=== PATIENT | male | born 1940 | race Caucasian/White ===

== ENCOUNTER 2022-04-19 15:10 | Emergency (ER) | payer MEDICARE, SELFPAY ==
[2022-04-19 15:14] VITALS: BP 112/70; PULSE 85; RESP 16; TEMP 36.5; O2SAT 100
--- NOTE | 2022-04-19 15:47 | ED.SKABFB ---
HPI - Skin/Abscess/Foreign Bdy General Chief complaint: Skin/Abscess/Foreign Body <HANNAH Alicea Last Filed: 04/19/22 19:24> Stated complaint: ITCHING FOR 2 DAYS <HANNAH Alicea Last Filed: 04/19/22 19:24> Time Seen by Provider: 04/19/22 15:25 <HANNAH Alicea Last Filed: 04/19/22 19:24> History of Present Illness HPI narrative: Patient is an 81-year-old male here for evaluation of a pruritic rash over his thorax and bilateral legs. Patient states he was working in the yard 3 days ago prior to symptom onset. States that the lesions are spreading across his thorax, and the itching is keeping him up at night. He has attempted calamine lotion and alcohol swabs without good relief. Denies painful lesions, fevers, chills, involvement of the eyes or mouth. No new medications, soaps or detergents. <HANNAH Alicea Last Filed: 04/19/22 19:24> Related Data Allergies/Adverse reactions: Allergies Allergy/AdvReac Type Severity Reaction Status Date / Time Penicillins Allergy Rash Verified 04/19/22 17:33 povidone-iodine Allergy Rash Verified 04/19/22 17:33 [From Betadine] <HANNAH Alicea Last Filed: 04/19/22 19:24> Review of Systems Review of Systems: Gen: Denies fevers or chills Eyes: Denies eye pain or visual change ENT: Denies congestion Respiratory: Denies shortness of breath or cough CV: Denies chest pain or palpitations GI: Denies abdominal pain nausea, emesis or diarrhea denies burning, urgency, frequency or hematuria Musculoskeletal: Denies back pain or muscle pain Neuro: Denies numbness, tingling, weakness or focal weakness Skin: Reports pruritic rash Except as documented, all other systems reviewed and negative <HANNAH Alicea Last Filed: 04/19/22 19:24> Exam Narrative: APPEARANCE: Well appearing, no pain in distress, well-nourished. Head: Normocephalic and atraumatic. EYES: PERRLA/EOMI, conjunctivae clear NOSE: No nasal drainage EARS: External ear normal in appearance THROAT: Oropharynx is clear. Mucous membranes are moist. NECK: Supple. No adenopathy, no masses. RESPIRATORY: Airway patent, respirations nonlabored. Clear to auscultation bilaterally, no rales, rhonchi, wheezing. CARDIOVASCULAR: Regular rate and rhythm without murmurs, rubs, or gallops. ABDOMINAL: Normoactive bowel sounds. Soft, nontender, nondistended. No rebound tenderness or guarding. MUSCULOSKELETAL: Extremities are warm and well-perfused. Moves all extremities well. No edema. NEURO: Normal speech. No focal neurologic deficits. SKIN: Patient has 15-20 erythematous papules to left lateral thorax, about 10 lesions over right lateral thorax under axilla, 10-15 lesions along waistband and about 4 lesions in between his upper thighs. Nikolsky sign negative. PSYCHIATRIC: Normal affect/mood. <Mary Alice Rutherford PA-C - Last Filed: 04/19/22 19:24> Course PROCESS CHEESE COOKER/PA Physician Supervision I did not see this patient nor was the care plan discussed with me. I was available for evaluation and consultation, I agree with the documentation <Dwaine Main MD - Last Filed: 04/19/22 21:42> Vital Signs Vital signs: Vital Signs Temperature 36.5 C 04/19/22 15:14 Pulse Rate 85 04/19/22 15:14 Respiratory Rate 16 04/19/22 15:14 Blood Pressure 112/70 04/19/22 15:14 Pulse Oximetry 100 04/19/22 15:14 Oxygen Delivery Room Air 04/19/22 15:14 Temperature 36.5 C 04/19/22 15:14 Pulse Rate 85 04/19/22 15:14 Respiratory Rate 16 04/19/22 15:14 Blood Pressure 112/70 04/19/22 15:14 Pulse Oximetry 100 04/19/22 15:14 Oxygen Delivery Room Air 04/19/22 15:14 <Mary Alice Rutherford PA-C - Last Filed: 04/19/22 19:24> Vital Signs Temperature 36.5 C 04/19/22 15:14 Pulse Rate 85 04/19/22 15:14 Respiratory Rate 16 04/19/22 15:14 Blood Pressure 112/70 04/19/22 15:14 Pulse Oximetry 100
[2022-04-19] MEDS: predniSONE 20 MG TABLET PO (17:34)
[2022-04-19] MEDS: FAMOTIDINE 20 MG TABLET PO (17:58)
== END 2022-04-19 18:00 | disposition home or self-care (01) ==
PROVIDERS: Emergency Provider Emergency Medicine
DX: B88.0 Other acariasis (principal)
CPT/HCPCS: 99283; A9270; J7512

== ENCOUNTER 2023-08-03 13:55 | Outpatient (CLI) | payer MEDICARE, SELFPAY ==
[2023-08-03 14:13] LABS: Immature Reticulocyte Fraction 9.5 % (3.0-15.9); Reticulocyte Percent 1.25 % (0.7-4.3); Reticulocytes Absolute 0.05 M/mm3 (0.02-0.1)
[2023-08-03 16:40] LABS: Iron 84 ug/dL (49-181)
[2023-08-03 16:42] LABS: Alanine Aminotransferase 26 U/L (6-50); Alkaline Phosphatase 59 U/L (38-126); Anion Gap 4 mmol/L (8-16); Aspartate Amino Transferase 40 U/L (17-59); Bilirubin,Total 0.9 mg/dL (0.2-1.3); Blood Urea Nitrogen 17 mg/dL (9-20); Calcium 8.7 mg/dL (8.4-10.2); Carbon Dioxide 32 mmol/L (22-30); Chloride 100 mmol/L (98-107); Estimated Glomerular Filt Rate > 60; Glucose 133 mg/dL (65-110); Potassium 4.4 mmol/L (3.4-5.0); Sodium 136 mmol/L (137-145)
[2023-08-03 16:51] LABS: Percent Iron Saturation 30 % (20-50)
[2023-08-03 17:49] LABS: Folic Acid 17.1 ng/mL (2.76->20)
[2023-08-06 09:02] LABS: Methylmalonic Acid 401 nmol/L (87-318)
== END 2023-08-03 13:56 | disposition home or self-care (01) ==
LOC: ANHLAB 13:59
PROVIDERS: Visit Provider Internal Medicine Hematology & Oncology
DX: D64.9 Anemia, unspecified (principal)
CPT/HCPCS: 36415; 80053; 82607; 82728; 82746; 83540; 83550; 83921; 85046

== ENCOUNTER → 2023-08-31 08:52 | Outpatient (CLI) | payer MEDICARE, SELFPAY ==
--- NOTE | ~2023-08-31 | US_ITS ---
Abdominal Sonogram: Real-time sonographic imaging of the abdomen was performed. Clinical History: Secondary thrombocytopenia Findings: The liver appears normal with no evidence of mass lesion or bile duct dilatation. Main por sonal vein demonstrates normal direction of flow. The spleen is normal in size without evidence of foca l lesion. The gallbladder is well distended, and appears normal with no evidence of gallstone or wal l thickening. The common bile duct measures 4 mm. The visualized pancreas, aorta, and IVC are unrema rkable. The right kidney measures 9.5 cm in length and the left kidney measures 10.2 cm. There is n o hydronephrosis or renal calculus. Impression: Unremarkable abdominal ultrasound. Reviewed, dictated and finalized at location . ER TECHNOLOGY TEACHER Impression: Unremarkable abdominal ultrasound.
== END ==
PROVIDERS: PCP Internal Medicine; Visit Provider Internal Medicine Hematology & Oncology
DX: D64.9 Anemia, unspecified (principal); D69.59 Other secondary thrombocytopenia
CPT/HCPCS: 76700

== ENCOUNTER 2023-09-03 11:38 | Outpatient (CLI) | payer MEDICARE, SELFPAY ==
[2023-09-03 12:07] LABS: Hematocrit 36.6 % (42.0-52.0); Hemoglobin 12.1 g/dL (14.0-18.0); Mean Corpuscular HGB Conc 33.1 g/dl (32-36); Mean Corpuscular Hemoglobin 31.4 pg (26-34); Mean Corpuscular Volume 95.1 fl (80-100); Mean Platelet Volume 10.7 fl (7.4-10.4); Platelet Count Result 141 k/mm3 (150-375); Red Blood Count 3.85 M/mm3 (4.6-6.20); Red Cell Distribution Width 13.7 % (11.5-14.5); White Blood Count 7.7 K/mm3 (4.5-10.0)
== END 2023-09-03 11:39 | disposition home or self-care (01) ==
PROVIDERS: PCP Internal Medicine; Visit Provider Internal Medicine Hematology & Oncology
DX: D64.9 Anemia, unspecified (principal)
CPT/HCPCS: 36415; 85027

== ENCOUNTER 2024-06-26 15:48 | Outpatient (CLI) | payer MEDICARE, SELFPAY ==
--- NOTE | ~2024-06-26 | XR_ITS ---
3 VIEWS LUMBAR SPINE Ordering provider: Adan Puckett History: . LOW BACK PAIN . Comparison: None. FINDINGS: VERTEBRAL BODIES:Transitional vertebra is noted. Chronic anterior loss of height is seen in L1. No de finite visible fracture or subluxation. Degenerative changes of the spine. 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 DISK SPACES: Narrowing of all disc spaces. Multilevel facet joint disease. SOFT TISSUES: Atherosclerotic changes of aorta. Fusion of the sacroiliac joints. IMPRESSION: No acute osseous abnormality lumbar spine. Multilevel degenerative disc disease. Possibility of ankylosing spondylitis is not excluded. Reviewed, dictated and finalized at location A.
== END 2024-06-26 15:49 | disposition home or self-care (01) ==
DX: M51.36 Other intervertebral disc degeneration, lumbar region (principal)
CPT/HCPCS: 72100

== ENCOUNTER 2024-09-24 09:11 | Inpatient (IN) | payer MEDICARE, SELFPAY ==
[2024-09-24] VITALS (25 sets, daily range): BP systolic 96–150; BP diastolic 46–101; PULSE 66–83; RESP 13–23; TEMP 36.6–37.9; O2SAT 90–99; BMI 27.7
--- NOTE | ~2024-09-24 | XR_ITS ---
EXAMINATION: XR femur LT min 2V DATE: 09/24/2024 11:33 INDICATION: Left thigh pain. Fall. TECHNIQUE: 2 views of left femur on 4 radiographs were obtained. COMPARISON: None. FINDINGS: There is an intertrochanteric fracture of proximal left femur. The distal fracture fragment demonstrates impaction. There is mild left hip and knee osteoarthritis. There are surgical clips in the soft tissues. IMPRESSION: 1. Intertrochanteric fracture of proximal left femur. 2. Mild polyarticular osteoarthritis. Reviewed, dictated and finalized at location A. ING LOT ATTENDANT
--- NOTE | ~2024-09-24 | XR_ITS ---
EXAMINATION: XR hip LT 2V w AP pelvis DATE: 09/24/2024 11:33 INDICATION: Left hip pain. Fall. TECHNIQUE: An anteroposterior view of the pelvis and 2 views of left hip were obtained. COMPARISON: None. FINDINGS: There is an intertrochanteric fracture of proximal left femur. The distal fracture fragment demonstrates impaction and 25 degrees posterior angulation. There is internal fixation of right femu r. There is mild osteoarthritis of the hips. Lumbar dextrocurvature and severe spondylosis are noted. IMPRESSION: 1. Intertrochanteric fracture of proximal left femur. 2. Mild osteoarthritis of the hips. Reviewed, dictated and finalized at location A. SECRECY ACT OFFICER
--- NOTE | ~2024-09-24 | NM_ITS ---
EXAMINATION: NM kristie stress w perfusion DATE: 09/25/2024 15:06 INDICATION: Preoperative clearance. Coronary artery disease post prior coronary artery bypass graftin g. TECHNIQUE: Rest images were obtained following intravenous administration of 8.9 mCi Tc99m tetrofosmi n (Myoview). The patient was infused intravenously with Lexiscan (Regadenoson). Then, 29.1 mCi Tc99m tetrofosmin (Myoview) was administered intravenously, and stress images were obtained. Data was recon structed into short axis and horizontal and vertical long axis SPECT images. Gated SPECT images were also obtained. COMPARISON: None. FINDINGS: There is a moderate-sized severe fixed perfusion defect on the rest and stress images consi stent with infarct involving the mid and basilar inferior and basilar inferior segments. This also in volves the mid inferolateral segment with air is mild partial reversibility consistent with some supe rimposed ischemia. Additional mild reversible ischemia is seen in the adjacent apical inferior and ap ical lateral segments. There is normal left ventricular chamber size. Portions of the inferior and in ferolateral wall are difficult to visualize however there does appear to be decreased wall motion whi ch contributes to mild to moderate decreased left ventricular ejection fraction which measures 35%. IMPRESSION: 1. 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 2. Mild to moderately decreased left ventricular ejection fraction measuring 35%. Reviewed, dictated and finalized at location A. ULATING DRYING SUPERVISOR IMPRESSION: 1. 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 2. Mild to moderately decreased left ventricular ejection fraction measuring 35 %.
--- NOTE | ~2024-09-24 | XR_ITS ---
EXAMINATION: XR surgery orthopedic DATE: 09/27/2024 14:59 INDICATION: Left femoral intertrochanteric nailing TECHNIQUE: 4 fluoroscopic images of the left hip and proximal femur were obtained during procedure pe rformed by Dr. Regalado. Radiologist was not present for the imaging or procedure. The amount of fluor oscopy time used during this procedure was 0.9 minutes. COMPARISON: 09/24/2024 FINDINGS: Antegrade intramedullary gaston and femoral neck dynamic compression screw and distal interlocking screw fixation of a minimally displaced intratrochanteric fracture of the proximal left femur which remain s in near-anatomic alignment. No new fractures identified. Mild left hip osteoarthritis. Mass or calc ifications and surgical clips along the medial aspect of the proximal left thigh. IMPRESSION: 1. Near-anatomic alignment post internal fixation of an intratrochanteric fracture of the proximal le ft femur. See procedure note for further detail. Reviewed, dictated and finalized at location A. CAL BILLING ASSISTANT IMPRESSION: 1. Near-anatomic alignment post internal fixation of an intratrochanteric fract ure of the proximal left femur. See procedure note for further detail.
--- NOTE | ~2024-09-24 | XR_ITS ---
EXAMINATION: XR chest 1V DATE: 09/24/2024 11:40 INDICATION: Heart disease. Preop. TECHNIQUE: A single frontal view of the chest was obtained. COMPARISON: None. FINDINGS: There is a diffuse interstitial pattern in the lungs, consistent with mild pulmonary edema. No pleural effusion or pneumothorax. Cardiomegaly is noted. Median sternotomy wires and mediastinal surgical clips are seen, likely from prior coronary artery bypass grafting. There is a left chest pac er with leads in right atrium, right ventricle, and coronary sinus. IMPRESSION: 1. Mild pulmonary edema. 2. Cardiomegaly. Reviewed, dictated and finalized at location A. FIC SIGN ERECTION SUPERVISOR
--- NOTE | 2024-09-24 11:00 | ED_ITS ---
HPI - Fall General Chief Complaint: Fall Stated Complaint: fall, LLE pain Time Seen by Provider: 09/24/24 11:00 History of Present Illness HPI Narrative: 84 years old white male lost balance and fell in his closet at home complaining of left hip pain. He denies other injuries. Related Data Home Medications Medication Instructions Recorded Confirmed amiodarone 200 mg tablet 200 mg PO DAILY 09/24/24 09/24/24 aspirin 81 mg PO DAILY 09/24/24 09/24/24 citalopram 20 mg tablet 20 mg PO DAILY 09/24/24 09/24/24 cyanocobalamin (vitamin B-12) 1,000 mg PO DAILY 09/24/24 09/24/24 ferrous sulfate 325 mg (65 mg 325 mg PO DAILY 09/24/24 09/24/24 iron) tablet gabapentin 600 mg tablet 600 mg PO TID 09/24/24 09/24/24 isosorbide mononitrate 60 mg 30 mg PO DAILY 09/24/24 09/24/24 tablet,extended release 24 hr ropinirole 0.5 mg tablet 0.5 mg PO DAILY 09/24/24 09/24/24 ropinirole 0.5 mg tablet 1 mg PO HS 09/24/24 09/24/24 rosuvastatin 40 mg tablet 40 mg PO DAILY 09/24/24 09/24/24 spironolactone 25 mg tablet 25 mg PO DAILY 09/24/24 09/24/24 warfarin 5 mg tablet 5 mg PO DAILY 09/24/24 09/24/24 zolpidem 5 mg tablet 5 mg PO HS PRN Insomnia 09/24/24 09/24/24 Allergies Allergy/AdvReac Type Severity Reaction Status Date / Time Penicillins Allergy Rash Verified 09/24/24 15:18 povidone-iodine Allergy Rash Verified 09/24/24 15:18 [From Betadine] Review of Systems Review of Systems: All systems reviewed & are unremarkable except as noted in HPI and below PMFSH Past Medical History Medical History Atrial fibrillation CHF (congestive heart failure) Coronary artery disease History of adverse reaction to anesthesia secondary to poor cardiac output 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 Myocardial infarction 1989 Surgical History Surgical History History of open reduction and internal fixation (ORIF) procedure right femur secondary to fracture S/P CABG x 7 S/P internal cardiac defibrillator procedure Family History Family History Father FH: heart attack Sibling Heart attack Son Stomach cancer Social History Social History Years smoked: 70 Smoking status: Current every day smoker Tobacco type: cigarettes Alcohol intake: current Drinks per week: 3 Substance use: never Substance use type: does not use Do You Feel Safe in your Home?: Yes Lack of Transportation: No Lack of Food: Never True Current Housing: I Have Housing Concerned About Future Housing: No Difficulty Paying Gas/Electric Bills: No Difficulty Paying for Meds: No Currently Unemployed: No Education: Decline to Answer Difficulty w/ Childcare or Family Care: No Spiritual care concerns: No Exam Narrative: General appearance: Well-developed, well-nourished, in pain Skin: Normal color Head: Normocephalic, nontraumatic Eyes: Clear conjunctiva ENT: Oropharynx normal, ears normal, nose normal Neck: Supple, nontender Chest and respiratory: Airway patent, no respiratory distress, no accessory muscle use Heart: Regular rate/rhythm Abdomen: Soft, nontender, no organomegaly, quiet bowel sounds Vascular: Normal peripheral pulses, normal capillary refill. Musculoskeletal: Severe tenderness lateral side left hip, severe limited range of motion. Neurologic: Alert and oriented ?3, CLIENT SERVICE REPRESENTATIVE is normal as tested, no gross motor deficit Course Consultations Consultation #1: Dr. Sandoval Patient agreed , Dr. Graves is the business information consultant. Date: 09/24/24 Vital Signs Vital signs: Vital Signs Temperature 36.6 C 09/24/24 09:13 Pulse Rate 83 09/24/24 09:13 Respiratory Rate 20 09/24/24 09:13 Blood Pressure 121/71 09/24/24 09:13 Pulse Oximetry 94 09/24/24 09:13 Oxygen Delivery Room Air 09/24/24 09:13 Temperature 37.2 C 09/25/24 21:30 Pulse Rate 75 09/25/24 21:30 Respiratory Rate 20 09/25/24 21:30 Blood Pressure 109/47 L 09/25/24 21:30 Pulse Oximetry 90 09/25/24 21:30 Oxygen Delivery Nasal Cannula 09/25/24 20:00 Oxygen Flow Rate 2 09/25/24 20:00 MDM - Fall MDM Narrative Medical decision making narrative: PATIENT HAD A FALL AT HOME, GROUND LEVEL PRIOR TO ARRIVAL TO THE EMERGENCY ROOM VITAL SIGNS ON ARRIVAL WITHIN NORMAL LIMIT PHYSICAL EXAMINATION SHOWING DIFFUSE TENDERNESS LEFT HIP AREA CONSISTENT WITH POSSIBLE FRACTURE X-RAY OF THE LEFT HIP AND PELVIS SHOWED LEFT HIP FRACTURE, PATIENT AGREED WITH THE ORTHOPEDIC CONSULT, DR. SANDOVAL WHO IS ON-CALL TODAY TO MANAGE HIS SURGERY. ADMIT TO HOSPITALIST, CONSULT DR. SANDOVAL Differential Diagnosis Differential diagnosis: Likely other ( PELVIC FRACTURE, HIP FRACTURE, CONTUSION) Lab Data 09/25/24 06:20 09/25/24 06:20 Labs: Lab Results 09/24/24 09/24/24 Range/Units 11:53 11:54 WBC 10.5 H (4.5-10.0) K/mm3 RBC 4.14 L (4.6-6.20) M/mm3 Hgb 12.6 L (14.0-18.0) g/dL Hct 39.7 L (42.0-52.0) % MCV 95.9 (80-100) fl MCH 30.4 (26-34) pg MCHC 31.7 L (32-36) g/dl RDW 14.7 H (11.5-14.5) % Plt Count 112 L (150-375) k/mm3 MPV 11.8 H (7.4-10.4) fl Immature Gran % (Auto) 0.6 H (0-0.5) % Neut % (Auto) 85.0 H (45.5-73.1) % Lymph % (Auto) 8.0 L (18.3-44.2) % Sequoyah % (Auto) 5.1 (2.6-8.5) % Eos % (Auto) 0.7 (0-4.4) % Baso % (Auto) 0.6 (0.2-1.2) % Lymph # (Auto) 0.84 L (0.9-3.2) K/mm3 Sequoyah # (Auto) 0.5 (0.1-0.6) K/mm3 Eos # (Auto) 0.1 (0-0.3) K/mm3 Baso # (Auto) 0.1 (0.0-0.1) K/mm3 Abs Immat Gran (auto) 0.06 H (0.00-0.031) K/mm3 Absolute Neuts (auto) 8.9 H (1.3-6.7) K/mm3 Absolute Nucleated RBC 0.000 (0.0-0.012) K/mm3 Nucleated RBC % 0.0 (0.0-0.2) % PT 23.3 H (11.1-14.7) Seconds INR 2.0 APTT 32.4 (22.3-36.8) Seconds Sodium 138 (137-145) mmol/L Potassium 4.2 (3.4-5.0) mmol/L Chloride 107 (98-107) mmol/L Carbon Dioxide 28 (22-30) mmol/L Anion Gap 3 L (4-12) mmol/L BUN 15 (9-20) mg/dL Creatinine 0.80 (0.7-1.3) mg/dL Estim Creat Clear Calc 61 ml/min Estimated GFR > 60 (59 - ) Glucose 106 (65-110) mg/dL Calcium 8.6 (8.4-10.2) mg/dL Total Bilirubin 0.6 (0.2-1.3) mg/dL AST 29 (17-59) U/L ALT 24 (6-50) U/L Alkaline Phosphatase 67 (38-126) U/L NT-Pro-B Natriuret Pep 842 H (19.9-100) pg/mL Total Protein 7.0 (6.3-8.2) g/dL Albumin 3.9 (3.5-5.1) g/dL Blood Type O Positive Antibody Screen Negative Imaging Data Radiologist's impression: X-RAY LEFT HIP AND PELVIS SHOWED INTERTROCHANTERIC FRACTURE OF THE PROXIMAL LEFT FEMUR Critical Care Time Critical Care Time Critical Care Time: No Discharge Plan Discharge Clinical Impression: Closed fracture of left hip Patient Disposition: Still a Patient Condition: Stable
[2024-09-24] MEDS: MORPHINE SULFATE (*CRX) 4 MG/ML INJ IV PUSH ×3 (11:03→20:29)
[2024-09-24] MEDS: ONDANSETRON INJ 4 MG/2 ML VIAL IV PUSH ×2 (11:04→12:20)
--- NOTE | 2024-09-24 11:33 | ECG_ITS ---
Test Date: 2024-09-24 11:52:22 Measurements Intervals Effort Rate: 77 P: 137 WI: 157 QRS: 256 QRSD: 180 T: 42 QT: 469 QTc: 534 Interpretive Statements ELECTRONIC ATRIAL PACEMAKER ELECTRONIC VENTRICULAR PACEMAKER ABNORMAL RHYTHM ECG No previous ECG available for comparison Electronically Signed On 09-24-2024 15:04:42 [employer]ITY OFF[employer] by Henry Devries M.D.
[2024-09-24 12:07] LABS: Basophils Absolute Auto 0.1 K/mm3 (0.0-0.1); Basophils Percent Auto 0.6 % (0.2-1.2); Eosinophils Absolute Auto 0.1 K/mm3 (0-0.3); Eosinophils Percent Auto 0.7 % (0-4.4); Hematocrit 39.7 % (42.0-52.0); Hemoglobin 12.6 g/dL (14.0-18.0); Immature Granulocyte Absolute 0.06 K/mm3 (0.00-0.031); Immature Granulocyte Percent A 0.6 % (0-0.5); Lymphocytes Absolute Auto 0.84 K/mm3 (0.9-3.2); Mean Corpuscular HGB Conc 31.7 g/dl (32-36); Mean Corpuscular Hemoglobin 30.4 pg (26-34); Mean Corpuscular Volume 95.9 fl (80-100); Mean Platelet Volume 11.8 fl (7.4-10.4); Monocytes Absolute Auto 0.5 K/mm3 (0.1-0.6); Monocytes Percent Auto 5.1 % (2.6-8.5); Neutrophils Absolute Auto 8.9 K/mm3 (1.3-6.7); Platelet Count Result 112 k/mm3 (150-375); Red Blood Count 4.14 M/mm3 (4.6-6.20); Red Cell Distribution Width 14.7 % (11.5-14.5); White Blood Count 10.5 K/mm3 (4.5-10.0)
[2024-09-24 12:17] LABS: Alanine Aminotransferase 24 U/L (6-50); Albumin Level 3.9 g/dL (3.5-5.1); Alkaline Phosphatase 67 U/L (38-126); Anion Gap 3 mmol/L (4-12); Aspartate Amino Transferase 29 U/L (17-59); Bilirubin,Total 0.6 mg/dL (0.2-1.3); Blood Urea Nitrogen 15 mg/dL (9-20); Calcium 8.6 mg/dL (8.4-10.2); Carbon Dioxide 28 mmol/L (22-30); Chloride 107 mmol/L (98-107); Estimated CRCL calculation 61 ml/min; Estimated Glomerular Filt Rate > 60; Glucose 106 mg/dL (65-110); Potassium 4.2 mmol/L (3.4-5.0); Sodium 138 mmol/L (137-145)
[2024-09-24 12:26] LABS: Prothrombin Time 23.3 Seconds (11.1-14.7)
[2024-09-24 12:27] LABS: Partial Thromboplastin Time 32.4 Seconds (22.3-36.8)
--- NOTE | 2024-09-24 12:29 | PM.IMHP ---
H&P: HPI History of Present Illness Date/Time: 09/24/24 12:29 Chief Complaint: Fall Narrative: 84 y/o M presents here after a ground level fall with PMH of CABGx7 (patient unsure), defibrillator/pacemaker in place (replaced in Jul 2024), cardiac stents, intramural thrombus (20+ years ago), OR, hypotension, and paroxysmal A-Fib on chronic anticoagulation. The patient presents here from home via EMS for further evaluation post-ground level fall. The patient reports he was getting ready for mandaen this morning. He reports he was reaching for the closet door to keep his balance and missed the door causing him to fall onto his left side. Patient hit his left hip and left elbow when he fell. Patient typically ambulates with a walker at baseline, was not utilizing assistive device at the time of fall. Post fall he was reporting left hip pain. He was not ambulatory after the fall. He denies head strike or loss of consciousness. Denies numbness or tingling to his left lower extremity. Patient is on anticoagulation - Coumadin 5 mg and 81 mg ASA daily. Has preexisting sore to his right foot related to poor circulation to his RLE r/t to his heart function. Recent US of his lower extremity showed no abnormalities of the venous or arterial system. Currently follows with Belle PHOENIX at [facility] for his cardiac care. Has previously had issues with anesthesia due to his poor heart function. Initial VS at presentation: 97.9? F, HR 83, RR 20, 121/71, and 94% on RA. ED workup showed: WBC 10.5, hemoglobin 12.6, no significant electrolyte derangements, creatinine 0.8 and GFR >60, INR 2.0. CXR showed mild pulmonary edema cardiomegaly. Hip and pelvic XR/left femur XR showed in intratrochanteric fracture of the proximal left femur and mild osteoarthritis. Review of Systems Review of Systems: All systems reviewed & are unremarkable except as noted in HPI and below [facility] Past Medical History Medical History (Updated 09/24/24 @ 17:38 by Kenyetta Lozada APRN) Atrial fibrillation CHF (congestive heart failure) Coronary artery disease History of adverse reaction to anesthesia secondary to poor cardiac output 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 Myocardial infarction 1989 Surgical History Surgical History (Updated 09/24/24 @ 17:36 by Kenyetta Lozada APRN) History of open reduction and internal fixation (ORIF) procedure right femur secondary to fracture S/P CABG x 7 S/P internal cardiac defibrillator procedure Family History Family History (Updated 09/24/24 @ 15:06 by eJremias Jiménez RN) Father FH: heart attack Sibling Heart attack Son Stomach cancer Social History Social History Years smoked: 70 Smoking status: Current every day smoker Tobacco type: cigarettes Alcohol intake: current Drinks per week: 3 Substance use: never Substance use type: does not use Do You Feel Safe in your Home?: Yes Lack of Transportation: No Lack of Food: Never True Current Housing: I Have Housing Concerned About Future Housing: No Difficulty Paying Gas/Electric Bills: No Difficulty Paying for Meds: No Currently Unemployed: No Education: Decline to Answer Difficulty w/ Childcare or Family Care: No Spiritual care concerns: No Meds Home Medications and Allergies Home Medications Medication Instructions Recorded Confirmed Type loratadine 10 mg tablet (Allergy 10 mg PO DAILY PRN itching #10 tabs 04/19/22 09/24/24 Rx Relief (loratadine)) amiodarone 200 mg tablet 200 mg PO DAILY 09/24/24 09/24/24 History aspirin 81 mg PO DAILY 09/24/24 09/24/24 History citalopram 20 mg tablet 20 mg PO DAILY 09/24/24 09/24/24 History cyanocobalamin (vitamin B-12) 1,000 mg PO DAILY 09/24/24 09/24/24 History ferrous sulfate 325 mg (65 mg 325 mg PO DAILY 09/24/24 09/24/24 History iron) tablet gabapentin 600 mg tablet 600 mg PO TID 09/24/24 09/24/24 History isosorbide mononitrate 60 mg 30 mg PO DAILY 09/24/24 09/24/24 History tablet,extended release 24 hr ropinirole 0.5 mg tablet 0.5 mg PO DAILY 09/24/24 09/24/24 History ropinirole 0.5 mg tablet 1 mg PO HS 09/24/24 09/24/24 History rosuvastatin 40 mg tablet 40 mg PO DAILY 09/24/24 09/24/24 History spironolactone 25 mg tablet 25 mg PO DAILY 09/24/24 09/24/24 History warfarin 5 mg tablet 5 mg PO DAILY 09/24/24 09/24/24 History zolpidem 5 mg tablet 5 mg PO HS PRN Insomnia 09/24/24 09/24/24 History Allergies Allergy/AdvReac Type Severity Reaction Status Date / Time Penicillins Allergy Rash Verified 09/24/24 15:18 povidone-iodine Allergy Rash Verified 09/24/24 15:18 [From Betadine] Vital Signs Vital Signs - 24 hr 09/24/24 09:13 09/24/24 11:09 09/24/24 11:24 Temperature 97.9 F Pulse Rate 83 76 66 Respiratory Rate 20 17 18 Blood Pressure 121/71 113/70 98/79 L Pulse Oximetry 94 98 99 Oxygen Delivery Room Air Exam Const: General: no acute distress and uncomfortable Other: , elderly, nontoxic appearance. Very uncomfortable and restless. HENMT: Face/Nose/Sinus: Normal nares present Mouth: Yes moist mucous membranes Eyes: General: appearance normal, both eyes and all related structures Sclera: sclerae normal Pupils: Equal, round and reactive pupils present EOM: EOMs intact bilaterally Resp: Effort & Inspection: normal respiratory effort Auscultation: clear to auscultation bilaterally Cardio: Rate: regular rate Rhythm: regular rhythm Other: S1-S2 present without murmur, rub, ectopy GI: Other: Abdomen soft, nondistended, nontender. Normoactive bowel sounds in all quadrants. Skin: General skin exam: normal color and no rashes or lesions noted Wounds: wounds noted Other: small 1 cm circular wound overlaying medial malleolus without drainage or erythema. Skin thickened/hardened without tenderness. Cecilio wrap and dressing CDI. Neuro: Speech: normal speech Sensory Exam: normal sensation Other: A&O x4. Reduced strength in the left lower extremity secondary to pain. Extrem: Other: Tenderness over left hip. No palpable DP pulse in left leg, pulse dopperlable. Psych: Mental Status: mental status grossly normal Affect: normal affect Other: Good insight and judgment, pleasant H&P: Results Labs Labs: Short CBC 09/24/24 Range/Units 11:54 WBC 10.5 H (4.5-10.0) K/mm3 Hgb 12.6 L (14.0-18.0) g/dL Hct 39.7 L (42.0-52.0) % Plt Count 112 L (150-375) k/mm3 BMP 09/24/24 11:54 Sodium 138 Potassium 4.2 Chloride 107 Carbon Dioxide 28 BUN 15 Creatinine 0.80 Glucose 106 Calcium 8.6 Liver Function 09/24/24 Range/Units 11:54 Total Bilirubin 0.6 (0.2-1.3) mg/dL AST 29 (17-59) U/L ALT 24 (6-50) U/L Alkaline Phosphatase 67 (38-126) U/L Albumin 3.9 (3.5-5.1) g/dL Assessment and Plan Assessment and plan (1) Intertrochanteric fracture of left femur: Qualifiers: Encounter type: initial encounter Fracture alignment: nondisplaced Fracture type: closed Qualified Code(s): S72.145A - Nondisplaced intertrochanteric fracture of left femur, initial encounter for closed fracture Code(s): S72.142A - Displaced intertrochanteric fracture of left femur, initial encounter for closed fracture Status: Acute Assessment and Plan: - CXR: 1. Mild pulmonary edema. 2. Cardiomegaly. - XR femur, L: 1. Intertrochanteric fracture of proximal left femur. 2. Mild polyarticular osteoarthritis. - hip/pelvis XR: 1. Intertrochanteric fracture of proximal left femur. 2. Mild osteoarthritis of the hips. - orthopedics consulted, Valorie PHOENIX. awaiting formal recs - preop workup including basic labs, coags, EKG, UA, CXR, BNP, and type and screen - cardiology consulted for cardiac clearance - analgesics p.r.n. - on Warfarin and ASA, medications held. INR 2.0, trend. After extensive conversation and shared decision-making with the patient, the patient's , and the patient's son, they have elected to stay at [facility] for surgical management of the patient's intratrochanteric fracture of the left femur. They are requesting either the pickling drum operator or anesthesiologist touch base with the patient's pickling drum operator at [facility] (Belle PHOENIX) prior to surgery given his extensive risk and cardiac hx. This has been relayed to the home sales service professional pickling drum operator. Also discussed case with home sales service professional anesthesiologists, recommended hospitalist or pickling drum operator speak with patient's pickling drum operator. Requesting any procedures done at [facility] or [facility] be relayed to help guide their care. Request for records to be obtained from [facility] and from [facility] where he has previously received cardiac care has been placed. The patient is aware of the significant risk to him with proceeding with surgery as well as the benefits. Patient is also aware of risks and benefits of nonsurgical management. Despite known risk, he would like to proceed with surgical management. (2) Ankle wound: Qualifiers: Encounter type: sequela Laterality: left Qualified Code(s): S91.002S - Unspecified open wound, left ankle, sequela Code(s): S91.009A - Unspecified open wound, unspecified ankle, initial encounter Status: Chronic Assessment and Plan: - small superficial wound to medial malleolus of left ankle, no active signs of infection - wound secondary to poor cardiac output, recent ultrasound of arterial and venous systems showed no abnormalities - wound RN consulted (3) CHF (congestive heart failure): Qualifiers: Heart failure type: unspecified Heart failure chronicity: chronic Qualified Code(s): I50.9 - Heart failure, unspecified Code(s): I50.9 - Heart failure, unspecified Status: Chronic Assessment and Plan: - BNP 842 - none on file, believes last outpatient echo was 1 year ago. update. - currently on: Spironolactone 25 mg daily - monitor I&Os and daily weights - trend renal function Plan Diet: Heart healthy, NPO at midnight GI Prophylaxis: not currently indicated DVT Prophylaxis: SCDs, warfarin and ASA held. Lines: peripheral Code Status: full code Quality VTE Prophylaxis VTE prophylaxis: mechanical ordered If No VTE Prophylaxis Answer both mechanical and pharmacologic: Reason no pharmacologic proph: medical contraindication (Plan for surgical management) Hospitalist MIPS Advance Care Plan I have confirmed that the patient's Advanced Care Plan is present, code status is documented, or surrogate decision maker is listed in patient medical record.: Yes Medication Reconciliation I have utilized all available resources to obtain, update and review the patients current medications (includes all prescriptions, OTC, herbals, cannabis, and nutritional supplements).: Yes
[2024-09-24] MEDS: HYDROmorphone HCL INJ (*CRX) 1 MG/ML SYR 0.5 MG IV PUSH ×2 (14:18→18:31)
[2024-09-24 14:50] LABS: NT Pro B Type Natriuretic Pept 842 pg/mL (19.9-100)
--- NOTE | 2024-09-24 15:00 | ADMGEN ---
This patient, Doc Zhou, was admitted to 3 Med Surg Room 324-01. Patient/family oriented to hospital policies and general routines including ID bracelet, bed and alarms, visiting hours, pain management, procedures, bathroom and other care routines, personal items, smoking policy, room service/diet, and visiting hours. Information on how to activate the Rapid Response Team has been discussed. Patient/Family are encouraged to report perceived risks to care and to ask questions if they do not understand what they are told or what they should do.
[2024-09-24] MEDS: oxyCODONE HCL (*CRX) 2.5 MG TAB IR PO (16:27)
[2024-09-24] MEDS: GABAPENTIN 300 MG CAPSULE 600 MG PO (16:28)
[2024-09-24 20:16] LABS: Add Urine Microscopic? YES; Appearance Urine Cloudy (Clear); Bacteria Urine None Seen /hpf; Bilirubin Urine Negative (Negative); Blood Urine 2+ (Negative); Color Urine Dark Yellow (Yellow); Glucose Urine UA Negative (Negative); Ketones Urine Negative (Negative); Leukocyte Esterase Ur Negative LEU/UL (Negative); Mucus Urine Present /lpf; Need Manual Microscopic Reviewed; Nitrate Urine Negative (Negative); Protein Urine 1+ mg/dL (Negative); Specific Grav Ur 1.025 (1.001-1.035); Squamous Epithelial Cell Urine None Seen /hpf (Few); WBC Urine 0-5 /hpf (0-3)
[2024-09-24] MEDS: rOPINIRole HCL 1 MG TABLET PO (20:29)
--- NOTE | 2024-09-25 | EST_ITS ---
Patient Info Name: Doc Zhou Age: 84 years : 1940 Gender: Male Ht: 70 in Wt: 192 lbs BSA: 2.09 m2 HR: 76 bpm BP: 117 / 53 mmHg Exam Date: 09/25/2024 2:02 PM Exam Location: Echo Lab Patient Status: Inpatient Admit Date: 09/24/2024 Staff Ordering Physician: Jay Shannon MD Attending Provider: Surya Rico MD Exercise Technologist: Lowell Ramsay CONCRETE ENGINEERING TECHNICIAN Nurse: Hanh Pederson APN Exam Type: CA stress kristie w NM Study Info A regadenoson stress test was performed. Summary 1. No abnormal ST-T wave changes with lexiscan. Protocol: Lexiscan Stress ECG Details Stage: REST Duration (min): 1 min : 28 sec HR (bpm): 75 SBP (mmHg): 117 DBP (mmHg): 53 Stage: REST Duration (min): 8 min : 53 sec HR (bpm): 75 SBP (mmHg): 117 DBP (mmHg): 53 Stage: STAGE 1 Duration (min): 0 min : 59 sec HR (bpm): 75 SBP (mmHg): 105 DBP (mmHg): 49 Stage: RECOVERY Duration (min): 1 min : 0 sec HR (bpm): 77 SBP (mmHg): 105 DBP (mmHg): 49 Stage: RECOVERY Duration (min): 2 min : 0 sec HR (bpm): 76 SBP (mmHg): 105 DBP (mmHg): 49 Stage: RECOVERY Duration (min): 3 min : 0 sec HR (bpm): 77 SBP (mmHg): 96 DBP (mmHg): 46 Stage: RECOVERY Duration (min): 4 min : 0 sec HR (bpm): 75 SBP (mmHg): 96 DBP (mmHg): 46 Stage: RECOVERY Duration (min): 5 min : 0 sec HR (bpm): 75 SBP (mmHg): 93 DBP (mmHg): 53 Stage: RECOVERY Duration (min): 6 min : 0 sec HR (bpm): 75 SBP (mmHg): 93 DBP (mmHg): 53 Stage: RECOVERY Duration (min): 7 min : 0 sec HR (bpm): 77 SBP (mmHg): 91 DBP (mmHg): 50 Stage: RECOVERY Duration (min): 8 min : 0 sec HR (bpm): 80 SBP (mmHg): 91 DBP (mmHg): 50 Stage: RECOVERY Duration (min): 9 min : 0 sec HR (bpm): 81 SBP (mmHg): 90 DBP (mmHg): 46 Stage: RECOVERY Duration (min): 10 min : 0 sec HR (bpm): 81 SBP (mmHg): 90 DBP (mmHg): 46 Stage: RECOVERY Duration (min): 10 min : 48 sec HR (bpm): 80 SBP (mmHg): 91 DBP (mmHg): 51 Rest HR: 75 bpm Peak HR: 88 bpm Rest Sys BP: 117 mmHg Peak Sys BP: 105 mmHg Max Pred HR: 135 bpm % Max Pred HR: 65 % Target HR: 115 bpm Max RPP: 9,240 bpm*mmHg Total Time: 1 min : 0 sec Rest Gonzalez BP: 53 mmHg Peak Gonzalez BP: 49 mmHg Total Dose: 0.4 mg Resting ECG Ventricularly paced rhythm. Stress ECG Vpaced rhythm. Arrhythmias Occasional PVCs. Report Signatures
--- NOTE | 2024-09-25 | ECHO_ITS ---
Patient Info Name: Doc Zhou Age: 84 years : 1940 Gender: Male Ht: 70 in Wt: 195 lbs BSA: 2.11 m2 HR: 74 bpm BP: 104 / 58 mmHg Technical Quality: Poor Exam Date: 09/25/2024 10:01 AM Exam Location: Echo Lab Patient Status: Inpatient Admit Date: 09/24/2024 Staff Ordering Physician: Kenyetta Lozada APRN Receiving Weigher: Earnest Rodriguez RDCS Attending Provider: Surya Rico MD Referring Physician: Nevilel COSTELLO; Exam Type: CA echo dop color flow w con Study Info Indications - PRE-OP WORK UP/ HX OF VERY POOR CARDIAC OUTPUT Complete two-dimensional, color flow and Doppler transthoracic echocardiogram is performed with contrast to opacify the left ventricle and to improve the deliniation of the left ventricle endocardial borders. Contrast/Agitated Saline Contrast/Ag. Saline: Definity Amount: 2.00 ml Existing IV Access: Yes Reason for Poor Study: poor echocardiographic windows Summary 1. The left ventricle is mildly dilated with severely reduced systolic function. There is moderate eccentric left ventricular hypertrophy. The left ventricular ejection fraction is visually estimated to be 25-30%. The inferior and inferolateral morales are akinetic. 2. The right ventricle is not well visualized. There is mildly reduced systolic function by tissue Doppler. 3. Dilated inferior vena cava with >50% collapse upon inspiration consistent with significantly elevated right atrial pressure, 15 mmHg. Left Ventricle The left ventricle is mildly dilated with severely reduced systolic function. There is moderate eccentric left ventricular hypertrophy. The left ventricular ejection fraction is visually estimated to be 25-30%. The inferior and inferolateral morales are akinetic. Right Ventricle The right ventricle is not well visualized. There is mildly reduced systolic function by tissue Doppler. Left Atria The left atrium is mildly enlarged. Right Atria The right atrium is dilated. Atrial Septum The atrial septum visually appears intact. Aortic Valve The aortic valve is not well visualized. The gradients across the valve does not suggest stenosis. There is no aortic regurgitation. Pulmonic Valve The pulmonic valve is not well visualized. There is no color Doppler evidence of pulmonic valve regurgitation. Mitral Valve The mitral valve is normal. There is trace mitral regurgitation. Tricuspid Valve The tricuspid valve is grossly normal. There is trace tricuspid regurgitation. Pericardium/Pleural Pericardium is normal in appearance with no evidence for significant pericardial effusion. Inferior Vena Cava Dilated inferior vena cava with >50% collapse upon inspiration consistent with significantly elevated right atrial pressure, 15 mmHg. Aorta The aortic root at the level of the sinus of Valsalva measures 3.5 cm in diameter. Left Ventricular Outflow Tract Name Value Normal LVOT 2D LVOT Diameter 2.11 cm LVOT Doppler LVOT Peak Gradient 4 mmHg LVOT Mean Gradient 2 mmHg LVOT VTI 20.66 cm LVOT VTI/AV VTI Ratio 0.51 LVOT Stroke Volume 72.31 ml LVOT CO 5.39 l/min LVOT CI 2.56 L/min/m2 Pulmonic Valve Name Value Normal RVOT Doppler RVOT Peak Gradient 1 mmHg PV Doppler PV Peak Gradient 2 mmHg Mitral Valve Name Value Normal MV Doppler MV Decel Glascock 559.52 cm/s2 MV PHT 0 s MV Area (PHT) 5.05 cm2 4.00-5.00 MV Diastolic Function MV E Peak Velocity 83.98 cm/s MV A Peak Velocity 93.92 cm/s MV E/A 0.89 MV Decel Time 0 s MV Annular TDI MV E/e' (Septal) 10.38 <=8.00 MV E/e' (Lateral) 9.12 <=8.00 MV E/e' (Average) 9.75 Tricuspid Valve Name Value Normal TV Regurgitation Doppler TR Peak Velocity 279.11 cm/s TR Peak Gradient 31 mmHg Estimated PAP/RSVP RA Pressure 15 mmHg <=5 PA Systolic Pressure 46 mmHg <36 RV Systolic Pressure 46 mmHg <36 Aorta Name Value Normal Ascending Aorta Ao Root Diameter (MM) 4.43 cm Ao Root Diam Index (MM) 2.10 cm/m2 Aortic Valve Name Value Normal AV Doppler AV Peak Velocity 177.67 cm/s AV Peak Gradient 8 mmHg AV Mean Gradient 5 mmHg AV VTI 40.65 cm AV Area (Cont Eq VTI) 1.78 cm2 >=3.00 AV Area (Cont Eq Osorio) 2.52 cm2 AV Regurgitation 2D LVOT Area 3.50 cm2 Ventricles Name Value Normal LV Dimensions 2D/MM IVS Diastolic Thickness (2D) 1.03 cm 0.60-1.00 LVID Diastole (2D) 4.97 cm 4.20-5.80 LVIW Diastolic Thickness (2D) 1.63 cm 0.60-1.00 LVID Systole (2D) 4.22 cm 2.50-4.00 LVOT Diameter 2.11 cm LV Mass (2D Cubed) 268.43 g 88.00-224.00 LV Mass Index (2D Cubed) 0.01 g/cm2 0.00-0.01 Relative Wall Thickness (2D) 0.66 LV Fractional Shortening/Ejection Fraction 2D/MM LV Fractional Shortening (2D) 15 % 25-43 LV EF (2D Teicholz) 32 % 52-72 LV Diastolic Volume (4C MOD) 143.53 ml LV EF (4C MOD) 31 % LV Diastolic Volume (2C MOD) 91.36 ml LV EF (2C MOD) 44 % LV Diastolic Volume (BP MOD) 123.01 ml 62.00-150.00 LV Diastolic Volume Index (BP MOD) 0.06 l/m2 0.03-0.07 LV Systolic Volume (BP MOD) 76.03 ml 21.00-61.00 LV Systolic Volume Index (BP MOD) 0.04 l/m2 0.01-0.03 LV EF (BP MOD) 38 % 52-72 LV Diastolic Length (4C) 8.49 cm LV Systolic Length (4C) 7.82 cm LV Stroke Volume (4C MOD) 44.09 ml Atria Name Value Normal LA Dimensions LA Dimension (MM) 4.86 cm 3.00-4.10 LA Volume (4C A-L) 81.05 ml LA Volume (BP A-L) 83.18 ml RA Dimensions RA Area (4C) 25.43 cm2 <=18.00 Report Signatures
[2024-09-25] MEDS: SODIUM CHLORIDE 0.9% IV 1,000 ML 10 ML IV CONT (00:23)
[2024-09-25 06:00] VITALS: BP 104/58; PULSE 74; RESP 20; TEMP 37.2; O2SAT 94
[2024-09-25 06:28] LABS: Basophils Absolute Auto 0.1 K/mm3 (0.0-0.1); Basophils Percent Auto 0.6 % (0.2-1.2); Eosinophils Absolute Auto 0.1 K/mm3 (0-0.3); Eosinophils Percent Auto 0.7 % (0-4.4); Hematocrit 36.8 % (42.0-52.0); Hemoglobin 11.3 g/dL (14.0-18.0); Immature Granulocyte Absolute 0.05 K/mm3 (0.00-0.031); Immature Granulocyte Percent A 0.5 % (0-0.5); Lymphocytes Percent Auto 9.1 % (18.3-44.2); Mean Corpuscular HGB Conc 30.7 g/dl (32-36); Mean Corpuscular Hemoglobin 30.6 pg (26-34); Mean Corpuscular Volume 99.7 fl (80-100); Mean Platelet Volume 11.6 fl (7.4-10.4); Monocytes Absolute Auto 0.7 K/mm3 (0.1-0.6); Monocytes Percent Auto 7.2 % (2.6-8.5); Neutrophils Absolute Auto 8.1 K/mm3 (1.3-6.7); Neutrophils Percent Auto 81.9 % (45.5-73.1); Platelet Count Result 85 k/mm3 (150-375); Red Blood Count 3.69 M/mm3 (4.6-6.20); Red Cell Distribution Width 14.8 % (11.5-14.5); White Blood Count 9.9 K/mm3 (4.5-10.0)
[2024-09-25 06:41] LABS: Alanine Aminotransferase 22 U/L (6-50); Albumin Level 3.6 g/dL (3.5-5.1); Alkaline Phosphatase 54 U/L (38-126); Anion Gap 3 mmol/L (4-12); Aspartate Amino Transferase 35 U/L (17-59); Bilirubin,Total 0.9 mg/dL (0.2-1.3); Blood Urea Nitrogen 23 mg/dL (9-20); Calcium 8.3 mg/dL (8.4-10.2); Carbon Dioxide 26 mmol/L (22-30); Chloride 106 mmol/L (98-107); Estimated CRCL calculation 54 ml/min; Estimated Glomerular Filt Rate > 60; Glucose 111 mg/dL (65-110); Potassium 4.3 mmol/L (3.4-5.0); Sodium 135 mmol/L (137-145)
[2024-09-25 06:45] LABS: INR 2.1; Prothrombin Time 24.1 Seconds (11.1-14.7)
[2024-09-25 06:46] LABS: Partial Thromboplastin Time 42.2 Seconds (22.3-36.8)
--- NOTE | 2024-09-25 07:33 | PM.CNOR ---
Assessment and Plan Assessment and plan (1) Intertrochanteric fracture of left femur: Qualifiers: Encounter type: initial encounter Fracture type: closed Fracture alignment: nondisplaced Qualified Code(s): S72.145A - Nondisplaced intertrochanteric fracture of left femur, initial encounter for closed fracture Code(s): S72.142A - Displaced intertrochanteric fracture of left femur, initial encounter for closed fracture Status: Acute Assessment and Plan: New patient evaluation for chief complaint Left hip fracture after fall. History, physical exam and radiographs reviewed with the patient. Discussed the condition, nature, etiology and course of natural history with the patient. Treatment options including surgical and nonoperative treatment were reviewed. Risks and benefits of each as well as alternatives reviewed. The patient's questions were answered. Conservative treatment ice, Pain control, mechanical DVT prophylaxis. patient with history of previous right hip fracture treated with internal fixation several years ago. Discussed surgical procedure when medically stable. (2) CHF (congestive heart failure): Qualifiers: Heart failure type: unspecified Heart failure chronicity: chronic Qualified Code(s): I50.9 - Heart failure, unspecified Code(s): I50.9 - Heart failure, unspecified Status: Chronic Assessment and Plan: On anticoagulation for AFib and heart problems. Await cardiac clearance. Plan Discussed nonoperative and operative treatment options with the patient. Risks and benefits of each as well as alternatives were reviewed. All of the patient's questions were answered. The risks of surgery reviewed including but not limited to: Neurovascular damage, wound complication, infection, blood clot, pulmonary embolus, stroke, myocardial infarction, and anesthetic risks up to and including . Continued pain and possible dysfunction were explained. Specific risks of the procedure including later recurrence of deformity. No guarantees were offered. If hardware used, discussed risk of failure/ breakage and possible need for removal. If complications occur, the patient understands the need for further treatment, possible further surgery. Patient verbalizes understanding and wishes to proceed. PLAN: Open reduction internal fixation left hip fracture with intramedullary hip screw. Plan to proceed when medically stable, Anticoagulation reversed. History of Present Illness HPI Consult date: 09/25/24 Requesting physician: Norman Jacobsen MD Chief complaint: Left Hip Fracture Narrative: 84-year-old with history heart disease coronary artery disease was at home and fell onto left side. Found to have left hip fracture. Admitted same. Complains of left hip pain. Denies loss consciousness. Review of Systems Constitutional: Constitutional: Denies fever(s) Eyes: Eyes: Denies blurry vision ENT: Reports Normal hearing present Cardiovascular: Cardiovascular: Denies chest pain and Denies dyspnea Respiratory: Respiratory: Denies dyspnea and Denies wheezing Gastrointestinal: Gastrointestinal: Denies abdominal pain Genitourinary: Genitourinary: Denies urinary urgency Musculoskeletal: Musculoskeletal: Reports as per HPI and Denies numbness Integumentary/Breasts: Skin/Breast: Denies changing lesions and Denies sores Neurologic: Reports Normal hearing present, Denies behavioral changes, Denies confusion, Denies numbness and Denies convulsions Psychiatric: Psychiatric: Denies behavioral changes, Denies confusion and Denies hallucinations Endocrine: Endocrine: Denies heat intolerance Hematologic/Lymphatic: Hematologic/Lymphatic: Denies easy bleeding Allergic/Immunologic: Allergic/Immunologic: Denies wheezing PMFSH Past Medical History Medical History Atrial fibrillation CHF (congestive heart failure) Coronary artery disease History of adverse reaction to anesthesia secondary to poor cardiac output 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 Myocardial infarction 1989 Surgical History Surgical History History of open reduction and internal fixation (ORIF) procedure right femur secondary to fracture S/P CABG x 7 S/P internal cardiac defibrillator procedure Family History Family History Father FH: heart attack Sibling Heart attack Son Stomach cancer Social History Social History Years smoked: 70 Smoking status: Current every day smoker Tobacco type: cigarettes Alcohol intake: current Drinks per week: 3 Substance use: never Substance use type: does not use Do You Feel Safe in your Home?: Yes Lack of Transportation: No Lack of Food: Never True Current Housing: I Have Housing Concerned About Future Housing: No Difficulty Paying Gas/Electric Bills: No Difficulty Paying for Meds: No Currently Unemployed: No Education: Decline to Answer Difficulty w/ Childcare or Family Care: No Spiritual care concerns: No Meds Home Medications and Allergies Home Medications Medication Instructions Recorded Confirmed Type loratadine 10 mg tablet (Allergy 10 mg PO DAILY PRN itching #10 tabs 04/19/22 09/24/24 Rx Relief (loratadine)) amiodarone 200 mg tablet 200 mg PO DAILY 09/24/24 09/24/24 History aspirin 81 mg PO DAILY 09/24/24 09/24/24 History citalopram 20 mg tablet 20 mg PO DAILY 09/24/24 09/24/24 History cyanocobalamin (vitamin B-12) 1,000 mg PO DAILY 09/24/24 09/24/24 History ferrous sulfate 325 mg (65 mg 325 mg PO DAILY 09/24/24 09/24/24 History iron) tablet gabapentin 600 mg tablet 600 mg PO TID 09/24/24 09/24/24 History isosorbide mononitrate 60 mg 30 mg PO DAILY 09/24/24 09/24/24 History tablet,extended release 24 hr ropinirole 0.5 mg tablet 0.5 mg PO DAILY 09/24/24 09/24/24 History ropinirole 0.5 mg tablet 1 mg PO HS 09/24/24 09/24/24 History rosuvastatin 40 mg tablet 40 mg PO DAILY 09/24/24 09/24/24 History spironolactone 25 mg tablet 25 mg PO DAILY 09/24/24 09/24/24 History warfarin 5 mg tablet 5 mg PO DAILY 09/24/24 09/24/24 History zolpidem 5 mg tablet 5 mg PO HS PRN Insomnia 09/24/24 09/24/24 History Allergies Allergy/AdvReac Type Severity Reaction Status Date / Time Penicillins Allergy Rash Verified 09/24/24 15:18 povidone-iodine Allergy Rash Verified 09/24/24 15:18 [From Betadine] Vital Signs Vital Signs - 24 hr 09/24/24 09:13 09/24/24 11:09 09/24/24 11:24 Temperature 97.9 F Pulse Rate 83 76 66 Respiratory Rate 20 17 18 Blood Pressure 121/71 113/70 98/79 L Pulse Oximetry 94 98 99 Oxygen Delivery Room Air Oxygen Flow Rate 09/24/24 09:21 09/24/24 09:33 09/24/24 10:34 Temperature Pulse Rate 79 75 76 Respiratory Rate 19 23 H 19 Blood Pressure Pulse Oximetry 96 92 92 Oxygen Delivery Oxygen Flow Rate 09/24/24 10:45 09/24/24 11:00 09/24/24 11:05 Temperature Pulse Rate 78 77 76 Respiratory Rate 23 H 14 18 Blood Pressure 113/70 Pulse Oximetry 93 93 Oxygen Delivery Oxygen Flow Rate 09/24/24 11:31 09/24/24 11:36 09/24/24 11:45 Temperature Pulse Rate 79 76 77 Respiratory Rate 18 15 16 Blood Pressure 150/101 H Pulse Oximetry 93 92 90 Oxygen Delivery Oxygen Flow Rate 09/24/24 11:46 09/24/24 12:00 09/24/24 12:01 Temperature Pulse Rate 75 77 77 Respiratory Rate 18 20 19 Blood Pressure 108/61 120/65 Pulse Oximetry 90 94 95 Oxygen Delivery Oxygen Flow Rate 09/24/24 12:15 09/24/24 12:16 09/24/24 12:19 Temperature Pulse Rate 77 77 77 Respiratory Rate 16 15 13 Blood Pressure 96/58 L 112/61 Pulse Oximetry 98 Oxygen Delivery Oxygen Flow Rate 09/24/24 12:30 09/24/24 12:31 09/24/24 12:45 Temperature Pulse Rate 76 77 75 Respiratory Rate 18 17 20 Blood Pressure 109/59 L Pulse Oximetry 95 94 95 Oxygen Delivery Oxygen Flow Rate 09/24/24 12:47 09/24/24 15:38 09/24/24 22:00 Temperature 97.9 F 100.3 F H Pulse Rate 75 75 76 Respiratory Rate 23 H 16 18 Blood Pressure 127/65 120/59 L 103/46 L Pulse Oximetry 95 96 90 Oxygen Delivery Oxygen Flow Rate 09/24/24 20:00 09/25/24 06:00 Temperature 98.9 F Pulse Rate 74 Respiratory Rate 20 Blood Pressure 104/58 L Pulse Oximetry 90 94 Oxygen Delivery Nasal Cannula Oxygen Flow Rate 2 Exam Const: General: No confusion Orientation/consciousness: No confusion HENMT: Head: normal to inspection, normocephalic and atraumatic Eyes: Conjunctivae: conjunctivae normal Sclera: sclerae normal Neck: Neck: supple and nontender Chest: Chest palpation & inspection: normal inspection of the chest Resp: Effort & Inspection: normal respiratory effort and no audible wheezes Cardio: Rate: regular rate Rhythm: regular rhythm : General: Yes deferred Skin: General skin exam: no rashes or lesions noted Neuro: General: No confusion Extrem: General: capillary refill normal Right upper extremity: normal to inspection Left upper extremity: normal to inspection Right lower extremity: normal to inspection, hip/thigh Details: normal to inspection and normal ROM; no tenderness and no swelling, knee Details: no tenderness and no swelling, ankle Details: normal ROM (Able to flex and extend the ankle) and foot Details: vascular exam Details: dorsalis pedis pulse present and normal capillary refill, tendon exam (Moves all toes) and motor-sensory exam Details: light-touch normal Location: in all toes Left lower extremity: hip/thigh Details: tenderness Location: of the hip Location: laterally and anteriorly, swelling Location: of the hip and abnormal ROM Details: pain with passive ROM (Full motion deferred secondary to fracture) Details: with flexion, with internal rotation and with external rotation, ankle (no calf tenderness) Details: normal ROM (Able to flex/ extend ankle) and foot Details: toes with normal ROM (Moves all toes), vascular exam Details: dorsalis pedis pulse present and normal capillary refill and motor-sensory exam light-touch normal in all toes; no tenderness Psych: Affect: normal affect Results Labs 09/25/24 06:20 09/25/24 06:20 Labs: Abnormal lab results 09/24/24 09/24/24 09/24/24 Range/Units 11:53 11:54 19:51 WBC 10.5 H (4.5-10.0) K/mm3 RBC 4.14 L (4.6-6.20) M/mm3 Hgb 12.6 L (14.0-18.0) g/dL Hct 39.7 L (42.0-52.0) % MCHC 31.7 L (32-36) g/dl RDW 14.7 H (11.5-14.5) % Plt Count 112 L (150-375) k/mm3 MPV 11.8 H (7.4-10.4) fl Immature Gran % (Auto) 0.6 H (0-0.5) % Neut % (Auto) 85.0 H (45.5-73.1) % Lymph % (Auto) 8.0 L (18.3-44.2) % Lymph # (Auto) 0.84 L (0.9-3.2) K/mm3 [place] # (Auto) (0.1-0.6) K/mm3 Abs Immat Gran (auto) 0.06 H (0.00-0.031) K/mm3 Absolute Neuts (auto) 8.9 H (1.3-6.7) K/mm3 PT 23.3 H (11.1-14.7) Seconds APTT (22.3-36.8) Seconds Sodium (137-145) mmol/L Anion Gap 3 L (4-12) mmol/L BUN (9-20) mg/dL Glucose (65-110) mg/dL Calcium (8.4-10.2) mg/dL NT-Pro-B Natriuret Pep 842 H (19.9-100) pg/mL Total Protein (6.3-8.2) g/dL Urine Appearance Cloudy H (Clear) Urine Protein 1+ H (Negative) mg/dL Ur Blood (Man) 2+ H (Negative) Urine RBC 11-20 H (0-2) /hpf 09/25/24 Range/Units 06:20 WBC (4.5-10.0) K/mm3 RBC 3.69 L (4.6-6.20) M/mm3 Hgb 11.3 L (14.0-18.0) g/dL Hct 36.8 L (42.0-52.0) % MCHC 30.7 L (32-36) g/dl RDW 14.8 H (11.5-14.5) % Plt Count 85 L (150-375) k/mm3 MPV 11.6 H (7.4-10.4) fl Immature Gran % (Auto) (0-0.5) % Neut % (Auto) 81.9 H (45.5-73.1) % Lymph % (Auto) 9.1 L (18.3-44.2) % Lymph # (Auto) (0.9-3.2) K/mm3 [place] # (Auto) 0.7 H (0.1-0.6) K/mm3 Abs Immat Gran (auto) 0.05 H (0.00-0.031) K/mm3 Absolute Neuts (auto) 8.1 H (1.3-6.7) K/mm3 PT 24.1 H (11.1-14.7) Seconds APTT 42.2 H (22.3-36.8) Seconds Sodium 135 L (137-145) mmol/L Anion Gap 3 L (4-12) mmol/L BUN 23 H (9-20) mg/dL Glucose 111 H (65-110) mg/dL Calcium 8.3 L (8.4-10.2) mg/dL NT-Pro-B Natriuret Pep (19.9-100) pg/mL Total Protein 6.0 L (6.3-8.2) g/dL Urine Appearance (Clear) Urine Protein (Negative) mg/dL Ur Blood (Man) (Negative) Urine RBC (0-2) /hpf H & H 09/24/24 09/25/24 Range/Units 11:54 06:20 Hgb 12.6 L 11.3 L (14.0-18.0) g/dL Hct 39.7 L 36.8 L (42.0-52.0) % Coagulation 09/24/24 09/25/24 Range/Units 11:54 06:20 INR 2.0 2.1 All other labs normal. Diagnostic results Hip x-ray: image reviewed ( Pelvis left hip and left femur x-rays reviewed. Left hip intertrochanteric fracture with angulation.)
[2024-09-25] MEDS: MORPHINE SULFATE (*CRX) 4 MG/ML INJ IV PUSH ×2 (08:24→15:26)
--- NOTE | 2024-09-25 08:48 | PM.IMPN ---
Progress Note: A&P Assessment and Plan (1) CHF (congestive heart failure): Qualifiers: Heart failure chronicity: chronic Heart failure type: unspecified Qualified Code(s): I50.9 - Heart failure, unspecified Code(s): I50.9 - Heart failure, unspecified Status: Chronic (2) Ankle wound: Qualifiers: Encounter type: sequela Laterality: left Qualified Code(s): S91.002S - Unspecified open wound, left ankle, sequela Code(s): S91.009A - Unspecified open wound, unspecified ankle, initial encounter Status: Chronic (3) Intertrochanteric fracture of left femur: Qualifiers: Encounter type: initial encounter Fracture alignment: nondisplaced Fracture type: closed Qualified Code(s): S72.145A - Nondisplaced intertrochanteric fracture of left femur, initial encounter for closed fracture Code(s): S72.142A - Displaced intertrochanteric fracture of left femur, initial encounter for closed fracture Status: Acute (4) Closed fracture of left hip: Code(s): S72.002A - Fracture of unspecified part of neck of left femur, initial encounter for closed fracture Status: Acute Plan (1) Intertrochanteric fracture of left femur: Qualifiers: Encounter type: initial encounter Fracture alignment: nondisplaced Fracture type: closed Qualified Code(s): S72.145A - Nondisplaced intertrochanteric fracture of left femur, initial encounter for closed fracture Code(s): S72.142A - Displaced intertrochanteric fracture of left femur, initial encounter for closed fracture Status: Acute Assessment and Plan: - CXR: 1. Mild pulmonary edema. 2. Cardiomegaly. - XR femur, L: 1. Intertrochanteric fracture of proximal left femur. 2. Mild polyarticular osteoarthritis. - hip/pelvis XR: 1. Intertrochanteric fracture of proximal left femur. 2. Mild osteoarthritis of the hips. - orthopedics consulted, Valorie [facility]. awaiting formal recs - preop workup including basic labs, coags, EKG, UA, CXR, BNP, and type and screen - cardiology consulted for cardiac clearance - analgesics p.r.n. - on Warfarin and ASA, medications held. INR 2.0, trend. Appreciate orthopedic surgeon consultation, plans open reduction of left hip fracture (2) Ankle wound: Qualifiers: Encounter type: sequela Laterality: left Qualified Code(s): S91.002S - Unspecified open wound, left ankle, sequela Code(s): S91.009A - Unspecified open wound, unspecified ankle, initial encounter Status: Chronic Assessment and Plan: - small superficial wound to medial malleolus of left ankle, no active signs of infection - wound secondary to poor cardiac output, recent ultrasound of arterial and venous systems showed no abnormalities - wound RN consulted (3) CHF (congestive heart failure): Qualifiers: Heart failure type: unspecified Heart failure chronicity: chronic Qualified Code(s): I50.9 - Heart failure, unspecified Code(s): I50.9 - Heart failure, unspecified Status: Chronic Assessment and Plan: - BNP 842 - none on file, believes last outpatient echo was 1 year ago. update. - currently on: Spironolactone 25 mg daily - monitor I&Os and daily weights - trend renal function Compensated Pending echocardiogram. 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 Lines: peripheral Code Status: full code Subjective Date/time seen: 09/25/24 08:48 Interval history: Patient is afebrile, blood pressure on the lower side, labs reviewed, BUN 23/0.9 patient denies chest pain, shortness of breath abdomen pain nausea vomiting. Exam Narrative: GENERAL: Pleasant, in no acute distress. Well-nourished. - EYES: EOMI. Anicteric. - HENT: Moist mucous membranes. - LUNGS: Clear to auscultation bilaterally, no wheezing, rhonchi, or rales. - CARDIOVASCULAR: Regular rate and rhythm. No murmur. No JVD. - ABDOMEN: Soft, non-tender and non-distended. No palpable masses. - EXTREMITIES: No edema. Peripheral pulses 2+. Non-tender. Range of movement over left hip is restricted because of pain - NEUROLOGIC: No focal neurological deficits. CN II-XII grossly intact. - PSYCHIATRIC: Awake, Alert and oriented x 3. Appropriate mood and affect. - SKIN: Pressure ulcers of left ankle - LYMPH: No cervical lymphadenopathy. Objective Data Vital Signs Vital Signs: Vital Signs - 24 hr 09/24/24 09:13 09/24/24 11:09 09/24/24 11:24 Temperature 97.9 F Pulse Rate 83 76 66 Respiratory Rate 20 17 18 Blood Pressure 121/71 113/70 98/79 L Pulse Oximetry 94 98 99 Oxygen Delivery Room Air Oxygen Flow Rate 09/24/24 09:21 09/24/24 09:33 09/24/24 10:34 Temperature Pulse Rate 79 75 76 Respiratory Rate 19 23 H 19 Blood Pressure Pulse Oximetry 96 92 92 Oxygen Delivery Oxygen Flow Rate 09/24/24 10:45 09/24/24 11:00 09/24/24 11:05 Temperature Pulse Rate 78 77 76 Respiratory Rate 23 H 14 18 Blood Pressure 113/70 Pulse Oximetry 93 93 Oxygen Delivery Oxygen Flow Rate 09/24/24 11:31 09/24/24 11:36 09/24/24 11:45 Temperature Pulse Rate 79 76 77 Respiratory Rate 18 15 16 Blood Pressure 150/101 H Pulse Oximetry 93 92 90 Oxygen Delivery Oxygen Flow Rate 09/24/24 11:46 09/24/24 12:00 09/24/24 12:01 Temperature Pulse Rate 75 77 77 Respiratory Rate 18 20 19 Blood Pressure 108/61 120/65 Pulse Oximetry 90 94 95 Oxygen Delivery Oxygen Flow Rate 09/24/24 12:15 09/24/24 12:16 09/24/24 12:19 Temperature Pulse Rate 77 77 77 Respiratory Rate 16 15 13 Blood Pressure 96/58 L 112/61 Pulse Oximetry 98 Oxygen Delivery Oxygen Flow Rate 09/24/24 12:30 09/24/24 12:31 09/24/24 12:45 Temperature Pulse Rate 76 77 75 Respiratory Rate 18 17 20 Blood Pressure 109/59 L Pulse Oximetry 95 94 95 Oxygen Delivery Oxygen Flow Rate 09/24/24 12:47 09/24/24 15:38 09/24/24 22:00 Temperature 97.9 F 100.3 F H Pulse Rate 75 75 76 Respiratory Rate 23 H 16 18 Blood Pressure 127/65 120/59 L 103/46 L Pulse Oximetry 95 96 90 Oxygen Delivery Oxygen Flow Rate 09/24/24 20:00 09/25/24 06:00 Temperature 98.9 F Pulse Rate 74 Respiratory Rate 20 Blood Pressure 104/58 L Pulse Oximetry 90 94 Oxygen Delivery Nasal Cannula Oxygen Flow Rate 2 Intake/Output Intake/Output: Intake & Output 09/22/24 09/23/24 09/24/24 09/25/24 23:59 23:59 23:59 23:59 Intake Total 0 Output Total 450 Balance -450 Meds/Results Medications: Active Medications Generic Name Dose Route Start Last Admin Trade Name Freq PRN Reason Stop Dose Admin Amiodarone HCl 200 mg 09/25/24 09:00 Amiodarone Hcl 200 Mg Tablet PO DAILY [facility] Citalopram Hydrobromide 20 mg 09/25/24 09:00 Citalopram Hydrobromide 20 Mg Tablet PO DAILY [facility] Cyanocobalamin 1,000 mcg 09/25/24 09:00 Cyanocobalamin 1,000 Mcg Tablet PO DAILY [facility] Ferrous Sulfate 325 mg 09/25/24 09:00 Ferrous Sulfate [address] PO DAILY [facility] Gabapentin 600 mg 09/24/24 17:00 09/24/24 16:28 Gabapentin 300 Mg Capsule PO 600 mg TID VAZQUEZ Administration Hydromorphone HCl 0.5 mg 09/24/24 14:02 09/24/24 18:31 Hydromorphone Hcl Inj (*Crx) 1 Mg/Ml Syr IV PUSH 0.5 mg Q3H PRN Administration Pain Rated 7-10 Sodium Chloride 1,000 mls @ 10 mls/hr 09/24/24 12:05 09/25/24 00:23 Normal Saline Iv IV CONT 10 mls/hr .Q24H VAZQUEZ Administration Isosorbide Mononitrate 30 mg 09/25/24 09:00 Isosorbide Mononitrate 30 Mg Tab.Er.24h PO DAILY VAZQUEZ Loratadine 10 mg 09/24/24 15:50 Loratadine 10 Mg Tablet PO DAILY PRN itching Morphine Sulfate 4 mg 09/24/24 14:02 09/25/24 08:24 Morphine Sulfate (*Crx) 4 Mg/Ml Inj IV PUSH 4 mg Q2H PRN Administration Pain Rated 4-6 Naloxone HCl 0.1 mg 09/24/24 15:55 Naloxone Hcl 0.4 Mg/Ml Vial IV PUSH Q5MIN PRN Sedation Ondansetron HCl 4 mg 09/24/24 11:59 Ondansetron Inj 4 Mg/2 Ml Vial IV PUSH Q4H PRN Nausea Oxycodone HCl 2.5 mg 09/24/24 14:00 09/24/24 16:27 Oxycodone Hcl (*Crx) 2.5 Mg Tab Ir PO 2.5 mg Q4H PRN Administration Pain Rated 1-3 Perflutren Lipid Microsphere 0 ml 09/24/24 13:58 Perflutren Lipid Microspheres 1.5 Ml Vial Diluted To 10 Ml Total Volume IV PUSH 09/27/24 13:58 ONCE PRN adequate visualization Protocol Ropinirole HCl 0.5 mg 09/25/24 09:00 Ropinirole Hcl 0.5 Mg Tablet PO DAILY VAZQUEZ Ropinirole HCl 1 mg 09/24/24 21:00 09/24/24 20:29 Ropinirole Hcl 1 Mg Tablet PO 1 mg HS VAZQUEZ Administration Rosuvastatin Calcium 40 mg 09/25/24 09:00 Rosuvastatin 20 Mg Tablet PO DAILY VAZQUEZ Spironolactone 25 mg 09/25/24 09:00 Spironolactone 25 Mg Tablet PO DAILY VAZQUEZ Zolpidem Tartrate 5 mg 09/24/24 15:50 Zolpidem Tartrate (*Crx) 5 Mg Tablet PO HS PRN Insomnia Radiology Results: ITS Impressions Femur X-Ray 09/24/24 11:35 IMPRESSION: 1. Intertrochanteric fracture of proximal left femur. 2. Mild polyarticular osteoarthritis. Hip/Pelvis X-Ray 09/24/24 11:37 IMPRESSION: 1. Intertrochanteric fracture of proximal left femur. 2. Mild osteoarthritis of the hips. Chest X-Ray 09/24/24 11:45 IMPRESSION: 1. Mild pulmonary edema. 2. Cardiomegaly. Labs Labs: Laboratory Results - last 24 hr 09/24/24 09/24/24 09/24/24 11:53 11:54 19:51 WBC 10.5 H RBC 4.14 L Hgb 12.6 L Hct 39.7 L MCV 95.9 MCH 30.4 MCHC 31.7 L RDW 14.7 H Plt Count 112 L MPV 11.8 H Immature Gran % (Auto) 0.6 H Neut % (Auto) 85.0 H Lymph % (Auto) 8.0 L [place] % (Auto) 5.1 Eos % (Auto) 0.7 Baso % (Auto) 0.6 Lymph # (Auto) 0.84 L [place] # (Auto) 0.5 Eos # (Auto) 0.1 Baso # (Auto) 0.1 Abs Immat Gran (auto) 0.06 H Absolute Neuts (auto) 8.9 H Absolute Nucleated RBC 0.000 Nucleated RBC % 0.0 PT 23.3 H INR 2.0 APTT 32.4 Sodium 138 Potassium 4.2 Chloride 107 Carbon Dioxide 28 Anion Gap 3 L BUN 15 Creatinine 0.80 Estim Creat Clear Calc 61 Estimated GFR > 60 Glucose 106 Calcium 8.6 Total Bilirubin 0.6 AST 29 ALT 24 Alkaline Phosphatase 67 NT-Pro-B Natriuret Pep 842 H Total Protein 7.0 Albumin 3.9 Urine Color Dark yellow Urine Appearance Cloudy H Urine pH 5.0 Ur Specific [place] 1.025 Urine Protein 1+ H Urine Glucose (UA) Negative Urine Ketones Negative Ur Blood (Man) 2+ H Urine Nitrate Negative Urine Bilirubin Negative Urine Urobilinogen 1.0 Add Ur Microanalysis Reviewed Leukocyte Esterase Rfl Negative Urine RBC 11-20 H Urine WBC 0-5 Ur Squamous Epith Cells None seen Urine Bacteria None seen Urine Casts 6-10 Urine Mucus Present Blood Type O Positive Antibody Screen Negative 09/25/24 06:20 WBC 9.9 RBC 3.69 L Hgb 11.3 L Hct 36.8 L MCV 99.7 MCH 30.6 MCHC 30.7 L RDW 14.8 H Plt Count 85 L MPV 11.6 H Immature Gran % (Auto) 0.5 Neut % (Auto) 81.9 H Lymph % (Auto) 9.1 L [place] % (Auto) 7.2 Eos % (Auto) 0.7 Baso % (Auto) 0.6 Lymph # (Auto) 0.90 [place] # (Auto) 0.7 H Eos # (Auto) 0.1 Baso # (Auto) 0.1 Abs Immat Gran (auto) 0.05 H Absolute Neuts (auto) 8.1 H Absolute Nucleated RBC 0.000 Nucleated RBC % 0.0 PT 24.1 H INR 2.1 APTT 42.2 H Sodium 135 L Potassium 4.3 Chloride 106 Carbon Dioxide 26 Anion Gap 3 L BUN 23 H Creatinine 0.90 Estim Creat Clear Calc 54 Estimated GFR > 60 Glucose 111 H Calcium 8.3 L Total Bilirubin 0.9 AST 35 ALT 22 Alkaline Phosphatase 54 NT-Pro-B Natriuret Pep Total Protein 6.0 L Albumin 3.6 Urine Color Urine Appearance Urine pH Ur Specific [place] Urine Protein Urine Glucose (UA) Urine Ketones Ur Blood (Man) Urine Nitrate Urine Bilirubin Urine Urobilinogen Add Ur Microanalysis Leukocyte Esterase Rfl Urine RBC Urine WBC Ur Squamous Epith Cells Urine Bacteria Urine Casts Urine Mucus Blood Type Antibody Screen
[2024-09-25 09:12] VITALS: O2SAT 93
[2024-09-25] MEDS: SODIUM CHLORIDE 0.9% IV 500 ML IV CONT (09:31)
--- NOTE | 2024-09-25 10:00 | PM.CNCAR ---
Assessment and Plan Assessment and plan (1) Preop cardiovascular exam: Code(s): Z01.810 - Encounter for preprocedural cardiovascular examination Status: Acute Plan 84-year-old man CAD status post CABG and subsequent stents and ICD implantation, intramural thrombus, and paroxysmal atrial fibrillation presents after a ground fall subsequent intertrochanteric fracture now requiring cardiac risk stratification Cardiac risk stratification -given patient's baseline risk factors, he will need further cardiac evaluation stress test as well transthoracic echocardiogram -avoid further IV hydration as patient most likely has chronic systolic heart failure -would keep patient on telemetry History of Present Illness History of Present Illness Consult date/time: 09/25/24 10:00 Requesting physician: Mauricio Sood MD Consult reason: post-op evaluation Reason For Visit: Left Hip Fracture Narrative: 84-year-old man CAD status post CABG and subsequent stents and ICD implantation, intramural thrombus, and paroxysmal atrial fibrillation presents after a ground fall subsequent intertrochanteric fracture now requiring cardiac risk stratification. He is not physically active secondary to orthopedic issues however with the limited physical activity he does do he does not endorse any chest discomfort or shortness of breath. He currently does not any orthopnea or lower extremity swelling. 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 Myocardial infarction 1989 Surgical History Surgical History History of open reduction and internal fixation (ORIF) procedure right femur secondary to fracture S/P CABG x 7 S/P internal cardiac defibrillator procedure Family History Family History Father FH: heart attack Sibling Heart attack Son Stomach cancer Social History Social History Years smoked: 70 Smoking status: Current every day smoker Tobacco type: cigarettes Alcohol intake: current Drinks per week: 3 Substance use: never Substance use type: does not use Do You Feel Safe in your Home?: Yes Lack of Transportation: No Lack of Food: Never True Current Housing: I Have Housing Concerned About Future Housing: No Difficulty Paying Gas/Electric Bills: No Difficulty Paying for Meds: No Currently Unemployed: No Education: Decline to Answer Difficulty w/ Childcare or Family Care: No Spiritual care concerns: No Meds Home Medications and Allergies Home Medications Medication Instructions Recorded Confirmed Type loratadine 10 mg tablet (Allergy 10 mg PO DAILY PRN itching #10 tabs 04/19/22 09/24/24 Rx Relief (loratadine)) amiodarone 200 mg tablet 200 mg PO DAILY 09/24/24 09/24/24 History aspirin 81 mg PO DAILY 09/24/24 09/24/24 History citalopram 20 mg tablet 20 mg PO DAILY 09/24/24 09/24/24 History cyanocobalamin (vitamin B-12) 1,000 mg PO DAILY 09/24/24 09/24/24 History ferrous sulfate 325 mg (65 mg 325 mg PO DAILY 09/24/24 09/24/24 History iron) tablet gabapentin 600 mg tablet 600 mg PO TID 09/24/24 09/24/24 History isosorbide mononitrate 60 mg 30 mg PO DAILY 09/24/24 09/24/24 History tablet,extended release 24 hr ropinirole 0.5 mg tablet 0.5 mg PO DAILY 09/24/24 09/24/24 History ropinirole 0.5 mg tablet 1 mg PO HS 09/24/24 09/24/24 History rosuvastatin 40 mg tablet 40 mg PO DAILY 09/24/24 09/24/24 History spironolactone 25 mg tablet 25 mg PO DAILY 09/24/24 09/24/24 History warfarin 5 mg tablet 5 mg PO DAILY 09/24/24 09/24/24 History zolpidem 5 mg tablet 5 mg PO HS PRN Insomnia 09/24/24 09/24/24 History Allergies Allergy/AdvReac Type Severity Reaction Status Date / Time Penicillins Allergy Rash Verified 09/24/24 15:18 povidone-iodine Allergy Rash Verified 09/24/24 15:18 [From Betadine] Vital Signs Vital Signs - 24 hr 09/24/24 11:09 09/24/24 11:24 09/24/24 10:34 Temperature Pulse Rate 76 66 76 Respiratory Rate 17 18 19 Blood Pressure 113/70 98/79 L Pulse Oximetry 98 99 92 Oxygen Delivery Oxygen Flow Rate 09/24/24 10:45 09/24/24 11:00 09/24/24 11:05 Temperature Pulse Rate 78 77 76 Respiratory Rate 23 H 14 18 Blood Pressure 113/70 Pulse Oximetry 93 93 Oxygen Delivery Oxygen Flow Rate 09/24/24 11:31 09/24/24 11:36 09/24/24 11:45 Temperature Pulse Rate 79 76 77 Respiratory Rate 18 15 16 Blood Pressure 150/101 H Pulse Oximetry 93 92 90 Oxygen Delivery Oxygen Flow Rate 09/24/24 11:46 09/24/24 12:00 09/24/24 12:01 Temperature Pulse Rate 75 77 77 Respiratory Rate 18 20 19 Blood Pressure 108/61 120/65 Pulse Oximetry 90 94 95 Oxygen Delivery Oxygen Flow Rate 09/24/24 12:15 09/24/24 12:16 09/24/24 12:19 Temperature Pulse Rate 77 77 77 Respiratory Rate 16 15 13 Blood Pressure 96/58 L 112/61 Pulse Oximetry 98 Oxygen Delivery Oxygen Flow Rate 09/24/24 12:30 09/24/24 12:31 09/24/24 12:45 Temperature Pulse Rate 76 77 75 Respiratory Rate 18 17 20 Blood Pressure 109/59 L Pulse Oximetry 95 94 95 Oxygen Delivery Oxygen Flow Rate 09/24/24 12:47 09/24/24 15:38 09/24/24 22:00 Temperature 36.6 C 37.9 C H Pulse Rate 75 75 76 Respiratory Rate 23 H 16 18 Blood Pressure 127/65 120/59 L 103/46 L Pulse Oximetry 95 96 90 Oxygen Delivery Oxygen Flow Rate 09/24/24 20:00 09/25/24 06:00 09/25/24 09:12 Temperature 37.2 C Pulse Rate 74 Respiratory Rate 20 Blood Pressure 104/58 L Pulse Oximetry 90 94 93 Oxygen Delivery Nasal Cannula Nasal Cannula Oxygen Flow Rate 2 2 Exam Const: General: comfortable HENMT: Mouth: Yes moist mucous membranes Eyes: EOM: EOMs intact bilaterally Neck: Other: Mild JVD Resp: Auscultation: clear to auscultation bilaterally Cardio: Rate: regular rate GI: GI Palp: Yes Soft to palpation Neuro: Speech: normal speech Results Labs and Meds 09/25/24 06:20 09/25/24 06:20 Lab results: Cardiac Enzymes 09/24/24 09/25/24 Range/Units 11:54 06:20 AST 29 35 (17-59) U/L Coagulation 09/24/24 09/25/24 Range/Units 11:54 06:20 PT 23.3 H 24.1 H (11.1-14.7) Seconds APTT 32.4 42.2 H (22.3-36.8) Seconds CBC 09/24/24 09/25/24 Range/Units 11:54 06:20 WBC 10.5 H 9.9 (4.5-10.0) K/mm3 RBC 4.14 L 3.69 L (4.6-6.20) M/mm3 Hgb 12.6 L 11.3 L (14.0-18.0) g/dL Hct 39.7 L 36.8 L (42.0-52.0) % Plt Count 112 L 85 L (150-375) k/mm3 Lymph # (Auto) 0.84 L 0.90 (0.9-3.2) K/mm3 [place] # (Auto) 0.5 0.7 H (0.1-0.6) K/mm3 Eos # (Auto) 0.1 0.1 (0-0.3) K/mm3 Baso # (Auto) 0.1 0.1 (0.0-0.1) K/mm3 Comprehensive Metabolic Panel 09/24/24 09/25/24 Range/Units 11:54 06:20 Sodium 138 135 L (137-145) mmol/L Potassium 4.2 4.3 (3.4-5.0) mmol/L Chloride 107 106 (98-107) mmol/L Carbon Dioxide 28 26 (22-30) mmol/L BUN 15 23 H (9-20) mg/dL Creatinine 0.80 0.90 (0.7-1.3) mg/dL Glucose 106 111 H (65-110) mg/dL Calcium 8.6 8.3 L (8.4-10.2) mg/dL AST 29 35 (17-59) U/L ALT 24 22 (6-50) U/L Alkaline Phosphatase 67 54 (38-126) U/L Total Protein 7.0 6.0 L (6.3-8.2) g/dL Albumin 3.9 3.6 (3.5-5.1) g/dL Intake and Output 09/24/24 09/25/24 09/25/24 23:59 07:59 15:59 Intake Total 0 Output Total 450 Balance -450 Intake: Oral 0 Output: Catheter Urine 450 Urethral Catheter 450 Patient Weight 09/25/24 23:59 Weight 87.5 kg
--- NOTE | 2024-09-25 10:21 | PCSTNOTE ---
BSE could not be completed so far this morning due to NPO for possible surgery and then with other staff/testing until after 11:00.
[2024-09-25] MEDS: PERFLUTREN LIPID MICROSPHERES 1.5 ML VIAL DILUTED TO 10 ML TOTAL VOLUME IV PUSH (10:30)
--- NOTE | 2024-09-25 12:42 | IVDEFINITY ---
Prior to administration of IV Definity the patient was educated on the risks and benefits of the imaging enhancing agent including potential adverse side effects. The patient verbalized understanding. Allergies were verified. No exclusion criteria were identified and at least one of the following inclusion criteria were met: 1) physician request, 2) patient technically difficult to image (per the [place] [employer] of Echocardiography guidelines of two or more segments not discernable within the apical view), or 3) questionable left ventricular function. ?
--- NOTE | 2024-09-25 14:58 | PC.NURSE ---
Patient to nuclear medicine at 1315 for cardiac stress test.
--- NOTE | 2024-09-25 16:10 | PC.NURSE ---
Patient returned from nuclear medicine at 1506.
[2024-09-25 16:25] VITALS: BP 108/50; PULSE 76; RESP 20; TEMP 37.2; O2SAT 96
--- NOTE | 2024-09-25 16:29 | PCSTNOTE ---
Please refer to the Bedside Swallow Evaluation in the EMR. Please note, silent aspiration cannot be ruled out at bedside.
[2024-09-25] MEDS: oxyCODONE HCL (*CRX) 2.5 MG TAB IR PO (17:27)
[2024-09-25] MEDS: GABAPENTIN 300 MG CAPSULE 600 MG PO (17:27)
[2024-09-25 20:00] VITALS: O2SAT 90
[2024-09-25] MEDS: ZOLPIDEM TARTRATE (*CRX) 5 MG TABLET PO (20:34)
[2024-09-25] MEDS: rOPINIRole HCL 1 MG TABLET PO (20:34)
[2024-09-25] MEDS: HYDROmorphone HCL INJ (*CRX) 1 MG/ML SYR 0.5 MG IV PUSH (20:34)
[2024-09-25 21:30] VITALS: BP 109/47; PULSE 75; RESP 20; TEMP 37.2; O2SAT 90
[2024-09-26] MEDS: MORPHINE SULFATE (*CRX) 4 MG/ML INJ IV PUSH (05:40)
[2024-09-26 06:00] VITALS: BP 96/50; PULSE 74; RESP 22; TEMP 37; O2SAT 91
[2024-09-26] MEDS: CITALOPRAM HYDROBROMIDE 20 MG TABLET PO (09:11)
[2024-09-26] MEDS: GABAPENTIN 300 MG CAPSULE 600 MG PO ×3 (09:11→17:27)
[2024-09-26] MEDS: ISOSORBIDE MONONITRATE 30 MG TAB.ER.24H PO (09:11)
[2024-09-26] MEDS: rOPINIRole HCL 0.5 MG TABLET PO (09:11)
[2024-09-26] MEDS: AMIODARONE HCL 200 MG TABLET PO (09:11)
--- NOTE | 2024-09-26 10:57 | P.PNIM_ITS ---
Progress Note: A&P Assessment and Plan (1) CHF (congestive heart failure): Qualifiers: Heart failure chronicity: chronic Heart failure type: unspecified Qualified Code(s): I50.9 - Heart failure, unspecified Code(s): I50.9 - Heart failure, unspecified Status: Chronic (2) Ankle wound: Qualifiers: Encounter type: sequela Laterality: left Qualified Code(s): S91.002S - Unspecified open wound, left ankle, sequela Code(s): S91.009A - Unspecified open wound, unspecified ankle, initial encounter Status: Chronic (3) Intertrochanteric fracture of left femur: Qualifiers: Encounter type: initial encounter Fracture alignment: nondisplaced Fracture type: closed Qualified Code(s): S72.145A - Nondisplaced intertrochanteric fracture of left femur, initial encounter for closed fracture Code(s): S72.142A - Displaced intertrochanteric fracture of left femur, initial encounter for closed fracture Status: Acute (4) Closed fracture of left hip: Code(s): S72.002A - Fracture of unspecified part of neck of left femur, initial encounter for closed fracture Status: Acute Plan Intertrochanteric fracture of left femur: Qualifiers: Encounter type: initial encounter Fracture alignment: nondisplaced Fracture type: closed Qualified Code(s): S72.145A - Nondisplaced intertrochanteric fracture of left femur, initial encounter for closed fracture Code(s): S72.142A - Displaced intertrochanteric fracture of left femur, initial encounter for closed fracture Status: Acute Assessment and Plan: - CXR: 1. Mild pulmonary edema. 2. Cardiomegaly. - XR femur, L: 1. Intertrochanteric fracture of proximal left femur. 2. Mild polyarticular osteoarthritis. - hip/pelvis XR: 1. Intertrochanteric fracture of proximal left femur. 2. Mild osteoarthritis of the hips. - orthopedics consulted, Valorie HPOENIX. awaiting formal recs - preop workup including basic labs, coags, EKG, UA, CXR, BNP, and type and screen - cardiology consulted for cardiac clearance - analgesics p.r.n. - on Warfarin and ASA, medications held. INR 2.0, trend. Appreciate orthopedic surgeon consultation, plans open reduction of left hip fracture. hold surgical procedure today due to high INR. provide Vit K 5 mg po f/u INR tm Ankle wound: Qualifiers: Encounter type: sequela Laterality: left Qualified Code(s): S91.002S - Unspecified open wound, left ankle, sequela Code(s): S91.009A - Unspecified open wound, unspecified ankle, initial encounter Status: Chronic Assessment and Plan: - small superficial wound to medial malleolus of left ankle, no active signs of infection - wound secondary to poor cardiac output, recent ultrasound of arterial and venous systems showed no abnormalities - wound RN consulted CAD status post CABG and subsequent stents, ICD implantation, intramural thrombus, and paroxysmal atrial fibrillation - BNP 842 - none on file, believes last outpatient echo was 1 year ago. update. - currently on: Spironolactone 25 mg daily - monitor I&Os and daily weights - trend renal function Compensated Echocardiogram report 1. The left ventricle is mildly dilated with severely reduced systolic function. There is moderate eccentric left ventricular hypertrophy. The left ventricular ejection fraction is visually estimated to be 25-30%. The inferior and inferolateral morales are akinetic. 2. The right ventricle is not well visualized. There is mildly reduced systolic function by tissue Doppler. 3. Dilated inferior vena cava with >50% collapse upon inspiration consistent with significantly elevated right atrial pressure, 15 mmHg Pending stress test Due to the complexity of her cardiac history, consult retail property manager for cardiac risk stratification for the surgical procedure Dehydration, blood pressure on lower side received normal saline 500 bolus Atrial fibrillation now patient has a paced rhythm Continue amiodarone 200 mg daily p.o. Hold warfarin for surgical procedure Reverse INR with vitamin K 5 mg once Chronic anemia Slightly Down to 11.3, No obvious bleeding Follow-up CBC Plan Diet: Heart healthy, NPO at midnight GI Prophylaxis: not currently indicated DVT Prophylaxis: SCDs, warfarin and ASA held. Lines: peripheral Code Status: full code Subjective Date/time seen: 09/26/24 10:57 Interval history: Patient is afebrile, blood pressure on the lower side, l denies chest pain, shortness of breath abdomen pain nausea vomiting. Exam Narrative: GENERAL: Pleasant, in no acute distress. Well-nourished. - EYES: EOMI. Anicteric. - HENT: Moist mucous membranes. - LUNGS: Clear to auscultation bilateral ly, no wheezing, rhonchi, or rales. - CARDIOVASCULAR: Regular rate and rhyth m. No murmur. No JVD. - ABDOMEN: Soft, non-tender and non-dist ended. No palpable masses. - EXTREMITIES: No edema. Peripheral puls es 2+. Non-tender. Range of movement over left hip is restricted because of pain - NEUROLOGIC: No focal neurological defi cits. CN II-XII grossly intact. - PSYCHIATRIC: Awake, Alert and oriented x 3. Appropriate mood and affect. - SKIN: Pressure ulcers of left ankle - LYMPH: No cervical lymphadenopathy. Objective Data Vital Signs Vital Signs: Vital Signs - 24 hr 09/25/24 16:25 09/25/24 20:00 09/25/24 21:30 Temperature 98.9 F 98.9 F Pulse Rate 76 75 Respiratory Rate 20 20 Blood Pressure 108/50 L 109/47 L Pulse Oximetry 96 90 90 Oxygen Delivery Nasal Cannula Oxygen Flow Rate 2 09/26/24 06:00 Temperature 98.6 F Pulse Rate 74 Respiratory Rate 22 H Blood Pressure 96/50 L Pulse Oximetry 91 Oxygen Delivery Oxygen Flow Rate Intake/Output Intake/Output: Intake & Output 09/23/24 09/24/24 09/25/24 09/26/24 23:59 23:59 23:59 23:59 Intake Total 1300 150 Output Total 800 400 Balance 500 -250 Meds/Results Medications: Active Medications Generic Name Dose Route Start Last Admin Trade Name Freq PRN Reason Stop Dose Admin Amiodarone HCl 200 mg 09/25/24 09:00 09/26/24 09:11 Amiodarone Hcl 200 Mg Tablet PO 200 mg DAILY AVZQUEZ Administration Citalopram Hydrobromide 20 mg 09/25/24 09:00 09/26/24 09:11 Citalopram Hydrobromide 20 Mg Tablet PO 20 mg DAILY VAZQUEZ Administration Cyanocobalamin 1,000 mcg 09/25/24 09:00 09/26/24 09:12 Cyanocobalamin 1,000 Mcg Tablet PO Not Given DAILY VAZQUEZ Ferrous Sulfate 325 mg 09/25/24 09:00 09/26/24 09:12 Ferrous Sulfate [address] PO Not Given DAILY VAZQUEZ Gabapentin 600 mg 09/24/24 17:00 09/26/24 09:11 Gabapentin 300 Mg Capsule PO 600 mg TID VAZQUEZ Administration Hydromorphone HCl 0.5 mg 09/24/24 14:02 09/25/24 20:34 Hydromorphone Hcl Inj (*Crx) 1 Mg/Ml Syr IV PUSH 0.5 mg Q3H PRN Administration Pain Rated 7-10 Sodium Chloride 1,000 mls @ 10 mls/hr 09/24/24 12:05 09/25/24 00:23 Normal Saline Iv IV CONT 10 mls/hr .Q24H VAZQUEZ Administration Isosorbide Mononitrate 30 mg 09/25/24 09:00 09/26/24 09:11 Isosorbide Mononitrate 30 Mg Tab.Er.24h PO 30 mg DAILY VAZQUEZ Administration Loratadine 10 mg 09/24/24 15:50 Loratadine 10 Mg Tablet PO DAILY PRN itching Morphine Sulfate 4 mg 09/24/24 14:02 09/26/24 05:40 Morphine Sulfate (*Crx) 4 Mg/Ml Inj IV PUSH 4 mg Q2H PRN Administration Pain Rated 4-6 Naloxone HCl 0.1 mg 09/24/24 15:55 Naloxone Hcl 0.4 Mg/Ml Vial IV PUSH Q5MIN PRN Sedation Ondansetron HCl 4 mg 09/24/24 11:59 Ondansetron Inj 4 Mg/2 Ml Vial IV PUSH Q4H PRN Nausea Oxycodone HCl 2.5 mg 09/24/24 14:00 09/25/24 17:27 Oxycodone Hcl (*Crx) 2.5 Mg Tab Ir PO 2.5 mg Q4H PRN Administration Pain Rated 1-3 Ropinirole HCl 0.5 mg 09/25/24 09:00 09/26/24 09:11 Ropinirole Hcl 0.5 Mg Tablet PO 0.5 mg DAILY VAZQUEZ Administration Ropinirole HCl 1 mg 09/24/24 21:00 09/25/24 20:34 Ropinirole Hcl 1 Mg Tablet PO 1 mg HS VAZQUEZ Administration Rosuvastatin Calcium 40 mg 09/25/24 09:00 09/26/24 09:12 Rosuvastatin 20 Mg Tablet PO Not Given DAILY VAZQUEZ Spironolactone 25 mg 09/25/24 09:00 09/26/24 09:12 Spironolactone 25 Mg Tablet PO Not Given DAILY VAZQUEZ Zolpidem Tartrate 5 mg 09/24/24 15:50 09/25/24 20:34 Zolpidem Tartrate (*Crx) 5 Mg Tablet PO 5 mg HS PRN Administration Insomnia Radiology Results: ITS Impressions Femur X-Ray 09/24/24 11:35 IMPRESSION: 1. Intertrochanteric fracture of proximal left femur. 2. Mild polyarticular osteoarthritis. Hip/Pelvis X-Ray 09/24/24 11:37 IMPRESSION: 1. Intertrochanteric fracture of proximal left femur. 2. Mild osteoarthritis of the hips. Chest X-Ray 09/24/24 11:45 IMPRESSION: 1. Mild pulmonary edema. 2. Cardiomegaly. Lexiscan Stress Test 09/25/24 15:40 IMPRESSION: 1. 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 2. Mild to moderately decreased left ventricular ejection fraction measuring 35%.
--- NOTE | 2024-09-26 11:03 | PM.PNCARD ---
Progress Note: A&P Assessment and Plan (1) Preop cardiovascular exam: Code(s): Z01.810 - Encounter for preprocedural cardiovascular examination Status: Acute Plan 84-year-old man CAD status post CABG and subsequent stents and ICD implantation, intramural thrombus, and paroxysmal atrial fibrillation presents after a ground fall subsequent intertrochanteric fracture now requiring cardiac risk stratification Cardiac risk stratification -Stress test revealed combination of severe infarct and mild surrounding ischemia involving significant portions of the circumflex and right coronary artery vascular distributions. Currently not reporting any anginal symptoms - further evaluation of this can be determined by his established risk reduction counselor. -EF 35% -I am going to discontinue his IV fluids as he has chronic systolic heart failure and significantly elevated RA pressure on echo -May want to consider one time dose of diuretic prior to surgery if BP can tolerate -would keep patient on telemetry postoperatively -I would consider him at least moderate risk for elective noncardiac surgery because of his coronary artery disease and cardiomyopathy. -Discussed stress test and echo findings with patient and family at the bedside and elevated risk for CV event with surgery/anesthesia. Subjective Date/time seen: 09/26/24 11:03 Interval history: Cardiology follow up visit Patient is feeling well this morning. Denies chest pain, shortness of breath. Has discomfort in left leg. Review of Systems Review of Systems: All systems reviewed & are unremarkable except as noted in HPI and below Cardiovascular: Cardiovascular: Reports as per HPI Respiratory: Respiratory: Reports as per HPI Exam Const: General: comfortable Nutritional Appearance: average body habitus HENMT: Mouth: Yes moist mucous membranes Eyes: EOM: EOMs intact bilaterally Neck: Other: Mild JVD Resp: Effort & Inspection: normal respiratory effort Auscultation: clear to auscultation bilaterally Cardio: Rate: regular rate Rhythm: regular rhythm Heart sounds: S1 normal heart sound present and S2 normal heart sound present Skin: General skin exam: normal color and wounds noted (l) Neuro: General: patient oriented x3 Speech: normal speech Psych: Appearance: grossly normal Objective Data Vital Signs Vital Signs: Vital Signs - 24 hr 09/25/24 16:25 09/25/24 20:00 09/25/24 21:30 Temperature 37.2 C 37.2 C Pulse Rate 76 75 Respiratory Rate 20 20 Blood Pressure 108/50 L 109/47 L Pulse Oximetry 96 90 90 Oxygen Delivery Nasal Cannula Oxygen Flow Rate 2 09/26/24 06:00 Temperature 37.0 C Pulse Rate 74 Respiratory Rate 22 H Blood Pressure 96/50 L Pulse Oximetry 91 Oxygen Delivery Oxygen Flow Rate Intake/Output Intake/Output: Intake & Output 09/23/24 09/24/24 09/25/24 09/26/24 23:59 23:59 23:59 23:59 Intake Total 1300 150 Output Total 800 400 Balance 500 -250 Meds/Results Medications: Active Medications Generic Name Dose Route Start Last Admin Trade Name Freq PRN Reason Stop Dose Admin Amiodarone HCl 200 mg 09/25/24 09:00 09/26/24 09:11 Amiodarone Hcl 200 Mg Tablet PO 200 mg DAILY VAZQUEZ Administration Citalopram Hydrobromide 20 mg 09/25/24 09:00 09/26/24 09:11 Citalopram Hydrobromide 20 Mg Tablet PO 20 mg DAILY VAZQUEZ Administration Cyanocobalamin 1,000 mcg 09/25/24 09:00 09/26/24 09:12 Cyanocobalamin 1,000 Mcg Tablet PO Not Given DAILY VAZQUEZ Ferrous Sulfate 325 mg 09/25/24 09:00 09/26/24 09:12 Ferrous Sulfate [address] PO Not Given DAILY VAZQUEZ Gabapentin 600 mg 09/24/24 17:00 09/26/24 09:11 Gabapentin 300 Mg Capsule PO 600 mg TID VAZQUEZ Administration Hydromorphone HCl 0.5 mg 09/24/24 14:02 09/25/24 20:34 Hydromorphone Hcl Inj (*Crx) 1 Mg/Ml Syr IV PUSH 0.5 mg Q3H PRN Administration Pain Rated 7-10 Sodium Chloride 1,000 mls @ 10 mls/hr 09/24/24 12:05 09/25/24 00:23 Normal Saline Iv IV CONT 10 mls/hr .Q24H VAZQUEZ Administration Isosorbide Mononitrate 30 mg 09/25/24 09:00 09/26/24 09:11 Isosorbide Mononitrate 30 Mg Tab.Er.24h PO 30 mg DAILY VAZQUEZ Administration Loratadine 10 mg 09/24/24 15:50 Loratadine 10 Mg Tablet PO DAILY PRN itching Morphine Sulfate 4 mg 09/24/24 14:02 09/26/24 05:40 Morphine Sulfate (*Crx) 4 Mg/Ml Inj IV PUSH 4 mg Q2H PRN Administration Pain Rated 4-6 Naloxone HCl 0.1 mg 09/24/24 15:55 Naloxone Hcl 0.4 Mg/Ml Vial IV PUSH Q5MIN PRN Sedation Ondansetron HCl 4 mg 09/24/24 11:59 Ondansetron Inj 4 Mg/2 Ml Vial IV PUSH Q4H PRN Nausea Oxycodone HCl 2.5 mg 09/24/24 14:00 09/25/24 17:27 Oxycodone Hcl (*Crx) 2.5 Mg Tab Ir PO 2.5 mg Q4H PRN Administration Pain Rated 1-3 Ropinirole HCl 0.5 mg 09/25/24 09:00 09/26/24 09:11 Ropinirole Hcl 0.5 Mg Tablet PO 0.5 mg DAILY VAZQUEZ Administration Ropinirole HCl 1 mg 09/24/24 21:00 09/25/24 20:34 Ropinirole Hcl 1 Mg Tablet PO 1 mg HS VAZQUEZ Administration Rosuvastatin Calcium 40 mg 09/25/24 09:00 09/26/24 09:12 Rosuvastatin 20 Mg Tablet PO Not Given DAILY VAZQUEZ Spironolactone 25 mg 09/25/24 09:00 09/26/24 09:12 Spironolactone 25 Mg Tablet PO Not Given DAILY VAZQUEZ Zolpidem Tartrate 5 mg 09/24/24 15:50 09/25/24 20:34 Zolpidem Tartrate (*Crx) 5 Mg Tablet PO 5 mg HS PRN Administration Insomnia Radiology Results: ITS Impressions Femur X-Ray 09/24/24 11:35 IMPRESSION: 1. Intertrochanteric fracture of proximal left femur. 2. Mild polyarticular osteoarthritis. Hip/Pelvis X-Ray 09/24/24 11:37 IMPRESSION: 1. Intertrochanteric fracture of proximal left femur. 2. Mild osteoarthritis of the hips. Chest X-Ray 09/24/24 11:45 IMPRESSION: 1. Mild pulmonary edema. 2. Cardiomegaly. Lexiscan Stress Test 09/25/24 15:40 IMPRESSION: 1. 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 2. Mild to moderately decreased left ventricular ejection fraction measuring 35%. Quality VTE Prophylaxis VTE prophylaxis: mechanical ordered
[2024-09-26] MEDS: KETOROLAC 15 MG/ML VIAL (*BKC) IV PUSH (12:00)
[2024-09-26] MEDS: TRANEXAMIC ACID 1,000MG/ISO100 1,000 MG/100 ML BAG 200 MG IVPB (12:00)
[2024-09-26 12:13] LABS: Prothrombin Time 22.8 Seconds (11.1-14.7)
--- NOTE | 2024-09-26 12:28 | P.PNOP_ITS ---
Progress Note: A&P Assessment and Plan (1) Intertrochanteric fracture of left femur: Qualifiers: Encounter type: initial encounter Fracture type: closed Fracture alignment: displaced Qualified Code(s): S72.142A - Displaced intertrochanteric fracture of left femur, initial encounter for closed fracture Code(s): S72.142A - Displaced intertrochanteric fracture of left femur, initial encounter for closed fracture Status: Acute Assessment and Plan: Left hip intertrochanteric fracture. Patient and family desire operative treatment. Awaiting surgical clearance and cardiology workup. INR 2.0 today. Unable to proceed with surgery with INR above 1.7. Surgery canceled today. Await clearance. Subjective Subjective Date/Time Seen: 09/26/24 12:28 Principal diagnosis: Left hip intertrochanteric fracture Interval history: hospital day 2. Left hip intertrochanteric fracture. Complains of left hip pain. Awaiting surgical clearance and Cardiology evaluation. Exam Const: General: No confusion Orientation/consciousness: No confusion HENMT: Head: normal to inspection, normocephalic and atraumatic Resp: Effort & Inspection: normal respiratory effort and no audible wheezes Extrem: General: capillary refill normal Right upper extremity: normal to inspection Left upper extremity: normal to inspection Right lower extremity: normal to inspection, hip/thigh Details: normal to inspection and normal ROM; no tenderness and no swelling, knee Details: no tenderness and no swelling, ankle Details: normal ROM (Able to flex and extend the ankle) and foot Details: vascular exam Details: dorsalis pedis pulse present and normal capillary refill, tendon exam (Moves all toes) and motor-sensory exam Details: light-touch normal Location: in all toes Left lower extremity: hip/thigh Details: tenderness Location: of the hip Location: laterally and anteriorly, swelling Location: of the hip and abnormal ROM Details: pain with passive ROM (Full motion deferred secondary to fracture) Details: with flexion, with internal rotation and with external rotation, ankle (no calf tenderness) Details: normal ROM (Able to flex/ extend ankle) and foot Details: toes with normal ROM (Moves all toes), vascular exam Details: dorsalis pedis pulse present and normal capillary refill and motor-sensory exam light-touch normal in all toes; no tenderness Psych: Affect: normal affect Objective Data Vital Signs Vital Signs: Vital Signs - 24 hr 09/25/24 16:25 09/25/24 20:00 09/25/24 21:30 Temperature 98.9 F 98.9 F Pulse Rate 76 75 Respiratory Rate 20 20 Blood Pressure 108/50 L 109/47 L Pulse Oximetry 96 90 90 Oxygen Delivery Nasal Cannula Oxygen Flow Rate 2 09/26/24 06:00 Temperature 98.6 F Pulse Rate 74 Respiratory Rate 22 H Blood Pressure 96/50 L Pulse Oximetry 91 Oxygen Delivery Oxygen Flow Rate Intake/Output Intake/Output: Intake & Output 09/23/24 09/24/24 09/25/24 09/26/24 23:59 23:59 23:59 23:59 Intake Total 1300 150 Output Total 800 400 Balance 500 -250 Meds/Results Medications: Active Medications Generic Name Dose Route Start Last Admin Trade Name Freq PRN Reason Stop Dose Admin Amiodarone HCl 200 mg 09/25/24 09:00 09/26/24 09:11 Amiodarone Hcl 200 Mg Tablet PO 200 mg DAILY VAZQUEZ Administration Citalopram Hydrobromide 20 mg 09/25/24 09:00 09/26/24 09:11 Citalopram Hydrobromide 20 Mg Tablet PO 20 mg DAILY VAZQUEZ Administration Cyanocobalamin 1,000 mcg 09/25/24 09:00 09/26/24 09:12 Cyanocobalamin 1,000 Mcg Tablet PO Not Given DAILY VAZQUEZ Ferrous Sulfate 325 mg 09/25/24 09:00 09/26/24 09:12 Ferrous Sulfate [address] PO Not Given DAILY VAZQUEZ Gabapentin 600 mg 09/24/24 17:00 09/26/24 09:11 Gabapentin 300 Mg Capsule PO 600 mg TID VAZQUEZ Administration Hydromorphone HCl 0.5 mg 09/24/24 14:02 09/25/24 20:34 Hydromorphone Hcl Inj (*Crx) 1 Mg/Ml Syr IV PUSH 0.5 mg Q3H PRN Administration Pain Rated 7-10 Isosorbide Mononitrate 30 mg 09/25/24 09:00 09/26/24 09:11 Isosorbide Mononitrate 30 Mg Tab.Er.24h PO 30 mg DAILY VAZQUEZ Administration Loratadine 10 mg 09/24/24 15:50 Loratadine 10 Mg Tablet PO DAILY PRN itching Morphine Sulfate 4 mg 09/24/24 14:02 09/26/24 05:40 Morphine Sulfate (*Crx) 4 Mg/Ml Inj IV PUSH 4 mg Q2H PRN Administration Pain Rated 4-6 Naloxone HCl 0.1 mg 09/24/24 15:55 Naloxone Hcl 0.4 Mg/Ml Vial IV PUSH Q5MIN PRN Sedation Ondansetron HCl 4 mg 09/24/24 11:59 Ondansetron Inj 4 Mg/2 Ml Vial IV PUSH Q4H PRN Nausea Oxycodone HCl 2.5 mg 09/24/24 14:00 09/25/24 17:27 Oxycodone Hcl (*Crx) 2.5 Mg Tab Ir PO 2.5 mg Q4H PRN Administration Pain Rated 1-3 Ropinirole HCl 0.5 mg 09/25/24 09:00 09/26/24 09:11 Ropinirole Hcl 0.5 Mg Tablet PO 0.5 mg DAILY VAZQUEZ Administration Ropinirole HCl 1 mg 09/24/24 21:00 09/25/24 20:34 Ropinirole Hcl 1 Mg Tablet PO 1 mg HS VAZQUEZ Administration Rosuvastatin Calcium 40 mg 09/25/24 09:00 09/26/24 09:12 Rosuvastatin 20 Mg Tablet PO Not Given DAILY VAZQUEZ Spironolactone 25 mg 09/25/24 09:00 09/26/24 09:12 Spironolactone 25 Mg Tablet PO Not Given DAILY VAZQUEZ Zolpidem Tartrate 5 mg 09/24/24 15:50 09/25/24 20:34 Zolpidem Tartrate (*Crx) 5 Mg Tablet PO 5 mg HS PRN Administration Insomnia Radiology Results: ITS Impressions Femur X-Ray 09/24/24 11:35 IMPRESSION: 1. Intertrochanteric fracture of proximal left femur. 2. Mild polyarticular osteoarthritis. Hip/Pelvis X-Ray 09/24/24 11:37 IMPRESSION: 1. Intertrochanteric fracture of proximal left femur. 2. Mild osteoarthritis of the hips. Chest X-Ray 09/24/24 11:45 IMPRESSION: 1. Mild pulmonary edema. 2. Cardiomegaly. Lexiscan Stress Test 09/25/24 15:40 IMPRESSION: 1. Combination of severe infarct and mild surrounding ischemia involving significant portions of the circumflex and right coronary artery vascular distr ibutions as detailed above. 2. Mild to moderately decreased left ventricular ejection fraction measuring 35%. Labs Labs: Laboratory Results - last 24 hr 09/26/24 11:57 PT 22.8 H INR 2.0 APTT 56.0 H
--- NOTE | 2024-09-26 13:04 | SUR.PREOP ---
1230:PT PT/INR REMAIN ELEVATED TODAY. INR 2.O. SURGERY DELAYED UNTIL 09/27/24.
[2024-09-26] MEDS: oxyCODONE HCL (*CRX) 2.5 MG TAB IR PO ×2 (13:50→19:59)
[2024-09-26 14:00] VITALS: BP 100/50; PULSE 74; RESP 16; TEMP 36.8; O2SAT 95
[2024-09-26] MEDS: PHYTONADIONE 5 MG TABLET PO (16:26)
[2024-09-26] MEDS: rOPINIRole HCL 1 MG TABLET PO (19:59)
[2024-09-26] MEDS: ZOLPIDEM TARTRATE (*CRX) 5 MG TABLET PO (19:59)
[2024-09-26 21:28] VITALS: BP 98/46; PULSE 71; RESP 20; TEMP 36.2; O2SAT 93
[2024-09-27] VITALS (13 sets, daily range): BP systolic 91–112; BP diastolic 50–89; PULSE 71–80; RESP 14–22; TEMP 36.3–36.9; O2SAT 92–100
[2024-09-27] MEDS: oxyCODONE HCL (*CRX) 2.5 MG TAB IR PO (05:05)
[2024-09-27 07:00] LABS: Basophils Percent Auto 0.4 % (0.2-1.2); Eosinophils Absolute Auto 0.2 K/mm3 (0-0.3); Eosinophils Percent Auto 1.7 % (0-4.4); Hematocrit 32.5 % (42.0-52.0); Hemoglobin 10.2 g/dL (14.0-18.0); Immature Granulocyte Absolute 0.05 K/mm3 (0.00-0.031); Immature Granulocyte Percent A 0.5 % (0-0.5); Immature Platelet Fraction Pct 9.8 % (0.9-11.2); Lymphocytes Absolute Auto 0.65 K/mm3 (0.9-3.2); Lymphocytes Percent Auto 6.7 % (18.3-44.2); Mean Corpuscular HGB Conc 31.4 g/dl (32-36); Mean Corpuscular Hemoglobin 30.3 pg (26-34); Mean Corpuscular Volume 96.4 fl (80-100); Mean Platelet Volume 11.6 fl (7.4-10.4); Monocytes Absolute Auto 0.7 K/mm3 (0.1-0.6); Neutrophils Absolute Auto 8.1 K/mm3 (1.3-6.7); Neutrophils Percent Auto 83.7 % (45.5-73.1); Platelet Count Result 83 k/mm3 (150-375); Red Blood Count 3.37 M/mm3 (4.6-6.20); Red Cell Distribution Width 14.3 % (11.5-14.5); White Blood Count 9.7 K/mm3 (4.5-10.0)
[2024-09-27 07:11] LABS: INR 1.6; Prothrombin Time 18.9 Seconds (11.1-14.7)
[2024-09-27 07:18] LABS: Anion Gap 2 mmol/L (4-12); Blood Urea Nitrogen 25 mg/dL (9-20); Calcium 8.3 mg/dL (8.4-10.2); Carbon Dioxide 30 mmol/L (22-30); Chloride 102 mmol/L (98-107); Estimated CRCL calculation 54 ml/min; Estimated Glomerular Filt Rate > 60; Glucose 99 mg/dL (65-110); Potassium 4.2 mmol/L (3.4-5.0); Sodium 134 mmol/L (137-145)
--- NOTE | 2024-09-27 08:41 | P.PNIM_ITS ---
Progress Note: A&P Assessment and Plan (1) CHF (congestive heart failure): Qualifiers: Heart failure chronicity: chronic Heart failure type: unspecified Qualified Code(s): I50.9 - Heart failure, unspecified Code(s): I50.9 - Heart failure, unspecified Status: Chronic (2) Ankle wound: Qualifiers: Encounter type: sequela Laterality: left Qualified Code(s): S91.002S - Unspecified open wound, left ankle, sequela Code(s): S91.009A - Unspecified open wound, unspecified ankle, initial encounter Status: Chronic (3) Intertrochanteric fracture of left femur: Qualifiers: Encounter type: initial encounter Fracture alignment: displaced Fracture type: closed Qualified Code(s): S72.142A - Displaced intertrochanteric fracture of left femur, initial encounter for closed fracture Code(s): S72.142A - Displaced intertrochanteric fracture of left femur, initial encounter for closed fracture Status: Acute (4) Closed fracture of left hip: Code(s): S72.002A - Fracture of unspecified part of neck of left femur, initial encounter for closed fracture Status: Acute Plan Intertrochanteric fracture of left femur: Qualifiers: Encounter type: initial encounter Fracture alignment: nondisplaced Fracture type: closed Qualified Code(s): S72.145A - Nondisplaced intertrochanteric fracture of left femur, initial encounter for closed fracture Code(s): S72.142A - Displaced intertrochanteric fracture of left femur, initial encounter for closed fracture Status: Acute Assessment and Plan: XR femur, L: 1. Intertrochanteric fracture of proximal left femur. 2. Mild polyarticular osteoarthritis. - hip/pelvis XR: 1. Intertrochanteric fracture of proximal left femur. 2. Mild osteoarthritis of the hips. orthopedics consulted, Valorie PH[facility]EN[facility]. awaiting formal recs - preop workup including basic labs, coags, EKG, UA, CXR, BNP, and type and screen - cardiology consulted for cardiac clearance - analgesics p.r.n. - on Warfarin and ASA, medications held. INR 2.0, trend. Appreciate orthopedic surgeon consultation, plans open reduction of left hip fracture. hold surgical procedure today due to high INR. provide Vit K 5 mg po 12/10 f/u INR 1.6 today Ankle wound: Qualifiers: Encounter type: sequela Laterality: left Qualified Code(s): S91.002S - Unspecified open wound, left ankle, sequela Code(s): S91.009A - Unspecified open wound, unspecified ankle, initial encounter Status: Chronic Assessment and Plan: - small superficial wound to medial malleolus of left ankle, no active signs of infection - wound secondary to poor cardiac output, recent ultrasound of arterial and venous systems showed no abnormalities - wound RN consulted CAD status post CABG and subsequent stents, ICD implantation, intramural thrombus, and paroxysmal atrial fibrillation - BNP 842 - none on file, believes last outpatient echo was 1 year ago. update. - currently on: Spironolactone 25 mg daily - monitor I&Os and daily weights - trend renal function Compensated Echocardiogram report 1. The left ventricle is mildly dilated with severely reduced systolic function. There is moderate eccentric left ventricular hypertrophy. The left ventricular ejection fraction is visually estimated to be 25-30%. The inferior and inferolateral morales are akinetic. 2. The right ventricle is not well visualized. There is mildly reduced systolic function by tissue Doppler. 3. Dilated inferior vena cava with >50% collapse upon inspiration consistent with significantly elevated right atrial pressure, 15 mmHg Pending stress test Due to the complexity of his cardiac history, consult nanny caregiver for cardiac risk stratification for the surgical procedure Dehydration, hyponatremia blood pressure on lower side received normal saline 500 bolus c/w ns 75 ml/h Atrial fibrillation now patient has a paced rhythm Continue amiodarone 200 mg daily p.o. Hold warfarin for surgical procedure Reverse INR with vitamin K 5 mg once Chronic anemia Slightly Down to 11.3, No obvious bleeding Follow-up CBC Plan Diet: Heart healthy, NPO at midnight GI Prophylaxis: not currently indicated DVT Prophylaxis: SCDs, warfarin and ASA held. Lines: peripheral Code Status: full code Subjective Date/time seen: 09/27/24 08:41 Interval history: Patient is afebrile, blood pressure on the lower side, denies chest pain, shortn ess of breath abdomen pain nausea vomiting. Left hip pain is tolerable and rest but worse with movement Labs reviewed, INR 1.6 today Exam Narrative: GENERAL: Pleasant, in no acute distress. Well-nourished. - EYES: EOMI. Anicteric. - HENT: Moist mucous membranes. - LUNGS: Clear to auscultation bilateral ly, no wheezing, rhonchi, or rales. - CARDIOVASCULAR: Regular rate and rhyth m. No murmur. No JVD. - ABDOMEN: Soft, non-tender and non-dist ended. No palpable masses. - EXTREMITIES: No edema. Peripheral puls es 2+. Non-tender. Range of movement over left hip is restricted because of pain - NEUROLOGIC: No focal neurological defi cits. CN II-XII grossly intact. - PSYCHIATRIC: Awake, Alert and oriented x 3. Appropriate mood and affect. - SKIN: Pressure ulcers of left ankle - LYMPH: No cervical lymphadenopathy. Objective Data Vital Signs Vital Signs: Vital Signs - 24 hr 09/26/24 14:00 09/26/24 20:00 09/26/24 21:28 Temperature 98.3 F 97.1 F L Pulse Rate 74 71 Respiratory Rate 16 20 Blood Pressure 100/50 L 98/46 L Pulse Oximetry 95 93 Oxygen Delivery Room Air 09/27/24 06:00 Temperature 98.2 F Pulse Rate 75 Respiratory Rate 22 H Blood Pressure 108/51 L Pulse Oximetry 92 Oxygen Delivery Intake/Output Intake/Output: Intake & Output 09/24/24 09/25/24 09/26/24 09/27/24 23:59 23:59 23:59 23:59 Intake Total 1300 700 360 Output Total 800 1175 400 Balance 500 -475 -40 Meds/Results Medications: Active Medications Generic Name Dose Route Start Last Admin Trade Name Freq PRN Reason Stop Dose Admin Amiodarone HCl 200 mg 09/25/24 09:00 09/26/24 09:11 Amiodarone Hcl 200 Mg Tablet PO 200 mg DAILY VAZQUEZ Administration Citalopram Hydrobromide 20 mg 09/25/24 09:00 09/26/24 09:11 Citalopram Hydrobromide 20 Mg Tablet PO 20 mg DAILY VAZQUEZ Administration Cyanocobalamin 1,000 mcg 09/25/24 09:00 09/26/24 09:12 Cyanocobalamin 1,000 Mcg Tablet PO Not Given DAILY VAZQUEZ Ferrous Sulfate 325 mg 09/25/24 09:00 09/26/24 09:12 Ferrous Sulfate [address] PO Not Given DAILY VAZQUEZ Gabapentin 600 mg 09/24/24 17:00 09/26/24 17:27 Gabapentin 300 Mg Capsule PO 600 mg TID VAZQUEZ Administration Hydromorphone HCl 0.5 mg 09/24/24 14:02 09/25/24 20:34 Hydromorphone Hcl Inj (*Crx) 1 Mg/Ml Syr IV PUSH 0.5 mg Q3H PRN Administration Pain Rated 7-10 Isosorbide Mononitrate 30 mg 09/25/24 09:00 09/26/24 09:11 Isosorbide Mononitrate 30 Mg Tab.Er.24h PO 30 mg DAILY VAZQUEZ Administration Loratadine 10 mg 09/24/24 15:50 Loratadine 10 Mg Tablet PO DAILY PRN itching Morphine Sulfate 4 mg 09/24/24 14:02 09/26/24 05:40 Morphine Sulfate (*Crx) 4 Mg/Ml Inj IV PUSH 4 mg Q2H PRN Administration Pain Rated 4-6 Naloxone HCl 0.1 mg 09/24/24 15:55 Naloxone Hcl 0.4 Mg/Ml Vial IV PUSH Q5MIN PRN Sedation Ondansetron HCl 4 mg 09/24/24 11:59 Ondansetron Inj 4 Mg/2 Ml Vial IV PUSH Q4H PRN Nausea Oxycodone HCl 2.5 mg 09/24/24 14:00 09/27/24 05:05 Oxycodone Hcl (*Crx) 2.5 Mg Tab Ir PO 2.5 mg Q4H PRN Administration Pain Rated 1-3 Ropinirole HCl 0.5 mg 09/25/24 09:00 09/26/24 09:11 Ropinirole Hcl 0.5 Mg Tablet PO 0.5 mg DAILY VAZQUEZ Administration Ropinirole HCl 1 mg 09/24/24 21:00 09/26/24 19:59 Ropinirole Hcl 1 Mg Tablet PO 1 mg HS VAZQUEZ Administration Rosuvastatin Calcium 40 mg 09/25/24 09:00 09/26/24 09:12 Rosuvastatin 20 Mg Tablet PO Not Given DAILY VAZQUEZ Spironolactone 25 mg 09/25/24 09:00 09/26/24 09:12 Spironolactone 25 Mg Tablet PO Not Given DAILY VAZQUEZ Zolpidem Tartrate 5 mg 09/24/24 15:50 09/26/24 19:59 Zolpidem Tartrate (*Crx) 5 Mg Tablet PO 5 mg HS PRN Administration Insomnia Radiology Results: ITS Impressions Femur X-Ray 09/24/24 11:35 IMPRESSION: 1. Intertrochanteric fracture of proximal left femur. 2. Mild polyarticular osteoarthritis. Hip/Pelvis X-Ray 09/24/24 11:37 IMPRESSION: 1. Intertrochanteric fracture of proximal left femur. 2. Mild osteoarthritis of the hips. Chest X-Ray 09/24/24 11:45 IMPRESSION: 1. Mild pulmonary edema. 2. Cardiomegaly. Lexiscan Stress Test 09/25/24 15:40 IMPRESSION: 1. 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 2. Mild to moderately decreased left ventricular ejection fraction measuring 35%. Labs Labs: Laboratory Results - last 24 hr 09/26/24 09/27/24 11:57 06:43 WBC 9.7 RBC 3.37 L Hgb 10.2 L Hct 32.5 L MCV 96.4 MCH 30.3 MCHC 31.4 L RDW 14.3 Plt Count 83 L MPV 11.6 H Immature Gran % (Auto) 0.5 Neut % (Auto) 83.7 H Lymph % (Auto) 6.7 L [place] % (Auto) 7.0 Eos % (Auto) 1.7 Baso % (Auto) 0.4 Lymph # (Auto) 0.65 L [place] # (Auto) 0.7 H Eos # (Auto) 0.2 Baso # (Auto) 0.0 Abs Immat Gran (auto) 0.05 H Absolute Neuts (auto) 8.1 H Absolute Nucleated RBC 0.000 Nucleated RBC % 0.0 % Immature Plt Fraction 9.8 PT 22.8 H 18.9 H INR 2.0 1.6 APTT 56.0 H Sodium 134 L Potassium 4.2 Chloride 102 Carbon Dioxide 30 Anion Gap 2 L BUN 25 H Creatinine 0.90 Estim Creat Clear Calc 54 Estimated GFR > 60 Glucose 99 Calcium 8.3 L
[2024-09-27] MEDS: rOPINIRole HCL 0.5 MG TABLET PO (08:47)
[2024-09-27] MEDS: GABAPENTIN 300 MG CAPSULE 600 MG PO ×2 (08:47→17:00)
[2024-09-27] MEDS: CITALOPRAM HYDROBROMIDE 20 MG TABLET PO (08:47)
[2024-09-27] MEDS: ISOSORBIDE MONONITRATE 30 MG TAB.ER.24H PO (08:47)
[2024-09-27] MEDS: AMIODARONE HCL 200 MG TABLET PO (08:47)
[2024-09-27] MEDS: MORPHINE SULFATE (*CRX) 4 MG/ML INJ IV PUSH (09:36)
--- NOTE | 2024-09-27 11:46 | WPDHPUPDATE1 ---
History and Physical Update Update Date/Time: 09/27/24 11:46 History and Physical has been reviewed, including an updated exam of the patient. There are NO changes in the patient's condition. Risks, benefits, and alternatives have been discussed and questions answered. Patient agrees to proceed with procedure.
[2024-09-27] MEDS: KETOROLAC 15 MG/ML VIAL (*BKC) IV PUSH (13:00)
[2024-09-27] MEDS: LACTATED RINGERS 1,000 ML 30 ML IV CONT (13:00)
[2024-09-27] MEDS: ACETAMINOPHEN 500 MG TABLET 1000 MG PO (13:00)
[2024-09-27] MEDS: TRANEXAMIC ACID 1,000MG/ISO100 1,000 MG/100 ML BAG 200 MG IVPB (13:30)
--- NOTE | 2024-09-27 13:51 | P.PNAN_ITS ---
Anes - Initial Pre Proc Eval Procedure: Operation Date: 09/26/24 12:00 Proposed Procedures p Left Intertrochanteric Nail - Ludwin Regalado MD Operation Date: 09/27/24 13:30 Proposed Procedures p Left Intertrochanteric Nail - Ludwin Regalado MD Date/Time: 09/27/24 13:51 Surgeon: Jone Rico MD Pre Op Diagnosis: Left Hip Fracture Patient Data Age: 84 Gender: M Height: 1.78 m Weight: 88.5 kg Last Vital Signs Temp 36.8 C 09/27/24 06:00 Pulse 75 09/27/24 08:47 Resp 22 H 09/27/24 06:00 BP 108/51 L 09/27/24 06:00 Pulse Ox 93 09/27/24 10:28 O2 Del Method Nasal Cannula 09/27/24 10:28 O2 Flow Rate 2 09/27/24 10:28 Allergies Allergy/AdvReac Type Severity Reaction Status Date / Time Penicillins Allergy Rash Verified 09/24/24 15:18 povidone-iodine (From Allergy Rash Verified 09/24/24 15:18 Betadine) Home Medications ?Medication ?Instructions ?Recorded ?Confirmed ?Type loratadine 10 mg tablet (Allergy 10 mg PO DAILY PRN itching #10 tabs 04/19/22 09/24/24 Rx Relief (loratadine)) amiodarone 200 mg tablet 200 mg PO DAILY 09/24/24 09/24/24 History aspirin 81 mg PO DAILY 09/24/24 09/24/24 History citalopram 20 mg tablet 20 mg PO DAILY 09/24/24 09/24/24 History cyanocobalamin (vitamin B-12) 1,000 mg PO DAILY 09/24/24 09/24/24 History ferrous sulfate 325 mg (65 mg 325 mg PO DAILY 09/24/24 09/24/24 History iron) tablet gabapentin 600 mg tablet 600 mg PO TID 09/24/24 09/24/24 History isosorbide mononitrate 60 mg 30 mg PO DAILY 09/24/24 09/24/24 History tablet,extended release 24 hr ropinirole 0.5 mg tablet 0.5 mg PO DAILY 09/24/24 09/24/24 History ropinirole 0.5 mg tablet 1 mg PO HS 09/24/24 09/24/24 History rosuvastatin 40 mg tablet 40 mg PO DAILY 09/24/24 09/24/24 History spironolactone 25 mg tablet 25 mg PO DAILY 09/24/24 09/24/24 History warfarin 5 mg tablet 5 mg PO DAILY 09/24/24 09/24/24 History zolpidem 5 mg tablet 5 mg PO HS PRN Insomnia 09/24/24 09/24/24 History Laboratory Tests 09/27/24 06:43 WBC 9.7 K/mm3 (4.5-10.0) RBC 3.37 L M/mm3 (4.6-6.20) Hgb 10.2 L g/dL (14.0-18.0) Hct 32.5 L % (42.0-52.0) MCV 96.4 fl (80-100) MCH 30.3 pg (26-34) MCHC 31.4 L g/dl (32-36) RDW 14.3 % (11.5-14.5) Plt Count 83 L k/mm3 (150-375) MPV 11.6 H fl (7.4-10.4) Immature Gran % (Auto) 0.5 % (0-0.5) Neut % (Auto) 83.7 H % (45.5-73.1) Lymph % (Auto) 6.7 L % (18.3-44.2) [place] % (Auto) 7.0 % (2.6-8.5) Eos % (Auto) 1.7 % (0-4.4) Baso % (Auto) 0.4 % (0.2-1.2) Lymph # (Auto) 0.65 L K/mm3 (0.9-3.2) [place] # (Auto) 0.7 H K/mm3 (0.1-0.6) Eos # (Auto) 0.2 K/mm3 (0-0.3) Baso # (Auto) 0.0 K/mm3 (0.0-0.1) Abs Immat Gran (auto) 0.05 H K/mm3 (0.00-0.031) Absolute Neuts (auto) 8.1 H K/mm3 (1.3-6.7) Absolute Nucleated RBC 0.000 K/mm3 (0.0-0.012) Nucleated RBC % 0.0 % (0.0-0.2) % Immature Plt Fraction 9.8 % (0.9-11.2) PT 18.9 H Seconds (11.1-14.7) INR 1.6 Sodium 134 L mmol/L (137-145) Potassium 4.2 mmol/L (3.4-5.0) Chloride 102 mmol/L (98-107) Carbon Dioxide 30 mmol/L (22-30) Anion Gap 2 L mmol/L (4-12) BUN 25 H mg/dL (9-20) Creatinine 0.90 mg/dL (0.7-1.3) Estim Creat Clear Calc 54 ml/min Estimated GFR > 60 (59 - ) Glucose 99 mg/dL (65-110) Calcium 8.3 L mg/dL (8.4-10.2) Patient hx anesthesia problems: none Family hx anesthesia problems: none Results Review: All pre-operative results and documents have been reviewed as part of the pre- operative evaluation. 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 Myocardial infarction 1989 Coronary artery disease CHF (congestive heart failure) Surgical History Surgical History History of open reduction and internal fixation (ORIF) procedure right femur secondary to fracture S/P internal cardiac defibrillator procedure S/P CABG x 7 Family History Family History Father FH: heart attack Sibling Heart attack Son Stomach cancer Social History Social History Years smoked: 70 Smoking status: Current every day smoker Tobacco type: cigarettes Alcohol intake: current Drinks per week: 3 Substance use: never Substance use type: does not use Do You Feel Safe in your Home?: Yes Lack of Transportation: No Lack of Food: Never True Current Housing: I Have Housing Concerned About Future Housing: No Difficulty Paying Gas/Electric Bills: No Difficulty Paying for Meds: No Currently Unemployed: No Education: Decline to Answer Difficulty w/ Childcare or Family Care: No Spiritual care concerns: No Anes - Eval Final PreProcedure Day of Procedure 09/27/24 13:51 Patient weight: overweight Heart: irregular rhythm Lungs: decreased breath sounds Airway: Mallampati scale class II Last oral intake: >/= 8 hours ASA classification: IV Emergent: no Anesthetic plan: proceed Anesthesia type and monitoring: general LMA and standard monitoring Results Review: All pre-operative results and documents have been reviewed as part of the pre- operative evaluation. Informed Consent: The patient's anesthetic plan and its attendant risks and benefits were discussed with the patient/family/POA. Questions were solicited and answers provided to the satisfaction of the patient/family/POA.
[2024-09-27] MEDS: ceFAZolin 2 GM/D5W 50 ML 2 GM/50 ML BAG IVPB ×2 (13:59→22:17)
[2024-09-27] MEDS: BUPIVACAINE/EPINEPHRINE 0.5% 10 ML VIAL 30 ML INFILTRATE (14:35)
--- NOTE | 2024-09-27 15:18 | W.PM.PROC2 ---
Procedure Note - Detailed Date of Procedure 09/27/24 Pre-op Diagnosis Left Hip Fracture Post-op Diagnosis Same Procedure Performed LT hip trochanteric nail, hip screw Surgeon Ludwin Regalado MD Health Tech 1st merchandising assistant Anesthesia General Indications 84 yo man fell at home on left side. LT hip IT fx. desires operative tx. Description of Procedure After informed consent the operative extremity was marked in the preoperative holding area. Patient received intravenous antibiotics. The patient was taken to the operative room, placed in the supine position, general anesthesia induced by the anesthesia team, and was placed on a fracture table with longitudinal traction applied to the left leg. The hip fracture was reduced to near anatomic position and verified with image intensification. A time-out was performed confirming the patient, site of the surgery and plan. The left lower extremity was prepped and draped sterilely from the knee to the iliac crest region using a ChloraPrep skin solution. Incision was made just proximal to greater trochanter down to the subcutaneous tissues. Hemostasis controlled with electrocautery. Blunt dissection through the fascia to the tip of the greater trochanter. A starter awl was placed at the tip of the greater trochanter into the medullary canal of the femur. This was checked with image intensification and was in good position. Intramedullary guide gaston positioned. A one-step hand reaming done proximally. Intramedullary canal was reamed with a 12.5 millimeter flexible reamer. Neck angle selected off of preoperative radiographs temp plating. 125 degree 11 X 200mm Nail opened on the back table and assembled. This was then inserted over the guide gaston to the correct depth. Guide gaston removed. Lag screw was then placed with a stab incision over the lateral femur using a 10 blade knife. Blunt dissection down to the lateral side of the bone. Soft tissue protectors placed. Guide pin placed in the center center position of the femoral head and measured. 110 millimeter x 10 millimeter lag screw placed to correct depth and verified with image intensification. Traction released from the leg and compression of the fracture performed with the external compression device. Distal locking of the nail necessary due to instability in the intramedullary canal and proximal femur. Stab incision made lateral thigh. Blunt dissection down to lateral side of the femur. Image intensification used to guide drill which was placed through the locking hole. Distal femur measured and the appropriate size screw placed. Image intensification confirmed the placement through the locking hole. Final image intensification confirm reduction of the fracture and placement of the hardware. Wounds then thoroughly irrigated with antibiotic solution. Fascia repaired with 0 Vicryl interrupted suture. Subcutaneous tissue repaired with 000 monocryl interrupted suture and skin repaired with dermabond. Sterile dressings applied. Patient then awoke from anesthesia, extubated, taken to recovery room stable condition. All sponge, needle and instrument counts correct at the end the case. Implants Arthrex trochanteric nail 11 x 200 mm, 125 degree. 110 mm x 10 mm locking screw and 44 mm x 5 mm distal screw. Estimated Blood Loss 150 Drains No Packing No Pathology None sent Complications None Condition Stable Disposition PACU [facility] Billing Surgery - Charge Forward: Surgery Billing ([id number])
[2024-09-27] MEDS: SENNA/DOCUSATE SODIUM TABLET 2 TAB PO (17:01)
[2024-09-27] MEDS: rOPINIRole HCL 1 MG TABLET PO (20:45)
[2024-09-28] VITALS (8 sets, daily range): BP systolic 90–120; BP diastolic 53–61; PULSE 72–84; RESP 16–20; TEMP 36.1–36.8; O2SAT 94–97
[2024-09-28] MEDS: oxyCODONE HCL (*CRX) 2.5 MG TAB IR PO (05:38)
[2024-09-28] MEDS: ceFAZolin 2 GM/D5W 50 ML 2 GM/50 ML BAG IVPB ×2 (05:51→11:56)
--- NOTE | 2024-09-28 07:40 | P.PNAN_ITS ---
Anes - Prog Note Post-Op Date/Time: 09/28/24 07:40 Cardiovascular status: normal Respiratory status: normal Airway patency: baseline Mental status: baseline Post-Op hydration status: normal Vital Signs: Last Vital Signs Temp 97.0 F L 09/28/24 04:08 Pulse 74 09/28/24 04:08 Resp 20 09/28/24 04:08 BP 104/55 L 09/28/24 04:08 Pulse Ox 94 09/28/24 04:08 O2 Del Method Nasal Cannula 09/27/24 20:00 O2 Flow Rate 2 09/27/24 20:00 Pain Score (VAS): 0/10 I/O: Intake & Output 09/27/24 09/27/24 09/28/24 15:59 23:59 07:59 Intake Total 150 340 300 Output Total 400 150 550 Balance -250 190 -250 Laboratory Tests 09/27/24 06:43 09/27/24 06:43 09/27/24 06:43 WBC 9.7 RBC 3.37 L Hgb 10.2 L Hct 32.5 L MCV 96.4 MCH 30.3 MCHC 31.4 L RDW 14.3 Plt Count 83 L MPV 11.6 H Immature Gran % (Auto) 0.5 Neut % (Auto) 83.7 H Lymph % (Auto) 6.7 L [place] % (Auto) 7.0 Eos % (Auto) 1.7 Baso % (Auto) 0.4 Lymph # (Auto) 0.65 L [place] # (Auto) 0.7 H Eos # (Auto) 0.2 Baso # (Auto) 0.0 Abs Immat Gran (auto) 0.05 H Absolute Neuts (auto) 8.1 H Absolute Nucleated RBC 0.000 Nucleated RBC % 0.0 % Immature Plt Fraction 9.8 Post-procedural complaints: none Patient Feedback: Patient satisfied with anesthetic care.
[2024-09-28] MEDS: AMIODARONE HCL 200 MG TABLET PO (08:25)
[2024-09-28] MEDS: rOPINIRole HCL 0.5 MG TABLET PO (08:27)
[2024-09-28] MEDS: GABAPENTIN 300 MG CAPSULE 600 MG PO ×3 (08:27→16:14)
[2024-09-28] MEDS: ASPIRIN 81 MG CHEWABLE TABLET PO (08:27)
[2024-09-28] MEDS: ISOSORBIDE MONONITRATE 30 MG TAB.ER.24H PO (08:27)
[2024-09-28] MEDS: CYANOCOBALAMIN 1,000 MCG TABLET 1000 MCG PO (08:27)
[2024-09-28] MEDS: ROSUVASTATIN 20 MG TABLET 40 MG PO (08:28)
[2024-09-28] MEDS: FERROUS SULFATE 325 MG TABLET DR PO (08:28)
[2024-09-28] MEDS: polyethylene glycoL 3350 17 GM POWD.PACK PO (08:28)
[2024-09-28] MEDS: SPIRONOLACTONE 25 MG TABLET PO (08:28)
[2024-09-28] MEDS: SENNA/DOCUSATE SODIUM TABLET 2 TAB PO ×2 (08:28→16:15)
[2024-09-28] MEDS: CITALOPRAM HYDROBROMIDE 20 MG TABLET PO (08:28)
--- NOTE | 2024-09-28 08:56 | PM.PNORT ---
Progress Note: A&P Assessment and Plan (1) Intertrochanteric fracture of left femur: Qualifiers: Encounter type: subsequent encounter Fracture type: closed Fracture alignment: displaced Fracture healing: with routine healing Qualified Code(s): S72.142D - Displaced intertrochanteric fracture of left femur, subsequent encounter for closed fracture with routine healing Code(s): S72.142A - Displaced intertrochanteric fracture of left femur, initial encounter for closed fracture Status: Acute Assessment and Plan: POD #1 lt hip troch nail up in chair pain control- will adjust oxy Restart coumadin Labs PT/OT Subjective Subjective Date/Time Seen: 09/28/24 08:56 Post Op day: 1 Principal diagnosis: lt hip fx Interval history: Patient up in chair. Awake and alert. Less confused today. Oriented to person, place and time. Complains of pain left hip. Exam Const: General: comfortable; No acute distress Resp: Effort & Inspection: normal respiratory effort and no audible wheezes Extrem: Right lower extremity: lower leg ( Negative Homans sign), ankle Details: normal ROM ( dorsiflexion and plantar flexion intact) and foot Details: vascular exam Details: dorsalis pedis pulse present and normal capillary refill, tendon exam Details: active flexion normal and active extension normal and motor-sensory exam Details: light-touch normal Location: in all toes; no edema Left lower extremity: normal to inspection, ankle Details: normal ROM and foot Details: vascular exam Details: dorsalis pedis pulse present and normal capillary refill and motor-sensory exam light-touch normal in all toes; no edema Objective Data Vital Signs Vital Signs: Vital Signs - 24 hr 09/27/24 10:28 09/27/24 15:11 09/27/24 15:25 Temperature 98.4 F Pulse Rate 80 74 Respiratory Rate 18 20 Blood Pressure 112/89 100/52 L Pulse Oximetry 93 100 99 Oxygen Delivery Nasal Cannula Simple Face Mask Simple Face Mask Oxygen Flow Rate 2 8 8 09/27/24 15:40 09/27/24 15:55 09/27/24 16:06 Temperature Pulse Rate 77 75 75 Respiratory Rate 16 14 14 Blood Pressure 100/53 L 95/56 L 98/53 L Pulse Oximetry 93 94 93 Oxygen Delivery Nasal Cannula Nasal Cannula Nasal Cannula Oxygen Flow Rate 2 3 3 09/27/24 16:10 09/27/24 16:25 09/27/24 16:55 Temperature 97.5 F L 97.9 F 97.3 F L Pulse Rate 75 71 75 Respiratory Rate 18 18 17 Blood Pressure 91/53 L 97/56 L 94/69 L Pulse Oximetry 92 94 99 Oxygen Delivery Oxygen Flow Rate 09/27/24 20:00 09/27/24 20:00 09/28/24 01:11 Temperature 97.8 F 97.3 F L Pulse Rate 78 72 Respiratory Rate 18 16 Blood Pressure 96/50 L 100/57 L Pulse Oximetry 97 97 97 Oxygen Delivery Nasal Cannula Oxygen Flow Rate 2 09/28/24 04:08 09/28/24 08:25 Temperature 97.0 F L Pulse Rate 74 74 Respiratory Rate 20 Blood Pressure 104/55 L Pulse Oximetry 94 Oxygen Delivery Oxygen Flow Rate Intake/Output Intake/Output: Intake & Output 09/25/24 09/26/24 09/27/24 09/28/24 23:59 23:59 23:59 23:59 Intake Total 1300 700 850 300 Output Total 800 1175 950 550 Balance 500 475 -100 -250 Meds/Results Medications: Active Medications Generic Name Dose Route Start Last Admin Trade Name Freq PRN Reason Stop Dose Admin Amiodarone HCl 200 mg 09/25/24 09:00 09/28/24 08:25 Amiodarone Hcl 200 Mg Tablet PO 200 mg DAILY VAZQUEZ Administration Aspirin 81 mg 09/28/24 08:00 09/28/24 08:27 Aspirin 81 Mg Chewable Tablet PO 81 mg DAILY@0800 VAZQUEZ Administration Citalopram Hydrobromide 20 mg 09/25/24 09:00 09/28/24 08:28 Citalopram Hydrobromide 20 Mg Tablet PO 20 mg DAILY VAZQUEZ Administration Cyanocobalamin 1,000 mcg 09/25/24 09:00 09/28/24 08:27 Cyanocobalamin 1,000 Mcg Tablet PO 1,000 mcg DAILY VAZQUEZ Administration Ferrous Sulfate 325 mg 09/25/24 09:00 09/28/24 08:28 Ferrous Sulfate [address] PO 325 mg DAILY VAZQUEZ Administration Gabapentin 600 mg 09/24/24 17:00 09/28/24 08:27 Gabapentin 300 Mg Capsule PO 600 mg TID VAZQUEZ Administration Hydromorphone HCl 0.5 mg 09/28/24 08:54 Hydromorphone Hcl Inj (*Crx) 1 Mg/Ml Syr IV PUSH Q3H PRN Pain Rated 7-10 Cefazolin Sodium 2 gm in 50 mls @ 100 mls/hr 09/27/24 22:00 09/28/24 05:51 Ancef 2 Gm/D5w 50 Ml IVPB 09/28/24 14:29 100 mls/hr Q8H [facility]ZQUEZ Administration Ibuprofen 800 mg in 200 mls @ 400 mls/hr 09/27/24 16:10 Caldolor 800 Mg/200 Ml IVPB Q6H PRN Breakthrough Pain Rated 1-3 or NPO Isosorbide Mononitrate 30 mg 09/25/24 09:00 09/28/24 08:27 Isosorbide Mononitrate 30 Mg Tab.Er.24h PO 30 mg DAILY VAZQUEZ Administration Loratadine 10 mg 09/24/24 15:50 Loratadine 10 Mg Tablet PO DAILY PRN itching Naloxone HCl 0.1 mg 09/24/24 15:55 Naloxone Hcl 0.4 Mg/Ml Vial IV PUSH Q5MIN PRN Sedation Ondansetron HCl 4 mg 09/24/24 11:59 Ondansetron Inj 4 Mg/2 Ml Vial IV PUSH Q4H PRN Nausea Oxycodone HCl 5 mg 09/28/24 08:54 Oxycodone Hcl (*Crx) 5 Mg Tab Ir PO Q4H PRN Pain Rated 4-6 Polyethylene Glycol 17 gm 09/28/24 09:00 09/28/24 08:28 Polyethylene Glycol 3350 17 Gm Powd.Pack PO 17 gm QAM VAZQUEZ Administration Ropinirole HCl 0.5 mg 09/25/24 09:00 09/28/24 08:27 Ropinirole Hcl 0.5 Mg Tablet PO 0.5 mg DAILY [facility]ZQUEZ Administration Ropinirole HCl 1 mg 09/24/24 21:00 09/27/24 20:45 Ropinirole Hcl 1 Mg Tablet PO 1 mg HS [facility]ZQUEZ Administration Rosuvastatin Calcium 40 mg 09/25/24 09:00 09/28/24 08:28 Rosuvastatin 20 Mg Tablet PO 40 mg DAILY VAZQUEZ Administration Senna/Docusate Sodium 2 tab 09/27/24 17:00 09/28/24 08:28 Senna/Docusate Sodium Tablet PO 2 tab BID [facility]ZQUEZ Administration Spironolactone 25 mg 09/25/24 09:00 09/28/24 08:28 Spironolactone 25 Mg Tablet PO 25 mg DAILY VAZQUEZ Administration Warfarin Sodium 5 mg 09/29/24 17:00 Warfarin (*Pbkc) 5 Mg Tablet PO DAILY@1700 [facility] Zolpidem Tartrate 5 mg 09/24/24 15:50 09/26/24 19:59 Zolpidem Tartrate (*Crx) 5 Mg Tablet PO 5 mg HS PRN Administration Insomnia Radiology Results: ITS Impressions Femur X-Ray 09/24/24 11:35 IMPRESSION: 1. Intertrochanteric fracture of proximal left femur. 2. Mild polyarticular osteoarthritis. Hip/Pelvis X-Ray 09/24/24 11:37 IMPRESSION: 1. Intertrochanteric fracture of proximal left femur. 2. Mild osteoarthritis of the hips. Chest X-Ray 09/24/24 11:45 IMPRESSION: 1. Mild pulmonary edema. 2. Cardiomegaly. Lexiscan Stress Test 09/25/24 15:40 IMPRESSION: 1. 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 2. Mild to moderately decreased left ventricular ejection fraction measuring 35%. Intraoperative X-Ray 09/27/24 15:00 IMPRESSION: 1. Near-anatomic alignment post internal fixation of an intratrochanteric fracture of the proximal left femur. See procedure note for further detail.
[2024-09-28 09:06] LABS: INR 1.2; Prothrombin Time 15.6 Seconds (11.1-14.7)
[2024-09-28 09:07] LABS: Basophils Percent Auto 0.1 % (0.2-1.2); Eosinophils Percent Auto 0.1 % (0-4.4); Hematocrit 31.4 % (42.0-52.0); Hemoglobin 10.1 g/dL (14.0-18.0); Immature Granulocyte Absolute 0.07 K/mm3 (0.00-0.031); Immature Granulocyte Percent A 0.7 % (0-0.5); Lymphocytes Absolute Auto 0.42 K/mm3 (0.9-3.2); Lymphocytes Percent Auto 4.4 % (18.3-44.2); Mean Corpuscular HGB Conc 32.2 g/dl (32-36); Mean Corpuscular Hemoglobin 30.8 pg (26-34); Mean Corpuscular Volume 95.7 fl (80-100); Monocytes Absolute Auto 0.5 K/mm3 (0.1-0.6); Monocytes Percent Auto 5.1 % (2.6-8.5); Neutrophils Absolute Auto 8.5 K/mm3 (1.3-6.7); Neutrophils Percent Auto 89.6 % (45.5-73.1); Platelet Count Result 102 k/mm3 (150-375); Red Blood Count 3.28 M/mm3 (4.6-6.20); Red Cell Distribution Width 13.9 % (11.5-14.5); White Blood Count 9.5 K/mm3 (4.5-10.0)
[2024-09-28] MEDS: oxyCODONE HCL (*CRX) 5 MG TAB IR PO ×4 (09:16→20:50)
[2024-09-28 09:17] LABS: Anion Gap 3 mmol/L (4-12); Blood Urea Nitrogen 25 mg/dL (9-20); Calcium 8.3 mg/dL (8.4-10.2); Carbon Dioxide 30 mmol/L (22-30); Chloride 102 mmol/L (98-107); Estimated CRCL calculation 54 ml/min; Estimated Glomerular Filt Rate > 60; Glucose 105 mg/dL (65-110); Potassium 4.5 mmol/L (3.4-5.0); Sodium 135 mmol/L (137-145)
--- NOTE | 2024-09-28 09:26 | PM.IMPN ---
Progress Note: A&P Assessment and Plan (1) CHF (congestive heart failure): Qualifiers: Heart failure chronicity: chronic Heart failure type: unspecified Qualified Code(s): I50.9 - Heart failure, unspecified Code(s): I50.9 - Heart failure, unspecified Status: Chronic (2) Ankle wound: Qualifiers: Encounter type: sequela Laterality: left Qualified Code(s): S91.002S - Unspecified open wound, left ankle, sequela Code(s): S91.009A - Unspecified open wound, unspecified ankle, initial encounter Status: Chronic (3) Intertrochanteric fracture of left femur: Qualifiers: Encounter type: subsequent encounter Fracture alignment: displaced Fracture healing: with routine healing Fracture type: closed Qualified Code(s): S72.142D - Displaced intertrochanteric fracture of left femur, subsequent encounter for closed fracture with routine healing Code(s): S72.142A - Displaced intertrochanteric fracture of left femur, initial encounter for closed fracture Status: Acute (4) Closed fracture of left hip: Code(s): S72.002A - Fracture of unspecified part of neck of left femur, initial encounter for closed fracture Status: Acute Plan Intertrochanteric fracture of left femur: Qualifiers: Encounter type: initial encounter Fracture alignment: nondisplaced Fracture type: closed Qualified Code(s): S72.145A - Nondisplaced intertrochanteric fracture of left femur, initial encounter for closed fracture Code(s): S72.142A - Displaced intertrochanteric fracture of left femur, initial encounter for closed fracture Status: Acute Assessment and Plan: XR femur, L: 1. Intertrochanteric fracture of proximal left femur. 2. Mild polyarticular osteoarthritis. - hip/pelvis XR: 1. Intertrochanteric fracture of proximal left femur. 2. Mild osteoarthritis of the hips. orthopedics consulted, Valorie [facility]. awaiting formal recs - preop workup including basic labs, coags, EKG, UA, CXR, BNP, and type and screen - cardiology consulted for cardiac clearance - analgesics p.r.n. - on Warfarin and ASA, medications held. INR 2.0, trend. Appreciate orthopedic surgeon consultation, provide Vit K 5 mg po 09/26f/u INR 1.6 09/28 09/28 open reduction of left hip fracture D1. 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 update. - currently on: Spironolactone 25 mg daily - monitor I&Os and daily weights - trend renal function Compensated Echocardiogram report 1. The left ventricle is mildly dilated with severely reduced systolic function. There is moderate eccentric left ventricular hypertrophy. The left ventricular ejection fraction is visually estimated to be 25-30%. The inferior and inferolateral morales are akinetic. 2. The right ventricle is not well visualized. There is mildly reduced systolic function by tissue Doppler. 3. Dilated inferior vena cava with >50% collapse upon inspiration consistent with significantly elevated right atrial pressure, 15 mmHg Pending stress test Due to the complexity of his cardiac history, consult ornament stapler for cardiac risk stratification for the surgical procedure will resume warfarin tomorrow per orthopedic surgeon Dehydration, hyponatremia blood pressure on lower side received normal saline 500 bolus recevied ns 75 ml/h dc iv fluid today Atrial fibrillation now patient has a paced rhythm Continue amiodarone 200 mg daily p.o. Hold warfarin for surgical procedure Reverse INR with vitamin K 5 mg once will resume warfarin tomorrow per orthopedic surgeon Chronic anemia Slightly Down to 11.3, No obvious bleeding Follow-up CBC Plan Diet: Heart healthy, NPO at midnight GI Prophylaxis: not currently indicated DVT Prophylaxis: SCDs, warfarin and ASA held. Lines: peripheral Code Status: full code Subjective Date/time seen: 09/28/24 09:26 Interval history: I saw exam patient in presents of patient's family. Patient up in chair in the morning. Patient still has pain left hip. POD #1 lt hip troch nail, afebrile, blood pressure stable, no O2 desaturation on room air, patient denies chest pain shortness of breath, nausea vomiting Exam Narrative: GENERAL: Pleasant, in no acute distress. Well-nourished. - EYES: EOMI. Anicteric. - HENT: Moist mucous membranes. - LUNGS: Clear to auscultation bilaterally, no wheezing, rhonchi, or rales. - CARDIOVASCULAR: Regular rate and rhythm. No murmur. No JVD. - ABDOMEN: Soft, non-tender and non-distended. No palpable masses. - EXTREMITIES: No edema. Peripheral pulses 2+. Non-tender. Range of movement over left hip is restricted because of pain - NEUROLOGIC: No focal neurological deficits. CN II-XII grossly intact. - PSYCHIATRIC: Awake, Alert and oriented x 3. Appropriate mood and affect. - SKIN: Pressure ulcers of left ankle - LYMPH: No cervical lymphadenopathy. Objective Data Vital Signs Vital Signs: Vital Signs - 24 hr 09/27/24 10:28 09/27/24 15:11 09/27/24 15:25 Temperature 98.4 F Pulse Rate 80 74 Respiratory Rate 18 20 Blood Pressure 112/89 100/52 L Pulse Oximetry 93 100 99 Oxygen Delivery Nasal Cannula Simple Face Mask Simple Face Mask Oxygen Flow Rate 2 8 8 09/27/24 15:40 09/27/24 15:55 09/27/24 16:06 Temperature Pulse Rate 77 75 75 Respiratory Rate 16 14 14 Blood Pressure 100/53 L 95/56 L 98/53 L Pulse Oximetry 93 94 93 Oxygen Delivery Nasal Cannula Nasal Cannula Nasal Cannula Oxygen Flow Rate 2 3 3 09/27/24 16:10 09/27/24 16:25 09/27/24 16:55 Temperature 97.5 F L 97.9 F 97.3 F L Pulse Rate 75 71 75 Respiratory Rate 18 18 17 Blood Pressure 91/53 L 97/56 L 94/69 L Pulse Oximetry 92 94 99 Oxygen Delivery Oxygen Flow Rate 09/27/24 20:00 09/27/24 20:00 09/28/24 01:11 Temperature 97.8 F 97.3 F L Pulse Rate 78 72 Respiratory Rate 18 16 Blood Pressure 96/50 L 100/57 L Pulse Oximetry 97 97 97 Oxygen Delivery Nasal Cannula Oxygen Flow Rate 2 09/28/24 04:08 09/28/24 07:56 09/28/24 08:25 Temperature 97.0 F L Pulse Rate 74 74 Respiratory Rate 20 Blood Pressure 104/55 L Pulse Oximetry 94 Oxygen Delivery Room Air Oxygen Flow Rate Intake/Output Intake/Output: Intake & Output 09/25/24 09/26/24 09/27/24 09/28/24 23:59 23:59 23:59 23:59 Intake Total 1300 700 850 300 Output Total 800 1175 950 550 Balance 884 -041 -100 -250 Meds/Results Medications: Active Medications Generic Name Dose Route Start Last Admin Trade Name Freq PRN Reason Stop Dose Admin Amiodarone HCl 200 mg 09/25/24 09:00 09/28/24 08:25 Amiodarone Hcl 200 Mg Tablet PO 200 mg DAILY VAZQUEZ Administration Aspirin 81 mg 09/28/24 08:00 09/28/24 08:27 Aspirin 81 Mg Chewable Tablet PO 81 mg DAILY@0800 [facility]ZQUEZ Administration Citalopram Hydrobromide 20 mg 09/25/24 09:00 09/28/24 08:28 Citalopram Hydrobromide 20 Mg Tablet PO 20 mg DAILY VAZQUEZ Administration Cyanocobalamin 1,000 mcg 09/25/24 09:00 09/28/24 08:27 Cyanocobalamin 1,000 Mcg Tablet PO 1,000 mcg DAILY VAZQUEZ Administration Ferrous Sulfate 325 mg 09/25/24 09:00 09/28/24 08:28 Ferrous Sulfate [address] PO 325 mg DAILY VAZQUEZ Administration Gabapentin 600 mg 09/24/24 17:00 09/28/24 08:27 Gabapentin 300 Mg Capsule PO 600 mg TID VAZQUEZ Administration Hydromorphone HCl 0.5 mg 09/28/24 08:54 Hydromorphone Hcl Inj (*Crx) 1 Mg/Ml Syr IV PUSH Q3H PRN Pain Rated 7-10 Cefazolin Sodium 2 gm in 50 mls @ 100 mls/hr 09/27/24 22:00 09/28/24 05:51 Ancef 2 Gm/D5w 50 Ml IVPB 09/28/24 14:29 100 mls/hr Q8H VAZQUEZ Administration Ibuprofen 800 mg in 200 mls @ 400 mls/hr 09/27/24 16:10 Caldolor 800 Mg/200 Ml IVPB Q6H PRN Breakthrough Pain Rated 1-3 or NPO Isosorbide Mononitrate 30 mg 09/25/24 09:00 09/28/24 08:27 Isosorbide Mononitrate 30 Mg Tab.Er.24h PO 30 mg DAILY VAZQUEZ Administration Loratadine 10 mg 09/24/24 15:50 Loratadine 10 Mg Tablet PO DAILY PRN itching Naloxone HCl 0.1 mg 09/24/24 15:55 Naloxone Hcl 0.4 Mg/Ml Vial IV PUSH Q5MIN PRN Sedation Ondansetron HCl 4 mg 09/24/24 11:59 Ondansetron Inj 4 Mg/2 Ml Vial IV PUSH Q4H PRN Nausea Oxycodone HCl 5 mg 09/28/24 08:54 09/28/24 09:16 Oxycodone Hcl (*Crx) 5 Mg Tab Ir PO 5 mg Q4H PRN Administration Pain Rated 4-6 Polyethylene Glycol 17 gm 09/28/24 09:00 09/28/24 08:28 Polyethylene Glycol 3350 17 Gm Powd.Pack PO 17 gm QAM VAZQUEZ Administration Ropinirole HCl 0.5 mg 09/25/24 09:00 09/28/24 08:27 Ropinirole Hcl 0.5 Mg Tablet PO 0.5 mg DAILY VAZQUEZ Administration Ropinirole HCl 1 mg 09/24/24 21:00 09/27/24 20:45 Ropinirole Hcl 1 Mg Tablet PO 1 mg HS [facility] Administration Rosuvastatin Calcium 40 mg 09/25/24 09:00 09/28/24 08:28 Rosuvastatin 20 Mg Tablet PO 40 mg DAILY VAZQUEZ Administration Senna/Docusate Sodium 2 tab 09/27/24 17:00 09/28/24 08:28 Senna/Docusate Sodium Tablet PO 2 tab BID VAZQUEZ Administration Spironolactone 25 mg 09/25/24 09:00 09/28/24 08:28 Spironolactone 25 Mg Tablet PO 25 mg DAILY VAZQUEZ Administration Warfarin Sodium 5 mg 09/29/24 17:00 Warfarin (*Pbkc) 5 Mg Tablet PO DAILY@1700 [facility] Zolpidem Tartrate 5 mg 09/24/24 15:50 09/26/24 19:59 Zolpidem Tartrate (*Crx) 5 Mg Tablet PO 5 mg HS PRN Administration Insomnia Radiology Results: ITS Impressions Femur X-Ray 09/24/24 11:35 IMPRESSION: 1. Intertrochanteric fracture of proximal left femur. 2. Mild polyarticular osteoarthritis. Hip/Pelvis X-Ray 09/24/24 11:37 IMPRESSION: 1. Intertrochanteric fracture of proximal left femur. 2. Mild osteoarthritis of the hips. Chest X-Ray 09/24/24 11:45 IMPRESSION: 1. Mild pulmonary edema. 2. Cardiomegaly. Lexiscan Stress Test 09/25/24 15:40 IMPRESSION: 1. 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 2. Mild to moderately decreased left ventricular ejection fraction measuring 35%. Intraoperative X-Ray 09/27/24 15:00 IMPRESSION: 1. Near-anatomic alignment post internal fixation of an intratrochanteric fracture of the proximal left femur. See procedure note for further detail. Labs Labs: Laboratory Results - last 24 hr 09/28/24 08:19 PT 15.6 H INR 1.2 Sodium 135 L Potassium 4.5 Chloride 102 Carbon Dioxide 30 Anion Gap 3 L BUN 25 H Creatinine 0.90 Estim Creat Clear Calc 54 Estimated GFR > 60 Glucose 105 Calcium 8.3 L
[2024-09-28] MEDS: HYDROmorphone HCL INJ (*CRX) 1 MG/ML SYR 0.5 MG IV PUSH (10:45)
--- NOTE | 2024-09-28 13:35 | PM.PNCARD ---
Progress Note: A&P Assessment and Plan (1) Preop cardiovascular exam: Code(s): Z01.810 - Encounter for preprocedural cardiovascular examination Status: Acute Plan 84-year-old man CAD status post CABG and subsequent stents and ICD implantation, intramural thrombus, and paroxysmal atrial fibrillation presents after a ground fall subsequent intertrochanteric fracture now requiring cardiac risk stratification Cardiac risk stratification -Stress test revealed combination of severe infarct and mild surrounding ischemia involving significant portions of the circumflex and right coronary artery vascular distributions. 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 -EF 35% -I am going to discontinue his IV fluids as he has chronic systolic heart failure and significantly elevated RA pressure on echo -May want to consider one time dose of diuretic prior to surgery if BP can tolerate -would keep patient on telemetry postoperatively -I would consider him at least moderate risk for elective noncardiac surgery because of his coronary artery disease and cardiomyopathy. -Discussed stress test and echo findings with patient and family at the bedside and elevated risk for CV event with surgery/anesthesia. He is doing well postoperatively and does not have any active cardiac problems currently. Would limit IV fluids in order to avoid CHF. Cardiology will sign off at this point. Please call with questions. Subjective Date/time seen: 09/28/24 13:35 Interval history: Cardiology follow up visit Patient is feeling well this morning. Denies chest pain, shortness of breath. Has discomfort in left leg. Date of service 09/28/2024: Feeling well today. Still has discomfort in left leg especially with activity. He denies any shortness of breath, chest pain. Review of Systems Review of Systems: All systems reviewed & are unremarkable except as noted in HPI and below Cardiovascular: Cardiovascular: Reports as per HPI Respiratory: Respiratory: Reports as per HPI Exam Const: General: comfortable and average body habitus Nutritional Appearance: average body habitus Orientation/consciousness: patient oriented x3 HENMT: Mouth: Yes moist mucous membranes Eyes: EOM: EOMs intact bilaterally Neck: Other: Mild JVD Resp: Effort & Inspection: normal respiratory effort Auscultation: clear to auscultation bilaterally Cardio: Rate: regular rate Rhythm: regular rhythm Heart sounds: S1 normal heart sound present and S2 normal heart sound present Skin: General skin exam: normal color and wounds noted (l) Wounds: wounds noted (l) Neuro: General: patient oriented x3 Speech: normal speech Psych: Appearance: grossly normal Objective Data Vital Signs Vital Signs: Vital Signs - 24 hr 09/27/24 15:11 09/27/24 15:25 09/27/24 15:40 Temperature 36.9 C Pulse Rate 80 74 77 Respiratory Rate 18 20 16 Blood Pressure 112/89 100/52 L 100/53 L Pulse Oximetry 100 99 93 Oxygen Delivery Simple Face Mask Simple Face Mask Nasal Cannula Oxygen Flow Rate 8 8 2 09/27/24 15:55 09/27/24 16:06 09/27/24 16:10 Temperature 36.4 C L Pulse Rate 75 75 75 Respiratory Rate 14 14 18 Blood Pressure 95/56 L 98/53 L 91/53 L Pulse Oximetry 94 93 92 Oxygen Delivery Nasal Cannula Nasal Cannula Oxygen Flow Rate 3 3 09/27/24 16:25 09/27/24 16:55 09/27/24 20:00 Temperature 36.6 C 36.3 C L 36.6 C Pulse Rate 71 75 78 Respiratory Rate 18 17 18 Blood Pressure 97/56 L 94/69 L 96/50 L Pulse Oximetry 94 99 97 Oxygen Delivery Oxygen Flow Rate 09/27/24 20:00 09/28/24 01:11 09/28/24 04:08 Temperature 36.3 C L 36.1 C L Pulse Rate 72 74 Respiratory Rate 16 20 Blood Pressure 100/57 L 104/55 L Pulse Oximetry 97 97 94 Oxygen Delivery Nasal Cannula Oxygen Flow Rate 2 09/28/24 07:56 09/28/24 08:25 09/28/24 09:24 Temperature Pulse Rate 74 Respiratory Rate Blood Pressure Pulse Oximetry Oxygen Delivery Room Air Room Air Oxygen Flow Rate 09/28/24 09:55 Temperature 36.8 C Pulse Rate 84 Respiratory Rate 20 Blood Pressure 120/61 Pulse Oximetry 94 Oxygen Delivery Oxygen Flow Rate Intake/Output Intake/Output: Intake & Output 09/25/24 09/26/24 09/27/24 09/28/24 23:59 23:59 23:59 23:59 Intake Total 1300 700 850 590 Output Total 800 1175 950 550 Balance 500 475 -100 40 Meds/Results Medications: Active Medications Generic Name Dose Route Start Last Admin Trade Name Freq PRN Reason Stop Dose Admin Amiodarone HCl 200 mg 09/25/24 09:00 09/28/24 08:25 Amiodarone Hcl 200 Mg Tablet PO 200 mg DAILY VAZQUEZ Administration Aspirin 81 mg 09/28/24 08:00 09/28/24 08:27 Aspirin 81 Mg Chewable Tablet PO 81 mg DAILY@0800 VAZQUEZ Administration Citalopram Hydrobromide 20 mg 09/25/24 09:00 09/28/24 08:28 Citalopram Hydrobromide 20 Mg Tablet PO 20 mg DAILY VAZQUEZ Administration Cyanocobalamin 1,000 mcg 09/25/24 09:00 09/28/24 08:27 Cyanocobalamin 1,000 Mcg Tablet PO 1,000 mcg DAILY VAZQUEZ Administration Ferrous Sulfate 325 mg 09/25/24 09:00 09/28/24 08:28 Ferrous Sulfate [address] PO 325 mg DAILY VAZQUEZ Administration Gabapentin 600 mg 09/24/24 17:00 09/28/24 11:53 Gabapentin 300 Mg Capsule PO 600 mg TID VAZQUEZ Administration Hydromorphone HCl 0.5 mg 09/28/24 08:54 09/28/24 10:45 Hydromorphone Hcl Inj (*Crx) 1 Mg/Ml Syr IV PUSH 0.5 mg Q3H PRN Administration Pain Rated 7-10 Cefazolin Sodium 2 gm in 50 mls @ 100 mls/hr 09/27/24 22:00 09/28/24 11:56 Ancef 2 Gm/D5w 50 Ml IVPB 09/28/24 14:29 100 mls/hr Q8H VAZQUEZ Administration Ibuprofen 800 mg in 200 mls @ 400 mls/hr 09/27/24 16:10 Caldolor 800 Mg/200 Ml IVPB Q6H PRN Breakthrough Pain Rated 1-3 or NPO Isosorbide Mononitrate 30 mg 09/25/24 09:00 09/28/24 08:27 Isosorbide Mononitrate 30 Mg Tab.Er.24h PO 30 mg DAILY VAZQUEZ Administration Loratadine 10 mg 09/24/24 15:50 Loratadine 10 Mg Tablet PO DAILY PRN itching Naloxone HCl 0.1 mg 09/24/24 15:55 Naloxone Hcl 0.4 Mg/Ml Vial IV PUSH Q5MIN PRN Sedation Ondansetron HCl 4 mg 09/24/24 11:59 Ondansetron Inj 4 Mg/2 Ml Vial IV PUSH Q4H PRN Nausea Oxycodone HCl 5 mg 09/28/24 08:54 09/28/24 09:16 Oxycodone Hcl (*Crx) 5 Mg Tab Ir PO 5 mg Q4H PRN Administration Pain Rated 4-6 Polyethylene Glycol 17 gm 09/28/24 09:00 09/28/24 08:28 Polyethylene Glycol 3350 17 Gm Powd.Pack PO 17 gm QAM VAZQUEZ Administration Ropinirole HCl 0.5 mg 09/25/24 09:00 09/28/24 08:27 Ropinirole Hcl 0.5 Mg Tablet PO 0.5 mg DAILY VAZQUEZ Administration Ropinirole HCl 1 mg 09/24/24 21:00 09/27/24 20:45 Ropinirole Hcl 1 Mg Tablet PO 1 mg HS VAZQUEZ Administration Rosuvastatin Calcium 40 mg 09/25/24 09:00 09/28/24 08:28 Rosuvastatin 20 Mg Tablet PO 40 mg DAILY VAZQUEZ Administration Senna/Docusate Sodium 2 tab 09/27/24 17:00 09/28/24 08:28 Senna/Docusate Sodium Tablet PO 2 tab BID VAZQUEZ Administration Spironolactone 25 mg 09/25/24 09:00 09/28/24 08:28 Spironolactone 25 Mg Tablet PO 25 mg DAILY VAZQUEZ Administration Warfarin Sodium 5 mg 09/29/24 17:00 Warfarin (*Pbkc) 5 Mg Tablet PO DAILY@1700 [facility] Zolpidem Tartrate 5 mg 09/24/24 15:50 09/26/24 19:59 Zolpidem Tartrate (*Crx) 5 Mg Tablet PO 5 mg HS PRN Administration Insomnia Radiology Results: ITS Impressions Femur X-Ray 09/24/24 11:35 IMPRESSION: 1. Intertrochanteric fracture of proximal left femur. 2. Mild polyarticular osteoarthritis. Hip/Pelvis X-Ray 09/24/24 11:37 IMPRESSION: 1. Intertrochanteric fracture of proximal left femur. 2. Mild osteoarthritis of the hips. Chest X-Ray 09/24/24 11:45 IMPRESSION: 1. Mild pulmonary edema. 2. Cardiomegaly. Lexiscan Stress Test 09/25/24 15:40 IMPRESSION: 1. 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 2. Mild to moderately decreased left ventricular ejection fraction measuring 35%. Intraoperative X-Ray 09/27/24 15:00 IMPRESSION: 1. Near-anatomic alignment post internal fixation of an intratrochanteric fracture of the proximal left femur. See procedure note for further detail. Labs Labs: Laboratory Results - last 24 hr 09/28/24 08:19 WBC 9.5 RBC 3.28 L Hgb 10.1 L Hct 31.4 L MCV 95.7 MCH 30.8 MCHC 32.2 RDW 13.9 Plt Count 102 L MPV 12.0 H Immature Gran % (Auto) 0.7 H Neut % (Auto) 89.6 H Lymph % (Auto) 4.4 L [place] % (Auto) 5.1 Eos % (Auto) 0.1 Baso % (Auto) 0.1 L Lymph # (Auto) 0.42 L [place] # (Auto) 0.5 Eos # (Auto) 0.0 Baso # (Auto) 0.0 Abs Immat Gran (auto) 0.07 H Absolute Neuts (auto) 8.5 H Absolute Nucleated RBC 0.000 Nucleated RBC % 0.0 PT 15.6 H INR 1.2 Sodium 135 L Potassium 4.5 Chloride 102 Carbon Dioxide 30 Anion Gap 3 L BUN 25 H Creatinine 0.90 Estim Creat Clear Calc 54 Estimated GFR > 60 Glucose 105 Calcium 8.3 L
[2024-09-28] MEDS: rOPINIRole HCL 1 MG TABLET PO (20:50)
[2024-09-28] MEDS: ZOLPIDEM TARTRATE (*CRX) 5 MG TABLET PO (20:50)
[2024-09-29] MEDS: HYDROmorphone HCL INJ (*CRX) 1 MG/ML SYR 0.5 MG IV PUSH (06:18)
[2024-09-29 06:27] VITALS: BP 98/56; PULSE 74; RESP 22; TEMP 36.2; O2SAT 91
[2024-09-29 06:52] LABS: INR 1.1; Prothrombin Time 14.8 Seconds (11.1-14.7)
[2024-09-29 08:00] VITALS: BP 107/60; PULSE 76; RESP 18; TEMP 36; O2SAT 95
--- NOTE | 2024-09-29 08:30 | P.PNIM_ITS ---
Progress Note: A&P Assessment and Plan (1) CHF (congestive heart failure): Qualifiers: Heart failure chronicity: chronic Heart failure type: unspecified Qualified Code(s): I50.9 - Heart failure, unspecified Code(s): I50.9 - Heart failure, unspecified Status: Chronic (2) Ankle wound: Qualifiers: Encounter type: sequela Laterality: left Qualified Code(s): S91.002S - Unspecified open wound, left ankle, sequela Code(s): S91.009A - Unspecified open wound, unspecified ankle, initial encounter Status: Chronic (3) Intertrochanteric fracture of left femur: Qualifiers: Encounter type: subsequent encounter Fracture alignment: displaced Fracture healing: with routine healing Fracture type: closed Qualified Code(s): S72.142D - Displaced intertrochanteric fracture of left femur, subsequent encounter for closed fracture with routine healing Code(s): S72.142A - Displaced intertrochanteric fracture of left femur, initial encounter for closed fracture Status: Acute (4) Closed fracture of left hip: Code(s): S72.002A - Fracture of unspecified part of neck of left femur, initial encounter for closed fracture Status: Acute Plan This is a 84-year-old male who sustained a ground level fall in his closet at home after losing his balance and sustained left hip injury. Patient ambulates with walker at baseline but was not utilizing assist device at the time of fall. He denied any head injury or loss of consciousness. Patient on anticoagulation with warfarin along with aspirin 81 mg daily. ED workup showed: WBC 10.5 hemoglobin 12.6 no significant electrolyte derangements. Creatinine is 0.8. INR 2. Chest x-ray showed mild pulmonary edema cardiomegaly. Hip and pelvic x-ray/left showed intertrochanteric fracture of the proximal left femur and mild osteoarthritis. He was admitted in this setting. Cardiology was consulted for preop evaluation. Warfarin and aspirin were held. INR trended down also received vitamin K preoperatively. On 09/27/2024 patient underwent open reduction and internal fixation. Peripheral vascular disease with small superficial wound to medial malleolus of left ankle with no active signs of infection. Continue wound care. Recent ultrasound of arterial and venous system showed no abnormalities. 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 Right ventricle not well visualized. Mildly reduced systolic function. Status post ICD placement.. On spironolactone. Underwent stress test which revealed combination of severe infarct and mild surrounding ischemia involving significant portion of the circumflex and right coronary artery vascular distributions. EF 35%. Hyponatremia mild Proximal atrial fibrillation currently paced rhythm. On amiodarone. Warfarin held for procedure and was room burst. Resume warfarin post surgery which will start tonight Chronic anemia no signs of bleeding DVT prophylaxis warfarin Code Status: full code Disposition: PT OT needs SNF versus [facility] placement Subjective Date/time seen: 09/29/24 08:30 Interval history: Chart reviewed. No new complaints. Complains of pain on left hip. Working with therapy. Discussed with nursing staff. Discussed with physical therapy and care coordination Review of Systems Review of Systems: All systems reviewed & are unremarkable except as noted in HPI and below Exam Narrative: GENERAL: Pleasant, in no acute distress. Well-nourished. - EYES: EOMI. Anicteric. - HENT: Moist mucous membranes. - LUNGS: Clear to auscultation bilateral ly, no wheezing, rhonchi, or rales. - CARDIOVASCULAR: Regular rate and rhyth m. No murmur. No JVD. - ABDOMEN: Soft, non-tender and non-dist ended. No palpable masses. - EXTREMITIES: No edema. Peripheral puls es 2+. Non-tender. Range of movement over left hip is restricted because of pain - NEUROLOGIC: No focal neurological defi cits. CN II-XII grossly intact. - PSYCHIATRIC: Awake, Alert and oriented x 3. Appropriate mood and affect. - SKIN: Pressure ulcers of left ankle - LYMPH: No cervical lymphadenopathy. Objective Data Vital Signs Vital Signs: Vital Signs - 24 hr 09/28/24 09:24 09/28/24 09:55 09/28/24 13:55 Temperature 98.2 F 97.0 F L Pulse Rate 84 76 Respiratory Rate 20 20 Blood Pressure 120/61 115/57 L Pulse Oximetry 94 95 Oxygen Delivery Room Air Oxygen Flow Rate 09/28/24 20:00 09/28/24 22:51 09/29/24 06:27 Temperature 97.4 F L 97.2 F L Pulse Rate 75 74 Respiratory Rate 20 22 H Blood Pressure 90/53 L 98/56 L Pulse Oximetry 95 95 91 Oxygen Delivery Nasal Cannula Oxygen Flow Rate 2 Intake/Output Intake/Output: Intake & Output 09/26/24 09/27/24 09/28/24 09/29/24 23:59 23:59 23:59 23:59 Intake Total 683 926 1810 240 Output Total 1175 950 550 200 Balance -475 -100 1260 40 Meds/Results Medications: Active Medications Generic Name Dose Route Start Last Admin Trade Name Freq PRN Reason Stop Dose Admin Amiodarone HCl 200 mg 09/25/24 09:00 09/28/24 08:25 Amiodarone Hcl 200 Mg Tablet PO 200 mg DAILY VAZQUEZ Administration Aspirin 81 mg 09/28/24 08:00 09/28/24 08:27 Aspirin 81 Mg Chewable Tablet PO 81 mg DAILY@0800 VAZQUEZ Administration Citalopram Hydrobromide 20 mg 09/25/24 09:00 09/28/24 08:28 Citalopram Hydrobromide 20 Mg Tablet PO 20 mg DAILY VAZQUEZ Administration Cyanocobalamin 1,000 mcg 09/25/24 09:00 09/28/24 08:27 Cyanocobalamin 1,000 Mcg Tablet PO 1,000 mcg DAILY VAZQUEZ Administration Ferrous Sulfate 325 mg 09/25/24 09:00 09/28/24 08:28 Ferrous Sulfate [address] PO 325 mg DAILY VAZQUEZ Administration Gabapentin 600 mg 09/24/24 17:00 09/28/24 16:14 Gabapentin 300 Mg Capsule PO 600 mg TID VAZQUEZ Administration Hydromorphone HCl 0.5 mg 09/28/24 08:54 09/29/24 06:18 Hydromorphone Hcl Inj (*Crx) 1 Mg/Ml Syr IV PUSH 0.5 mg Q3H PRN Administration Pain Rated 7-10 Ibuprofen 800 mg in 200 mls @ 400 mls/hr 09/27/24 16:10 Caldolor 800 Mg/200 Ml IVPB Q6H PRN Breakthrough Pain Rated 1-3 or NPO Isosorbide Mononitrate 30 mg 09/25/24 09:00 09/28/24 08:27 Isosorbide Mononitrate 30 Mg Tab.Er.24h PO 30 mg DAILY VAZQUEZ Administration Loratadine 10 mg 09/24/24 15:50 Loratadine 10 Mg Tablet PO DAILY PRN itching Naloxone HCl 0.1 mg 09/24/24 15:55 Naloxone Hcl 0.4 Mg/Ml Vial IV PUSH Q5MIN PRN Sedation Ondansetron HCl 4 mg 09/24/24 11:59 Ondansetron Inj 4 Mg/2 Ml Vial IV PUSH Q4H PRN Nausea Oxycodone HCl 5 mg 09/28/24 08:54 09/28/24 20:50 Oxycodone Hcl (*Crx) 5 Mg Tab Ir PO 5 mg Q4H PRN Administration Pain Rated 4-6 Polyethylene Glycol 17 gm 09/28/24 09:00 09/28/24 08:28 Polyethylene Glycol 3350 17 Gm Powd.Pack PO 17 gm QAM VAZQUEZ Administration Ropinirole HCl 0.5 mg 09/25/24 09:00 09/28/24 08:27 Ropinirole Hcl 0.5 Mg Tablet PO 0.5 mg DAILY VAZQUEZ Administration Ropinirole HCl 1 mg 09/24/24 21:00 09/28/24 20:50 Ropinirole Hcl 1 Mg Tablet PO 1 mg HS VAZQUEZ Administration Rosuvastatin Calcium 40 mg 09/25/24 09:00 09/28/24 08:28 Rosuvastatin 20 Mg Tablet PO 40 mg DAILY VAZQUEZ Administration Senna/Docusate Sodium 2 tab 09/27/24 17:00 09/28/24 16:15 Senna/Docusate Sodium Tablet PO 2 tab BID VAZQUEZ Administration Spironolactone 25 mg 09/25/24 09:00 09/28/24 08:28 Spironolactone 25 Mg Tablet PO 25 mg DAILY VAZQUEZ Administration Warfarin Sodium 5 mg 09/29/24 17:00 Warfarin (*Pbkc) 5 Mg Tablet PO DAILY@1700 [facility] Zolpidem Tartrate 5 mg 09/24/24 15:50 09/28/24 20:50 Zolpidem Tartrate (*Crx) 5 Mg Tablet PO 5 mg HS PRN Administration Insomnia Radiology Results: ITS Impressions Femur X-Ray 09/24/24 11:35 IMPRESSION: 1. Intertrochanteric fracture of proximal left femur. 2. Mild polyarticular osteoarthritis. Hip/Pelvis X-Ray 09/24/24 11:37 IMPRESSION: 1. Intertrochanteric fracture of proximal left femur. 2. Mild osteoarthritis of the hips. Chest X-Ray 09/24/24 11:45 IMPRESSION: 1. Mild pulmonary edema. 2. Cardiomegaly. Lexiscan Stress Test 09/25/24 15:40 IMPRESSION: 1. 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 2. Mild to moderately decreased left ventricular ejection fraction measuring 35%. Intraoperative X-Ray 09/27/24 15:00 IMPRESSION: 1. Near-anatomic alignment post internal fixation of an intratrochanteric fracture of the proximal left femur. See procedure note for further detail. Labs Labs: Laboratory Results - last 24 hr 09/28/24 09/29/24 08:19 06:08 WBC 9.5 RBC 3.28 L Hgb 10.1 L Hct 31.4 L MCV 95.7 MCH 30.8 MCHC 32.2 RDW 13.9 Plt Count 102 L MPV 12.0 H Immature Gran % (Auto) 0.7 H Neut % (Auto) 89.6 H Lymph % (Auto) 4.4 L [place] % (Auto) 5.1 Eos % (Auto) 0.1 Baso % (Auto) 0.1 L Lymph # (Auto) 0.42 L [place] # (Auto) 0.5 Eos # (Auto) 0.0 Baso # (Auto) 0.0 Abs Immat Gran (auto) 0.07 H Absolute Neuts (auto) 8.5 H Absolute Nucleated RBC 0.000 Nucleated RBC % 0.0 PT 15.6 H 14.8 H INR 1.2 1.1 Sodium 135 L Potassium 4.5 Chloride 102 Carbon Dioxide 30 Anion Gap 3 L BUN 25 H Creatinine 0.90 Estim Creat Clear Calc 54 Estimated GFR > 60 Glucose 105 Calcium 8.3 L
[2024-09-29] MEDS: ROSUVASTATIN 20 MG TABLET 40 MG PO (08:44)
[2024-09-29] MEDS: FERROUS SULFATE 325 MG TABLET DR PO (08:45)
[2024-09-29] MEDS: ASPIRIN 81 MG CHEWABLE TABLET PO (08:45)
[2024-09-29] MEDS: CITALOPRAM HYDROBROMIDE 20 MG TABLET PO (08:45)
[2024-09-29] MEDS: ISOSORBIDE MONONITRATE 30 MG TAB.ER.24H PO (08:45)
[2024-09-29] MEDS: SENNA/DOCUSATE SODIUM TABLET 2 TAB PO ×2 (08:45→17:02)
[2024-09-29] MEDS: rOPINIRole HCL 0.5 MG TABLET PO (08:45)
[2024-09-29] MEDS: GABAPENTIN 300 MG CAPSULE 600 MG PO ×3 (08:45→17:01)
[2024-09-29 08:46] VITALS: PULSE 75
[2024-09-29] MEDS: SPIRONOLACTONE 25 MG TABLET PO (08:46)
[2024-09-29] MEDS: AMIODARONE HCL 200 MG TABLET PO (08:46)
[2024-09-29] MEDS: CYANOCOBALAMIN 1,000 MCG TABLET 1000 MCG PO (08:47)
[2024-09-29] MEDS: polyethylene glycoL 3350 17 GM POWD.PACK PO (08:47)
[2024-09-29] MEDS: oxyCODONE HCL (*CRX) 5 MG TAB IR PO ×3 (08:51→20:41)
--- NOTE | 2024-09-29 09:12 | P.PNOP_ITS ---
Progress Note: A&P Assessment and Plan (1) Intertrochanteric fracture of left femur: Qualifiers: Encounter type: subsequent encounter Fracture type: closed Fracture alignment: displaced Fracture healing: with routine healing Qualified Code(s): S72.142D - Displaced intertrochanteric fracture of left femur, subsequent encounter for closed fracture with routine healing Code(s): S72.142A - Displaced intertrochanteric fracture of left femur, initial encounter for closed fracture Status: Acute Assessment and Plan: POD #2: L hip troch nail PT/OT. WBAT. Walker. Incentive spirometry use educated today. Pain control. Ice. Restart Coumadin Cardiology following. Dispo: [facility] vs. SNF Subjective Subjective Date/Time Seen: 09/29/24 09:12 Post Op day: 2 Principal diagnosis: lt hip fx Interval history: Patient awake. A&Ox4. Complains of pain left hip. Review of Systems Review of Systems: All systems reviewed & are unremarkable except as noted in HPI and below Exam Const: General: comfortable; No acute distress Resp: Effort & Inspection: normal respiratory effort and no audible wheezes Extrem: Right lower extremity: lower leg ( Negative Homans sign), ankle Details: normal ROM ( dorsiflexion and plantar flexion intact) and foot Details: vascular exam Details: dorsalis pedis pulse present and normal capillary refill, tendon exam Details: active flexion normal and active extension normal and motor-sensory exam Details: light-touch normal Location: in all toes; no edema Left lower extremity: normal to inspection, ankle Details: normal ROM and foot Details: vascular exam Details: dorsalis pedis pulse present and normal capillary refill and motor-sensory exam light-touch normal in all toes; no edema Objective Data Vital Signs Vital Signs: Vital Signs - 24 hr 09/28/24 09:24 09/28/24 09:55 09/28/24 13:55 Temperature 36.8 C 36.1 C L Pulse Rate 84 76 Respiratory Rate 20 20 Blood Pressure 120/61 115/57 L Pulse Oximetry 94 95 Oxygen Delivery Room Air Oxygen Flow Rate 09/28/24 20:00 09/28/24 22:51 09/29/24 06:27 Temperature 36.3 C L 36.2 C L Pulse Rate 75 74 Respiratory Rate 20 22 H Blood Pressure 90/53 L 98/56 L Pulse Oximetry 95 95 91 Oxygen Delivery Nasal Cannula Oxygen Flow Rate 2 12/13/24 08:46 Temperature Pulse Rate 75 Respiratory Rate Blood Pressure Pulse Oximetry Oxygen Delivery Oxygen Flow Rate Intake/Output Intake/Output: Intake & Output 09/26/24 09/27/24 09/28/24 09/29/24 23:59 23:59 23:59 23:59 Intake Total 649 856 3045 240 Output Total 1175 950 550 200 Balance -475 -100 1260 40 Meds/Results Medications: Active Medications Generic Name Dose Route Start Last Admin Trade Name Freq PRN Reason Stop Dose Admin Amiodarone HCl 200 mg 09/25/24 09:00 09/29/24 08:46 Amiodarone Hcl 200 Mg Tablet PO 200 mg DAILY [facility]ZQUEZ Administration Aspirin 81 mg 09/28/24 08:00 09/29/24 08:45 Aspirin 81 Mg Chewable Tablet PO 81 mg DAILY@0800 [facility] Administration Citalopram Hydrobromide 20 mg 09/25/24 09:00 09/29/24 08:45 Citalopram Hydrobromide 20 Mg Tablet PO 20 mg DAILY [facility]ZQUEZ Administration Cyanocobalamin 1,000 mcg 09/25/24 09:00 09/29/24 08:47 Cyanocobalamin 1,000 Mcg Tablet PO 1,000 mcg DAILY VAZQUEZ Administration Ferrous Sulfate 325 mg 09/25/24 09:00 09/29/24 08:45 Ferrous Sulfate [address] PO 325 mg DAILY [facility] Administration Gabapentin 600 mg 09/24/24 17:00 09/29/24 08:45 Gabapentin 300 Mg Capsule PO 600 mg TID VAZQUEZ Administration Hydromorphone HCl 0.5 mg 09/28/24 08:54 09/29/24 06:18 Hydromorphone Hcl Inj (*Crx) 1 Mg/Ml Syr IV PUSH 0.5 mg Q3H PRN Administration Pain Rated 7-10 Ibuprofen 800 mg in 200 mls @ 400 mls/hr 09/27/24 16:10 Caldolor 800 Mg/200 Ml IVPB Q6H PRN Breakthrough Pain Rated 1-3 or NPO Isosorbide Mononitrate 30 mg 09/25/24 09:00 09/29/24 08:45 Isosorbide Mononitrate 30 Mg Tab.Er.24h PO 30 mg DAILY VAZQUEZ Administration Loratadine 10 mg 09/24/24 15:50 Loratadine 10 Mg Tablet PO DAILY PRN itching Naloxone HCl 0.1 mg 09/24/24 15:55 Naloxone Hcl 0.4 Mg/Ml Vial IV PUSH Q5MIN PRN Sedation Ondansetron HCl 4 mg 09/24/24 11:59 Ondansetron Inj 4 Mg/2 Ml Vial IV PUSH Q4H PRN Nausea Oxycodone HCl 5 mg 09/28/24 08:54 09/29/24 08:51 Oxycodone Hcl (*Crx) 5 Mg Tab Ir PO 5 mg Q4H PRN Administration Pain Rated 4-6 Polyethylene Glycol 17 gm 09/28/24 09:00 09/29/24 08:47 Polyethylene Glycol 3350 17 Gm Powd.Pack PO 17 gm QAM VAZQUEZ Administration Ropinirole HCl 0.5 mg 09/25/24 09:00 09/29/24 08:45 Ropinirole Hcl 0.5 Mg Tablet PO 0.5 mg DAILY [facility] Administration Ropinirole HCl 1 mg 09/24/24 21:00 09/28/24 20:50 Ropinirole Hcl 1 Mg Tablet PO 1 mg HS [facility]ZQUEZ Administration Rosuvastatin Calcium 40 mg 09/25/24 09:00 09/29/24 08:44 Rosuvastatin 20 Mg Tablet PO 40 mg DAILY [facility]ZQUEZ Administration Senna/Docusate Sodium 2 tab 09/27/24 17:00 09/29/24 08:45 Senna/Docusate Sodium Tablet PO 2 tab BID VAZQUEZ Administration Spironolactone 25 mg 09/25/24 09:00 09/29/24 08:46 Spironolactone 25 Mg Tablet PO 25 mg DAILY VAZQUEZ Administration Warfarin Sodium 5 mg 09/29/24 17:00 Warfarin (*Pbkc) 5 Mg Tablet PO DAILY@1700 [facility] Zolpidem Tartrate 5 mg 09/24/24 15:50 09/28/24 20:50 Zolpidem Tartrate (*Crx) 5 Mg Tablet PO 5 mg HS PRN Administration Insomnia Radiology Results: ITS Impressions Femur X-Ray 09/24/24 11:35 IMPRESSION: 1. Intertrochanteric fracture of proximal left femur. 2. Mild polyarticular osteoarthritis. Hip/Pelvis X-Ray 09/24/24 11:37 IMPRESSION: 1. Intertrochanteric fracture of proximal left femur. 2. Mild osteoarthritis of the hips. Chest X-Ray 09/24/24 11:45 IMPRESSION: 1. Mild pulmonary edema. 2. Cardiomegaly. Lexiscan Stress Test 09/25/24 15:40 IMPRESSION: 1. 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 2. Mild to moderately decreased left ventricular ejection fraction measuring 35%. Intraoperative X-Ray 09/27/24 15:00 IMPRESSION: 1. Near-anatomic alignment post internal fixation of an intratrochanteric fracture of the proximal left femur. See procedure note for further detail. Labs Labs: Laboratory Results - last 24 hr 09/28/24 09/29/24 08:19 06:08 WBC 9.5 RBC 3.28 L Hgb 10.1 L Hct 31.4 L MCV 95.7 MCH 30.8 MCHC 32.2 RDW 13.9 Plt Count 102 L MPV 12.0 H Immature Gran % (Auto) 0.7 H Neut % (Auto) 89.6 H Lymph % (Auto) 4.4 L [place] % (Auto) 5.1 Eos % (Auto) 0.1 Baso % (Auto) 0.1 L Lymph # (Auto) 0.42 L [place] # (Auto) 0.5 Eos # (Auto) 0.0 Baso # (Auto) 0.0 Abs Immat Gran (auto) 0.07 H Absolute Neuts (auto) 8.5 H Absolute Nucleated RBC 0.000 Nucleated RBC % 0.0 PT 14.8 H INR 1.1 Sodium 135 L Potassium 4.5 Chloride 102 Carbon Dioxide 30 Anion Gap 3 L BUN 25 H Creatinine 0.90 Estim Creat Clear Calc 54 Estimated GFR > 60 Glucose 105 Calcium 8.3 L
[2024-09-29] MEDS: WARFARIN (*PBKC) 5 MG TABLET PO (17:07)
[2024-09-29] MEDS: rOPINIRole HCL 1 MG TABLET PO (20:39)
[2024-09-29 21:25] VITALS: BP 103/61; PULSE 75; RESP 20; TEMP 36.8; O2SAT 91
[2024-09-30 01:30] VITALS: BP 100/54; PULSE 75; RESP 18; TEMP 36.1; O2SAT 98
[2024-09-30 05:05] VITALS: BP 129/70; PULSE 69; RESP 20; TEMP 36.1; O2SAT 96
[2024-09-30] MEDS: oxyCODONE HCL (*CRX) 5 MG TAB IR PO ×2 (05:15→20:17)
[2024-09-30 06:28] LABS: Basophils Percent Auto 0.5 % (0.2-1.2); Eosinophils Absolute Auto 0.2 K/mm3 (0-0.3); Eosinophils Percent Auto 3.1 % (0-4.4); Hematocrit 29.5 % (42.0-52.0); Hemoglobin 9.5 g/dL (14.0-18.0); Immature Granulocyte Absolute 0.05 K/mm3 (0.00-0.031); Immature Granulocyte Percent A 0.7 % (0-0.5); Immature Platelet Fraction Pct 9.2 % (0.9-11.2); Lymphocytes Absolute Auto 0.95 K/mm3 (0.9-3.2); Lymphocytes Percent Auto 12.8 % (18.3-44.2); Mean Corpuscular HGB Conc 32.2 g/dl (32-36); Mean Corpuscular Hemoglobin 31.1 pg (26-34); Mean Corpuscular Volume 96.7 fl (80-100); Mean Platelet Volume 11.6 fl (7.4-10.4); Monocytes Absolute Auto 0.7 K/mm3 (0.1-0.6); Monocytes Percent Auto 8.9 % (2.6-8.5); Neutrophils Absolute Auto 5.5 K/mm3 (1.3-6.7); Platelet Count Result 129 k/mm3 (150-375); Red Blood Count 3.05 M/mm3 (4.6-6.20); Red Cell Distribution Width 14.5 % (11.5-14.5); White Blood Count 7.4 K/mm3 (4.5-10.0)
[2024-09-30 06:37] LABS: Alanine Aminotransferase 29 U/L (6-50); Alkaline Phosphatase 66 U/L (38-126); Anion Gap 0 mmol/L (4-12); Aspartate Amino Transferase 46 U/L (17-59); Bilirubin,Total 1.2 mg/dL (0.2-1.3); Blood Urea Nitrogen 19 mg/dL (9-20); Calcium 8.2 mg/dL (8.4-10.2); Carbon Dioxide 32 mmol/L (22-30); Chloride 101 mmol/L (98-107); Estimated CRCL calculation 79 ml/min; Estimated Glomerular Filt Rate > 60; Glucose 91 mg/dL (65-110); Magnesium 2.2 mg/dL (1.6-2.3); Sodium 133 mmol/L (137-145)
[2024-09-30 06:43] LABS: INR 1.2; Prothrombin Time 15.7 Seconds (11.1-14.7)
[2024-09-30] MEDS: ASPIRIN 81 MG CHEWABLE TABLET PO (09:48)
[2024-09-30] MEDS: AMIODARONE HCL 200 MG TABLET PO (09:48)
[2024-09-30] MEDS: polyethylene glycoL 3350 17 GM POWD.PACK PO (09:49)
[2024-09-30] MEDS: CYANOCOBALAMIN 1,000 MCG TABLET 1000 MCG PO (09:49)
[2024-09-30] MEDS: FERROUS SULFATE 325 MG TABLET DR PO (09:49)
[2024-09-30] MEDS: SPIRONOLACTONE 25 MG TABLET PO (09:49)
[2024-09-30] MEDS: ISOSORBIDE MONONITRATE 30 MG TAB.ER.24H PO (09:49)
[2024-09-30] MEDS: GABAPENTIN 300 MG CAPSULE 600 MG PO ×3 (09:49→18:17)
[2024-09-30] MEDS: rOPINIRole HCL 0.5 MG TABLET PO (09:49)
[2024-09-30] MEDS: ROSUVASTATIN 20 MG TABLET 40 MG PO (09:49)
[2024-09-30] MEDS: CITALOPRAM HYDROBROMIDE 20 MG TABLET PO (09:49)
[2024-09-30] MEDS: SENNA/DOCUSATE SODIUM TABLET 2 TAB PO (09:49)
--- NOTE | 2024-09-30 13:41 | P.PNIM_ITS ---
Progress Note: A&P Assessment and Plan (1) CHF (congestive heart failure): Qualifiers: Heart failure type: unspecified Heart failure chronicity: chronic Qualified Code(s): I50.9 - Heart failure, unspecified Code(s): I50.9 - Heart failure, unspecified Status: Chronic (2) Ankle wound: Qualifiers: Encounter type: sequela Laterality: left Qualified Code(s): S91.002S - Unspecified open wound, left ankle, sequela Code(s): S91.009A - Unspecified open wound, unspecified ankle, initial encounter Status: Chronic (3) Intertrochanteric fracture of left femur: Qualifiers: Encounter type: subsequent encounter Fracture type: closed Fracture alignment: displaced Fracture healing: with routine healing Qualified Code(s): S72.142D - Displaced intertrochanteric fracture of left femur, subsequent encounter for closed fracture with routine healing Code(s): S72.142A - Displaced intertrochanteric fracture of left femur, initial encounter for closed fracture Status: Acute (4) Closed fracture of left hip: Code(s): S72.002A - Fracture of unspecified part of neck of left femur, initial encounter for closed fracture Status: Acute Plan This is a 84-year-old male who sustained a ground level fall in his closet at home after losing his balance and sustained left hip injury. Patient ambulates with walker at baseline but was not utilizing assist device at the time of fall. He denied any head injury or loss of consciousness. Patient on anticoagulation with warfarin along with aspirin 81 mg daily. ED workup showed: WBC 10.5 hemoglobin 12.6 no significant electrolyte derangements. Creatinine is 0.8. INR 2. Chest x-ray showed mild pulmonary edema cardiomegaly. Hip and pelvic x-ray/left showed intertrochanteric fracture of the proximal left femur and mild osteoarthritis. He was admitted in this setting. Cardiology was consulted for preop evaluation. Warfarin and aspirin were held. INR trended down also received vitamin K preoperatively. On 09/27/2024 patient underwent open reduction and internal fixation. Peripheral vascular disease with small superficial wound to medial malleolus of left ankle with no active signs of infection. Continue wound care. Recent ultrasound of arterial and venous system showed no abnormalities. 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 Right ventricle not well visualized. Mildly reduced systolic function. Status post ICD placement.. On spironolactone. Underwent stress test which revealed combination of severe infarct and mild surrounding ischemia involving significant portion of the circumflex and right coronary artery vascular distributions. EF 35%. Hyponatremia mild Proximal atrial fibrillation currently paced rhythm. On amiodarone. Warfarin held for procedure and was room burst. Resume warfarin post surgery. Chronic anemia no signs of bleeding DVT prophylaxis warfarin Code Status: full code Disposition: PT OT needs SNF versus [facility] placement Subjective Date/time seen: 09/30/24 13:41 Interval history: No overnight events. No new complaints. Pain is controlled. Denies any chest pain or shortness of breath. Review of Systems Review of Systems: All systems reviewed & are unremarkable except as noted in HPI and below Exam Narrative: GENERAL: Pleasant, in no acute distress. Well-nourished. - EYES: EOMI. Anicteric. - HENT: Moist mucous membranes. - LUNGS: Clear to auscultation bilateral ly, no wheezing, rhonchi, or rales. - CARDIOVASCULAR: Regular rate and rhyth m. No murmur. No JVD. - ABDOMEN: Soft, non-tender and non-dist ended. No palpable masses. - EXTREMITIES: No edema. Peripheral puls es 2+. Non-tender. Range of movement over left hip is restricted because of pain - NEUROLOGIC: No focal neurological defi cits. CN II-XII grossly intact. - PSYCHIATRIC: Awake, Alert and oriented x 3. Appropriate mood and affect. - SKIN: Pressure ulcers of left ankle - LYMPH: No cervical lymphadenopathy. Objective Data Vital Signs Vital Signs: Vital Signs - 24 hr 09/29/24 20:00 09/29/24 21:25 09/30/24 01:30 Temperature 98.3 F 96.9 F L Pulse Rate 75 75 Respiratory Rate 20 18 Blood Pressure 103/61 100/54 L Pulse Oximetry 91 98 Oxygen Delivery Room Air 09/30/24 05:05 Temperature 97 F L Pulse Rate 69 Respiratory Rate 20 Blood Pressure 129/70 Pulse Oximetry 96 Oxygen Delivery Intake/Output Intake/Output: Intake & Output 09/27/24 09/28/24 09/29/24 09/30/24 23:59 23:59 23:59 23:59 Intake Total 850 1810 1700 440 Output Total 950 550 800 100 Balance -100 1260 900 340 Meds/Results Medications: Active Medications Generic Name Dose Route Start Last Admin Trade Name Freq PRN Reason Stop Dose Admin Amiodarone HCl 200 mg 09/25/24 09:00 09/30/24 09:48 Amiodarone Hcl 200 Mg Tablet PO 200 mg DAILY VAZQUEZ Administration Aspirin 81 mg 09/28/24 08:00 09/30/24 09:48 Aspirin 81 Mg Chewable Tablet PO 81 mg DAILY@0800 [facility]QUEZ Administration Citalopram Hydrobromide 20 mg 09/25/24 09:00 09/30/24 09:49 Citalopram Hydrobromide 20 Mg Tablet PO 20 mg DAILY VAZQUEZ Administration Cyanocobalamin 1,000 mcg 09/25/24 09:00 09/30/24 09:49 Cyanocobalamin 1,000 Mcg Tablet PO 1,000 mcg DAILY VAZQUEZ Administration Ferrous Sulfate 325 mg 09/25/24 09:00 09/30/24 09:49 Ferrous Sulfate [address] PO 325 mg DAILY [facility] Administration Gabapentin 600 mg 09/24/24 17:00 09/30/24 09:49 Gabapentin 300 Mg Capsule PO 600 mg TID VAZQUEZ Administration Hydromorphone HCl 0.5 mg 09/28/24 08:54 09/29/24 06:18 Hydromorphone Hcl Inj (*Crx) 1 Mg/Ml Syr IV PUSH 0.5 mg Q3H PRN Administration Pain Rated 7-10 Ibuprofen 800 mg in 200 mls @ 400 mls/hr 09/27/24 16:10 Caldolor 800 Mg/200 Ml IVPB Q6H PRN Breakthrough Pain Rated 1-3 or NPO Isosorbide Mononitrate 30 mg 09/25/24 09:00 09/30/24 09:49 Isosorbide Mononitrate 30 Mg Tab.Er.24h PO 30 mg DAILY VAZQUEZ Administration Loratadine 10 mg 09/24/24 15:50 Loratadine 10 Mg Tablet PO DAILY PRN itching Naloxone HCl 0.1 mg 09/24/24 15:55 Naloxone Hcl 0.4 Mg/Ml Vial IV PUSH Q5MIN PRN Sedation Ondansetron HCl 4 mg 09/24/24 11:59 Ondansetron Inj 4 Mg/2 Ml Vial IV PUSH Q4H PRN Nausea Oxycodone HCl 5 mg 09/28/24 08:54 09/30/24 05:15 Oxycodone Hcl (*Crx) 5 Mg Tab Ir PO 5 mg Q4H PRN Administration Pain Rated 4-6 Polyethylene Glycol 17 gm 09/28/24 09:00 09/30/24 09:49 Polyethylene Glycol 3350 17 Gm Powd.Pack PO 17 gm QAM VAZQUEZ Administration Ropinirole HCl 0.5 mg 09/25/24 09:00 09/30/24 09:49 Ropinirole Hcl 0.5 Mg Tablet PO 0.5 mg DAILY [facility]QUEZ Administration Ropinirole HCl 1 mg 09/24/24 21:00 09/29/24 20:39 Ropinirole Hcl 1 Mg Tablet PO 1 mg HS VAZQUEZ Administration Rosuvastatin Calcium 40 mg 09/25/24 09:00 09/30/24 09:49 Rosuvastatin 20 Mg Tablet PO 40 mg DAILY VAZQUEZ Administration Senna/Docusate Sodium 2 tab 09/27/24 17:00 09/30/24 09:49 Senna/Docusate Sodium Tablet PO 2 tab BID VAZQUEZ Administration Spironolactone 25 mg 09/25/24 09:00 09/30/24 09:49 Spironolactone 25 Mg Tablet PO 25 mg DAILY VAZQUEZ Administration Warfarin Sodium 5 mg 09/29/24 17:00 09/29/24 17:07 Warfarin (*Pbkc) 5 Mg Tablet PO 5 mg DAILY@1700 [facility] Administration Zolpidem Tartrate 5 mg 09/24/24 15:50 09/28/24 20:50 Zolpidem Tartrate (*Crx) 5 Mg Tablet PO 5 mg HS PRN Administration Insomnia Radiology Results: ITS Impressions Femur X-Ray 09/24/24 11:35 IMPRESSION: 1. Intertrochanteric fracture of proximal left femur. 2. Mild polyarticular osteoarthritis. Hip/Pelvis X-Ray 09/24/24 11:37 IMPRESSION: 1. Intertrochanteric fracture of proximal left femur. 2. Mild osteoarthritis of the hips. Chest X-Ray 09/24/24 11:45 IMPRESSION: 1. Mild pulmonary edema. 2. Cardiomegaly. Lexiscan Stress Test 09/25/24 15:40 IMPRESSION: 1. 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 2. Mild to moderately decreased left ventricular ejection fraction measuring 35%. Intraoperative X-Ray 09/27/24 15:00 IMPRESSION: 1. Near-anatomic alignment post internal fixation of an intratrochanteric fracture of the proximal left femur. See procedure note for further detail. Labs Labs: Laboratory Results - last 24 hr 09/30/24 05:46 WBC 7.4 RBC 3.05 L Hgb 9.5 L Hct 29.5 L MCV 96.7 MCH 31.1 MCHC 32.2 RDW 14.5 Plt Count 129 L MPV 11.6 H Immature Gran % (Auto) 0.7 H Neut % (Auto) 74.0 H Lymph % (Auto) 12.8 L [place] % (Auto) 8.9 H Eos % (Auto) 3.1 Baso % (Auto) 0.5 Lymph # (Auto) 0.95 [place] # (Auto) 0.7 H Eos # (Auto) 0.2 Baso # (Auto) 0.0 Abs Immat Gran (auto) 0.05 H Absolute Neuts (auto) 5.5 Absolute Nucleated RBC 0.000 Nucleated RBC % 0.0 % Immature Plt Fraction 9.2 PT 15.7 H INR 1.2 Sodium 133 L Potassium 4.0 Chloride 101 Carbon Dioxide 32 H Anion Gap 0 L BUN 19 Creatinine 0.70 Estim Creat Clear Calc 79 Estimated GFR > 60 Glucose 91 Calcium 8.2 L Magnesium 2.2 Total Bilirubin 1.2 AST 46 ALT 29 Alkaline Phosphatase 66 Total Protein 6.0 L Albumin 3.0 L
--- NOTE | 2024-09-30 15:02 | P.DS_ITS ---
DS: Admitting Diagnosis Discharge Date 09/30/2024 Admitting Diagnosis fall DS: Discharge Diagnosis Discharge Diagnosis (1) CHF (congestive heart failure): Qualifiers: Heart failure type: unspecified Heart failure chronicity: chronic Qualified Code(s): I50.9 - Heart failure, unspecified Code(s): I50.9 - Heart failure, unspecified Status: Chronic (2) Ankle wound: Qualifiers: Encounter type: sequela Laterality: left Qualified Code(s): S91.002S - Unspecified open wound, left ankle, sequela Code(s): S91.009A - Unspecified open wound, unspecified ankle, initial encounter Status: Chronic (3) Intertrochanteric fracture of left femur: Qualifiers: Encounter type: subsequent encounter Fracture type: closed Fracture alignment: displaced Fracture healing: with routine healing Qualified Code(s): S72.142D - Displaced intertrochanteric fracture of left femur, subsequent encounter for closed fracture with routine healing Code(s): S72.142A - Displaced intertrochanteric fracture of left femur, initial encounter for closed fracture Status: Acute (4) Closed fracture of left hip: Code(s): S72.002A - Fracture of unspecified part of neck of left femur, initial encounter for closed fracture Status: Acute DS: Summary Hospital Course Hospital Course: This is a 84-year-old male who sustained a ground level fall in his closet at home after losing his balance and sustained left hip injury. Patient ambulates with walker at baseline but was not utilizing assist device at the time of fall. He denied any head injury or loss of consciousness. Patient on anticoagulation with warfarin along with aspirin 81 mg daily. ED workup showed: WBC 10.5 hemoglobin 12.6 no significant electrolyte derangements. Creatinine is 0.8. INR 2. Chest x-ray showed mild pulmonary edema cardiomegaly. Hip and pelvic x-ray/left showed intertrochanteric fracture of the proximal left femur and mild osteoarthritis. He was admitted in this setting. Cardiology was consulted for preop evaluation. Warfarin and aspirin were held. INR trended down also received vitamin K preoperatively. On 09/27/2024 patient underwent open reduction and internal fixation. doing well opostoperatively. warfarin restarted. worked with theroky and will be discahraged to rehab at [facility] for further treatment. Peripheral vascular disease with small superficial wound to medial malleolus of left ankle with no active signs of infection. Continue wound care. Recent ultrasound of arterial and venous system showed no abnormalities. 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 Right ventricle not well visualized. Mildly reduced systolic function. Status post ICD placement.. On spironolactone. Underwent stress test which revealed combination of severe infarct and mild surrounding ischemia involving significant portion of the circumflex and right coronary artery vascular distributions. EF 35%. patient not on arb or bb, likely from previous intolerance, advised to follow with cardiology for further evaluation and consideration. Hyponatremia mild Proximal atrial fibrillation currently paced rhythm. On amiodarone. Warfarin held for procedure and was reveresed. Resume warfarin post surgery. IN R1.2 at discharge Chronic anemia no signs of bleeding DVT prophylaxis warfarin Code Status: full code Disposition: PT OT needs SNF versus [facility] placement. accepted at [facility] Time Spent with Patient Time attestation: Total time spent providing and/or coordinating discharge services: Exam Narrative: GENERAL: Pleasant, in no acute distress. Well-nourished. - EYES: EOMI. Anicteric. - HENT: Moist mucous membranes. - LUNGS: Clear to auscultation bilateral ly, no wheezing, rhonchi, or rales. - CARDIOVASCULAR: Regular rate and rhyth m. No murmur. No JVD. - ABDOMEN: Soft, non-tender and non-dist ended. No palpable masses. - EXTREMITIES: No edema. Peripheral puls es 2+. Non-tender. Range of movement over left hip is restricted because of pain - NEUROLOGIC: No focal neurological defi cits. CN II-XII grossly intact. - PSYCHIATRIC: Awake, Alert and oriented x 3. Appropriate mood and affect. - SKIN: Pressure ulcers of left ankle - LYMPH: No cervical lymphadenopathy. DS: Data Data Completed and Pending Labs on day of discharge: Labs from last 24 hours 09/30/24 05:46 WBC 7.4 RBC 3.05 L Hgb 9.5 L Hct 29.5 L MCV 96.7 MCH 31.1 MCHC 32.2 RDW 14.5 Plt Count 129 L MPV 11.6 H Immature Gran % (Auto) 0.7 H Neut % (Auto) 74.0 H Lymph % (Auto) 12.8 L [place] % (Auto) 8.9 H Eos % (Auto) 3.1 Baso % (Auto) 0.5 Lymph # (Auto) 0.95 [place] # (Auto) 0.7 H Eos # (Auto) 0.2 Baso # (Auto) 0.0 Abs Immat Gran (auto) 0.05 H Absolute Neuts (auto) 5.5 Absolute Nucleated RBC 0.000 Nucleated RBC % 0.0 % Immature Plt Fraction 9.2 PT 15.7 H INR 1.2 Sodium 133 L Potassium 4.0 Chloride 101 Carbon Dioxide 32 H Anion Gap 0 L BUN 19 Creatinine 0.70 Estim Creat Clear Calc 79 Estimated GFR > 60 Glucose 91 Calcium 8.2 L Magnesium 2.2 Total Bilirubin 1.2 AST 46 ALT 29 Alkaline Phosphatase 66 Total Protein 6.0 L Albumin 3.0 L Imaging Radiologist's impression: ITS Impressions Femur X-Ray 09/24/24 11:35 IMPRESSION: 1. Intertrochanteric fracture of proximal left femur. 2. Mild polyarticular osteoarthritis. Hip/Pelvis X-Ray 09/24/24 11:37 IMPRESSION: 1. Intertrochanteric fracture of proximal left femur. 2. Mild osteoarthritis of the hips. Chest X-Ray 09/24/24 11:45 IMPRESSION: 1. Mild pulmonary edema. 2. Cardiomegaly. Lexiscan Stress Test 09/25/24 15:40 IMPRESSION: 1. 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 2. Mild to moderately decreased left ventricular ejection fraction measuring 35%. Intraoperative X-Ray 09/27/24 15:00 IMPRESSION: 1. Near-anatomic alignment post internal fixation of an intratrochanteric fracture of the proximal left femur. See procedure note for further detail. Discharge Plan Discharge Attending physician on discharge: Cash Ghotra Consulting providers: Ludwin Regalado; Henry Devries Discharging Clinician: Cash Ghotra Anticipated Discharge Date/Time: 09/30/24 15:04 Patient Disposition: [facility] Activity: may shower, no driving and follow weight bearing status Diet: heart healthy Wound Care Instructions: follow printed instructions Discharge Instructions: Postoperative Hip Fracture Instructions Dr. Ludwin Regalado [phone] * Dressing to be changed daily with an island dressing beginning on post op day #2. May stop dressing changes at post op day #14. No sutures/adry will need to be removed. Can allow Dermabond to fall off naturally. * Weight bearing: Weight bearing as tolerated. * You may shower with your dressing but do not submerge in a bath tub. * Do not drive or operate machinery until you are released by your surgeon. * Do not walk without a walker for any reason until you are released by your surgeon. * Continue home blood thinners, no additional medications indicated. * Continue to apply ice to the hip intermittently for additional pain relief. Protect your skin with a towel or pillow case. * Continue to follow strict hip fracture precautions. * Please contact our office with any questions/concerns regarding your hip at [phone]. * Follow up appointment instructions indicated below. Patient Language: Mohawk Follow-up/Referrals: Italo,Adan [Other] - 1 Week Henry Devries MD [Physician] - 4 Weeks Ludwin Regalado MD [Physician] - 6 Weeks Discharge Medications: New oxycodone 5 mg Tablet 5 mg PO Q4H PRN (Reason: Pain Rated 4-6) Qty: 30 0RF sennosides-docusate sodium [Senokot-S] 8.6-50 mg Tablet 2 tab-cap PO BID PRN (Reason: constipation) Qty: 30 0RF polyethylene glycol 3350 [Miralax] 17 gram Powder In Packet 17 g PO QAM Qty: 30 0RF Continued loratadine [Allergy Relief (loratadine)] 10 mg tablet 10 mg PO DAILY PRN (Reason: itching) Qty: 10 0RF gabapentin 600 mg tablet 600 mg PO TID amiodarone 200 mg tablet 200 mg PO DAILY spironolactone 25 mg tablet 25 mg PO DAILY isosorbide mononitrate 60 mg tablet extended release 24 hr 30 mg PO DAILY citalopram 20 mg tablet 20 mg PO DAILY ropinirole 0.5 mg tablet 0.5 mg PO DAILY ropinirole 0.5 mg tablet 1 mg PO HS warfarin 5 mg tablet 5 mg PO DAILY zolpidem 5 mg tablet 5 mg PO HS PRN (Reason: Insomnia) ferrous sulfate 325 mg (65 mg iron) Tablet 325 mg PO DAILY rosuvastatin 40 mg Tablet 40 mg PO DAILY aspirin 81 mg PO DAILY cyanocobalamin (vitamin B-12) 1,000 mg PO DAILY Date of admission: 09/24/24 11:59 Primary Care Provider: RamiroAdan Admitting Provider: Surya Rico Attending physician on admission: Surya Rico Condition: Stable Hospitalist MIPS Heart Failure (Exclusion) Patient has history of Heart Transplant or Left Ventricular Assistive Device?: No IF YES, STOP HERE Heart Failure (Qualifier) Patient has current or prior documentation of LVEF less than or equal to 40%, or mod/servere depressed LVSF?: Yes IF NO, STOP HERE If Yes, Heart Failure (Qualifier) Patient was prescribed or already taking an Angiotensin-Converting Enzyme (VANIA) Inhibitor, or Antiotensin Receptor Dilshad (ARB): No Patient was prescribed or already taking bisoprolol, carvedilol, or sustained release metoprolol succinate: No If Medications not prescribed/taking Reason patient not prescribed/taking VANIA or ARB: Medical reasons: allergy, intolerance, contraindication or other Reason patient not prescribed/taking bisoprolol, carvedilol, or sustained realease metoprolol succinate: Medical reasons: allergy, intolerance, contraindication or other
[2024-09-30 15:43] VITALS: BP 99/57; PULSE 75; RESP 18; TEMP 36.5; O2SAT 92
--- NOTE | 2024-09-30 16:27 | PC.NURSE ---
called report to receiving nurse, Marta MAYEN, at [facility] @[phone] 09/30/24.
[2024-09-30] MEDS: WARFARIN (*PBKC) 5 MG TABLET PO (18:17)
[2024-09-30 20:00] VITALS: PULSE 75; RESP 18; O2SAT 92
[2024-09-30] MEDS: rOPINIRole HCL 1 MG TABLET PO (20:16)
== END 2024-09-30 20:30 | DRG 481 ==
LOC: ANHED 11:09 → ANH3MEDSUR 12:46
PROVIDERS: Hospitalist; Orthopaedic Surgery; Student in an Organized Health Care Education/Training Program; Admitting Provider Internal Medicine; Emergency Provider Emergency Medicine; Visit Provider Internal Medicine
PROC: (CPT 27245; principal; 2024-09-26 12:00)
PROC: 0QS734Z Reposition Left Upper Femur with Internal Fixation Device, Percutaneous Approach (ICD-10-PCS; CPT 27245; principal; 2024-09-27 13:30)
DX: S72.142A Displaced intertrochanteric fracture of left femur, initial encounter for closed fracture (principal); E87.1 Hypo-osmolality and hyponatremia; I50.22 Chronic systolic (congestive) heart failure; W18.30XA Fall on same level, unspecified, initial encounter; I25.10 Atherosclerotic heart disease of native coronary artery without angina pectoris; I48.0 Paroxysmal atrial fibrillation; R13.10 Dysphagia, unspecified; I50.9 Heart failure, unspecified; F17.210 Nicotine dependence, cigarettes, uncomplicated; Z95.1 Presence of aortocoronary bypass graft; Z95.810 Presence of automatic (implantable) cardiac defibrillator; Z79.01 Long term (current) use of anticoagulants; I25.2 Old myocardial infarction; E86.0 Dehydration; D64.9 Anemia, unspecified; Z95.5 Presence of coronary angioplasty implant and graft
CPT/HCPCS: 36415; 71045; 73502; 73552; 78452; 80048; 80053; 81001; 83735; 83880; 85025; 85055; 85610; 85730; 86850; 86900; 86901; 92610; 93005; 93017; 96374; 96375; 97110; 97161; 97166; 97530; 97535; 99199; 99285; A9270; A9502; C1713; C8929; J0690; J1100; J1171; J1885; J2003; J2270; J2371; J2405; J2785; J3010; J7030; J7040; J7120; Q9957

== ENCOUNTER 2024-11-13 10:54 | Outpatient (NON) | payer MEDICARE, SELFPAY ==
--- OUTSIDE RECORDS SUMMARY | 2024-11-13 12:04 | XMS_ITS | Encounter Summary ---
Author Organization [facility] Address [address] [place] [address] Care Team Providers Care Rotary Driller Prospecting Name Role Phone Ever Mercado MD Primary Care Provider Reason for Visit * Reason Onset Date Comments MEDICATION REFILL 01/28/2023 Encounter Details Date Type Department Care Team (Late st Contact Info) Description 01/28/2023 Refill [facility] [address] [address] [place] Odonnell MD [address] [address] MEDICATION REFILL Social History Tobacco Use Types Packs/Day Years Used Date Smoking Tobacco: Never Smokeless Tobacco: Never Sex and Gender Information Value Date Recorded Sex Assigned at Not on file Gender Identity Not on file Sexual Orientation Not on file documented as of this encounter Plan of Treatment Upcoming Encounters Date Type Department Care Team (Late Contact Info) Description 11/23/2024 11:20 AM PLANT QUALITY MANAGER Office Visit [facility] [address], [address] [phone] [place] Odonnell MD [address] [address] 01/11/2025 1:10 AM CDT Clinical Support [facility] - Cardiology [address] [facility] [place] [address] 04/12/2025 1:00 AM CDT Clinical Support [facility] - Cardiology [address] [facility] [place] [address] documented as of this encounter Visit Diagnoses Not on filedocumented in this encounter Care Teams Rotary Driller Prospecting Relationship Specialty Start Date End Date Ever Mercado MD [facility] [facility] [address] [place] [phone] PCP - General 05/21/22 documented as of this encounter
--- OUTSIDE RECORDS SUMMARY | 2024-11-13 12:04 | XMS_ITS | CONTINUITY OF CARE DOCUMENT ---
Author Name brandt carlton Address Unknown Organization [facility] Address [address] [facility] [address] [place] [address] Phone [phone] Care Team Providers Care Yarn Comber Name Role Phone Abram PHOENIX, Jay Unavailable [phone] CANDACE PHOENIX, ELIO Unavailable [phone] INSURANCE PROVIDERS Payer name Policy type / Coverage type [place] red republican ID [place] MED[place] Medicare [id number] UNICARE Other [id number]
--- OUTSIDE RECORDS SUMMARY | 2024-11-13 12:04 | XMS_ITS | Encounter Summary ---
Author Organization [facility] Address [address] [facility] [place] [address] Care Team Providers Care Getter Welder Name Role Phone Ever Mercado MD Primary Care Provider Reason for Visit * Reason Onset Date Comments Future Appointment 05/18/2024 Encounter Details Date Type Department Care Team (Late st Contact Info) Description 05/18/2024 Telephone [facility] - Cardiology [address] [phone] Pepe Meadows MD [address] [phone] [place] [address] Future Appointment Social History Tobacco Use Types Packs/Day Years Used Date Smoking Tobacco: Some Days Cigarettes Smokeless Tobacco: Never Alcohol Use Standard Drinks/Week Comments Yes 0 (1 standard drink = 0.6 oz pur e alcohol) Sex and Gender Information Value Date Recorded Sex Assigned at Not on file Gender Identity Not on file Sexual Orientation Not on file documented as of this encounter Functional Status Functional Status Response Date of Assess ment Is person deaf or have serious hearing difficult y? No 05/16/2024 Is person blind or have serious difficulty seein g? No 05/16/2024 Does person have serious dif ficulty walking/climbing stairs? No 05/16/2024 Does person have difficulty dressing/bathing? No 05/16/2024 Does person have difficulty doing errands alone? No 05/16/2024 Cognitive Status Response Date of Assessm ent Does person have difficulty concentrating/remembering/making decisions? No 05/16/2024 documented as of this encounter Miscellaneous Notes * Telephone Encounter - Ericka Redd - 05/18/2024 1:43 PM CDT Call out to patient to schedule 1 week wound check There was no answer at either number listed and voicemail only available at home number [employer]cm[employer] left instructing pt to return my call to schedule Sujatha * Telephone Encounter - Ericka Redd - 05/18/2024 1:43 PM CDT ----- Message from GINA Anton sent at 05/16/2024 11:03 AM CDT ----- Regardin week wound check Hello! Can you please make a wound check appt for this patient in 1 week? Just had ICD generator change with Dr. Meadows today. Thank you, Naty documented in this encounter Plan of Treatment Upcoming Encounters Date Type Department Care Team (Late st Contact Info) Description 11/23/2024 11:20 AM CARD TENDER Office Visit [facility] - Cardiology [address], [address] [phone] [place] Odonnell MD [address] [address] 01/11/2025 1:10 AM CDT Clinical Support [facility] [address], [address] [phone] 04/12/2025 1:00 AM CDT Clinical Support [facility] [address], [address] [phone] documented as of this encounter Visit Diagnoses Not on filedocumented in this encounter Care Teams Getter Welder Relationship Specialty Start Date End Date Ever Mercado MD [address] [phone] PCP - General 05/21/22 documented as of this encounter
--- OUTSIDE RECORDS SUMMARY | 2024-11-13 12:04 | XMS_ITS | Clinical Summary ---
Author Organization [facility] Address [address] [facility] [place] [address] Care Team Providers Care Lap Winding Machine Operator Name Role Phone Ever Mercado MD Primary Care Provider Allergies Active Allergy Reactions Criticality Noted Date Comments Cecilio Inhibitors Cough Low 12/02/2011 cough Cephalexin Itching,Unknown Medium 06/08/2011 Penicillins Rash Low 08/03/2023 Povidone-Iodine Itching,Rash Medium 06/08/2011 Tetanus Antitoxin Itching Medium 06/08/2011 Medications amiodarone (CORDARONE) 200 mg tablet Take 200 mg by mouth daily. Active aspirin (ECOTRIN EC) 81 mg Tablet, Delayed Release (E.C.) Take 81 mg by mouth daily. Active gabapentin (NEURONTIN) 600 mg tablet Take 600 mg by mouth. Active isosorbide mononitrate (IMDUR) 30 mg Extended Release 24 hour tablet Take 30 mg by mouth daily. Active rosuvastatin (CRESTOR) 40 mg tablet Take 40 mg by mouth daily. 06/16/2023 Active warfarin (COUMADIN) 5 mg tablet Take 5 mg by mouth daily. Active rOPINIRole (REQUIP) 0.5 mg tablet Take 0.5 mg by mouth 3 times daily. Active spironolactone (ALDACTONE) 25 mg tablet Take 25 mg by mouth daily. Active citalopram (CeleXA) 20 mg tablet Take 20 mg by mouth daily at bedtime. Active ferrous sulfate 325 mg (65 mg iron) tablet Take 325 mg by mouth daily. Active Active Problems No known active problems Family History Medical History Relation Name Comments Heart Disease Brother Heart Disease Father Relation Name Status Comments Brother Father Mother Sister Son 1 Alive Son 2 Alive Social History Tobacco Use Types Packs/Day Years Used Date Smoking Tobacco: Every Day Cigarettes 0.3 65 Smokeless Tobacco: Never Tobacco Cessation:Ready to Q uit: Not Asked; Counseling Given: Not Answered Alcohol Use Standard Drinks/Week Comments Yes 0 (1 standard drink = 0.6 oz pur e alcohol) Sex and Gender Information Value Date Recorded Sex Assigned at Not on file Legal Sex Male 9:34 AM CDT Gender Identity Not on file Sexual Orientation Not on file Last Filed Vital Signs Vital Sign Reading Time Taken Comments Blood Pressure 103/55 09/03/2023 11:09 AM NEEDLE POLISHER Pulse 81 09/03/2023 11:09 AM NEEDLE POLISHER Temperature 36.4 ??C (97.6 ??F) 09/03/2023 11:[address] Respiratory Rate 10 09/03/2023 11:09 AM NEEDLE POLISHER Oxygen Saturation 96% 09/03/2023 11:09 AM NEEDLE POLISHER Inhaled Oxygen Concentration - - Weight 87.5 kg (193 lb) 09/03/2023 11:09 AM NEEDLE POLISHER Height 180.3 cm (5' 11 ) 08/03/2023 1:14 PM CDT Body Mass Index 26.92 08/03/2023 1:14 PM CDT Plan of Treatment Health Maintenance Due Date Last Done Comments DTAP/TDAP/TD VACCINES (1 - Tdap) 1958 ZOSTER VACCINE (1 of 2) 1989 RSV VACCINE (60+ or ) (1 - 1-dose 75+ series) 2014 PNEUMOCOCCAL VACCINE 65+ YEA RS (2 of 2 - PCV) 08/16/2015 08/16/2014 INFLUENZA VACCINE (#1) 2024 10/18/2018, 2014 COVID-19 Vaccine ( season) 2024 08/19/2021, 12/06/2020, 11/07/2020 Insurance MEDICARE PART A AND B Care Teams Lap Winding Machine Operator Relationship Specialty Start Date End Date Ever Mercado MD PCP - General Internal Medicine 08/03/23
--- OUTSIDE RECORDS SUMMARY | 2024-11-13 12:04 | XMS_ITS | Patient Health Summary ---
Author Organization [facility] Address [address] [place] [address] Care Team Providers Care Software Analyst Name Role Phone Ever Mercado MD Primary Care Provider Note from [facility],non-owned Affiliates and Associated Physician Practices is amultiple site organization consisting of ambulatory clinics and hospital sitesin [place], [place], [place] and [place]. This disclosure is being madepursuant to the Care Everywhere program and may not contain all information available regarding this patient. Last updated 18.[facility] Allergies * Cecilio Inhibitors(Cough) * Cephalexin(Urticaria,Itching) -Medium Criticality * Penicillin G Proc & Benzathine(Urticaria,Itching) -Medium Criticality * Povidone Iodine(Itching,Rash) -Medium Criticality * Tetanus Antitoxin(Itching) -Medium Criticality Medications * Be aware that medications may not be up to date on this document. Alwaysverify current medications with the patient. * citalopram (CELEXA) 20 MG tablet(Started 01/06/2019) Take 1 (one) tablet by mouth once daily 4 refills left * spironolactone (ALDACTONE) 25 MG tablet(Started 01/19/2019) Take 1 (one) tablet by mouth once daily * warfarin (COUMADIN) 5 MG tablet(Started 01/24/2019) Take 1.5 (one and one-half) tablets by mouth once daily 4 refills left * rOPINIRole (REQUIP) 0.5 MG tablet(Started 04/11/2020) Take 1 (one) tablet by mouth 2 times daily 1 tab in the AM and 2 in the PM * isosorbide mononitrate CR 24hr (Imdur) 30 MG tablet Take 1 (one) tablet by mouth once daily * gabapentin (Neurontin) 600 MG tablet Take 1 (one) tablet by mouth 3 times daily * rosuvastatin (Crestor) 40 MG tablet(Started 06/16/2023) Take 1 (one) tablet by mouth once daily * cyanocobalamin (Vitamin B-12) 1000 MCG tablet Take 1 (one) tablet by mouth once daily * ferrous sulfate 325 (65 FE) MG tablet Take 1 (one) tablet by mouth once daily * albuterol HFA (ProAir HFA) 108 (90 Base) MCG/ACT inhaler(Started 01/26/2024) Inhale 2 (two) puffs by mouth every 4 hours as needed 4 refills by 01/25/2025 * amiodarone (Pacerone) 100 MG tablet Take 2 (two) tablets by mouth once daily * aspirin EC (SB Low Dose ASA EC) 81 MG tablet Take 1 (one) tablet by mouth once daily Active Problems Problem Noted Date Diagnosed Date ICD (implantable cardioverter-defibrillator) in place 05/16/2024 Elective replacement of impl antable cardioverter-defibrillator (ICD) battery required 05/16/2024 End of battery life of cardi ac resynchronization therapy defibrillator (TRANSFER TABLE OPERATOR-D) 04/25/2024 Smoking 01/19/2018 Paroxysmal atrial fibrillation 01/16/2017 DJD (degenerative joint disease) 01/15/2017 Dysphagia 01/15/2017 Teeth decayed 01/15/2017 Sustained VT (ventricular tachycardia) 6 Atrial flutter 07/05/2015 CAD (coronary artery disease) 12/02/2011 CHF (congestive heart failure) 12/02/2011 Falls frequently 12/02/2011 HTN (hypertension) 12/02/2011 Hyperlipidemia 12/02/2011 Ischemic cardiomyopathy 12/02/2011 GERD (gastroesophageal reflux disease) 2 Peripheral neuropathy 12/02/2011 Immunizations * INFLUENZA VACCINE, TRIV. (AFLURIA, FLUZONE TRIVALENT; 6MO+) (IIV3)(Given 08/09/2015) * Covid Moderna primary monovalent 12+ yr 0.5mL(Given 08/19/2021, 12/06/2020, 11/07/2020) * FLU VACCINE QUAD IIV4 SPLIT 0.25 ML IM(Given 10/18/2018) * PNEUMOCOCCAL PPSV23(Given 08/16/2014) Social History Tobacco Use Types Packs/Day Years Used Date Smoking Tobacco: Some Days Cigarettes Smokeless Tobacco: Never Tobacco Cessation:Ready to Q uit: Not Asked; Counseling Given: Not Answered Alcohol Use Standard Drinks/Week Comments Yes 2 (1 standard drink = 0.6 oz pur e alcohol) Sex and Gender Information Value Date Recorded Sex Assigned at Not on file Gender Identity Not on file Sexual Orientation Not on file Last Filed Vital Signs Vital Sign Reading Time Taken Comments Blood Pressure 91/57 09/13/2024 10:14 AM FORENSIC PHOTOGRAPHER Pulse 76 09/13/2024 10:14 AM FORENSIC PHOTOGRAPHER Temperature 36.4 ??C (97.6 ??F) 09/13/2024 10:[address] Respiratory Rate 20 08/21/2024 7:00 PM FORENSIC PHOTOGRAPHER Oxygen Saturation 96% 09/13/2024 10:14 AM FORENSIC PHOTOGRAPHER Inhaled Oxygen Concentration - - Weight 88.6 kg (195 lb 6.4 oz) 09/13/2024 10:14 AM FORENSIC PHOTOGRAPHER Height 177.8 cm (5' 10 ) 09/13/2024 10:14 AM FORENSIC PHOTOGRAPHER Body Mass Index 28.04 09/13/2024 10:14 AM FORENSIC PHOTOGRAPHER Medical Devices Implanted Type Area Visualizer Device Identifier Shelf Expiration Date Model / Serial / Lot Env Defib 3.3x2.9in Aigisrx Icd Tyrx Lg - [id number] Implanted:Qty: 1 on 05/16/2024 by Pepe Meadows MD at [facility] N/A: Chest Wall [employer] [id number] 02/03/2025 [id number] / [id number] / [id number] Defib Cblt Surescan 13mm 57sq Cm 2 Chmbr - [id number] Implanted:Qty: 1 on 05/16/2024 by Pepe Meadows MD at [facility] Left: Chest Wall [employer]iac [employer] [id number] 03/14/2025 [id number] / [id number] / NA Procedures * CO PM/ICD REMOTE TECH SERV(Performed 10/22/2024) Performed for Ischemic cardiomyopathy * CO ICD DEVICE INTERROGAT REMOTE(Performed 10/22/2024) Performed for Ischemic cardiomyopathy * CARDIAC PROCEDURE ORDER(Performed 10/10/2024) * FL MYRTLE W ANGIO TEAM(Performed 08/21/2024) Performed for PAD (peripheral artery disease) ([facility]) * CO ANGIO EXTERMITY BILAT(Performed 08/21/2024) Performed for Peripheral artery disease ([facility]) * TYPE + SCREEN PANEL(Performed 08/21/2024) Performed for Pre-op evaluation * PT-INR [facility](Performed 08/21/2024) Performed for Pre-op evaluation * TYPE + SCREEN PANEL(Performed 08/10/2024) Performed for Pre-op evaluation * CBC W AUTO DIFFERENTIAL(Performed 08/10/2024) Performed for Pre-op evaluation * BASIC METABOLIC PANEL (CALCIUM TOTAL)(Performed 08/10/2024) Performed for Pre-op evaluation * CULTURE WOUND+GRAM STAIN(Performed 07/26/2024) Performed for PAD (peripheral artery disease) ([facility]) * CARDIAC PROCEDURE ORDER(Performed 07/11/2024) * ELECTROPHYSIOLOGY PROCEDURE(Performed 05/16/2024) Performed for End of battery life of cardiac resynchronization therapy defibrillator (TRANSFER TABLE OPERATOR-D), Sustained VT (ventricular tachycardia) ([facility]), Ischemic cardiomyopathy * BLOOD TYPE VERIFICATION(Performed 05/16/2024) * TYPE + SCREEN PANEL(Performed 05/16/2024) * PT-INR [facility](Performed 05/16/2024) Performed for End of battery life of cardiac resynchronization therapy defibrillator (TRANSFER TABLE OPERATOR-D), Ischemic cardiomyopathy, Coronary artery disease involving [place] coronary artery of [place] heart withoutangina pectoris, Atrial flutter, unspecified type ([facility]) * BASIC METABOLIC PANEL (CALCIUM TOTAL)(Performed 05/16/2024) Performed for End of battery life of cardiac resynchronization therapy defibrillator (TRANSFER TABLE OPERATOR-D), Ischemic cardiomyopathy, Coronary artery disease involving [place] coronary artery of [place] heart withoutangina pectoris, Atrial flutter, unspecified type ([facility]) * CBC W AUTO DIFFERENTIAL(Performed 05/01/2024) Performed for End of battery life of cardiac resynchronization therapy defibrillator (TRANSFER TABLE OPERATOR-D), HFrEF(heart failure with reduced ejection fraction) ([facility]), Sustained VT (ventricular tachycardia) (HCC),Ischemic cardiomyopathy * PT-INR(Performed 05/01/2024) Performed for End of battery life of cardiac resynchronization therapy defibrillator (TRANSFER TABLE OPERATOR-D), HFrEF(heart failure with reduced ejection fraction) (HCC), Sustained VT (ventricular tachycardia) (HCC),Ischemic cardiomyopathy * CARDIAC PROCEDURE ORDER(Performed 04/20/2024) * ECHO COMPLETE W CONTRAST(Performed 03/30/2024) Performed for Ischemic cardiomyopathy * PFT OXYGEN DESATURATION STUDY(Performed 01/26/2024) * SIX MINUTE WALK(Performed 01/26/2024) Performed for Ischemic cardiomyopathy, Tobacco use disorder, Dyspnea on exertion, Chronic obstructive pulmonary disease, unspecified COPD type (HCC) * XR CHEST 2VW(Performed 01/26/2024) Performed for Abnormal PFTs * CARDIAC PROCEDURE ORDER(Performed 12/07/2023) * CARDIAC PROCEDURE ORDER(Performed 10/14/2023) * AMB REFERRAL TO FULL STACK SOFTWARE DEVELOPER(Performed 09/21/2023) Performed for Abnormal PFTs * EYE EXAM(Performed 09/16/2023) * CARDIAC PROCEDURE ORDER(Performed 08/27/2023) * CO ICD DEVICE INTERROGATE IN PERSON(Performed 06/22/2023) Performed for Chronic combined systolic and diastolic congestive heart failure (HCC), Ischemic cardiomyopathy, ICD (implantable cardioverter-defibrillator) in place * PFT-LAB(Performed 06/17/2023) Performed for Coronary artery disease involving [place] coronary artery of [place] heart without angina pectoris * ECHO COMPLETE W CONTRAST(Performed 04/15/2023) Performed for High risk medication use * CO PM/ICD REMOTE TECH SERV(Performed 04/10/2023) Performed for Ischemic cardiomyopathy, Sustained VT (ventricular tachycardia) (HCC), ICD (implantable cardioverter-defibrillator) in place * CO ICD DEVICE INTERROGAT REMOTE(Performed 04/10/2023) Performed for Ischemic cardiomyopathy, Sustained VT (ventricular tachycardia) (HCC), ICD (implantable cardioverter-defibrillator) in place * CO PM/ICD REMOTE TECH SERV(Performed 12/30/2022) Performed for Ischemic cardiomyopathy, Sustained VT (ventricular tachycardia) (HCC), ICD (implantable cardioverter-defibrillator) in place * CO ICD DEVICE INTERROGAT REMOTE(Performed 12/30/2022) Performed for Ischemic cardiomyopathy, Sustained VT (ventricular tachycardia) (HCC), ICD (implantable cardioverter-defibrillator) in place * CARDIAC PROCEDURE ORDER(Performed 12/23/2022) * CARDIAC PROCEDURE ORDER(Performed 12/23/2022) * CO ICD DEVICE INTERROGAT REMOTE(Performed 10/04/2022) Performed for Ischemic cardiomyopathy, Sustained VT (ventricular tachycardia) (HCC), ICD (implantable cardioverter-defibrillator) in place * CO PM/ICD REMOTE TECH SERV(Performed 10/04/2022) Performed for Ischemic cardiomyopathy, Sustained VT (ventricular tachycardia) (HCC), ICD (implantable cardioverter-defibrillator) in place * CARDIAC PROCEDURE ORDER(Performed 09/25/2022) * CARDIAC PROCEDURE ORDER(Performed 09/22/2022) * CARDIAC PROCEDURE ORDER(Performed 08/04/2022) * CO ICD DEVICE INTERROGATE IN PERSON(Performed 06/25/2022) Performed for Ischemic cardiomyopathy, Sustained VT (ventricular tachycardia) (HCC), ICD (implantable cardioverter-defibrillator) in place * CO PM/ICD REMOTE TECH SERV(Performed 05/11/2022) Performed for Congestive heart failure, unspecified HF chronicity, unspecified heart failure type (HCC), ICD (implantable cardioverter-defibrillator) in place * CO ICD DEVICE INTERROGAT REMOTE(Performed 05/11/2022) Performed for Congestive heart failure, unspecified HF chronicity, unspecified heart failure type (HCC), ICD (implantable cardioverter-defibrillator) in place * CARDIAC PROCEDURE ORDER(Performed 03/27/2022) * CARDIAC PROCEDURE ORDER(Performed 03/24/2022) * CO PM/ICD REMOTE TECH SERV(Performed 01/12/2022) Performed for Congestive heart failure, unspecified HF chronicity, unspecified heart failure type (HCC), Ischemic cardiomyopathy, ICD (implantable cardioverter-defibrillator) in place * CO ICD DEVICE INTERROGAT REMOTE(Performed 01/12/2022) Performed for Congestive heart failure, unspecified HF chronicity, unspecified heart failure type (HCC), Ischemic cardiomyopathy, ICD (implantable cardioverter-defibrillator) in place * CARDIAC PROCEDURE ORDER(Performed 12/16/2021) * CO PM/ICD REMOTE TECH SERV(Performed 09/22/2021) Performed for Ischemic cardiomyopathy, Sustained VT (ventricular tachycardia) (HCC), Atrial flutter, unspecified type (HCC), ICD (implantable cardioverter- defibrillator) in place * CO ICD DEVICE INTERROGAT REMOTE(Performed 09/22/2021) Performed for Ischemic cardiomyopathy, Sustained VT (ventricular tachycardia) (HCC), Atrial flutter, unspecified type (HCC), ICD (implantable cardioverter- defibrillator) in place * CARDIAC PROCEDURE ORDER(Performed 06/26/2021) * CO ICD DEVICE INTERROGATE IN PERSON(Performed 06/13/2021) Performed for Ischemic cardiomyopathy, ICD (implantable cardioverter- defibrillator) in place * CO PM/ICD REMOTE TECH SERV(Performed 02/24/2021) Performed for Ischemic cardiomyopathy, Congestive heart failure, unspecified HF chronicity, unspecified heart failure type (HCC), ICD (implantable cardioverter- defibrillator) in place * CO ICD DEVICE INTERROGAT REMOTE(Performed 02/24/2021) Performed for Ischemic cardiomyopathy, Congestive heart failure, unspecified HF chronicity, unspecified heart failure type (HCC), ICD (implantable cardioverter- defibrillator) in place * CARDIAC PROCEDURE ORDER(Performed 02/03/2021) * CO PM/ICD REMOTE TECH SERV(Performed 11/25/2020) Performed for Congestive heart failure, unspecified HF chronicity, unspecified heart failure type (HCC), Ischemic cardiomyopathy, ICD (implantable cardioverter-defibrillator) in place * CO ICD DEVICE INTERROGAT REMOTE(Performed 11/25/2020) Performed for Congestive heart failure, unspecified HF chronicity, unspecified heart failure type (HCC), Ischemic cardiomyopathy, ICD (implantable cardioverter-defibrillator) in place * CARDIAC PROCEDURE ORDER(Performed 11/07/2020) * CO INTG DVC E R 30 D;REC TRANS & TR(Performed 08/20/2020) Performed for Congestive heart failure, unspecified HF chronicity, unspecified heart failure type (HCC), Ischemic cardiomyopathy, ICD (implantable cardioverter-defibrillator) in place * CO ILR DEVICE INTERROGAT REMOTE(Performed 08/20/2020) Performed for Congestive heart failure, unspecified HF chronicity, unspecified heart failure type (HCC), Ischemic cardiomyopathy, ICD (implantable cardioverter-defibrillator) in place * CARDIAC PROCEDURE ORDER(Performed 08/06/2020) * CARDIAC PROCEDURE ORDER(Performed 05/29/2020) * CO ICD DEVICE INTERROGATE IN PERSON(Performed 05/02/2020) Performed for Congestive heart failure, unspecified HF chronicity, unspecified heart failure type (HCC), Ischemic cardiomyopathy, ICD (implantable cardioverter-defibrillator) in place * CARDIAC PROCEDURE ORDER(Performed 02/02/2020) * CO PM/ICD REMOTE TECH SERV(Performed 02/02/2020) Performed for Ischemic cardiomyopathy, Congestive heart failure, unspecified HF chronicity, unspecified heart failure type (HCC), ICD (implantable cardioverter- defibrillator) in place * CO ICD DEVICE INTERROGAT REMOTE(Performed 02/02/2020) Performed for Ischemic cardiomyopathy, Congestive heart failure, unspecified HF chronicity, unspecified heart failure type (HCC), ICD (implantable cardioverter- defibrillator) in place * CO PM/ICD REMOTE TECH SERV(Performed 12/04/2019) Performed for Ischemic cardiomyopathy, Congestive heart failure, unspecified HF chronicity, unspecified heart failure type (HCC), ICD (implantable cardioverter- defibrillator) in place * CO ICD DEVICE INTERROGAT REMOTE(Performed 12/04/2019) Performed for Ischemic cardiomyopathy, Congestive heart failure, unspecified HF chronicity, unspecified heart failure type (HCC), ICD (implantable cardioverter- defibrillator) in place * CARDIAC PROCEDURE ORDER(Performed 11/03/2019) * CO PM/ICD REMOTE TECH SERV(Performed 08/14/2019) Performed for Ischemic cardiomyopathy, Sustained VT (ventricular tachycardia) (HCC), ICD (implantable cardioverter-defibrillator) in place * CO ICD DEVICE INTERROGAT REMOTE(Performed 08/14/2019) Performed for Ischemic cardiomyopathy, Sustained VT (ventricular tachycardia) (HCC), ICD (implantable cardioverter-defibrillator) in place * CARDIAC PROCEDURE ORDER(Performed 08/01/2019) * CO PM/ICD REMOTE TECH SERV(Performed 05/17/2019) Performed for Ischemic cardiomyopathy, Sustained VT (ventricular tachycardia) (HCC), ICD (implantable cardioverter-defibrillator) in place * CO ICD DEVICE INTERROGAT REMOTE(Performed 05/17/2019) Performed for Ischemic cardiomyopathy, Sustained VT (ventricular tachycardia) (HCC), ICD (implantable cardioverter-defibrillator) in place * CO ICD DEVICE INTERROGATE IN PERSON(Performed 02/14/2019) Performed for Atrial flutter, unspecified type (HCC), Coronary artery disease involving [place] coronary artery of [place] heart without angina pectoris, Essential hypertension, Ischemic cardiomyopathy, ICD (implantable cardioverter- defibrillator), biventricular, in situ * CO PM/ICD REMOTE TECH SERV(Performed 11/22/2018) Performed for VT (ventricular tachycardia) (HCC), ICD (implantable cardioverter- defibrillator) in place * CO ICD DEVICE INTERROGAT REMOTE(Performed 11/22/2018) Performed for VT (ventricular tachycardia) (HCC), ICD (implantable cardioverter- defibrillator) in place * CARDIAC PROCEDURE ORDER(Performed 10/26/2018) * CO PM/ICD REMOTE TECH SERV(Performed 08/12/2018) Performed for Ischemic cardiomyopathy, Typical atrial flutter (HCC), PAF (paroxysmal atrial fibrillation) (HCC), VT (ventricular tachycardia) (HCC), ICD (implantable cardioverter-defibrillator) in place * CO ICD DEVICE INTERROGAT REMOTE(Performed 08/12/2018) Performed for Ischemic cardiomyopathy, Typical atrial flutter (HCC), PAF (paroxysmal atrial fibrillation) (HCC), VT (ventricular tachycardia) (HCC), ICD (implantable cardioverter-defibrillator) in place * CARDIAC PROCEDURE ORDER(Performed 06/14/2018) * CARDIAC PROCEDURE ORDER(Performed 05/13/2018) * CO PM/ICD REMOTE TECH SERV(Performed 04/28/2018) Performed for Cardiomyopathy, unspecified type (HCC), ICD (implantable cardioverter-defibrillator) in place * CO ICD DEVICE INTERROGAT REMOTE(Performed 04/28/2018) Performed for Cardiomyopathy, unspecified type (HCC), ICD (implantable cardioverter-defibrillator) in place * PROC IMPLANT WEAR CARDIAC DEVICE EVAL(Performed 01/19/2018) * PROC ICD DEVICE CHECK (REMOTE)(Performed 10/26/2017) * PATHOLOGY TISSUE(Performed 10/21/2017) * PT-INR [facility](Performed 10/21/2017) * COMPREHENSIVE METABOLIC PANEL(Performed 10/15/2017) * CBC W AUTO DIFFERENTIAL(Performed 10/15/2017) * CBC W AUTO DIFFERENTIAL(Performed 10/15/2017) * EKG 12-LEAD(Performed 10/15/2017) * PROC ICD DEVICE CHECK (REMOTE)(Performed 07/22/2017) * PROC ICD DEVICE CHECK (REMOTE)(Performed 05/07/2017) * PROC STRESS TEST EXERCISE(Performed 02/09/2017) * PROC LEXISCAN CARDIOLYTE STRESS TST(Performed 02/09/2017) * XR CERVICAL SPINE 2 OR 3VW(Performed 01/28/2017) Performed for Back pain, unspecified back location, unspecified back pain laterality, unspecified chronicity * FL SWALLOWING FUNCTION STUDY(Performed 01/18/2017) * PROC IMPLANT WEAR CARDIAC DEVICE EVAL(Performed 01/16/2017) * LAB HISTORICAL RESULTS-ONBASE(Performed 09/30/2016) * PROC ICD DEVICE CHECK (REMOTE)(Performed 05/28/2016) * PROC IMPLANT WEAR CARDIAC DEVICE EVAL(Performed 02/24/2016) * PROC ICD DEVICE CHECK (REMOTE)(Performed 11/21/2015) * PROC IMPLANT WEAR CARDIAC DEVICE EVAL(Performed 08/19/2015) * PROC IMPLANT WEAR CARDIAC DEVICE EVAL(Performed 07/05/2015) * PROC ICD DEVICE CHECK (REMOTE)(Performed 04/03/2015) * PROC IMPLANT WEAR CARDIAC DEVICE EVAL(Performed 12/27/2014) * PROC ICD DEVICE CHECK (REMOTE)(Performed 10/04/2014) * PROC IMPLANT WEAR CARDIAC DEVICE EVAL(Performed 07/05/2014) * PROC ICD DEVICE CHECK (REMOTE)(Performed 03/27/2014) * PROC IMPLANT WEAR CARDIAC DEVICE EVAL(Performed 12/28/2013) * PROC ICD DEVICE CHECK (REMOTE)(Performed 09/19/2013) * PROC IMPLANT WEAR CARDIAC DEVICE EVAL(Performed 06/14/2013) * PROC ICD DEVICE CHECK (REMOTE)(Performed 04/07/2013) * ECHO AV OPTIMIZATION(Performed 01/18/2013) * PROC IMPLANT WEAR CARDIAC DEVICE EVAL(Performed 12/26/2012) * PROC ICD DEVICE CHECK (REMOTE)(Performed 09/05/2012) * ECHO AV OPTIMIZATION(Performed 07/08/2012) * PROC LEXISCAN CARDIOLYTE STRESS TST(Performed 06/08/2012) * PROC STRESS TEST EXERCISE(Performed 06/08/2012) * PROC IMPLANT WEAR CARDIAC DEVICE EVAL(Performed 06/06/2012) * PROC ICD DEVICE CHECK (REMOTE)(Performed 03/01/2012) * PROC IMPLANT WEAR CARDIAC DEVICE EVAL(Performed 12/07/2011) * PROC IMPLANT WEAR CARDIAC DEVICE EVAL(Performed 06/08/2011) Results * CO ICD DEVICE INTERROGAT REMOTE, CO PM/ICD REMOTE TECH SERV (10/22/2024 7:07 PM FORENSIC PHOTOGRAPHER) Narrative Pepe Meadows MD - 10/22/2024 7:07 PM FORENSIC PHOTOGRAPHER Pepe Meadows MD ? 10/22/2024 ??7:08 PM Dear Doc Zhou, I reviewed the remote interrogation of your device. ?? Your device's sensing and capture thresholds are appropriate and stable. Lead impedances for your device: Atrial lead: ??608 ohms RV lead: ?? 494 ohms LV lead: 950 ohms You are currently paced 99.4% in the atrial and 99.3% in the ventricle. During this most recent monitored period (07/11/2024 to 10/10/2024), you had no sustained arrhythmias. The estimated remaining battery life for your device is 8.3 years. ?? Device function is normal, and no programming changes are required. Please call our offices if you have any further questions. ?? Sincerely, Pepe Blood. Dori 10/22/2024 Pepe Meadows MD PROCEDURE/MINOR SURG ICAL ORDERABLES * CARDIAC PROCEDURE ORDER (10/10/2024) Only the most recent of25 resultswithin the time period is included. Narrative 10/10/2024 Ordered by an unspecified provider. Scanned Document CARDIAC SERVICES ORD ERABLES * [place] Myrtle W Angio Team (08/21/2024 3:55 PM FORENSIC PHOTOGRAPHER) Narrative [facility] - 08/21/2024 3:56 PM FORENSIC PHOTOGRAPHER Fluoroscopy was used for this exam in the OR. Please see the Operative report. Kyra Lorenzana MD FLUOROSCOPY ORDERAB LES [facility] * (ABNORMAL) PT-INR [facility] (08/21/2024 11:34 AM FORENSIC PHOTOGRAPHER) Only the most recent of3 resultswithin the time period is included. PT 18.2(H) 12.1 - 14.8 Seconds 08/21/2024 12:28 PM FORENSIC PHOTOGRAPHER [facility] INR 1.5 See Comment 08/21/2024 12:28 PM FORENSIC PHOTOGRAPHER [facility] Comment:The suggested therap eutic range for standard coumadin (warfarin) therapy is an INR of 2.0-3.0. For high-risk patients (Mechanical Mitral Valve Prosthesis, etc.), the suggested prophylactic therapeutic range is an INR of 2.5-3.5. Blood BLOOD SPECIMEN / Unknown Line Draw / Unknown 08/21/2024 11:34 AM FORENSIC PHOTOGRAPHER 08/21/2024 11:46 AM FORENSIC PHOTOGRAPHER [facility] COA GULATION ORDERABLES Performing Organization Address City/[facility]/ZIP Co de Phone Number [facility] [address] [place] [phone], [facility] [phone] * TYPE + SCREEN PANEL (08/21/2024 11:34 AM FORENSIC PHOTOGRAPHER) Only the most recent of3 resultswithin the time period is included. Pathologist [facility] Antibody Screen NEG 12:28 PM FORENSIC PHOTOGRAPHER [facility] ABO Rh O POS 08/21/2024 12:28 PM FORENSIC PHOTOGRAPHER [facility] Blood Bank BLOOD SPECIMEN / Unknown Line Draw / Unknown 08/21/2024 11:34 AM FORENSIC PHOTOGRAPHER 08/21/2024 11:45 AM FORENSIC PHOTOGRAPHER Ashley [facility] - BLO OD BANK ORDERABLES Performing Organization Address [facility] de Phone Number [facility] [address] [place] [phone], [facility] [phone] * (ABNORMAL) CBC W/ DIFFERENTIAL (08/10/2024 1:47 PM CDT) Only the most recent of4 resultswithin the time period is included. WBC 7.8 4.0 - 10.7 x10E9/L 08/10/2024 2:10 PM CDT [facility] RBC Count 4.21(L) 4.30 - 5.80 x10E12/L 08/10/2024 2:10 PM CDT [facility] Hemoglobin 12.7(L) 13.3 - 17.5 g/dL 08/10/2024 2:10 PM CDT [facility] Hematocrit 39.0 38.7 - 51.1 % 08/10/2024 2:10 PM [facility] MCV 92.6 80.0 - 98.0 fL 08/10/2024 2:10 PM [facility] MCH 30.2 26.7 - 33.6 pg 08/10/2024 2:10 PM [facility] MCHC 32.6 31.7 - 36.3 g/dL 08/10/2024 2:10 PM [facility] RDW-CV 14.4 11.3 - 14.8 % 08/10/2024 2:10 PM [facility] Platelet Count 124(L) 150 - 420 x10E9/L 08/10/2024 2:10 PM [facility] MPV 11.5(H) 7.8 - 11.4 fL 08/10/2024 2:10 PM [facility] Neutrophil % 75.7(H) 41.0 - 74.0 % 08/10/2024 2:10 PM [facility] Lymphocyte % 15.3(L) 17.0 - 47.0 % 08/10/2024 2:10 PM [facility] Monocyte % 6.3 3.0 - 11.0 % 08/10/2024 2:10 PM [facility] Eosinophil % 1.3 0.0 - 7.0 % 08/10/2024 2:10 PM [facility] Basophil % 1.0 0.0 - 1.6 % 08/10/2024 2:10 PM [facility] Immature Granulocytes % 0.4 0.0 - 1.0 % 08/10/2024 2:10 PM [facility] Neutrophil Absolute 5.89 1.60 - 7.50 x10E9/L 08/10/2024 2:10 PM [facility] Lymphocyte Absolute 1.19 1.00 - 4.40 x10E9/L 08/10/2024 2:10 PM [facility] Monocyte Absolute 0.49 0.15 - 1.00 x10E9/L 08/10/2024 2:10 PM [facility] Eosinophil Absolute 0.10 0.00 - 0.60 x10E9/L 08/10/2024 2:10 PM [facility] Basophil Absolute 0.08 0.00 - 0.13 x10E9/L 08/10/2024 2:10 PM [facility] Blood BLOOD SPECIMEN / Unknown Lab Venipuncture / Unknown 08/10/2024 1:47 PM CDT 08/10/2024 1:56 PM CDT Ashley Flores FULL TIME PARAMEDIC-AUTOMOTIVE SALES EXECUTIVE LAB - HEM ATOLOGY ORDERABLES [facility] [address] [place] [address], [facility] [phone] * (ABNORMAL) BASIC METABOLIC PANEL (CALCIUM TOTAL) (08/10/2024 1:47 PM CDT) Only the most recent of2 resultswithin the time period is included. BUN 14 7 - 26 mg/dL 08/10/2024 2:23 PM [facility] Creatinine 0.90 0.71 - 1.16 mg/dL 08/10/2024 2:23 PM [facility] Sodium 141 136 - 145 mmol/L 08/10/2024 2:23 PM [facility] Potassium 4.4 3.5 - 4.5 mmol/L 08/10/2024 2:23 PM [facility] Chloride 109(H) 98 - 107 mmol/L 08/10/2024 2:23 PM [facility] CO2 26 22 - 29 mmol/L 08/10/2024 2:23 PM [facility] Glucose 104(H) 70 - 99 mg/dL 08/10/2024 2:23 PM [facility] Calcium 8.8 8.4 - 10.2 mg/dL 08/10/2024 2:23 PM [facility] Anion Gap 6 6 - 16 08/10/2024 2:23 PM [facility] BUN/Creatinine Ratio 16 7 - 23 08/10/2024 2:23 PM [facility] Osmolality Calculated 293 275 - 295 mOsm/kg 08/10/2024 2:23 PM CDT [facility] eGFR by CKD-EPI 84(L) >=90 mL/min/1.7 3 m2 08/10/2024 2:23 PM CDT [facility] Blood BLOOD SPECIMEN / Unknown Lab Venipuncture / Unknown 08/10/2024 1:47 PM CDT 08/10/2024 1:55 PM CDT Ashley Flores APRN-AUTOMOTIVE SALES EXECUTIVE LAB - PERLA MARIELENA ORDERABLES [facility] [address] [place] [address], [facility] [phone] * CULTURE WOUND+GRAM STAIN (07/26/2024 5:03 PM CDT) Culture Rare normal skin teresa LORA 07/29/2024 5:06 AM CDT [facility] MICROBIOLOGY Gram Stain No organisms seen 024 5:06 AM CDT [facility] MICROBIOLOGY Gram Stain No polymorphonuclear cells 07/29/2024 5:06 AM CDT [facility] MICROBIOLOGY Microbiology ULCER / Unknown Collection / Unknown 07/26/2024 5:03 PM CDT 07/26/2024 5:03 PM CDT Kyra Lorenzana MD LAB - MICROBIOLOGY ORDERABLES Performing Organization Address City/[facility]/ZIP Co de Phone Number [facility] MICROBIOLOGY [address] [place] [address], [facility] [phone] * CCL ICD BIVENTRICULAR GENERATOR REPLACEMENT (05/16/2024 9:52 AM CDT) Anatomical Region Laterality Modality X-Ray Angiograph y Narrative 05/21/2024 10:18 PM CDT . Reason for Procedure Device at ANDREA Procedure Details Estimated Blood Loss: 20 mL Procedure Details and Comments: Date of Service: 05/16/2024 Attending: Dr. Pepe Meadows ELECTROPHYSIOLOGY Report: BiV ICD Generator Change This procedure was performed with direct participation of the staff outside sales representative insurance, Dr Meadows, who was present and scrubbed for the entire case Procedures performed: 1. BiV ICD generator change Indications: 1. Battery at EYE TECHNICIAN Procedure time: 41 min Fluoroscopic time: 0 min Consent: Risks and benefits of the procedure were discussed with the patient and informed consent was obtained. Procedure: The risks and benefits of the procedure were discussed with the patient and informed consent was obtained. The patient was brought into the EP lab in a fasting state and prepped and draped in the usual sterile fashion by the EP lab staff. A time-out was performed to confirm the correct patient, procedure, and location. The region of the left infraclavicular area and deltopectoral groove was liberally infiltrated with local anesthetic agent. The exact location of the device was confirmed by palpation and fluoroscopy. Following this, a 6cm long oblique incision was made through the skin and subcutaneous tissue adjacent to the site of the previous incision, taking care to avoid injury to the leads. The previously-implanted device was exposed and carefully freed from surrounding tissue, and then removed from the pocket. The leads were removed from the header. Hemostasis was readily achieved with electrocautery.The previously-formed pocket was irrigated with antibiotic saline solution as was the rest of the incision. After this, the leads were connected securely to the pulse generator. The leads were wrapped carefully behind the generator, the placed within a Tyrx pouch, and altogether placed in the pocket. The device was wirelessly interrogated through the senior statistical programmer. Hemostasis was assured one last time and the pocket closed. The pectoral fascia was closed with 2-0 Vicryl?? in a running fashion. The subcutaneous and subcuticular layers were closed with 3-0 and 4-0 Vicryl?? using a running stitch. Steri- strips?? were used for skin closure. Sponge and needle counts were correct at the end. Generator: SRL Global Model: [id number] SN: [id number] Atrial lead: Implanted 05/28/2011 Model: 5076-52 SN: [id number] Right Ventricular: Implanted 05/28/2011 Model: [id number] SN: [id number] Left Ventricular: Implanted 05/28/2011 Model: [id number] SN [id number] Measured data: Amplitude: Threshold @ 0.5 ms: Impedance: RA: 1.0 mV 0.5 Volts 627 Ohms RV: 20 mV 0.75 Volts 570 Ohms LV: 1.0 Volts 988 Ohms Final ICD parameter programmin. Ventricular fibrillation - Detect rate is at 200 BPM. Therapy is 40 J shock x 6. 2. Ventricular tachycardia - Detect rate is at 162 BPM. Therapy is 40 J shock x 6. 3. Bradycardia pacing - The pacing mode is set to DDDR, with lower rate of 76 ppm. Output is as follows: atrial: 1.75V @ 0.4 ms, 0.3 mV sensitivity; right ventricular: 2.0 V @ 0.4 ms, 0.3 mV sensitivity; left ventricular 1.75V @ 0.9ms Summary: 1. Successful BiV ICD generator change with adequate pacing, and sensing function. Attending: Pepe Meadows MD Pepe Meadows MD CV ELECTROPHYSIOLOGY CUPID PROCS * BLOOD TYPE VERIFICATION (05/16/2024 8:03 AM CDT) Pathologist [facility] ABO Rh O POS 05/16/2024 8:3 0 AM CDT [facility] Blood Bank BLOOD SPECIMEN / Unknown Venipuncture / Unknown 05/16/2024 8:03 AM CDT 05/16/2024 8:06 AM CDT Pepe Meadows MD LAB - BLOOD BANK ORD ERABLES [facility] [address] [place] [address], [facility] [phone] * (ABNORMAL) PT-INR (05/01/2024 3:55 PM CDT) Pathologist [facility] INR 2.2(H) [facility] Comment: Reference Range ? 0.9-1.1 Moderate-intensity Warfarin Therapy 2.0-3.0 Higher-intensity Warfarin Therapy ?? 3.0-4.0 PT 22.1(H) 9.0 - 11.5 sec [facility] Comment: For additional information, please refer to http://education.Sitemasher/faq/RFT244 (This link is being provided for informational/ educational purposes only.) Test Performed at: [facility] [place], [place] ??[address] INDRA RODRIGUEZ MD Blood BLOOD SPECIMEN / Unknown 05/01/2024 3:55 PM CDT 05/01/2024 3:56 PM CDT Pepe Meadows MD LAB - COAGULATION OR DERABLES [facility] [address] [place] [address] * ECHO COMPLETE W CONTRAST (03/30/2024 8:48 AM CDT) Only the most recent of2 resultswithin the time period is included. BSA 2.7675655 m2 SSM CV FUJ I PACS LV biplane EF 25 52 - 72 % SSM CV FUJI PACS LV A2C EF 24 48 - 76 % SSM CV FUJ I PACS LV A4C EF 32 46 - 74 % SSM CV FUJ I PACS LV stroke vol BP 35.2 mL SSM CV FUJI PACS LV stroke vol BP index 17.4 mL/m2 SSM CV FUJI PACS LVOT stroke vol 48.39 mL SSM CV FUJI PACS LVOT stroke vol index 23.97 mL/m2 SSM CV FUJI PACS LV stroke vol 2D teich 74.857 ml SSM CV FUJI PACS LV Stroke Index 2D Teich 37.08 mL/m2 SSM CV FUJI PACS LV stroke vol index A4C MOD 37.166 ml/m2 SSM CV FUJI PACS LVIDd 6.36 4.2 - 5.8 cm SSM CV FUJI PACS LVIDs 5.22 2.5 - 4.0 cm SSM CV FUJI PACS IVSd 2D 1.018 0.6 - 1 cm SSM CV FUJI PACS LVPWd 0.95 0.6 - 1 cm SSM CV FUJI PACS Fractional Shortening 2D 18 28 - 44 % SSM CV FUJI PACS LV ESV BP 108.049 21 - 61 mL SSM CV FUJI PACS LV ESV index BP 53.5 11 - 31 mL/m2 SSM CV FUJI PACS LV ESV A2C 78.901 15 - 75 mL SSM CV FUJI PACS LV ESV index A2C 39.08 9 - 37 mL/m2 SSM CV FUJI PACS LV EDV BP 143.265 62 - 150 mL SSM CV FUJI PACS LV ESV A4C 132.781 22 - 78 mL SSM CV FUJI PACS LV ESV index A4C 65.77 12 - 40 mL/m2 SSM CV FUJI PACS LV EDV index BP 71.0 34 - 74 mL/m2 SSM CV FUJI PACS LV EDV A2C 174.633 59 - 175 mL SSM CV FUJI PACS LV EDV index A2C 86.50 31 - 87 mL/m2 SSM CV FUJI PACS LV EDV A4C 116.067 mL SSM CV FU JI PACS LV ESV 2D 130.923 21 - 61 mL SSM CV FUJI PACS LV EDV index A4C 57.49 37 - 93 mL/m2 SSM CV FUJI PACS LV ESV index 2D 64.85 11 - 31 mL/m2 SSM CV FUJI PACS LV EDV 2D 205.78 62 - 150 mL SSM CV FUJI PACS LV EDV index 2D 101.93 34 - 74 mL/m2 SSM CV FUJI PACS LVOT diam 2.0 cm SSM CV FUJ I PACS LVOT area 3.16 cm2 SSM CV FUJ I PACS LV RWT 0.3 SSM CV FUJ I PACS LV Gonzalez A2C 8.838 cm SSM CV F UJI PACS LV Gonzalez A4C 8.986 cm SSM CV F UJI PACS IVS/LVPW 1.068 SSM CV FUJ I PACS LV mass 2D 267.833 96 - 200 g SSM CV FUJI PACS LV mass index 2D 132.67 50 - 102 g/m2 SSM CV FUJI PACS MV E pk gloria 32.419 cm/s SSM CV F UJI PACS MV A pk gloria 111.662 cm/s SSM CV F UJI PACS MV E A ratio 0.29 SSM CV FUJI PACS MV DT 94 ms SSM CV FUJ I PACS MV A duration 122 ms SSM CV FUJI PACS TR pk gloria 251.3 cm/s SSM CV FUJ I PACS P vein A gloria 25.1 cm/s SSM CV FUJI PACS P vein A duration 134 msec SS M CV FUJI PACS P vein S/D ratio 2.08 SSM [facility] LVOT pk gloria 0.90 m/s SSM CV F U PACS LVOT mn gloria 0.54 m/s SSM CV F UJI PACS LVOT mn grad 1.4 mmHg SSM [facility] LVOT Cardiac Output 3.458 l/min SSM [facility] LVOT Cardiac Index 1.71 l/min/m2 [facility]SM [facility] LA vol BP A-L 106.192 mL SSM [facility] P[facility] RVIDd 3.3 cm SSM CV [facility] I PACS RVOT VTI 10.159 cm SSM CV [facility] I PACS RVOT pk gloria 0.61 m/s SSM CV F U PACS AV mn grad 4 mmHg SSM CV FU JI PACS AV pk grad 8 mmHg SSM CV FU JI PACS AV mn gloria 0.91 m/s SSM CV [facility] I PACS AV pk gloria 1.40 m/s SSM CV [facility] I PACS AV VTI 24.897 cm SSM CV [facility] I PACS LVOT pk grad 3.241 mmHg SSM [facility] LVOT VTI 15.337 cm SSM CV [facility] I PACS AV area cont VTI 1.9 cm2 SSM CV [facility] PACS AV area pk gloria 2.0 cm2 SSM C V [facility] PACS AV Doppler gloria index pk gloria 0.645 SSM CV [facility] PACS Dimensionless Index 0.616 SSM CV [facility] MR VTI 187.389 cm SSM CV [facility] I PACS MV pk gloria regurg 477.177 cm/s SSM CV [facility] PACS MV mn grad 2 mmHg SSM CV FU JI PACS MV pk grad 6 mmHg SSM CV FU JI PACS MV mn gloria 0.62 m/s SSM CV [facility] I PACS MV pk gloria 124.705 cm/s SSM CV [facility] I PACS MV PHT 53 ms SSM CV [facility] I PACS MV area PHT 4.11 cm2 SSM CV F U PACS MV area cont eq 2.55 cm2 [facility] MV VTI 18.991 cm SSM CV [facility] I PACS MV decel slope 343.317 cm/s2 SSM C V FUJI PACS TR VTI 73.0 cm SSM CV FUJ I PACS TR pk grad 25 mmHg SSM CV FU JI PACS RVOT mn grad 1 mmHg SSM CV FUJI PACS RVOT pk grad 1 mmHg SSM CV FUJI PACS PV mn grad 1 mmHg SSM CV FU JI PACS PV pk gloria 59.368 cm/s SSM CV FUJ I PACS PV pk grad 1 mmHg SSM CV FU JI PACS PV VTI 11.244 cm SSM CV FUJ I PACS PV mn gloria 39.309 cm/s SSM CV FUJ I PACS Ascending aorta 3.50 cm SSM CV FUJI PACS LA ESV A4C MOD Index 45 ml/m2 SSM CV FUJI PACS LA ESV A2C MOD Index 54 ml/m2 SSM CV FUJI PACS [id number] 8.398 cm SSM CV FUJ I PACS [id number] 9.437 cm SSM CV FUJ I PACS Prox Asc Ao Diameter Index 1.734 cm SSM CV FUJI PACS LVIDs index 2.59 1.3 - 2.1 cm/m2 SSM CV FUJI PACS LV LVIDd index 3.15 2.2 - 3.0 cm/m2 SSM CV FUJI PACS RVSP 28.0 mmHg SSM CV FUJ I PACS RAP 3.0 mmHg SSM CV FUJ I PACS Sinus of Valsalva 3.88 cm SS M CV FUJI PACS Sinus of valsalva index 1.92 cm/m2 SSM CV FUJI PACS Anatomical Region Laterality Modality Ultrasound Narrative 03/30/2024 12:51 PM CDT ?Left??Ventricle: Left ventricle is severely dilated. Normal wall thickness. Findings consistent with eccentric hypertrophy. Severely reduced systolic function. EF by 2D Pineda biplane is 25%. Regional wall motion abnormalities present. Diastolic function is indeterminate. ?Right??Ventricle: Right ventricle is mildly dilated. Mildly reduced systolic function. Pacing/ICD wire present in the right ventricle. ?Tricuspid??Valve: Moderate regurgitation. The pulmonary artery systolic pressure is normal (under 35 mmHg). Estimated RVSP is 28.0 mmHg. Left Ventricle Left ventricle is severely dilated. Normal wall thickness. Findings consistent with eccentric hypertrophy. Severely reduced systolic function. EF by 2D Pineda biplane is 25%. Regional wall motion abnormalities present. Diastolic function is indeterminate. Right Ventricle Right ventricle is mildly dilated. Mildly reduced systolic function. Pacing/ICD wire present in the right ventricle. Left Atrium Left atrium is moderately dilated. Right Atrium Right atrium is dilated. IVC/SVC IVC diameter is less than or equal to 21 mm and decreases greater than 50% during inspiration; therefore the estimated right atrial pressure is normal (~3 mmHg). Mitral Valve Valve structure is normal. No restricted motion. Mild regurgitation. No stenosis. Tricuspid Valve Valve structure is normal. No restricted motion. Moderate regurgitation. The pulmonary artery systolic pressure is normal (under 35 mmHg). Estimated RVSP is 28.0 mmHg. No stenosis. Aortic Valve Valve structure is trileaflet. Moderately restricted motion. No regurgitation. No stenosis. AV mean gradient is 4 mmHg. AV peak velocity is 1.40 m/s. AV area by continuity VTI is 1.9 cm2. Pulmonic Valve Valve structure is normal. Trace regurgitation. No stenosis. Ascending Aorta Normal sized sinus of Valsalva (aortic root) and ascending aorta. Sinus of Valsalva is 3.88 cm. Ascending Aorta is 3.50 cm. Sinus of Valsalva indexed to BSA is 1.92 cm/m2. Pericardium No pericardial effusion. Study Details Study quality was poor. A complete 2D, color Doppler, spectral Doppler and M- mode echocardiogram was performed. The apical, parasternal, subcostal and suprasternal views were obtained. Definity ultrasound enhancing agent used. Patient exhibited paced rhythm. Wall Scoring Baseline Score Index: 2.53 The following segments are akinetic: basal inferoseptal, basal inferior, basal inferolateral, mid inferoseptal, mid inferior, mid inferolateral, apical septal, apical inferior and apical lateral. The following segments are hypokinetic: basal anterior, basal anteroseptal, basal anterolateral, mid anterior, mid anteroseptal, mid anterolateral, apical anterior and apex. Procedure Note Indiana Odonnell MD - 03/30/2024 ? ? Left??Ventricle: Left ventricle is severely dilated. Normal wallthickness. Findings consistent with eccentric hypertrophy. Severelyreduced systolic function. EF by 2D Pineda biplane is 25%. Regional wallmotion abnormalities present. Diastolic function is indeterminate. ? ? Right??Ventricle: Right ventricle is mildly dilated. Mildly reducedsystolic function. Pacing/ICD wire present in the right ventricle. ? ? Tricuspid??Valve: Moderate regurgitation. The pulmonary artery systolicpressure is normal (under 35 mmHg). Estimated RVSP is 28.0 mmHg. Indiana Odonnell MD ECHO CUPID * PFT OXYGEN DESATURATION STUDY (01/26/2024 12:56 PM CDT) Impressions Mir Martínez MD - 01/26/2024 12:56 PM CDT [facility] DEPARTMENT OF PULMONARY, CRITICAL CARE, AND SLEEP MEDICINE EXERCISE OXYGEN PRESCRIPTION Interpretation: The patient had a saturation of 100% on room air at the beginning of the test. After 8 minutes of free walking, saturation was 100%, requiring 0 L/minute oxygen support. he stopped due to end of test protocol. IMPRESSION: 1. The patient will not need oxygen support to sustain oxygen saturation above 88% on exertion. 2. Actual oxygen desaturation beyond this test may vary depending on the amount of exertion exhibited by the patient. Uvaldo Velazquez MD Pulmonary & Critical Care Fellow, PGY6 Division of Pulmonary, Critical Care and Sleep Medicine I have personally reviewed and interpreted the results of the study and made any necessary edits to the final impression of the fellow. Mri Martínez MD Narrative Mir Martínez MD - 01/26/2024 12:56 PM CDT Uvaldo Velazquez MD ? 01/27/2024 ??9:14 AM Lilly Delvalle MD PFT ORDERABLES * (ABNORMAL) Six Minute Walk Test [facility] PFT Lab (01/26/2024 12:56 PM CDT) Impressions Mir Martínez MD - 01/26/2024 12:56 PM CDT [facility] DEPARTMENT OF PULMONARY, CRITICAL CARE, AND SLEEP MEDICINE SIX MINUTE WALK TEST Doc Zhou Date of test: 01/26/24 Interpretation: The patient walked for 6 minutes on room air and covered total distance of 141 meters. On the Evelia scale at baseline, reported dyspnea was 2 and fatigue was 1. ??At the end of the study, the Evelia reported dyspnea was 3 and fatigue was 0. No additional symptoms were reported at the end of testing.No hypoxia was noted during testing IMPRESSION: 1. Total 6 minute walk distance is 141 meters, which is below the lower limit of normal of 305 meters for this patient. 2. There is no prior study for comparison. Uvaldo Velazquez MD Pulmonary & Critical Care Fellow, PGY6 Division of Pulmonary, Critical Care and Sleep Medicine I have personally reviewed and interpreted the results of the study and made any necessary edits to the final impression of the fellow. Mir Martínez MD Narrative Mir Martínez MD - 01/26/2024 12:56 PM CDT Uvaldo Velazquez MD ? 01/27/2024 ??9:14 AM arg Lilly Delvalle MD RESPIRATORY THE [facility] ORDERABLES * XR CHEST 2VW (01/26/2024 11:00 AM CDT) Anatomical Region Laterality Modality Chest Radiographic Giovana ging 01/27/2024 3:23 PM CDT Narrative 01/27/2024 11:32 PM CDT PROCEDURE: ??XR CHEST 2VW, DATE/TIME OF EXAM: ??01/26/2024 11:01 AM, LOCATION [facility] INDICATION: R94.2: Abnormal PFTs COMPARISON: None. FINDINGS/IMPRESSION: Left subclavian approach and plan cardiac device leads overlie the expected location of the right jugular, right ventricle, and the coronary sinus.. The most inferior sternal wire appears fractured on the lateral view, but alignment appears appropriate. 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 Reticular opacities at the lung bases which could represent scarring or mild fibrotic changes. There is no focal consolidation, pleural effusion, or pneumothorax. The cardiomediastinal silhouette is normal. The visible bony thorax is intact. > Dictated by Cristi Rivera DO (Single Corner Cutter) Juan F Arellano MD have personally reviewed and interpreted this examination/study. > Interpreting Provider: Juan F Mckeon MD on 01/27/2024 11:32 PM Procedure Note Juan F Mckeon MD - 04/11/2024 PROCEDURE: XR CHEST 2VW, DATE/TIME OF EXAM: 01/26/2024 11:01 AM, LOCATION [facility] INDICATION: R94.2: Abnormal PFTs COMPARISON: None. FINDINGS/IMPRESSION: Left subclavian approach and plan cardiac device leads overlie theexpected location of the right jugular, right ventricle, and the coronary sinus.. The most inferior sternal wire appears fractured on the lateral view,but alignment appears appropriate. 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 Reticular opacities at the lung bases which could represent scarring or mild fibrotic changes. There is no focal consolidation, pleuraleffusion, or pneumothorax. The cardiomediastinal silhouette is normal. The visible bony thorax is intact. > Dictated by Cristi Rivera DO (Single Corner Cutter) IJuan F MD have personally reviewed and interpreted this examination/study. > Interpreting Provider: Juan F Mckeon MD on 01/27/2024 11:32 PM Lilly Delvalle MD DIAGNOSTIC IMAG ING ORDERABLES * Ref to Stripper Shovel Operator - CSM (09/21/2023 12:54 PM FORENSIC PHOTOGRAPHER) Indiana Odonnell MD OUTPATIENT REFERRALS * EYE EXAM (09/16/2023) Anatomical Region Laterality Modality Other Narrative 09/16/2023 Ordered by an unspecified provider. Scanned Document SCANNING ONLY * CO ICD DEVICE INTERROGATE IN PERSON (06/22/2023 11:57 AM CDT) Narrative Fiona Lanier APRN-CNP - 06/22/2023 11:57 AM CDT Fiona Lanier APRN-CNP ? 06/22/2023 12:02 PM See progress note. Fiona FUENTES PROCEDURE/CT NOR SURGICAL ORDERABLES * Complete PFT [facility] PFT Lab (06/17/2023 4:42 PM CDT) Impressions [facility] - 06/17/2023 4:42 PM CDT [facility] DEPARTMENT OF PULMONARY, CRITICAL CARE, AND SLEEP MEDICINE PULMONARY FUNCTION TEST Please see technologist's comments mentioned in the report. INTERPRETATION: SPIROMETRY: ?FVC: normal. ?FEV1: decreased. ?FEV1/FVC ratio is decreased. BRONCHODILATOR RESPONSE: There is a paradoxical response to bronchodilator therapy, however this does not mean the patient would not benefit from bronchodilator therapy. FLOW-VOLUME LOOPS: Inspection of the flow-volume loops shows small lung volumes with flattening of expiratory limbs and small inspiratory limbs. LUNG VOLUMES: Lung volumes by body plethysmography show decreased TLC and normal residual volume. DIFFUSION CAPACITY DLCO: Unadjusted for Hb and COHb is decreased. AIRWAY RESISTANCE The airway resistance is normal and the specific conductance is normal. ARTERIAL BLOOD GAS ANALYSIS: Not performed. IMPRESSION: Patient with difficulty performing spirometry maneuvers and plethysmography was variable. 1. Mixed moderate ??restrictive and mild obstructive ventilatory limitation. 2. There is decreased uncorrected DLCO. 3. Paradoxical bronchodilator response. 4. There is no previous study available for comparison. Fred Thompson DO Pulmonary & Critical Care Fellow Division of Pulmonary, Critical Care, and Sleep Medicine [facility] I have personally reviewed and agree with the fellow's interpretation. Jone Meier MD Narrative [facility] - 06/17/2023 4:42 PM CDT Fred Thompson, DO ? 06/18/2023 ??9:44 AM Indiana Odonnell MD RESPIRATORY THERAPY ORDERABLES Performing Organization Address City/State/[facility] Co de Phone Number [facility] [address] [place] [address], [facility] * CO ICD DEVICE INTERROGAT REMOTE, CO PM/ICD REMOTE TECH SERV (04/10/2023 9:25 PM CDT) Narrative Pepe Meadows MD - 04/10/2023 9:25 PM CDT Pepe Meadows MD ? 04/10/2023 ??9:29 PM Dear Doc Zhou, I reviewed the remote interrogation of your device. ?? Your device's sensing and capture thresholds are appropriate and stable. Lead impedances for your device: Atrial lead: ??589 ohms RV lead: ?? 532 ohms LV lead: ??855 ohms You are currently paced 0% in the atrial and 99.1% in the ventricle. During this most recent monitored period (01/2022 to 03/31/2023), you had no arrhythmias. The estimated remaining battery life for your device is 13 months. ?? Device function is normal, and no programming changes are required. Please call our offices if you have any further questions. ?? Sincerely, Pepe Saleme [facility] 04/10/2023 Pepe Meadows MD PROCEDURE/MINOR SURG ICAL ORDERABLES * CO ICD DEVICE INTERROGAT REMOTE, CO PM/ICD REMOTE TECH SERV (12/30/2022 9:40 AM CDT) Narrative Pepe Meadows MD - 12/30/2022 9:40 AM CDT Pepe Meadows MD ? 12/30/2022 ??9:42 AM Dear Doc Zhou, I reviewed the remote interrogation of your device. ?? Your device's sensing and capture thresholds are appropriate and stable. Lead impedances for your device: Atrial lead: ??589 ohms RV lead: ?? 513 ohms LV lead: ??912 ohms You are currently paced 99.8% in the atrial and 99.2% in the ventricle. During this most recent monitored period (11/09/2022 to 12/23/2022), you had no arrhythmias. The estimated remaining battery life for your device is 16 months. Device function is normal, and no programming changes are required. Please call our offices if you have any further questions. ?? Sincerely, Pepe Saleem [facility] 12/30/2022 Indiana Odonnell MD PROCEDURE/MINOR SURG ICAL ORDERABLES * CO PM/ICD REMOTE TECH SERV, CO ICD DEVICE INTERROGAT REMOTE (10/04/2022 9:40 PM FORENSIC PHOTOGRAPHER) Narrative Geneva Suazo MD - 10/04/2022 9:40 PM FORENSIC PHOTOGRAPHER Geneva Suazo MD ? 10/04/2022 ??9:49 PM Doc Zhou is undergoing remote device monitoring. ?? Interrogation of patient's ICD was performed with results as follows: ?? Device: ??Medtronic Amplia CRTD ?? Mode: DDDR 75-120 bpm ?? Presenting EGM: Atrial paced, biventricular paced ?? Battery Estimated longevity 19 months. ?? Percent Paced: Total SCRAP BUNCH MAKER ? 98.8% (MVP Off) -SCRAP BUNCH MAKER ?0.3% AP-VS ?0.8% AP-SCRAP BUNCH MAKER ?98.9% ?? Sensing: ??P-waves 1.4 mV; R-waves > 20 mV ?? Impedance: ??Right Atrial ??570 ohms; Right Ventricular 513 ohms; Left Ventricular 817 ohms ?? HV Impedance: RV coil 43 ohms; SVC coil 51 ohms ?? Threshold: ??Right Atrial 1.0 V @ 0.40 ms; ??Right Ventricular 0.625 V @ 0.40 ms ; Left Ventricular 0.625 V @ 0.90 ms ?? Events: None ?? Impression: ??Normal Device Function. ? Doc Zhou will follow up in device clinic in 3 months. ?? Thank you for allowing me to participate in the care of your patient. ??If you have any questions or concerns please do not hesitate to contact me. Fiona FUENTES PROCEDURE/CT NOR SURGICAL ORDERABLES * CO ICD DEVICE INTERROGATE IN PERSON (06/25/2022 1:25 PM CDT) Narrative Fiona Lanier APRN-CNP - 06/25/2022 1:25 PM CDT Fiona Lanier APRN-CNP ? 06/25/2022 ??1:25 PM See progress note. Fiona FUENTES PROCEDURE/CT NOR SURGICAL ORDERABLES * CO ICD DEVICE INTERROGAT REMOTE, CO PM/ICD REMOTE TECH SERV (05/11/2022 9:31 AM CDT) Narrative Fiona Lanier APRN-CNP - 05/11/2022 9:31 AM CDT Fiona Lanier APRN-CNP ? 05/11/2022 ??9:37 AM Doc Zhou is undergoing remote device monitoring. ?? Interrogation of patient's ICD was performed with results as follows: Device: ??Medtronic Amplia CRTD Mode: DDDR 75-120 bpm Presenting EGM: Atrial paced, biventricular paced Battery: 2.93 Volts; Estimated longevity 1.9 years Percent Paced: ??94.3% in atrium, 96.5% biventricular pacing Sensing: ??P-waves 1.4 mV; R-waves > 20 mV Impedance: ??Right Atrial ??589 ohms; Right Ventricular 532 ohms; Left Ventricular 836 ohms HV Impedance: RV coil 43 ohms; SVC coil 54 ohms Threshold: ??Right Atrial ??0.875 V @ 0.4 ms; Right Ventricular 0.75 V @ 0.4 ms; Left Ventricular 1 V @ 0.9 ms Events: 103 AF episodes, up to 43 hours in duration. ??AF burden was 5.2% 01/12/22-03/24/22. Impression: ??Normal Device Function. Patient is taking warfarin for anticoagulation. Doc Zhou will follow up in device clinic in 3 months. ?? Thank you for allowing me to participate in the care of your patient. ??If you have any questions or concerns please do not hesitate to contact me. Fiona FUENTES PROCEDURE/CT NOR SURGICAL ORDERABLES * CO ICD DEVICE INTERROGAT REMOTE, CO PM/ICD REMOTE TECH SERV (01/12/2022 9:32 AM CDT) Narrative Fiona Lanier APRN-CNP - 01/12/2022 9:32 AM CDT Fiona Lanier APRN-CNP ? 01/12/2022 ??9:36 AM Doc Zhou is undergoing remote device monitoring. ?? Interrogation of patient's ICD was performed with results as follows: Device: ??Medtronic Amplia CRTD Mode: DDDR 75-120 bpm Presenting EGM: Atrial paced, ventricular paced rhythm Battery: 2.94 Volts; Estimated longevity 2.2 years Percent Paced: ??89.7% in atrium, 95.8% biventricular pacing Sensing: ??P-waves 2.4 mV; R-waves 19.5 mV Impedance: ??Right Atrial ??627 ohms; Right Ventricular 532 ohms; Left Ventricular 893 ohms HV Impedance: RV coil 45 ohms; SVC coil 56 ohms Threshold: ??Right Atrial ??0.75 V @ 0.4 ms; Right Ventricular 0.75 V @ 0.4 ms; Left Ventricular 0.5 V @ 0.9 ms Events: 78 mode switch episodes, tracings show atrial flutter up to 8 hours in duration. Impression: ??Normal Device Function. Cassygloria Ruiz Winnie will follow up with a remote check in 3 months and a follow-up in device clinic in 6 months. ??Thank you for allowing me to participate in the care of your patient. ??If you have any questions or concerns please do not hesitate to contact me. Fiona Lanier APRN-RODDY PROCEDURE/CT NOR SURGICAL ORDERABLES * CO ICD DEVICE INTERROGAT REMOTE, CO PM/ICD REMOTE TECH SERV (09/22/2021 2:33 PM FORENSIC PHOTOGRAPHER) Narrative Fiona Lanier, HELENA-RODDY - 09/22/2021 2:33 PM FORENSIC PHOTOGRAPHER Fiona Lanier, HELENA-RODDY ? 09/22/2021 ??2:45 PM Doc Joseph Luisrene is undergoing remote device monitoring. ?? Interrogation of patient's ICD was performed with results as follows: Device: ??Medtronic Amplia CRTD Mode: DDDR 75-120 bpm Presenting EGM: Atrial paced, ventricular paced rhythm Battery: 2.94 Volts; Estimated longevity 2.4 years Percent Paced: ??93.2% in atrium, 99.3% biventricular pacing Sensing: ??P-waves 2.3 mV; R-waves 18.9 mV Impedance: ??Right Atrial ??589 ohms; Right Ventricular 494 ohms; Left Ventricular 817 ohms HV Impedance: RV coil 40 ohms; SVC coil 52 ohms Threshold: ??Right Atrial ??1 V @ 0.4 ms; Right Ventricular 0.875 V @ 0.4 ms; Left Ventricular 0.625 V @ 0.9 ms Events: 4 atrial flutter episodes, up to 4 hours in duration. ??AF burden was calculated at 0.3% since May 2021. Impression: ??Normal Device Function. Doc Zhou will follow up with a remote check in 3 and 6 months and a follow-up in device clinic in 9 months. ??Thank you for allowing me to participate in the care of your patient. ??If you have any questions or concerns please do not hesitate to contact me. Fiona FUENTES PROCEDURE/CT NOR SURGICAL ORDERABLES * CO ICD DEVICE INTERROGATE IN PERSON (06/13/2021 12:58 PM CDT) Fiona Torres APRN-CNP - 06/13/2021 12:58 PM CDT Fiona Lanier APRN-CNP ? 06/13/2021 ??1:11 PM Stevanparveen Raderloyda presented to device clinic for follow up of the patient's ICD. ??Interrogation was performed with results as follows: Device: ??Medtronic Amplia CRTD Mode: DDDR 75-120 bpm Presenting EGM: Atrial paced, ventricular paced rhythm; Underlying EGM: Sinus rhythm Battery: 2.94 Volts; Estimated longevity 2.9 years Percent Paced: ??96% in atrium, 97.4% biventricular paced Sensing: ??P-waves 1.5 mV; R-waves 18.3 mV Impedance: ??Right Atrial ??589 ohms; Right Ventricular 532 ohms; Left Ventricular 779 ohms HV Impedance: RV coil 43 ohms; SVC coil 52 ohms Threshold: ??Right Atrial ??0.5 V @ 0.4 ms; Right Ventricular 0.5 V @ 0.4 ms; Left Ventricular 0.5 V @ 0.9 ms Events: 1 mode switch episode, 40 seconds in duration. Changes: None Impression: ??Normal Device Function. Cassygloria Ruiz Diorloyda will follow up with a remote check in 3, 6, 9 months and a follow-up in device clinic in 12 months. ??Thank you for allowing me to participate in the care of your patient. ??If you have any questions or concerns please do not hesitate to contact me. Fiona FUENTES PROCEDURE/CT NOR SURGICAL ORDERABLES * CO ICD DEVICE INTERROGAT REMOTE, CO PM/ICD REMOTE TECH SERV (02/24/2021 1:25 PM CDT) Narrative Fiona Lanier APRN-CNP - 02/24/2021 1:25 PM CDT Fiona Lanier APRN-CNP ? 02/24/2021 ??1:45 PM Cassygloria Ruiz Diorloyda is undergoing remote device monitoring. ?? Interrogation of patient's ICD was performed with results as follows: Device: ??Medtronic Amplia CRTD Mode: DDDR 75-120 bpm Presenting EGM: Atrial paced, biventricular paced rhythm Battery: 2.96 Volts; Estimated longevity 3.3 years Percent Paced: ??96.8% in atrium, 97.4% biventricular pacing Sensing: ??P-waves 2.3 mV; R-waves > 20 mV Impedance: ??Right Atrial ??646 ohms; Right Ventricular 532 ohms; Left Ventricular 893 ohms HV Impedance: RV coil 49 ohms; SVC coil 56 ohms Threshold: ??Right Atrial ??1 V @ 0.4 ms; Right Ventricular 0.75 V @ 0.4 ms; Left Ventricular 0.875 V @ 0.9 ms Events: 5 AF episodes, up to 5 hours in duration. Impression: ??Normal Device Function. Stevanparveen Joseph Zhou will follow up in clinic in 3 months. ??Thank you for allowing me to participate in the care of your patient. ?? If you have any questions or concerns please do not hesitate to contact me. Fiona FUENTES PROCEDURE/CT NOR SURGICAL ORDERABLES * CO ICD DEVICE INTERROGAT REMOTE, CO PM/ICD REMOTE TECH SERV (11/25/2020 2:23 PM FORENSIC PHOTOGRAPHER) Narrative Fiona Lanier APRN-CNP - 11/25/2020 2:23 PM FORENSIC PHOTOGRAPHER Fiona Lanier APRN-CNP ? 11/25/2020 ??2:28 PM Doc Joseph Luisrene is undergoing remote device monitoring. ?? Interrogation of patient's ICD was performed with results as follows: Device: ??Medtronic Amplia CRTD Mode: DDDR 75-120 bpm Presenting EGM: Atrial paced, ventricular paced rhythm with a PVC Battery: 2.96 Volts; Estimated longevity 3.7 years Percent Paced: ??99.9% in atrium, 97.8% biventricular pacing Sensing: ??P-waves 1.3 mV; R-waves >20 mV Impedance: ??Right Atrial ??589 ohms; Right Ventricular 570 ohms; Left Ventricular 836 ohms HV Impedance: RV coil 43 ohms; SVC coil 52 ohms Threshold: ??Right Atrial ??0.875 V @ 0.4 ms; Right Ventricular 0.625 V @ 0.4 ms; Left Ventricular 0.5 V @ 0.9 ms Events: 2 AF episodes, up to 23 minutes in duration, <1% burden. Impression: ??Normal Device Function. Doc Zhou will follow up with a remote check in 3 months and a follow-up in device clinic in 6 months. ??Thank you for allowing me to participate in the care of your patient. ??If you have any questions or concerns please do not hesitate to contact me. Fiona FUENTES PROCEDURE/CT NOR SURGICAL ORDERABLES * CO ILR DEVICE INTERROGAT REMOTE, CO INTG DVC E R 30 D;REC TRANS & TR (08/20/2020 2:13 PM FORENSIC PHOTOGRAPHER) Narrative Fiona Lanier APRN-CNP - 08/20/2020 2:13 PM FORENSIC PHOTOGRAPHER Fiona Lanier APRN-CNP ? 08/20/2020 ??2:18 PM Doc Zhou is undergoing remote device monitoring. ?? Interrogation of patient's ICD was performed with results as follows: Device: ??Medtronic Amplia CRTD Mode: DDDR 75-120 bpm Presenting EGM: Atrial paced, biventricular paced rhythm Battery: 2.97 Volts; Estimated longevity 4.1 years Percent Paced: ??94.7% in atrium, 97.8% biventricular pacing Sensing: ??P-waves 1.6 mV; R-waves 17.3 mV Impedance: ??Right Atrial ??570 ohms; Right Ventricular 532 ohms; Left Ventricular 760 ohms HV Impedance: RV coil 40 ohms; SVC coil 49 ohms Threshold: ??Right Atrial ??0.875 V @ 0.4 ms; Right Ventricular 0.625 V @ 0.4 ms; Left Ventricular 0.75 V @ 0.9 ms Events: 1 NSVT episode, 12 beats in duration. Impression: ??Normal Device Function. Optivol fluid index at baseline. Doc Zhou will follow up with a remote check in 3 and 6 months and a follow-up in device clinic in 9 months. ??Thank you for allowing me to participate in the care of your patient. ??If you have any questions or concerns please do not hesitate to contact me. Fiona FUENTES PROCEDURE/CT NOR SURGICAL ORDERABLES * CO ICD DEVICE INTERROGATE IN PERSON (05/02/2020 9:32 AM CDT) Narrative Fiona Lanier APRN-CNP - 05/02/2020 9:32 AM CDT Fiona Lanier APRN-CNP ? 05/02/2020 ??9:36 AM Doc Joseph Winnie presented to device clinic for follow up of the patient's ICD. ??Interrogation was performed with results as follows: Device: ??Medtronic Amplia CRTD Mode: DDDR 75-120 bpm Presenting EGM: Atrial paced, biventricular paced rhythm; Underlying EGM: Sinus rhythm Battery: 2.97 Volts; Estimated longevity 4.4 years Percent Paced: ??97.3% in atrium, 97.8% BiV pacing Sensing: ??P-waves 1.9 mV; R-waves >20 mV Impedance: ??Right Atrial ??627 ohms; Right Ventricular 570 ohms; Left Ventricular 817 ohms HV Impedance: RV coil 48 ohms; SVC coil 60 ohms Threshold: ??Right Atrial ??0.875 V @ 0.4 ms; Right Ventricular 0.925 V @ 0.4 ms; Left Ventricular 0.875 V @ 0.4 ms Events: 6 AF episodes, up to 1 hour 20 minutes in duration. ??AF burden was calculated by the device at 0.2%. Changes: None Impression: ??Normal Device Function. Stevnaparveen Ruiz Winnie will follow up with a remote check in 3, 6, 9 months and a follow-up in device clinic in 12 months. ??Thank you for allowing me to participate in the care of your patient. ??If you have any questions or concerns please do not hesitate to contact me. Fiona FUENTES PROCEDURE/CT NOR SURGICAL ORDERABLES * CO ICD DEVICE INTERROGAT REMOTE, CO PM/ICD REMOTE TECH SERV (02/02/2020 9:03 AM CDT) Narrative Fiona Lanier APRN-CNP - 02/02/2020 9:03 AM CDT Fiona Lanier APRN-CNP ? 02/02/2020 ??9:11 AM Remote interrogation of patient's ICD was performed with results as follows: Device: ??Medtronic Amplia CRTD Mode: DDDR 75-120 bpm Battery: 2.97 Volts; Estimated longevity 4.6 years Percent Paced: ??97.7% in atrium, 98% BiV pacing Sensing: ??P-waves 2.1 mV; R-waves >20 mV Impedence: ??Right Atrial ??589 ohms; Right Ventricular 532 ohms; Left Ventricular 855 ohms Threshold: ??Right Atrial ??1 V @ 0.4 ms; Right Ventricular 0.625 V @ 0.4 ms; Left Ventricular 0.5 V @ 0.9 ms Events: None Impression: ??Normal Device Function. Cassygloria Ruiz Winnie will follow up in device clinic in 3 months. ?? Thank you for allowing me to participate in the care of your patient. ??If you have any questions or concerns please do not hesitate to contact me. Fiona FUENTES PROCEDURE/CT NOR SURGICAL ORDERABLES * CO ICD DEVICE INTERROGAT REMOTE, CO PM/ICD REMOTE TECH SERV (12/04/2019 9:17 AM FORENSIC PHOTOGRAPHER) Narrative Fiona Lanier APRN-CNP - 12/04/2019 9:17 AM FORENSIC PHOTOGRAPHER Fiona Lanier APRN-CNP ? 12/04/2019 ??9:22 AM Remote interrogation of patient's ICD was performed with results as follows: Device: ??Medtronic Amplia CRTD Mode: DDDR 75-120 bpm Battery: 2.98 Volts; Estimated longevity 5.1 years Percent Paced: ??97.9% in atrium, 97.4% BiV pacing Sensing: ??P-waves 1.5 mV; R-waves > 20 mV Impedence: ??Right Atrial ??627 ohms; Right Ventricular 589 ohms; Left Ventricular 779 ohms Threshold: ??Right Atrial ??0.875 V @ 0.4 ms; Right Ventricular 0.625 V @ 0.4 ms; Left Ventricular 0.5 V @ 0.9 ms Events: 44 atrial flutter episodes, up to 1.5 hours in duration. ?? 0.9% AF burden. Impression: ??Normal Device Function. Doc Zhou will follow up in clinic in 3 months. ??Thank you for allowing me to participate in the care of your patient. ?? If you have any questions or concerns please do not hesitate to contact me. Fiona Lanier APRN-ELECTRONIC DIE MAKER PROCEDURE/CT NOR SURGICAL ORDERABLES * CO ICD DEVICE INTERROGAT REMOTE, CO PM/ICD REMOTE TECH SERV (08/14/2019 9:53 AM CDT) Narrative Fiona Lanier, GINA - 08/14/2019 9:53 AM CDT Fiona Lanier APRN-CNP ? 08/14/2019 10:01 AM Remote interrogation of patient's ICD was performed with results as follows: Device: ??Medtronic Amplia TRANSFER TABLE OPERATOR-D Mode: DDDR 75-120 bpm Battery: 2.98 Volts; Estimated longevity 5.5 years Percent Paced: ??97.8% in atrium, 97.7% in ventricles, 57% of which is LV only pacing Sensing: ??P-waves 1.9 mV; R-waves > 20 mV Impedence: ??Right Atrial ??627 ohms; Right Ventricular 570 ohms; Left Ventricular 836 ohms Threshold: ??Right Atrial ??0.875 V @ 0.4 ms; Right Ventricular 0.625 V @ 0.4 ms; Left Ventricular 0.5 V @ 0.9 ms Events: 8 AT/AF episodes were recorded, tracings consistent with atrial flutter. ??All episodes occurred on 07/04/19 between 6 AM and 8 AM. ??The longest continuous episode was 1 hour 3 minutes in duration. Impression: ??Normal Device Function. Doc Zhou will follow up with a remote check in 3 months and a follow-up in clinic in 6 months. ??Thank you for allowing me to participate in the care of your patient. ??If you have any questions or concerns please do not hesitate to contact me. Fiona Lanier APRN-ELECTRONIC DIE MAKER PROCEDURE/CT NOR SURGICAL ORDERABLES * CO ICD DEVICE INTERROGAT REMOTE, CO PM/ICD REMOTE TECH SERV (05/17/2019 2:25 PM CDT) Narrative Barbra Boone APRN-CNP - 05/17/2019 2:25 PM CDT Barbra Boone APRN-CNP ? 05/17/2019 ??2:25 PM Carelink transmission 05/02/19 reveals no tachyarrhythmias. APVS 1.1%. APbiV paced 98.8%. Battery voltage, lead impedance, pacing and sensing all WNL. ?? Optivol at baseline. Histograms blunted.(see printout in media) Barbra FUENTES PROCEDURE/M INOR SURGICAL ORDERABLES * CO ICD DEVICE INTERROGATE IN PERSON (02/14/2019 11:06 AM CDT) Narrative Fiona Lanier APRN-CNP - 02/14/2019 11:06 AM CDT Fiona Lanier APRN-CNP ? 02/14/2019 11:06 AM Doc Zhou presented to clinic for follow up of the patient's ICD. ??Interrogation was performed with results as follows: Device: ??Medtronic Amplia MRI TRANSFER TABLE OPERATOR-D Mode: DDDR 75-120 bpm Battery: 2.99 Volts; Estimated longevity 6.2 years Percent Paced: ??97% in atrium, 96.7% in ventricle Sensing: ??P-waves 2.1 mV; R-waves > 20 mV Impedence: ??Right Atrial ??589 ohms; Right Ventricular 532 ohms; Left Ventricular 703 ohms Threshold: ??Right Atrial ??0.875 V @ 0.4 ms; Right Ventricular 0.625 V @ 0.4 ms; Left Ventricular 0.5 V @ 0.9 ms Events: 513 episodes of atrial fibrillation with a 1.5% burden. ?? Changes: None Impression: ??Normal Device Function. Fiona FUENTES PROCEDURE/CT NOR SURGICAL ORDERABLES * CO ICD DEVICE INTERROGAT REMOTE, CO PM/ICD REMOTE TECH SERV (11/22/2018 3:23 PM FORENSIC PHOTOGRAPHER) Narrative Barbra Boone APRN-CNP - 11/22/2018 3:23 PM FORENSIC PHOTOGRAPHER Barbra Boone APRN-CNP ? 11/22/2018 ??3:23 PM Carelink transmission 10/26/18 reveals 103 V sensed episodes. 40 AT/AF, 0.2%. No ventricular tachyarrhythmias. AbiV paced 2.3%. APVS 1.5% APbiV paced 96%. Battery voltage, lead impedance,pacing and sensing all WNL. Optivol at baseline. Histograms blunted (see printout in media) Barbra FUENTES PROCEDURE/M INOR SURGICAL ORDERABLES * CO ICD DEVICE INTERROGAT REMOTE, CO PM/ICD REMOTE TECH SERV (08/12/2018 7:10 PM CDT) Narrative Barbra Boone APRN-CNP - 08/12/2018 7:10 PM CDT Barbra Boone APRN-CNP ? 08/12/2018 ??7:10 PM Carelink transmission 07/25 reveals 2901 V sensed episodes. 3 days in AF. (4.3%). ASVS 3.4%. ASbiV paced 1.5% APvs 1.9% APbiV paced 93.2%. Battery voltage, lead impedance, pacing and sensing all WNL. Optivol at baseline(see printout) Barbra FUENTES PROCEDURE/M INOR SURGICAL ORDERABLES * CO ICD DEVICE INTERROGAT REMOTE, CO PM/ICD REMOTE TECH SERV (04/28/2018 6:37 PM CDT) Narrative Barbra Boone APRN-CNP - 04/28/2018 6:37 PM CDT Barbra Boone APRN-CNP ? 04/28/2018 ??6:37 PM Carelink transmission reveals 1 AT/AF, <0.1%. APVS 1.3%. APbiV paced 97.7%. Battery voltage, lead impedance, pacing and sensing all WNL. Optivol elevated since February. Histograms blunted(see printout) Barbra S Mely FUENTES PROCEDURE/M INOR SURGICAL ORDERABLES * PROC IMPLANT WEAR CARDIAC DEVICE EVAL (01/19/2018 10:45 AM CDT) Narrative [facility] - 01/19/2018 10:45 AM CDT Medtronic biventricular defibrillator implanted on September. Interrogation, today demonstrated 99% atrial/biventricular paced rhythm. Sensing, pacing, impedance parameters were all within normal limits.Estimated longevity 6.9 years. Remote interrogation every 3 months and in office visit once a year. This dictation was performed using [employer]. There may be some renovator machine operator variances which are not appreciated and corrected in this note. Pat Silvestre MD Procedure Note ProviderAdriana MD - 03/25/2018 Medtronic biventricular defibrillator implanted on September.Interrogation, today demonstrated 99% atrial/biventricular paced rhythm.Sensing, pacing, impedance parameters were all within normallimits.Estimated longevity 6.9 years. Remote interrogation every 3 months and in office visit once a year. This dictation was performed using [employer]. There may be sometranscription variances which are not appreciated and corrected in thisnote. Pat Silvestre MD Pat Silvestre MD PROCEDURE/MINOR SURG ICAL ORDERABLES Performing Organization Address [facility] Co de Phone Number [facility] * PROC ICD DEVICE CHECK (REMOTE) (10/26/2017 5:53 PM FORENSIC PHOTOGRAPHER) Narrative [facility] - 10/26/2017 5:53 PM FORENSIC PHOTOGRAPHER Carelink transmission reveals no events. APVS 1.4%. APbiV paced 97.8%. Battery voltage, lead impedance, pacing and sensing all WNL. Optivol at baseline(see printout) Procedure Note Provider, MD Adriana - 03/25/2018 Carelink transmission reveals no events. APVS 1.4%. APbiV paced 97.8%. Battery voltage, lead impedance, pacing and sensing all WNL. Optivol atbaseline(see printout) Barbra Boone FULL TIME PARAMEDIC-ELECTRONIC DIE MAKER PROCEDURE/M INOR SURGICAL ORDERABLES Performing Organization Address [facility] Co de Phone Number [facility] * PATHOLOGY TISSUE (10/21/2017 8:09 AM FORENSIC PHOTOGRAPHER) Surgical Pathology Tissue ACCESSION No: [id number] CLINICAL HISTORY: Teeth extraction. FINAL DIAGNOSIS: Teeth, extraction: - ? Teeth and tooth fragments (Gross diagnosis) MICROSCOPIC DESCRIPTION AND COMMENT: None. GROSS DESCRIPTION: Submitted fresh in one container for gross examination only, labeled with the patient's name, Doc Zhou, and teeth for gross , are multiple teeth with an aggregate measurement of 3.7 x 3.6 x 1.0 cm. ??Multiple dental caries are identified on the surface of the teeth. ??No sections are taken. ??This is a gross examination only. CARLY for EMS/edk The performance characteristics of all immunohistochemical and indirect immunofluorescence stains (if any) cited in this report were determined by the [facility] of [facility].?? Some of these tests were developed by our own laboratory and have not been cleared or approved by the US Food and Drug Administration.?The FDA does not require this test to go through premarket FDA review.?These tests are used for clinical purposes. They should not be regarded as investigational or for research.?? This laboratory is certified under the Clinical Laboratory Improvement Amendments (CLIA) as qualified to perform high complexity clinical laboratory testing. This case has been personally reviewed and interpreted by the attending (teaching) pathologist. Final Diagnosis performed by Angelina Salamanca M.D. Electronically signed 10/22/2017 [facility] Gross only (Tooth) 10/21/2017 8:09 AM FORENSIC PHOTOGRAPHER 10/21/2017 10:04 AM FORENSIC PHOTOGRAPHER Narrative [facility] - 10/22/2017 10:31 AM FORENSIC PHOTOGRAPHER Pre-op diagnosis: perdonial disease Vedrana Sedic DMD LAB - PATHOLOGY/CYTO LOGY ORDERABLES Performing Organization Address City/State/[facility] Co de Phone Number [facility] PATHOLOGY LAB [address] [phone] * COMPREHENSIVE METABOLIC PANEL (10/15/2017 3:01 PM FORENSIC PHOTOGRAPHER) BUN 20 7 - 26 mg/dL [facility] Creatinine 0.9 0.6 - 1.2 mg/dL [facility] Sodium 141 136 - 145 mmol/L [facility] Potassium 4.4 3.5 - 4.5 mmol/L [facility] Chloride 105 98 - 107 mmol/L [facility] CO2 26 22 - 29 mmol/L [facility] Glucose 94 70 - 115 mg/dL [facility] Calcium 8.8 8.4 - 10.2 mg/dL [facility] Protein Total 6.7 6.0 - 8.3 g/dL [facility] Albumin 3.6 3.4 - 5.0 g/dL [facility] Bilirubin Total 0.5 0.2 - 1.2 mg/dL [facility] Alkaline Phosphatase 60 40 - 150 Units/L [facility] ALT 18 0 - 55 Units/L [facility] AST 21 5 - 34 Units/L [facility] Anion Gap 14 8 - 18 [facility] BUN/Creatinine Ratio 22 7 - 23 [facility] Osmolality Calculated 294 270 - 300 mOsm/kg [facility] Albumin/Globulin Ratio 1.2 1.1 - 2.3 [facility] eGFR >60 >60 mL/min/1.7 3 m2 [facility] Blood specimen (specimen) BLOOD SPECIMEN / Unknown 10/15/2017 3:01 PM FORENSIC PHOTOGRAPHER 10/15/2017 3:16 PM FORENSIC PHOTOGRAPHER Vedrana Sedic DMD LAB - CHEMISTRY [facility]UZITO GONZALEZ [address] [phone] * EKG 12-LEAD (10/15/2017 12:00 AM FORENSIC PHOTOGRAPHER) EKG [facility] Comment: Exam Date/Time: ?? Oct 15 2017 14:41:36 Test Reason : cad Blood Pressure : / mmHG Vent. Rate : 080 BPM ? Atrial Rate : 079 BPM ?? P-R Int : 000 ms ?QRS Dur : 154 ms ?QT Int : 448 ms ? P-R-T Axes : 000 -46 075 degrees ?? QTc Int : 516 ms AV sequential or dual chamber electronic pacemaker No previous ECGs available Confirmed by Aydee LOOMIS STEVEN ([id number]), offline editor ARI CAST ([id number]) on 10/20/2017 4:55:48 PM Referred By: REFERRING SYSTEM ? Confirmed By:ZITA LOOMIS M.D 10/15/2017 Vedrana Sedic DMD ECG ORDERABLES Performing Organization Address [facility] Co de Phone Number [facility] * PROC ICD DEVICE CHECK (REMOTE) (07/22/2017 10:31 AM CDT) Narrative [facility] - 07/22/2017 10:31 AM CDT Carelink transmission reveals 14 V sensed episodes. ASbiVP 3.2%. APVS 1.7% APbiV paced 95%. RV pacing 27%. LV pacing 73%. Battery voltage, lead impedance, pacing and sensing all WNL, though of note, 2- 5% may be farfield. Optivol has returned to baseline.(see printout) Procedure Note ProviderAdriana MD - 03/25/2018 Carelink transmission reveals 14 V sensed episodes. ASbiVP 3.2%. APVS 1.7%APbiV paced 95%. RV pacing 27%. LV pacing 73%. Battery voltage, lead impedance, pacing and sensing all WNL, though ofnote, 2-5% may be farfield. Optivol has returned to baseline.(see printout) Barbra Boone APRN-ELECTRONIC DIE MAKER PROCEDURE/M INOR SURGICAL ORDERABLES Performing Organization Address [facility] de Phone Number [facility] * PROC ICD DEVICE CHECK (REMOTE) (05/07/2017 8:05 PM CDT) Narrative [facility] - 05/07/2017 8:05 PM CDT Carelink transmission reveals 20 V sensed episodes, APbiVP 98.2%. ??APVS 1.4%. Optivol at baseline. Battery voltage, lead impedance, pacing and sensing all WNL(see printout) Procedure Note ProviderAdriana MD - 03/25/2018 Carelink transmission reveals 20 V sensed episodes, APbiVP 98.2%. APVS1.4%. Optivol at baseline. Battery voltage, lead impedance, pacing and sensing all WNL(seeprintout) Barbra Boone APRN-ELECTRONIC DIE MAKER PROCEDURE/M INOR SURGICAL ORDERABLES Performing Organization Address [facility] de Phone Number [facility] * PROC STRESS TEST EXERCISE (02/09/2017 10:50 AM CDT) Only the most recent of2 resultswithin the time period is included. Narrative [facility] - 02/09/2017 10:50 AM CDT [facility] Nuclear Cardiology Department Myocardial Perfusion Imaging Pharmacological Stress ECG Interpretation Procedure: 1. The patient received 0.4mg of intravenous Lexiscan over 10 seconds. 2. ??The resting heart rate was 75 bpm; maximum heart rate was 75 bpm. 3. ??The resting blood pressure was 100/64 mmHg and was 100/60 mmHg 4 minutes after termination of the pharmacologic vasodilator. 4. Side Effects:dyspnea ?The symptoms subsided spontaneously 5. Chest pain: None Interpretation: 1. ??Rest ECG: ASVP rhythm 2. ??Stress ST segment depression: ? Not applicable: paced rhythm throughout the test 3. ??Stress ST segment elevation: ? Not applicable: paced rhythm throughout the test 4. T wave changes were none Impression: Indeterminate ECG stress due to underlying V-paced rhythm Please see nuclear imaging under separate report Electronically signed by: Iván Biswas MD Procedure Note Provider, MD Adriana - 03/25/2018 [facility] Nuclear Cardiology Department Myocardial Perfusion Imaging Pharmacological Stress ECG Interpretation Procedure: 1. The patient received 0.4mg of intravenous Lexiscan over 10 seconds. 2. The resting heart rate was 75 bpm; maximum heart rate was 75 bpm. 3. The resting blood pressure was 100/64 mmHg and was 100/60 mmHg 4minutes after termination of the pharmacologic vasodilator. 4. Side Effects:dyspnea The symptoms subsided spontaneously 5. Chest pain: None Interpretation: 1. Rest ECG: ASVP rhythm 2. Stress ST segment depression: Not applicable: paced rhythm throughout the test 3. Stress ST segment elevation: Not applicable: paced rhythm throughout the test 4. T wave changes were none Impression: Indeterminate ECG stress due to underlying V-paced rhythm Please see nuclear imaging under separate report Electronically signed by: Iván Biswas MD Pat Silvestre MD ECG ORDERABLES Performing Organization Address [facility] Co de Phone Number [facility] * PROC LEXISCAN CARDIOLYTE STRESS TST (02/09/2017 10:50 AM CDT) Only the most recent of2 resultswithin the time period is included. Narrative [facility] - 02/09/2017 10:50 AM CDT Patient Name: Doc Zhou ? : 1940 ? CPT Codes: 08248 Study:Pharmacologic Stress Myocardial Perfusion-One Day Protocol Date of Service: 02/02/2017 Referring Physician: Pat Silvsetre This report reflects our interpretive findings of the results of the myocardial perfusion imaging and the stress electrocardiogram combined with the patient? s age, sex, symptoms, and coronary risk factors. The study was performed in order to evaluate cardiac risk in this 76 y.o. year old male with history of CAD, ischemic cardiomyopathy, having dyspnea on exertion. Pharmacologic Stress: Pharmacologic stress was performed with the I.V. injection of 0.4 mg of Lexiscan over 10 seconds, ??followed 1 minute later with stress sestamibi dose. The heart rate was 75 BPM at baseline and peaked at 75 BPM during the infusion. The resting blood pressure was 100/64 ??and was 100/60 4 minutes after infusion of the pharmacologic agent. The resting ECG showed normal sinus rhythm. The stress ECG revealed No ECG changes. The patient experienced dyspnea during the procedure.?? Myocardial Perfusion Imaging: SPECT myocardial perfusion imaging was performed at rest 35 minutes following the I.V. injection of 12.8 mCi Tc-99m Sestamibi. At peak pharmacologic effect, the patient was given an I.V. injection of 37.3 mCi Tc-99m Sestamibi. Gated post- stress SPECT imaging was performed 35 minutes after stress. The overall quality of the study is good . TID was 0.93 and the lung-heart ratio was 0.42, both of which are normal. SPECT imaging revealed a large area of absent counts in the inferior and inferolateral morales at rest and stress, consistent with a large transmural infarction. There was no evidence of stress-induced myocardial ischemia. There were no significant signs of attenuation. The global ejection fraction was 30%. Regional wall motion analysis showed akinesis of the inferior and inferolateral morales. Conclusion: ?? Myocardial perfusion imaging is abnormal. Overall left ventricular systolic function was abnormal with regional wall motion abnormalities, as described above. 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 Compared with the previous study from 2012, there has been no significant interval change in the findings. Electronically signed by: Stephen Mason MD Date of Interpretation: 02/09/2017 ? Date of Final Report: 02/09/2017 ? Procedure Note Provider, MD Adriana - 03/25/2018 Patient Name: Doc Zhou : 1940 CPT Codes: 34363 Study:Pharmacologic Stress Myocardial Perfusion-One Day Protocol Date of Service: 02/02/2017 Referring Physician: Pat Silvestre This report reflects our interpretive findings of the results of themyocardial perfusion imaging and the stress electrocardiogram combinedwith the patient? s age, sex, symptoms, and coronary risk factors. Thestudy was performed in order to evaluate cardiac risk in this 76 y.o. year old male with history of CAD, ischemiccardiomyopathy, having dyspnea on exertion. Pharmacologic Stress: Pharmacologic stress was performed with the I.V. injection of 0.4 mg ofLexiscan over 10 seconds, followed 1 minute later with stress sestamibidose. The heart rate was 75 BPM at baseline and peaked at 75 BPM duringthe infusion. The resting blood pressure was 100/64 and was 100/60 4 minutes after infusion of thepharmacologic agent. The resting ECG showed normal sinus rhythm. Thestress ECG revealed No ECG changes. The patient experienced dyspnea duringthe procedure.?? Myocardial Perfusion Imaging: SPECT myocardial perfusion imaging was performed at rest 35 minutesfollowing the I.V. injection of 12.8 mCi Tc-99m Sestamibi. At peakpharmacologic effect, the patient was given an I.V. injection of 37.3 mCiTc-99m Sestamibi. Gated post-stress SPECT imaging was performed 35 minutes after stress. The overall quality of the study is good . TID was 0.93 and the lung-heartratio was 0.42, both of which are normal. SPECT imaging revealed a largearea of absent counts in the inferior and inferolateral morales at rest andstress, consistent with a large transmural infarction. There was no evidence of stress-induced myocardialischemia. There were no significant signs of attenuation. The global ejection fraction was 30%. Regional wall motion analysis showedakinesis of the inferior and inferolateral morales. Conclusion: Myocardial perfusion imaging is abnormal. Overall left ventricularsystolic function was abnormal with regional wall motion abnormalities, asdescribed above. 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 Compared with theprevious study from 2011, there has been no significant interval change inthe findings. Electronically signed by: Stephen Mason MD Date of Interpretation: 02/09/2017 Date of Final Report: 02/09/2017 Pat Silvestre MD ECG ORDERABLES [facility] * XR CERVICAL SPINE 2 OR 3 VW (01/28/2017 11:13 AM CDT) Anatomical Region Laterality Modality Spine Radiographic Giovana ging 01/28/2017 12:0 5 PM CDT Impressions 01/28/2017 12:16 PM CDT Degenerative changes. Edited by Naye Akers on 01/28/2017 12:07 PM Narrative 01/28/2017 12:16 PM CDT CERVICAL SPINE 2 VIEWS. HISTORY: Neck pain. AP and lateral views show normal vertebral heights and interspace heights. 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 The odontoid process appears normal. Procedure Note Dae Webb MD - 01/28/2017 CERVICAL SPINE 2 VIEWS. HISTORY: Neck pain. AP and lateral views show normal vertebral heights and interspace heights. 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 The odontoid process appears normal. IMPRESSION Degenerative changes. Edited by Naye Akers on 01/28/2017 12:07 PM Alexandra Herring PA-C DIAGNOSTIC IMAG ING ORDERABLES * FL SWALLOWING FUNCTION STUDY (01/18/2017 9:45 AM CDT) Anatomical Region Laterality Modality Chest Other Impressions 01/18/2017 1:08 PM CDT IMPRESSION: Fluoroscopic guidance was provided for a procedure performed by speech therapy. Kindly see separate speech therapist's report for details. Incidental note is made of degenerative changes in the cervical spine with superimposed changes of diffuse idiopathic skeletal hyperostosis, partially imaged. Dictated by Marleny Brown MD (residential lawn specialist). This report was approved ??by Billy Brown M.D. ?? on 01/18/2017 12:[address] JESSIKA Arellano M.D. have personally reviewed and interpreted this examination/study. This report was electronically signed by JESSIKA ERICKSON M.D. ??on 01/18/2017 1:08 PM . Narrative 01/18/2017 1:08 PM CDT EXAMINATION: Modified barium swallow HISTORY: dysphagia COMPARISON: None FLUOROSCOPY TIME: 208 seconds Procedure Note Jessika Erickson MD - 01/14/2018 EXAMINATION: Modified barium swallow HISTORY: dysphagia COMPARISON: None FLUOROSCOPY TIME: 208 seconds IMPRESSION IMPRESSION: Fluoroscopic guidance was provided for a procedure performed by speechtherapy. Kindly see separate speech therapist's report for details.Incidental note is made of degenerative changes in the cervical spine withsuperimposed changes of diffuse idiopathic skeletal hyperostosis, partially imaged. Dictated by Marleny Brown MD (residential lawn specialist). This report was approved by Billy Brown M.D. on 01/18/2017 12:05PM . I, Dr. JESSIKA ERICKSON M.D. have personally reviewed and interpreted thisexamination/study. This report was electronically signed by JESSIKA ERICKSON M.D. on 01/18/20171:08 PM . Garrett Parkinson MD FLUOROSCOPY ORDERABL ES * PROC IMPLANT WEAR CARDIAC DEVICE EVAL (01/16/2017 5:00 AM CDT) Narrative [facility] - 01/16/2017 5:00 AM CDT Medtronic biventricular defibrillator implanted on September. Indication was inducible sustained monomorphic ventricular tachycardia. Interrogation today demonstrated no evidence for atrial or ventricular tachyarrhythmia. Atrial pacin% , biventricular pacin%. Estimated longevity 7.6 years. Normal sensing, pacing, impedance parameters were noted. Remote interrogation every 3 months and in office visit once a year. This dictation was performed using dinCloud. There may be some renovator machine operator variances which are not appreciated and corrected in this note. Pat Silvestre MD Procedure Note Provider, Adriana, - 03/25/2018 Medtronic biventricular defibrillator implanted on September.Indication was inducible sustained monomorphic ventricular tachycardia. Interrogation today demonstrated no evidence for atrial or ventriculartachyarrhythmia. Atrial pacin% , biventricular pacin%. Estimated longevity 7.6years. Normal sensing, pacing, impedance parameters were noted. Remote interrogation every 3 months and in office visit once a year. This dictation was performed using [employer]. There may be sometranscription variances which are not appreciated and corrected in thisnote. Pat Silvestre MD Pat Silvestre MD PROCEDURE/MINOR SURG ICAL ORDERABLES Performing Organization Address City/[facility]/ZIP Co de Phone Number [facility] * LAB HISTORICAL RESULTS-ONBASE (09/30/2016) 09/30/2016 Historical Provider LAB - CHEMISTRY O RDERABLES [address] * PROC ICD DEVICE CHECK (REMOTE) (05/28/2016 1:19 PM CDT) Narrative [facility] - 05/28/2016 1:19 PM CDT Doc Zhou presented to device clinic for follow up of the patient's TRANSFER TABLE OPERATOR-defibrillator. ??Interrogation was performed with results as follows: Device: ??Medtronic Marcelino II TRANSFER TABLE OPERATOR-D Mode: DDDR 75-120 bpm Battery: 2.63 Volts; EYE TECHNICIAN 2.63 V Percent Paced: ??99.7% in atrium, 100% in ventricle Sensing: ??P-waves 1.4 mV; R-waves >20 mV Impedence: ??Right Atrial ??437 ohms; Right Ventricular 589 ohms; Left Ventricle 836 ohms Threshold: ??Not measured Events: one episode of non-sustained VT, 2 beats long. Changes: none Impression: ??Normal Device Function. Nearing replacement indicator Doc Zhou will follow up with a remote check in 3 months and a follow- up in device clinic in 6 months. ??Thank you for allowing me to participate in the care of your patient. ??If you have any questions or concerns please do not hesitate to contact me. Apurva Mary MD 05/28/2016 1:19 PM Procedure Note Provider, MD Adriana - 03/25/2018 Doc Zhou presented to device clinic for follow up of thepatient's TRANSFER TABLE OPERATOR-defibrillator. Interrogation was performed with results asfollows: Device: Medtronic Marcelino II TRANSFER TABLE OPERATOR-D Mode: DDDR 75-120 bpm Battery: 2.63 Volts; EYE TECHNICIAN 2.63 V Percent Paced: 99.7% in atrium, 100% in ventricle Sensing: P-waves 1.4 mV; R-waves >20 mV Impedence: Right Atrial 437 ohms; Right Ventricular 589 ohms; LeftVentricle 836 ohms Threshold: Not measured Events: one episode of non-sustained VT, 2 beats long. Changes: none Impression: Normal Device Function. Nearing replacement indicator Doc Zhou will follow up with a remote check in 3 months and afollow-up in device clinic in 6 months. Thank you for allowing me toparticipate in the care of your patient. If you have any questions orconcerns please do not hesitate to contact me. Apurva Mary MD 05/28/2016 1:19 PM Apurva Mary MD PROCEDURE/MINOR S URGICAL ORDERABLES [facility] * PROC IMPLANT WEAR CARDIAC DEVICE EVAL (02/24/2016 3:23 PM CDT) Narrative [facility] - 02/24/2016 3:23 PM CDT Interrogation of Medtronic biV ICD reveals no ventricular tachyarrhythmias. 3.7% AF burden. A paced 96%. BiV paced 100%. Underlying rhythm NSR. Battery voltage, charge time, lead impedance, pacing and sensing all WNL(see printout) Procedure Note ProviderAdriana MD - 03/25/2018 Interrogation of Medtronic biV ICD reveals no ventriculartachyarrhythmias. 3.7% AF burden. A paced 96%. BiV paced 100%. Underlyingrhythm NSR. Battery voltage, charge time, lead impedance, pacing and sensing allWNL(see printout) Barbra FUENTES PROCEDURE/M INOR SURGICAL ORDERABLES Performing Organization Address [facility] Co de Phone Number [facility] * PROC ICD DEVICE CHECK (REMOTE) (11/21/2015 3:45 PM FORENSIC PHOTOGRAPHER) Narrative [facility] - 11/21/2015 3:45 PM FORENSIC PHOTOGRAPHER Carelink transmission reveals 9 AT/AF , 7.4% burden, longest 4 days. ASVS 6.6%. ASbiV paced 1.4%APbiV paced 92%. Battery voltage, charge time, lead impedance, sensing all WNL(see printout) Procedure Note ProviderAdriana MD - 03/25/2018 Carelink transmission reveals 9 AT/AF , 7.4% burden, longest 4 days. ASVS6.6%. ASbiV paced 1.4%APbiV paced 92%. Battery voltage, charge time, lead impedance, sensing all WNL(seeprintout) Barbra FUENTES PROCEDURE/M INOR SURGICAL ORDERABLES Performing Organization Address City/[facility]/ZIP Co de Phone Number [facility] * PROC IMPLANT WEAR CARDIAC DEVICE EVAL (08/19/2015 12:20 PM FORENSIC PHOTOGRAPHER) Narrative [facility] - 08/19/2015 12:20 PM FORENSIC PHOTOGRAPHER Interrogation of Medtronic biV ICD reveals 1 AT/AF episose 07/20/15, 7.6% burden, longest 15 days. ASVS 6%ASbiV paced 4%APbiV paced 90%. Currently APbiV paced with underlying rhythm sinus gonzalo. Battery voltage, charge time, lead impedance, pacing and sensing all WNL(see printout) Procedure Note ProviderAdriana MD - 03/25/2018 Interrogation of Medtronic biV ICD reveals 1 AT/AF episose 07/20/15, 7.6%burden, longest 15 days. ASVS 6%ASbiV paced 4%APbiV paced 90%. CurrentlyAPbiV paced with underlying rhythm sinus gonzalo. Battery voltage, charge time, lead impedance, pacing and sensing allWNL(see printout) Barbra Boone APRN-ELECTRONIC DIE MAKER PROCEDURE/M INOR SURGICAL ORDERABLES Performing Organization Address [facility] Co de Phone Number [facility] * PROC IMPLANT WEAR CARDIAC DEVICE EVAL (07/05/2015 2:20 PM CDT) Narrative [facility] - 07/05/2015 2:20 PM CDT Interrogation of Medtronic biV ICD reveals currently in atrial flutter at 130 bpm. AF burden 5.3%, 20 episodes, current episode 8 days, > 5 hr. ??11 days with > 6hr AT/AF. ??Night heart rate > 75 for 7 days. A paced 94%. BiV paced 99%. Battery voltage, charge time, lead impedance and sensing ??all WNL. Per Dr Silvestre, NIPS from 84% to 72% successfully converted atrial flutter to NSR. (see printout) Procedure Note ProviderAdriana MD - 03/25/2018 Interrogation of Medtronic biV ICD reveals currently in atrial flutter at130 bpm. AF burden 5.3%, 20 episodes, current episode 8 days, > 5 hr. 11days with > 6hr AT/AF. Night heart rate > 75 for 7 days. A paced 94%. BiV paced 99%. Battery voltage, charge time, lead impedance and sensing all WNL. Per Dr Silvestre, NIPS from 84% to 72% successfully converted atrialflutter to NSR. (see printout) Barbra Boone APRN-ELECTRONIC DIE MAKER PROCEDURE/M INOR SURGICAL ORDERABLES Performing Organization Address [facility] Co de Phone Number [facility] * PROC ICD DEVICE CHECK (REMOTE) (04/03/2015 5:25 PM CDT) Narrative [facility] - 04/03/2015 5:25 PM CDT Carelink transmission reveals 15 AT/AF episodes, 1.6%. No ventricular tachy arrhythmias. ASVS1.5%. APVP 98%. Battery voltage, charge time, lead impedance, sensing all WNL(see printout) Procedure Note ProviderAdriana MD - 03/25/2018 Carelink transmission reveals 15 AT/AF episodes, 1.6%. No ventriculartachy arrhythmias. ASVS1.5%. APVP 98%. Battery voltage, charge time, lead impedance, sensing all WNL(seeprintout) Barbra Boone APRN-ELECTRONIC DIE MAKER PROCEDURE/M INOR SURGICAL ORDERABLES Performing Organization Address [facility] de Phone Number [facility] * PROC IMPLANT WEAR CARDIAC DEVICE EVAL (12/27/2014 6:08 PM CDT) Narrative [facility] - 12/27/2014 6:08 PM CDT Interrogation of Medtronic biV ICD reveals 5 AT/AF episodes appear to be atrial flutter, longest 50 min. (0.1%). No ventricular tachyarrhythmias. A paced 99%. BI V paced 100%. Underlying rhythm sinus gonzalo. Battery voltage, charge time, lead impedance, pacing and sensing all WNL(see printout) Procedure Note ProviderAdriana MD - 03/25/2018 Interrogation of Medtronic biV ICD reveals 5 AT/AF episodes appear to beatrial flutter, longest 50 min. (0.1%). No ventricular tachyarrhythmias. Apaced 99%. BI V paced 100%. Underlying rhythm sinus gonzalo. Battery voltage, charge time, lead impedance, pacing and sensing allWNL(see printout) Barbra Boone APRN-ELECTRONIC DIE MAKER PROCEDURE/M INOR SURGICAL ORDERABLES Performing Organization Address [facility] Co de Phone Number [facility] * PROC ICD DEVICE CHECK (REMOTE) (10/04/2014 7:04 PM FORENSIC PHOTOGRAPHER) Narrative [facility] - 10/04/2014 7:04 PM FORENSIC PHOTOGRAPHER Carelink transmission reveals 5 AT/AF episodes, longest 5 min. (<0.1%). ??65 V sensed episodes, total 84 min in AF. APbiV paced 98.8%. Battery voltage, charge time, lead impedance, sensing all WNL(see printout) Procedure Note ProviderAdriana MD - 03/25/2018 Carelink transmission reveals 5 AT/AF episodes, longest 5 min. (<0.1%).65 V sensed episodes, total 84 min in AF. APbiV paced 98.8%. Battery voltage, charge time, lead impedance, sensing all WNL(seeprintout) Barbra Boone APRN-ELECTRONIC DIE MAKER PROCEDURE/M INOR SURGICAL ORDERABLES Performing Organization Address [facility] de Phone Number [facility] * PROC IMPLANT WEAR CARDIAC DEVICE EVAL (07/05/2014 2:57 PM CDT) Narrative [facility] - 07/05/2014 2:57 PM CDT Interrogation of Medtronic biV ICD reveals 10 AT/AF episodes, burden 02%. 538 V sensed episodes(PAULINA programmed 120ms, [place] 100-120ms). ??One day with >6 hr AT/AF. A paced 98%. BiV paced 99.7%. ??Currently APBiV paced at 86 bpm with underying rhythm NSR at 61 bpm. Battery voltage, charge time, lead impedance, pacing and sensing all WNL Reprogrammed PAULINA to 100mg per Dr Silvestre's order(see printout) Procedure Note ProviderAdriana MD - 03/25/2018 Interrogation of Medtronic biV ICD reveals 10 AT/AF episodes, burden 02%.538 V sensed episodes(PAULINA programmed 120ms, [place] 100-120ms). One daywith >6 hr AT/AF. A paced 98%. BiV paced 99.7%. Currently APBiV paced at 86 bpm withunderying rhythm NSR at 61 bpm. Battery voltage, charge time, lead impedance, pacing and sensing all WNL Reprogrammed PAULINA to 100mg per Dr Silvestre's order(see printout) Barbra Boone APRN-ELECTRONIC DIE MAKER PROCEDURE/M INOR SURGICAL ORDERABLES Performing Organization Address [facility] Co de Phone Number [facility] * PROC ICD DEVICE CHECK (REMOTE) (03/27/2014 7:21 PM CDT) Narrative [facility] - 03/27/2014 7:21 PM CDT Carelink transmission reveals 3 AT/AF episodes, longest 3 hr (0.6%). ??APbiV paced 98% ASbiV paced 1.6%. Battery voltage, charge time, lead impedance, sensing all WNL(see printout) Procedure Note Provider, MD Adriana - 03/25/2018 Carelink transmission reveals 3 AT/AF episodes, longest 3 hr (0.6%).APbiV paced 98% ASbiV paced 1.6%. Battery voltage, charge time, lead impedance, sensing all WNL(seeprintout) Barbra Boone FULL TIME PARAMEDIC-ELECTRONIC DIE MAKER PROCEDURE/M INOR SURGICAL ORDERABLES Performing Organization Address [facility] Co de Phone Number [facility] * PROC IMPLANT WEAR CARDIAC DEVICE EVAL (12/28/2013 7:34 PM CDT) Narrative [facility] - 12/28/2013 7:34 PM CDT Interrogation of Medtronic biV ICD reveals 38 AT/AF episodes, longest 3 days in [place]. (2.6%). 1 nonsustained VT in Dec, 1 sec. A paced 93%. BiV paced 97%. ??Underlying rhythm sinus gonzalo 60 bpm. ?? Battery voltage, charge time, lead impedance, pacing and sensing all WNL(see printout) Procedure Note ProviderAdriana MD - 03/25/2018 Interrogation of Medtronic biV ICD reveals 38 AT/AF episodes, longest 3days in [place]. (2.6%). 1 nonsustained VT in Dec, 1 sec. A paced 93%. BiVpaced 97%. Underlying rhythm sinus gonzalo 60 bpm. Battery voltage, charge time, lead impedance, pacing and sensing allWNL(see printout) Barbra Boone APRN-ELECTRONIC DIE MAKER PROCEDURE/M INOR SURGICAL ORDERABLES Performing Organization Address [facility] Co de Phone Number [facility] * PROC ICD DEVICE CHECK (REMOTE) (09/19/2013 6:12 PM FORENSIC PHOTOGRAPHER) Narrative [facility] - 09/19/2013 6:12 PM FORENSIC PHOTOGRAPHER Carelink transmission reveals 727 V sensing episodes, averaging 5.5 min/day. ??17 AT/AF episodes, longest 4 hr (0.3%). ??ASbiV paced 4% APbiV paced 95%. ??Currently APbiV paced. Battery voltage, charge time, lead impedance, and sensing all WNL(see printout) Procedure Note ProviderAdriana MD - 03/25/2018 Carelink transmission reveals 727 V sensing episodes, averaging 5.5min/day. 17 AT/AF episodes, longest 4 hr (0.3%). ASbiV paced 4% APbiVpaced 95%. Currently APbiV paced. Battery voltage, charge time, lead impedance, and sensing all WNL(seeprintout) Barbra Boone FULL TIME PARAMEDIC-ELECTRONIC DIE MAKER PROCEDURE/M INOR SURGICAL ORDERABLES [facility] * PROC IMPLANT WEAR CARDIAC DEVICE EVAL (06/14/2013 6:23 PM CDT) Narrative [facility] - 06/14/2013 6:23 PM CDT Interrogation of Medtronic biV ICD reveals 3 AT/AF episodes all on 04/17/13, longest 5 hr 2 min. (0.1% burden). No ventricular tachyarrhythmias though pt experienced what he thought was a shock while lying on left side. ??A paced 95% Biv paced 99.6%. Currently APVP with underlying rhythm sinus gonzalo. Battery voltage, charge time, lead impedance, pacing and sensing thresholds all WNL. No diaphragmatic stim noted during testing. ?? LV threshold 0.75V/0.8ms. ??LV output reprogrammed from 2V/0.8ms to 1.5V /0.8ms(see printout) Procedure Note Provider, MD Adriana - 03/25/2018 Interrogation of Medtronic biV ICD reveals 3 AT/AF episodes all on 04/17/13,longest 5 hr 2 min. (0.1% burden). No ventricular tachyarrhythmias thoughpt experienced what he thought was a shock while lying on left side. Apaced 95% Biv paced 99.6%. Currently APVP with underlying rhythm sinus gonzalo. Battery voltage, charge time, lead impedance, pacing and sensingthresholds all WNL. No diaphragmatic stim noted during testing. LV threshold 0.75V/0.8ms. LV output reprogrammed from 2V/0.8ms to 1.5V/0.8ms(see printout) Barbra FUENTES PROCEDURE/M INOR SURGICAL ORDERABLES Performing Organization Address [facility] de Phone Number [facility] * PROC ICD DEVICE CHECK (REMOTE) (04/07/2013 5:47 PM CDT) Narrative [facility] - 04/07/2013 5:47 PM CDT Carelink transmission reveals no tachyarrhythmias. ASbiV paced 5.4% APbiV paced 94.3%. Currently APbiV paced. Battery voltage, charge time, lead impedance, pacing and sensing all WNL.(see printout) Procedure Note ProviderAdriana MD - 03/25/2018 Carelink transmission reveals no tachyarrhythmias. ASbiV paced 5.4% APbiVpaced 94.3%. Currently APbiV paced. Battery voltage, charge time, lead impedance, pacing and sensing allWNL.(see printout) Barbra FUENTES PROCEDURE/M INOR SURGICAL ORDERABLES Performing Organization Address [facility] de Phone Number [facility] * ECHO AV OPTIMIZATION (01/18/2013 8:16 AM CDT) Only the most recent of2 resultswithin the time period is included. Anatomical Region Laterality Modality Other Narrative 01/18/2013 8:16 AM CDT Start: ??PAV 150 ? No other Changes Finish: PAV 130 ?No other changes Procedure Note ProviderAdriana MD - 03/25/2018 Start: PAV 150 No other Changes Finish: PAV 130 No other changes Barbra FUENTES ECHOCARDIOG REBECA RADIANT * PROC IMPLANT WEAR CARDIAC DEVICE EVAL (12/26/2012 3:17 PM CDT) Narrative [facility] - 12/26/2012 3:17 PM CDT Interrogation of Medtronic biV ICD reveals 2 nonsustained VT episodes, both 1 sec. A paced 93%, biV paced 98%. Currently APbiV paced with underlying rhythm NSR at 70 bpm. Battery voltage, charge time, lead impedance, pacing and sensing thresholds all WNL(see printout) Procedure Note ProviderAdriana MD - 03/25/2018 Interrogation of Medtronic biV ICD reveals 2 nonsustained VT episodes,both 1 sec. A paced 93%, biV paced 98%. Currently APbiV paced withunderlying rhythm NSR at 70 bpm. Battery voltage, charge time, lead impedance, pacing and sensingthresholds all WNL(see printout) Pat Silvestre MD PROCEDURE/MINOR SURG ICAL ORDERABLES Performing Organization Address [facility]/ZIP Co de Phone Number [facility] * PROC ICD DEVICE CHECK (REMOTE) (09/05/2012 1:20 PM FORENSIC PHOTOGRAPHER) Narrative [facility] - 09/05/2012 1:20 PM FORENSIC PHOTOGRAPHER Carelink transmission reveal 1 nonsustained VT10/12, 1 sec, A 162, V 171 bpm. ??ASVS 1%ASbiVP6.5%APbiVP 92%. ??Currently APbiV paced. ?? Battery voltage, charge time, lead impedance, sensing all WNL (see printout) Procedure Note Provider, MD Adriana - 03/25/2018 Carelink transmission reveal 1 nonsustained VT10/12, 1 sec, A 162, V 171bpm. ASVS 1%ASbiVP6.5%APbiVP 92%. Currently APbiV paced. Battery voltage, charge time, lead impedance, sensing all WNL (seeprintout) Barbra Boone FULL TIME PARAMEDIC-ELECTRONIC DIE MAKER PROCEDURE/M INOR SURGICAL ORDERABLES [facility] * PROC IMPLANT WEAR CARDIAC DEVICE EVAL (06/06/2012 2:50 PM CDT) Narrative [facility] - 06/06/2012 2:50 PM CDT Interrogation of Medtronic biV ICD reveals 2 AT/AF episodes , longest 15 hr. ASbiV paced 6.6% APbiV paced 92.8%. ??Currently APbiV paced with underlying rhythm sinus gonzalo. Battery voltage, charge time, lead impedance, pacing and sensing thresholds all WNL (see printout) Procedure Note Provider, MD Adriana - 03/25/2018 Interrogation of Medtronic biV ICD reveals 2 AT/AF episodes , longest 15hr. ASbiV paced 6.6% APbiV paced 92.8%. Currently APbiV paced withunderlying rhythm sinus gonzalo. Battery voltage, charge time, lead impedance, pacing and sensingthresholds all WNL (see printout) Barbra Boone FULL TIME PARAMEDIC-ELECTRONIC DIE MAKER PROCEDURE/M INOR SURGICAL ORDERABLES Performing Organization Address [facility] Co de Phone Number [facility] * PROC ICD DEVICE CHECK (REMOTE) (03/01/2012 5:48 PM CDT) Narrative [facility] - 03/01/2012 5:48 PM CDT Carelink transmission reveals no ventricular tachyarrhythmias. 4 AT/AF episodes, longest 63 min. (<0.1%). ??ASbiVP 7.5% VUlxOY89.3%. Battery voltage, charge time, lead impedance, sensing threshold all WNL(See printout) Procedure Note ProviderAdriana MD - 03/25/2018 Carelink transmission reveals no ventricular tachyarrhythmias. 4 AT/AFepisodes, longest 63 min. (<0.1%). ASbiVP 7.5% UIoqVL29.3%. Battery voltage, charge time, lead impedance, sensing threshold allWNL(See printout) Pat Silvestre MD PROCEDURE/MINOR SURG ICAL ORDERABLES Performing Organization Address [facility]/ZIP Co de Phone Number [facility] * PROC IMPLANT WEAR CARDIAC DEVICE EVAL (12/07/2011 4:43 PM FORENSIC PHOTOGRAPHER) Narrative [facility] - 12/07/2011 4:43 PM FORENSIC PHOTOGRAPHER Interrogation of Medtronic ICD reveals no new ventricular tachyarrhythmias. A paced 90.4%, biV paced 99.3%. 2 AT/AF episodes, longest 65 min. (<0.1%).Currently APbiV paced with underlying sinus gonzalo. Battery voltage, charge time, lead impedance, pacing and sensing thresholds all WNL(See printout) Procedure Note Provider, Historical, MD - 03/25/2018 Interrogation of Medtronic ICD reveals no new ventriculartachyarrhythmias. A paced 90.4%, biV paced 99.3%. 2 AT/AF episodes,longest 65 min. (<0.1%).Currently APbiV paced with underlying sinusbrady. Battery voltage, charge time, lead impedance, pacing and sensingthresholds all WNL(See printout) Pat Silvestre MD PROCEDURE/MINOR SURG ICAL ORDERABLES [facility] * PROC IMPLANT WEAR CARDIAC DEVICE EVAL (06/08/2011 2:20 PM CDT) Narrative [facility] - 06/08/2011 2:20 PM CDT Procedure Note ProviderAdriana MD - 03/25/2018 Pat Silvestre MD PROCEDURE/MINOR SURG ICAL ORDERABLES [facility] Care Teams Software Analyst Relationship Specialty Start Date End Date Ever Mercado MD [address] [phone] PCP - General 05/21/22
--- OUTSIDE RECORDS SUMMARY | 2024-11-13 12:04 | XMS_ITS | Referral Summary ---
Author Organization [facility] Address [address] [place] [address] Care Team Providers Care Stucco Worker Name Role Phone Ever Mercado MD Primary Care Provider Source Comments [facility],non-owned Affiliates and Associated Physician Practices is amultiple site organization consisting of ambulatory clinics and hospital sitesin [place], [place], [place] and [place]. This disclosure is being madepursuant to the Care Everywhere program and may not contain all information available regarding this patient. Last updated 18.[facility] Encounters Date Type Department Care Team Description 11/03/2024 Telephone [facility]iology [address], [place] [address] [place] [phone] Taina Ronquillo, RN Update 11/03/2024 Telephone [facility] [address], [address] [place] [address] Indiana Odonnell MD Hypotension 10/27/2024 Telephone [facility] [address], [address] [place] [address] Taina Ronquillo, RN Update 10/12/2024 1:10 AM HEALTHCARE ADMINISTRATIVE ASSISTANT Clinical Support [facility] [address], [address] [place] [phone] Ischemic cardiomyopathy 09/25/2024 Telephone [facility] [address] [facility], [address] [place] [phone] Ronal Mcintosh MD Hospital Admission 09/13/2024 Travel 09/13/2024 10:00 AM HEALTHCARE ADMINISTRATIVE ASSISTANT Office Visit [facility] - Vascular Surgery [address] [facility], [place] [address] Kyra Lorenzana MD PAD (peripheral artery disease) (HCC) (Primary Dx) 08/21/2024 Travel 08/21/2024 12:35 PM HEALTHCARE ADMINISTRATIVE ASSISTANT - 08/21/2024 3:05 PM HEALTHCARE ADMINISTRATIVE ASSISTANT Surgery [facility] [address] [place] [address] Kyra Lorenzana MD DIAGNOSTIC LEFT LEG ANGIOGRAM 08/21/2024 2:17 PM HEALTHCARE ADMINISTRATIVE ASSISTANT Anesthesia Event [facility] [address] [place] [address] [facility] SALAD BAR CLERK-[facility] 08/21/2024 10:32 AM HEALTHCARE ADMINISTRATIVE ASSISTANT - 08/21/2024 7:30 PM HEALTHCARE ADMINISTRATIVE ASSISTANT Hospital Encounter [facility] [address] [place] [address] Kyra Lorenzana MD Surgery General Discharge Disposition: Home or Self Care from Last 3 Months Allergies Active Allergy Reactions Criticality Noted Date Comments Cecilio Inhibitors Cough 12/02/2011 cough Cephalexin Urticaria,Itching Medium 06/08/2011 Penicillin G Proc & Benzathine Urticaria,Itching Medium 06/08/2011 Povidone Iodine Itching,Rash Medium 06/08/2011 Tetanus Antitoxin Itching Medium 06/08/2011 Medications * Be aware that medications may not be up to date on this document. Alwaysverify current medications with the patient. Medication Sig Dispensed Refills Start Date End Date Status citalopram (CELEXA) 20 MG tablet Take 1 (one) tablet by mouth once daily 4 01/06/2019 Active spironolactone (ALDACTONE) 25 MG tablet Take 1 (one) tablet by mouth once daily 0 01/19/2019 Active warfarin (COUMADIN) 5 MG tablet Take 1.5 (one and one-half) tablets by mouth once daily 4 01/24/2019 Active rOPINIRole (REQUIP) 0.5 MG tablet Take 1 (one) tablet by mouth 2 times daily 1 tab in the AM and 2 in the PM 04/11/2020 Active isosorbide mononitrate CR 24hr (Imdur) 30 MG tablet Take 1 (one) tablet by mouth once daily Active gabapentin (Neurontin) 600 MG tablet Take 1 (one) tablet by mouth 3 times daily Active rosuvastatin (Crestor) 40 MG tablet Take 1 (one) tablet by mouth once daily 06/16/2023 Active cyanocobalamin (Vitamin B-12) 1000 MCG tablet Take 1 (one) tablet by mouth once daily Active ferrous sulfate 325 (65 FE) MG tablet Take 1 (one) tablet by mouth once daily Active albuterol HFA (ProAir HFA) 108 (90 Base) MCG/ACT inhaler Inhale 2 (two) puffs by mouth every 4 hours as needed 8.5 g 4 01/26/2024 Active amiodarone (Pacerone) 100 MG tablet Take 2 (two) tablets by mouth once daily Active aspirin EC (SB Low Dose ASA EC) 81 MG tablet Take 1 (one) tablet by mouth once daily Active Active Problems Problem Noted Date Diagnosed Date ICD (implantable cardioverter-defibrillator) in place 05/16/2024 Elective replacement of impl antable cardioverter-defibrillator (ICD) battery required 05/16/2024 End of battery life of cardi ac resynchronization therapy defibrillator (CAR PILOT-D) 04/25/2024 Smoking 01/19/2018 Overview (05/02/2020): Overview: Few cigarette a week Paroxysmal atrial fibrillation 01/16/2017 DJD (degenerative joint disease) 01/15/2017 Overview (05/02/2020): Overview: Walks with a cane. Limping. Dysphagia 01/15/2017 Teeth decayed 01/15/2017 Overview (05/02/2020): Overview: Needs all upper teeth removal under general anesthesia Sustained VT (ventricular tachycardia) 6 Overview (02/14/2019): Overview: Inducible sustained VT intraoperatively Atrial flutter 07/05/2015 CAD (coronary artery disease) 12/02/2011 CHF (congestive heart failure) 12/02/2011 Overview (02/14/2019): Overview: Class 3 EF 30% on Lexiscan done in January 2017 with inferolateral (old ) scar. Falls frequently 12/02/2011 HTN (hypertension) 12/02/2011 Hyperlipidemia 12/02/2011 Ischemic cardiomyopathy 12/02/2011 Overview (02/14/2019): Overview: Secondary prevention as he had inducible sustained VT S/P BIV ICD PG change out secondary to ANDREA on 10-05-2016 GERD (gastroesophageal reflux disease) 2 Peripheral neuropathy 12/02/2011 Immunizations Name Administration Dates Next Due INFLUENZA VACCINE, TRIV. (AF LURIA, FLUZONE TRIVALENT; 6MO+) (IIV3) 08/09/2015 Covid Moderna primary monova lent 12+ yr 0.5mL 08/19/2021,12/06/2020,11/07/2020 FLU VACCINE QUAD IIV4 SPLIT 0.25 ML IM 9 PNEUMOCOCCAL PPSV23 08/16/2014 Social History Tobacco Use Types Packs/Day Years [...] Comments Blood Pressure 91/57 09/13/2024 10:14 AM HEALTHCARE ADMINISTRATIVE ASSISTANT Pulse 76 09/13/2024 10:14 AM HEALTHCARE ADMINISTRATIVE ASSISTANT Temperature 36.4 ??C (97.6 ??F) 09/13/2024 10:[address] Respiratory Rate 20 08/21/2024 7:00 PM HEALTHCARE ADMINISTRATIVE ASSISTANT Oxygen Saturation 96% 09/13/2024 10:14 AM HEALTHCARE ADMINISTRATIVE ASSISTANT Inhaled Oxygen Concentration - - Weight 88.6 kg (195 lb 6.4 oz) 09/13/2024 10:14 AM HEALTHCARE ADMINISTRATIVE ASSISTANT Height 177.8 cm (5' 10 ) 09/13/2024 10:14 AM HEALTHCARE ADMINISTRATIVE ASSISTANT Body Mass Index 28.04 09/13/2024 10:14 AM HEALTHCARE ADMINISTRATIVE ASSISTANT Functional Status Functional Status Response Date of Assess ment Is person deaf or have serious hearing difficult y? No 08/21/2024 Is person blind or have serious difficulty seein g? No 08/21/2024 Does person have serious dif ficulty walking/climbing stairs? Yes 08/21/2024 Does person have difficulty dressing/bathing? No 08/21/2024 Does person have difficulty doing errands alone? No 08/21/2024 Cognitive Status Response Date of Assessm ent Does person have difficulty concentrating/remembering/making decisions? No 08/21/2024 Plan of Treatment Upcoming Encounters Date Type Department Care Team (Late st Contact Info) Description 11/23/2024 11:20 AM HEALTHCARE ADMINISTRATIVE ASSISTANT Office Visit [facility] [address] [phone] Indiana Odonnell MD [address] [place] [phone] 01/11/2025 1:10 AM CDT Clinical Support [facility] - Cardiology [address] [place] [phone] 04/12/2025 1:00 AM CDT Clinical Support [facility] - Cardiology [address] [place] [phone] Medical Devices Implanted Type Area Sheet Metal Worker Maintenance Device Identifier Shelf Expiration Date Model / Serial / Lot Env Defib 3.3x2.9in Aigisrx Icd Tyrx Lg - [id number] Implanted:Qty: 1 on 05/16/2024 by Pepe Meadows MD at [facility] N/A: Chest Wall [employer] [id number] 02/03/2025 [id number] / [id number] / [id number] Defib Cblt Surescan 13mm 57sq Cm 2 Chmbr - [id number] Implanted:Qty: 1 on 05/16/2024 by Pepe Meadows MD at [facility] Left: Chest Wall [employer] Cardiac Surgical [id number] 03/14/2025 [id number] / [id number] / NA Procedures Procedure Name Priority Date/Time Associated Diagnosis Comments CA PM/ICD REMOTE TECH SERV Routine 10/22/2024 7:07 PM HEALTHCARE ADMINISTRATIVE ASSISTANT Ischemic cardiomyopathy CA ICD DEVICE INTERROGAT REMOTE Routine 10/22/2024 7:07 PM HEALTHCARE ADMINISTRATIVE ASSISTANT Ischemic cardiomyopathy CARDIAC PROCEDURE ORDER 10/10/2024 FL MYRTLE W ANGIO TEAM Routine 08/21/2024 3:55 PM HEALTHCARE ADMINISTRATIVE ASSISTANT PAD (peripheral artery disease) (HCC) CA ANGIO EXTERMITY BILAT 08/21/2024 1:46 PM HEALTHCARE ADMINISTRATIVE ASSISTANT Peripheral artery disease (HCC) Case Notes KW 08/17 Special Needs Supine; C-Arm with Angio ordered ANESTHESIA: Local w/ IV sedation TYPE + SCREEN PANEL STAT 08/21/2024 11:34 AM HEALTHCARE ADMINISTRATIVE ASSISTANT Pre-op evaluation PT-INR [facility] STAT 08/21/2024 11:34 AM HEALTHCARE ADMINISTRATIVE ASSISTANT Pre-op evaluation from Last 3 Months Results * CA ICD DEVICE INTERROGAT REMOTE, CA PM/ICD REMOTE TECH SERV (10/22/2024 7:07 PM HEALTHCARE ADMINISTRATIVE ASSISTANT) Narrative Pepe Meadows MD - 10/22/2024 7:07 PM HEALTHCARE ADMINISTRATIVE ASSISTANT Pepe Meadows MD ? 10/22/2024 ??7:08 PM [...] have any further questions. ?? Sincerely, Pepe Meadows 10/22/2024 Pepe Meadows MD PROCEDURE/MINOR SURG ICAL ORDERABLES * CARDIAC PROCEDURE ORDER (10/10/2024) Narrative 10/10/2024 Ordered by an unspecified provider. Scanned Document CARDIAC SERVICES ORD ERABLES * FL Myrtle W Angio Team (08/21/2024 3:55 PM HEALTHCARE ADMINISTRATIVE ASSISTANT) Narrative [facility] - 08/21/2024 3:56 PM HEALTHCARE ADMINISTRATIVE ASSISTANT Fluoroscopy was used for this exam in the OR. Please see the Operative report. Kyra Lorenzana MD FLUOROSCOPY ORDERAB LES [facility] * (ABNORMAL) PT-INR [facility] (08/21/2024 11:34 AM HEALTHCARE ADMINISTRATIVE ASSISTANT) PT 18.2(H) 12.1 - 14.8 Seconds 08/21/2024 12:28 PM HEALTHCARE ADMINISTRATIVE ASSISTANT [facility] INR 1.5 See Comment 08/21/2024 12:28 PM HEALTHCARE ADMINISTRATIVE ASSISTANT [facility] Comment:The suggested therap eutic range for standard coumadin (warfarin) therapy is an INR of 2.0-3.0. For high-risk patients (Mechanical Mitral Valve Prosthesis, etc.), the suggested prophylactic therapeutic range is an INR of 2.5-3.5. Blood BLOOD SPECIMEN / Unknown Line Draw / Unknown 08/21/2024 11:34 AM HEALTHCARE ADMINISTRATIVE ASSISTANT 08/21/2024 11:46 AM HEALTHCARE ADMINISTRATIVE ASSISTANT Ashley Flores APRN-INFORMATION CLERK [employer] [facility] - COA GULATION ORDERABLES [facility] [address] [place] [phone], [facility] [phone] * TYPE + SCREEN PANEL (08/21/2024 11:34 AM HEALTHCARE ADMINISTRATIVE ASSISTANT) Antibody Screen NEG 12:28 PM HEALTHCARE ADMINISTRATIVE ASSISTANT [facility] ABO Rh O POS 08/21/2024 12:28 PM HEALTHCARE ADMINISTRATIVE ASSISTANT [facility] Blood Bank BLOOD SPECIMEN / Unknown Line Draw / Unknown 08/21/2024 11:34 AM HEALTHCARE ADMINISTRATIVE ASSISTANT 08/21/2024 11:45 AM HEALTHCARE ADMINISTRATIVE ASSISTANT sAhley Guo Sandra SALAD BAR CLERK-INFORMATION CLERK [employer] [facility] - BLO OD BANK ORDERABLES Performing Organization Address City/State/[facility] Co de Phone Number [facility] [address] [place] [address], [facility] [phone] from Last 3 Months Advance Directives Documents on File Type Date Recorded Patient Fire Suppression Captain Expl anation Adv Directive/Living Will/POA 01/27/2017 * Full Code (Latest Code Status on File) Date Activated Date Inactivated Comments 05/16/2024 10:08 AM 05/16/2024 1:06 PM Care Teams Stucco Worker Relationship Specialty Start Date End Date Ever Mercado MD [address] [phone] PCP - General 05/21/22
--- OUTSIDE RECORDS SUMMARY | 2024-11-13 12:04 | XMS_ITS | Clinical Summary ---
Author Organization [facility] Address [address] [place] [address] Care Team Providers Care Fixed Capital Clerk Name Role Phone Ever Mercado MD Primary Care Provider Source Comments [facility],non-owned Affiliates and Associated Physician Practices is amultiple site organization consisting of ambulatory clinics and hospital sitesin [place], [place], [place] and [place]. This disclosure is being madepursuant to the Care Everywhere program and may not contain all information available regarding this patient. Last updated 18.[facility] Allergies Active Allergy Reactions Criticality Noted Date [...] life of cardi ac resynchronization therapy defibrillator (APPLICATION SUPPORT ADMINISTRATOR-D) 04/25/2024 Smoking 01/19/2018 Overview (05/02/2020): Overview: Few [...] (gastroesophageal reflux disease) 2 Peripheral neuropathy 12/02/2011 Encounters Date Type Department Care Team Description 11/03/2024 Telephone [facility] [address] [facility], [address] [phone] Taina Ronquillo, RN Update 11/03/2024 Telephone [facility] - Cardiology [address] [facility], [address] [phone] Indiana Odonnell MD Hypotension 10/27/2024 Telephone [facility] [address] [facility], [address] [phone] Taina Ronquillo, RN Update 10/12/2024 1:10 AM FIELD CANE SCALE CLERK Clinical Support [facility] - Cardiology [address] [facility], [address] [address] Ischemic cardiomyopathy 09/25/2024 Telephone [facility] - Cardiology [address] [facility], [address] [phone] Ronal Mcintosh MD Hospital Admission 09/13/2024 10:00 AM FIELD CANE SCALE CLERK Office Visit [facility] - Vascular Surgery [address] [facility], [place] [address] Kyra Lorenzana MD PAD (peripheral artery disease) (HCC) (Primary Dx) 09/13/2024 Travel 08/21/2024 2:17 PM FIELD CANE SCALE CLERK Anesthesia Event [facility] [address] [place] [address] Angi Vega MD Osterloh, Joan Frances, ASSISTANT BOILER OPERATOR-[facility] 08/21/2024 12:35 PM FIELD CANE SCALE CLERK - 08/21/2024 3:05 PM FIELD CANE SCALE CLERK Surgery [facility] [address] [place] [address] Kyra Lorenzana MD DIAGNOSTIC LEFT LEG ANGIOGRAM 08/21/2024 10:32 AM FIELD CANE SCALE CLERK - 08/21/2024 7:30 PM FIELD CANE SCALE CLERK Hospital Encounter [facility] [address] [place] [address] Kyra Lorenzana MD Surgery General Discharge Disposition: Home or Self Care 08/21/2024 Travel from Last 3 Months Immunizations Name Administration Dates Next Due INFLUENZA [...] Comments Blood Pressure 91/57 09/13/2024 10:14 AM FIELD CANE SCALE CLERK Pulse 76 09/13/2024 10:14 AM FIELD CANE SCALE CLERK Temperature 36.4 ??C (97.6 ??F) 09/13/2024 10:[address] Respiratory Rate 20 08/21/2024 7:00 PM FIELD CANE SCALE CLERK Oxygen Saturation 96% 09/13/2024 10:14 AM FIELD CANE SCALE CLERK Inhaled Oxygen Concentration - - Weight 88.6 kg (195 lb 6.4 oz) 09/13/2024 10:14 AM FIELD CANE SCALE CLERK Height 177.8 cm (5' 10 ) 09/13/2024 10:14 AM FIELD CANE SCALE CLERK Body Mass Index 28.04 09/13/2024 10:14 AM FIELD CANE SCALE CLERK Plan of Treatment Upcoming Encounters Date Type Department Care Team (Late st Contact Info) Description 11/23/2024 11:20 AM FIELD CANE SCALE CLERK Office Visit [facility], [address] [phone] Indiana Odonnell MD [address] [place] [address] 01/11/2025 1:10 AM CDT Clinical Support [facility] Card[facility] [address] [place] [address], [address] [phone] 04/12/2025 1:00 AM CDT Clinical Support [facility] - Cardiology [address] [place] [address], [address] [phone] Health Maintenance Due Date Last Done Comments MEDICARE AWV ? 12 MONTHS 1939 DTAP/TDAP/TD VACCINES (1 - Tdap) 1958 ZOSTER VACCINE (1 of 2) 1989 Respiratory Syncytial Virus (RSV) Vaccine Pt: or over 60 yrs (1 - 1-dose 75+ series) 2014 PNEUMOCOCCAL VACCINE 50+ (2 of 2 - PCV) 08/16/2015 08/16/2014 COVID-19 VACCINE (2023-2 5 season) 2024 08/19/2021, 12/06/2020, 11/07/2020 INFLUENZA VACCINE (#1) 2024 9, 08/09/2015 DEPRESSION SCREENING 10/18/2024 HEPATITIS B VACCINE Aged Out No longe r eligible based on patient's age to complete this topic HIB VACCINE Aged Out No longer eligi ble based on patient's age to complete this topic HPV VACCINE Aged Out No longer eligi ble based on patient's age to complete this topic MENINGOCOCCAL (Group B) VACCINE Aged Out No longer eligible b ased on patient's age to complete this topic MENINGOCOCCAL VACCINE Aged Out No sancho princess eligible based on patient's age to complete this topic Medical Devices Implanted Type Area Proposal Rep Device Identifier Shelf Expiration Date Model / Serial / Lot Env Defib 3.3x2.9in Aigisrx Icd Tyrx Lg - [id number] Implanted:Qty: 1 on 05/16/2024 by Pepe Meadows MD at [facility] N/A: Chest Wall [employer] [id number] 02/03/2025 [id number] / [id number] / [id number] Defib Cblt Surescan 13mm 57sq Cm 2 Chmbr - [id number] Implanted:Qty: 1 on 05/16/2024 by Pepe Meadows MD at [facility] Left: Chest Wall [employer] Cardiac Surgical [id number] 03/14/2025 [id number] / [id number] / NA Procedures Procedure Name Priority Date/Time Associated Diagnosis Comments UT PM/ICD REMOTE TECH SERV Routine 10/22/2024 7:07 PM FIELD CANE SCALE CLERK Ischemic cardiomyopathy UT ICD DEVICE INTERROGAT REMOTE Routine 10/22/2024 7:07 PM FIELD CANE SCALE CLERK Ischemic cardiomyopathy CARDIAC PROCEDURE ORDER 10/10/2024 FL MYRTLE W ANGIO TEAM Routine 08/21/2024 3:55 PM FIELD CANE SCALE CLERK PAD (peripheral artery disease) (HCC) UT ANGIO EXTERMITY BILAT 08/21/2024 1:46 PM FIELD CANE SCALE CLERK Peripheral artery disease (HCC) Case Notes KW 08/17 Special Needs Supine; C-Arm with Angio ordered ANESTHESIA: Local w/ IV sedation TYPE + SCREEN PANEL STAT 08/21/2024 11:34 AM FIELD CANE SCALE CLERK Pre-op evaluation PT-INR [facility] STAT 08/21/2024 11:34 AM FIELD CANE SCALE CLERK Pre-op evaluation from Last 3 Months Results * UT ICD DEVICE INTERROGAT REMOTE, UT PM/ICD REMOTE TECH SERV (10/22/2024 7:07 PM FIELD CANE SCALE CLERK) Narrative Pepe Meadows MD - 10/22/2024 7:07 PM FIELD CANE SCALE CLERK Pepe Meadows MD ? 10/22/2024 ??7:08 PM [...] Myrtle W Angio Team (08/21/2024 3:55 PM FIELD CANE SCALE CLERK) Narrative [facility] - 08/21/2024 3:56 PM FIELD CANE SCALE CLERK Fluoroscopy was used for this exam in the OR. Please see the Operative report. Kyra Lorenzana MD FLUOROSCOPY ORDERAB LES [facility] * (ABNORMAL) PT-INR [facility] (08/21/2024 11:34 AM FIELD CANE SCALE CLERK) PT 18.2(H) 12.1 - 14.8 Seconds 08/21/2024 12:28 PM FIELD CANE SCALE CLERK [facility] INR 1.5 See Comment 08/21/2024 12:28 PM FIELD CANE SCALE CLERK [facility] Comment:The suggested therap eutic range for standard coumadin (warfarin) therapy is an INR of 2.0-3.0. For high-risk patients (Mechanical Mitral Valve Prosthesis, etc.), the suggested prophylactic therapeutic range is an INR of 2.5-3.5. Blood BLOOD SPECIMEN / Unknown Line Draw / Unknown 08/21/2024 11:34 AM FIELD CANE SCALE CLERK 08/21/2024 11:46 AM FIELD CANE SCALE CLERK Ashley Juarezdonnadiana ASSISTANT BOILER OPERATOR-DEVELOPMENTAL SERVICES WORKER LAB - COA GULATION ORDERABLES [facility] [address] [place] [address], [place] [phone] * TYPE + SCREEN PANEL (08/21/2024 11:34 AM FIELD CANE SCALE CLERK) Antibody Screen NEG 12:28 PM FIELD CANE SCALE CLERK [facility] ABO Rh O POS 08/21/2024 12:28 PM FIELD CANE SCALE CLERK [facility] Blood Bank BLOOD SPECIMEN / Unknown Line Draw / Unknown 08/21/2024 11:34 AM FIELD CANE SCALE CLERK 08/21/2024 11:45 AM FIELD CANE SCALE CLERK [facility]DEVELOPMENTAL SERVICES WORKER LAB - BLO OD BANK ORDERABLES [facility] [address] [place] [address], [facility] [phone] from Last 3 Months Advance Directives Documents on File Type Date Recorded Patient Modeling Analyst Expl anation Adv Directive/Living Will/POA 01/27/2017 * Full Code (Latest Code Status on File) Date Activated Date Inactivated Comments 05/16/2024 10:08 AM 05/16/2024 1:06 PM Care Teams Fixed Capital Clerk Relationship Specialty Start Date End Date Ever Mercado MD [address] [facility] [address] [place] [address] PCP - General 05/21/22
[2024-11-13 12:11] LABS: Add Urine Microscopic? YES; Appearance Urine Turbid (Clear); Bacteria Urine 4+ /hpf; Bilirubin Urine Negative (Negative); Blood Urine Negative (Negative); Color Urine Yellow (Yellow); Glucose Urine UA Negative (Negative); Ketones Urine Negative (Negative); Leukocyte Esterase Ur 2+ LEU/UL (Negative); Need Manual Microscopic Reviewed; Nitrate Urine Negative (Negative); Non Pathogenic Casts >20; Protein Urine 1+ mg/dL (Negative); RBC Urine >100 /hpf (0-2); Squamous Epithelial Cell Urine Occasional /hpf (Few); WBC Urine >100 /hpf (0-3); pH Urine 7.5 (5.0-9.0)
== END 2024-11-13 10:55 | disposition home or self-care (01) ==
LOC: HOMEHLTHV 11:35 → HOME HLTH 11:45
PROVIDERS: Visit Provider Internal Medicine
DX: N39.0 Urinary tract infection, site not specified (principal)
CPT/HCPCS: 81001; 87086; 87181

== ENCOUNTER 2024-11-16 11:17 | Outpatient (NON) | payer MEDICARE, SELFPAY ==
[2024-11-16 11:44] LABS: Prothrombin Time 39.7 Seconds (11.1-14.7)
--- OUTSIDE RECORDS SUMMARY | 2024-11-16 12:15 | XMS_ITS | Clinical Summary ---
Author Organization [facility] Address [address] [place] [address] Care Team Providers Care Painter Hand Name Role Phone Ever Mercado MD Primary Care Provider Source Comments [facility],non-owned Affiliates and Associated Physician Practices is amultiple site organization consisting of ambulatory clinics and hospital sitesin [place], [place], [place] and [place]. This disclosure is being madepursuant to the Care Everywhere program and may not contain all information available regarding this patient. Last updated 18.[facility] Allergies Active Allergy Reactions Criticality Noted Date [...] life of cardi ac resynchronization therapy defibrillator (BOAT LOADER HELPER-D) 04/25/2024 Smoking 01/19/2018 Overview (05/02/2020): Overview: Few [...] [facility] - Cardiology [address] [facility], [address] [address] Taina Ronquillo, RN Update 11/03/2024 Telephone [facility] - Cardiology [address] [facility], [address] [address] Indiana Odonnell MD Hypotension 10/27/2024 Telephone [facility] - Cardiology [address] [facility], [address] [address] Taina Ronquillo, RN Update 10/12/2024 1:10 AM SLEEVE SETTER LOCKSTITCH Clinical Support [facility] - Cardiology [address] [facility], [address] [address] Ischemic cardiomyopathy 09/25/2024 Telephone [facility] - Cardiology [address] [facility], [address] [address] Ronal Mcintosh MD Hospital Admission 09/13/2024 10:00 AM SLEEVE SETTER LOCKSTITCH Office Visit [facility] - Vascular Surgery [address] [facility] [place] [address] Kyra Lorenzana MD PAD (peripheral artery disease) (HCC) (Primary Dx) 09/13/2024 Travel 08/21/2024 2:17 PM SLEEVE SETTER LOCKSTITCH Anesthesia Event [facility] [address] [place] [address] Angi Vega MD Osterloh, Joan Frances, SUPERVISOR HAND SILVERING-[facility] 08/21/2024 12:35 PM SLEEVE SETTER LOCKSTITCH - 08/21/2024 3:05 PM SLEEVE SETTER LOCKSTITCH Surgery [facility] [address] [place] [address] Kyra Lorenzana MD DIAGNOSTIC LEFT LEG ANGIOGRAM 08/21/2024 10:32 AM SLEEVE SETTER LOCKSTITCH - 08/21/2024 7:30 PM SLEEVE SETTER LOCKSTITCH Hospital Encounter [facility] [address] [place] [address] Kyra Lorenzana MD Surgery General Discharge Disposition: [...] Comments Blood Pressure 91/57 09/13/2024 10:14 AM SLEEVE SETTER LOCKSTITCH Pulse 76 09/13/2024 10:14 AM SLEEVE SETTER LOCKSTITCH Temperature 36.4 ??C (97.6 ??F) 09/13/2024 10:[address] Respiratory Rate 20 08/21/2024 7:00 PM SLEEVE SETTER LOCKSTITCH Oxygen Saturation 96% 09/13/2024 10:14 AM SLEEVE SETTER LOCKSTITCH Inhaled Oxygen Concentration - - Weight 88.6 kg (195 lb 6.4 oz) 09/13/2024 10:14 AM SLEEVE SETTER LOCKSTITCH Height 177.8 cm (5' 10 ) 09/13/2024 10:14 AM SLEEVE SETTER LOCKSTITCH Body Mass Index 28.04 09/13/2024 10:14 AM SLEEVE SETTER LOCKSTITCH Plan of Treatment Upcoming Encounters Date Type Department Care Team (Late st Contact Info) Description 11/23/2024 11:20 AM SLEEVE SETTER LOCKSTITCH Office Visit [facility] - Cardiology [facility], [address] [address] Indiana Odonnell MD [address] [place] [address] 01/11/2025 1:10 AM CDT Clinical [facility] [address] [place] [address], [address] [address] 04/12/2025 1:00 AM CDT Clinical Support [facility] - Cardiology [address] [place] [address], [address] [address] Health Maintenance Due Date Last [...] this topic Medical Devices Implanted Type Area Brooch Maker Novelty Device Identifier Shelf Expiration Date Model / Serial / Lot Env Defib 3.3x2.9in Aigisrx Icd Tyrx Lg - [id number] Implanted:Qty: 1 on 05/16/2024 by Pepe Meadows MD at [facility] N/A: Chest Wall [employer] [id number] 02/03/2025 [id number] / [id number] / [id number] Defib Cblt Surescan 13mm 57sq Cm 2 Chmbr - [id number] Implanted:Qty: 1 on 05/16/2024 by Pepe Meadows MD at [facility] Left: Chest Wall [employer] [id number] 03/14/2025 [id number] / [id number] / NA Procedures Procedure Name Priority Date/Time Associated Diagnosis Comments SC PM/ICD REMOTE TECH SERV Routine 10/22/2024 7:07 PM SLEEVE SETTER LOCKSTITCH Ischemic cardiomyopathy SC ICD DEVICE INTERROGAT REMOTE Routine 10/22/2024 7:07 PM SLEEVE SETTER LOCKSTITCH Ischemic cardiomyopathy CARDIAC PROCEDURE ORDER 10/10/2024 FL MYRTLE W ANGIO TEAM Routine 08/21/2024 3:55 PM SLEEVE SETTER LOCKSTITCH PAD (peripheral artery disease) (HCC) SC ANGIO EXTERMITY BILAT 08/21/2024 1:46 PM SLEEVE SETTER LOCKSTITCH Peripheral artery disease (HCC) Case Notes KW 08/17 Special Needs Supine; C-Arm with Angio ordered ANESTHESIA: Local w/ IV sedation TYPE + SCREEN PANEL STAT 08/21/2024 11:34 AM SLEEVE SETTER LOCKSTITCH Pre-op evaluation PT-INR [facility] STAT 08/21/2024 11:34 AM SLEEVE SETTER LOCKSTITCH Pre-op evaluation from Last 3 Months Results * SC ICD DEVICE INTERROGAT REMOTE, SC PM/ICD REMOTE TECH SERV (10/22/2024 7:07 PM SLEEVE SETTER LOCKSTITCH) Narrative Pepe Meadows MD - 10/22/2024 7:07 PM SLEEVE SETTER LOCKSTITCH Pepe Meadows MD ? 10/22/2024 ??7:08 PM [...] Myrtle W Angio Team (08/21/2024 3:55 PM SLEEVE SETTER LOCKSTITCH) Narrative [facility] - 08/21/2024 3:56 PM SLEEVE SETTER LOCKSTITCH Fluoroscopy was used for this exam in the OR. Please see the Operative report. Kyra Lorenzana MD FLUOROSCOPY ORDERAB LES [facility] * (ABNORMAL) PT-INR [facility] (08/21/2024 11:34 AM SLEEVE SETTER LOCKSTITCH) PT 18.2(H) 12.1 - 14.8 Seconds 08/21/2024 12:28 PM SLEEVE SETTER LOCKSTITCH [facility] INR 1.5 See Comment 08/21/2024 12:28 PM SLEEVE SETTER LOCKSTITCH [facility] Comment:The suggested therap eutic range for standard coumadin (warfarin) therapy is an INR of 2.0-3.0. For high-risk patients (Mechanical Mitral Valve Prosthesis, etc.), the suggested prophylactic therapeutic range is an INR of 2.5-3.5. Blood BLOOD SPECIMEN / Unknown Line Draw / Unknown 08/21/2024 11:34 AM SLEEVE SETTER LOCKSTITCH 08/21/2024 11:46 AM SLEEVE SETTER LOCKSTITCH Ashley Juarezdonnadiana SUPERVISOR HAND SILVERING-STAFF EDUCATOR LAB - COA GULATION ORDERABLES [facility] [address] [place] [address], [place] [phone] * TYPE + SCREEN PANEL (08/21/2024 11:34 AM SLEEVE SETTER LOCKSTITCH) Antibody Screen NEG 12:28 PM SLEEVE SETTER LOCKSTITCH [facility] ABO Rh O POS 08/21/2024 12:28 PM SLEEVE SETTER LOCKSTITCH [facility] Blood Bank BLOOD SPECIMEN / Unknown Line Draw / Unknown 08/21/2024 11:34 AM SLEEVE SETTER LOCKSTITCH 08/21/2024 11:45 AM SLEEVE SETTER LOCKSTITCH [facility]STAFF EDUCATOR LAB - BLO OD BANK ORDERABLES [facility] [address] [place] [address], [facility] [phone] from Last 3 Months Advance Directives Documents on File Type Date Recorded Patient Tax Collector Expl anation Adv Directive/Living Will/POA 01/27/2017 * Full Code (Latest Code Status on File) Date Activated Date Inactivated Comments 05/16/2024 10:08 AM 05/16/2024 1:06 PM Care Teams Painter Hand Relationship Specialty Start Date End Date Ever Mercado MD [address] [facility] [address] [place] [address] PCP - General 05/21/22
--- OUTSIDE RECORDS SUMMARY | 2024-11-16 12:15 | XMS_ITS | Patient Health Summary ---
Author Organization [facility] Address [address] [place] [address] Care Team Providers Care Filament Coil Winder Name Role Phone Ever Mercado MD Primary Care Provider Note from [facility],non-owned Affiliates and Associated Physician Practices is amultiple site organization consisting of ambulatory clinics and hospital sitesin [place], [place], [place] and [place]. This disclosure is being madepursuant to the Care Everywhere program and may not contain all information available regarding this patient. Last updated 18.[facility] Allergies * Cecilio Inhibitors(Cough) * Cephalexin(Urticaria,Itching) -Medium [...] life of cardi ac resynchronization therapy defibrillator (DIAMOND SIZER AND SORTER-D) 04/25/2024 Smoking 01/19/2018 Paroxysmal atrial fibrillation 01/16/2017 [...] Comments Blood Pressure 91/57 09/13/2024 10:14 AM EEO OFFICER Pulse 76 09/13/2024 10:14 AM EEO OFFICER Temperature 36.4 ??C (97.6 ??F) 09/13/2024 10:[address] Respiratory Rate 20 08/21/2024 7:00 PM EEO OFFICER Oxygen Saturation 96% 09/13/2024 10:14 AM EEO OFFICER Inhaled Oxygen Concentration - - Weight 88.6 kg (195 lb 6.4 oz) 09/13/2024 10:14 AM EEO OFFICER Height 177.8 cm (5' 10 ) 09/13/2024 10:14 AM EEO OFFICER Body Mass Index 28.04 09/13/2024 10:14 AM EEO OFFICER Medical Devices Implanted Type Area Bag Printer Device Identifier Shelf Expiration Date Model / Serial / Lot Env Defib 3.3x2.9in Aigisrx Icd Tyrx Lg - [id number] Implanted:Qty: 1 on 05/16/2024 by Pepe Meadows MD at [facility] N/A: Chest Wall [employer] [id number] 02/03/2025 [id number] / [id number] / [id number] Defib Cblt Surescan 13mm 57sq Cm 2 Chmbr - [id number] Implanted:Qty: 1 on 05/16/2024 by Pepe Meadows MD at [facility] Left: Chest Wall [employer] [id number] 03/14/2025 [id number] / [id number] / NA Procedures * MA PM/ICD REMOTE TECH SERV(Performed 10/22/2024) Performed for Ischemic cardiomyopathy * MA ICD DEVICE INTERROGAT REMOTE(Performed 10/22/2024) Performed for Ischemic cardiomyopathy * CARDIAC PROCEDURE ORDER(Performed 10/10/2024) * FL MYRTLE W ANGIO TEAM(Performed 08/21/2024) Performed for PAD (peripheral artery disease) ([facility]) * MA ANGIO EXTERMITY BILAT(Performed 08/21/2024) Performed for Peripheral artery disease ([facility]) * TYPE + SCREEN PANEL(Performed 08/21/2024) Performed for Pre-op evaluation * PT-INR [facility](Performed 08/21/2024) Performed for Pre-op evaluation * TYPE + SCREEN PANEL(Performed 08/10/2024) Performed for Pre-op evaluation * CBC W AUTO DIFFERENTIAL(Performed 08/10/2024) Performed for Pre-op evaluation * BASIC METABOLIC PANEL (CALCIUM TOTAL)(Performed 08/10/2024) Performed for Pre-op evaluation * CULTURE WOUND+GRAM STAIN(Performed 07/26/2024) Performed for PAD (peripheral artery disease) ([facility]) * CARDIAC PROCEDURE ORDER(Performed 07/11/2024) * ELECTROPHYSIOLOGY PROCEDURE(Performed 05/16/2024) Performed for End of battery life of cardiac resynchronization therapy defibrillator (DIAMOND SIZER AND SORTER-D), Sustained VT (ventricular tachycardia) ([facility]), Ischemic cardiomyopathy * BLOOD TYPE VERIFICATION(Performed 05/16/2024) * TYPE + SCREEN PANEL(Performed 05/16/2024) * PT-INR [facility](Performed 05/16/2024) Performed for End of battery life of cardiac resynchronization therapy defibrillator (DIAMOND SIZER AND SORTER-D), Ischemic cardiomyopathy, Coronary artery disease involving [place] coronary artery of [place] heart withoutangina pectoris, Atrial flutter, unspecified type ([facility]) * BASIC METABOLIC PANEL (CALCIUM TOTAL)(Performed 05/16/2024) Performed for End of battery life of cardiac resynchronization therapy defibrillator (DIAMOND SIZER AND SORTER-D), Ischemic cardiomyopathy, Coronary artery disease involving [place] coronary artery of [place] heart withoutangina pectoris, Atrial flutter, unspecified type ([facility]) * CBC W AUTO DIFFERENTIAL(Performed 05/01/2024) Performed for End of battery life of cardiac resynchronization therapy defibrillator (DIAMOND SIZER AND SORTER-D), HFrEF(heart failure with reduced ejection fraction) ([facility]), Sustained VT (ventricular tachycardia) (HCC),Ischemic cardiomyopathy * PT-INR(Performed 05/01/2024) Performed for End of battery life of cardiac resynchronization therapy defibrillator (DIAMOND SIZER AND SORTER-D), HFrEF(heart failure with reduced ejection fraction) (HCC), [...] PROCEDURE ORDER(Performed 10/14/2023) * AMB REFERRAL TO CAPACITY PLANNING ANALYST(Performed 09/21/2023) Performed for Abnormal PFTs * EYE EXAM(Performed 09/16/2023) * CARDIAC PROCEDURE ORDER(Performed 08/27/2023) * MA ICD DEVICE INTERROGATE IN PERSON(Performed 06/22/2023) Performed for Chronic combined systolic and diastolic congestive heart failure (HCC), Ischemic cardiomyopathy, ICD (implantable cardioverter-defibrillator) in place * PFT-LAB(Performed 06/17/2023) Performed for Coronary artery disease involving [place] coronary artery of [place] heart without angina pectoris * ECHO COMPLETE W CONTRAST(Performed 04/15/2023) Performed for High risk medication use * MA PM/ICD REMOTE TECH SERV(Performed 04/10/2023) Performed for Ischemic cardiomyopathy, Sustained VT (ventricular tachycardia) (HCC), ICD (implantable cardioverter-defibrillator) in place * MA ICD DEVICE INTERROGAT REMOTE(Performed 04/10/2023) Performed for Ischemic cardiomyopathy, Sustained VT (ventricular tachycardia) (HCC), ICD (implantable cardioverter-defibrillator) in place * MA PM/ICD REMOTE TECH SERV(Performed 12/30/2022) Performed for Ischemic cardiomyopathy, Sustained VT (ventricular tachycardia) (HCC), ICD (implantable cardioverter-defibrillator) in place * MA ICD DEVICE INTERROGAT REMOTE(Performed 12/30/2022) Performed for Ischemic cardiomyopathy, Sustained VT (ventricular tachycardia) (HCC), ICD (implantable cardioverter-defibrillator) in place * CARDIAC PROCEDURE ORDER(Performed 12/23/2022) * CARDIAC PROCEDURE ORDER(Performed 12/23/2022) * MA ICD DEVICE INTERROGAT REMOTE(Performed 10/04/2022) Performed for Ischemic cardiomyopathy, Sustained VT (ventricular tachycardia) (HCC), ICD (implantable cardioverter-defibrillator) in place * MA PM/ICD REMOTE TECH SERV(Performed 10/04/2022) Performed for Ischemic cardiomyopathy, Sustained VT (ventricular tachycardia) (HCC), ICD (implantable cardioverter-defibrillator) in place * CARDIAC PROCEDURE ORDER(Performed 09/25/2022) * CARDIAC PROCEDURE ORDER(Performed 09/22/2022) * CARDIAC PROCEDURE ORDER(Performed 08/04/2022) * MA ICD DEVICE INTERROGATE IN PERSON(Performed 06/25/2022) Performed for Ischemic cardiomyopathy, Sustained VT (ventricular tachycardia) (HCC), ICD (implantable cardioverter-defibrillator) in place * MA PM/ICD REMOTE TECH SERV(Performed 05/11/2022) Performed for Congestive heart failure, unspecified HF chronicity, unspecified heart failure type (HCC), ICD (implantable cardioverter-defibrillator) in place * MA ICD DEVICE INTERROGAT REMOTE(Performed 05/11/2022) Performed for Congestive heart failure, unspecified HF chronicity, unspecified heart failure type (HCC), ICD (implantable cardioverter-defibrillator) in place * CARDIAC PROCEDURE ORDER(Performed 03/27/2022) * CARDIAC PROCEDURE ORDER(Performed 03/24/2022) * MA PM/ICD REMOTE TECH SERV(Performed 01/12/2022) Performed for Congestive heart failure, unspecified HF chronicity, unspecified heart failure type (HCC), Ischemic cardiomyopathy, ICD (implantable cardioverter-defibrillator) in place * MA ICD DEVICE INTERROGAT REMOTE(Performed 01/12/2022) Performed for Congestive heart failure, unspecified HF chronicity, unspecified heart failure type (HCC), Ischemic cardiomyopathy, ICD (implantable cardioverter-defibrillator) in place * CARDIAC PROCEDURE ORDER(Performed 12/16/2021) * MA PM/ICD REMOTE TECH SERV(Performed 09/22/2021) Performed for Ischemic cardiomyopathy, Sustained VT (ventricular tachycardia) (HCC), Atrial flutter, unspecified type (HCC), ICD (implantable cardioverter- defibrillator) in place * MA ICD DEVICE INTERROGAT REMOTE(Performed 09/22/2021) Performed for Ischemic cardiomyopathy, Sustained VT (ventricular tachycardia) (HCC), Atrial flutter, unspecified type (HCC), ICD (implantable cardioverter- defibrillator) in place * CARDIAC PROCEDURE ORDER(Performed 06/26/2021) * MA ICD DEVICE INTERROGATE IN PERSON(Performed 06/13/2021) Performed for Ischemic cardiomyopathy, ICD (implantable cardioverter- defibrillator) in place * MA PM/ICD REMOTE TECH SERV(Performed 02/24/2021) Performed for Ischemic cardiomyopathy, Congestive heart failure, unspecified HF chronicity, unspecified heart failure type (HCC), ICD (implantable cardioverter- defibrillator) in place * MA ICD DEVICE INTERROGAT REMOTE(Performed 02/24/2021) Performed for Ischemic cardiomyopathy, Congestive heart failure, unspecified HF chronicity, unspecified heart failure type (HCC), ICD (implantable cardioverter- defibrillator) in place * CARDIAC PROCEDURE ORDER(Performed 02/03/2021) * MA PM/ICD REMOTE TECH SERV(Performed 11/25/2020) Performed for Congestive heart failure, unspecified HF chronicity, unspecified heart failure type (HCC), Ischemic cardiomyopathy, ICD (implantable cardioverter-defibrillator) in place * MA ICD DEVICE INTERROGAT REMOTE(Performed 11/25/2020) Performed for Congestive heart failure, unspecified HF chronicity, unspecified heart failure type (HCC), Ischemic cardiomyopathy, ICD (implantable cardioverter-defibrillator) in place * CARDIAC PROCEDURE ORDER(Performed 11/07/2020) * MA INTG DVC E R 30 D;REC TRANS & TR(Performed 08/20/2020) Performed for Congestive heart failure, unspecified HF chronicity, unspecified heart failure type (HCC), Ischemic cardiomyopathy, ICD (implantable cardioverter-defibrillator) in place * MA ILR DEVICE INTERROGAT REMOTE(Performed 08/20/2020) Performed for Congestive heart failure, unspecified HF chronicity, unspecified heart failure type (HCC), Ischemic cardiomyopathy, ICD (implantable cardioverter-defibrillator) in place * CARDIAC PROCEDURE ORDER(Performed 08/06/2020) * CARDIAC PROCEDURE ORDER(Performed 05/29/2020) * MA ICD DEVICE INTERROGATE IN PERSON(Performed 05/02/2020) Performed for Congestive heart failure, unspecified HF chronicity, unspecified heart failure type (HCC), Ischemic cardiomyopathy, ICD (implantable cardioverter-defibrillator) in place * CARDIAC PROCEDURE ORDER(Performed 02/02/2020) * MA PM/ICD REMOTE TECH SERV(Performed 02/02/2020) Performed for Ischemic cardiomyopathy, Congestive heart failure, unspecified HF chronicity, unspecified heart failure type (HCC), ICD (implantable cardioverter- defibrillator) in place * MA ICD DEVICE INTERROGAT REMOTE(Performed 02/02/2020) Performed for Ischemic cardiomyopathy, Congestive heart failure, unspecified HF chronicity, unspecified heart failure type (HCC), ICD (implantable cardioverter- defibrillator) in place * MA PM/ICD REMOTE TECH SERV(Performed 12/04/2019) Performed for Ischemic cardiomyopathy, Congestive heart failure, unspecified HF chronicity, unspecified heart failure type (HCC), ICD (implantable cardioverter- defibrillator) in place * MA ICD DEVICE INTERROGAT REMOTE(Performed 12/04/2019) Performed for Ischemic cardiomyopathy, Congestive heart failure, unspecified HF chronicity, unspecified heart failure type (HCC), ICD (implantable cardioverter- defibrillator) in place * CARDIAC PROCEDURE ORDER(Performed 11/03/2019) * MA PM/ICD REMOTE TECH SERV(Performed 08/14/2019) Performed for Ischemic cardiomyopathy, Sustained VT (ventricular tachycardia) (HCC), ICD (implantable cardioverter-defibrillator) in place * MA ICD DEVICE INTERROGAT REMOTE(Performed 08/14/2019) Performed for Ischemic cardiomyopathy, Sustained VT (ventricular tachycardia) (HCC), ICD (implantable cardioverter-defibrillator) in place * CARDIAC PROCEDURE ORDER(Performed 08/01/2019) * MA PM/ICD REMOTE TECH SERV(Performed 05/17/2019) Performed for Ischemic cardiomyopathy, Sustained VT (ventricular tachycardia) (HCC), ICD (implantable cardioverter-defibrillator) in place * MA ICD DEVICE INTERROGAT REMOTE(Performed 05/17/2019) Performed for Ischemic cardiomyopathy, Sustained VT (ventricular tachycardia) (HCC), ICD (implantable cardioverter-defibrillator) in place * MA ICD DEVICE INTERROGATE IN PERSON(Performed 02/14/2019) Performed for Atrial flutter, unspecified type (HCC), Coronary artery disease involving [place] coronary artery of [place] heart without angina pectoris, Essential hypertension, Ischemic cardiomyopathy, ICD (implantable cardioverter- defibrillator), biventricular, in situ * MA PM/ICD REMOTE TECH SERV(Performed 11/22/2018) Performed for VT (ventricular tachycardia) (HCC), ICD (implantable cardioverter- defibrillator) in place * MA ICD DEVICE INTERROGAT REMOTE(Performed 11/22/2018) Performed for VT (ventricular tachycardia) (HCC), ICD (implantable cardioverter- defibrillator) in place * CARDIAC PROCEDURE ORDER(Performed 10/26/2018) * MA PM/ICD REMOTE TECH SERV(Performed 08/12/2018) Performed for Ischemic cardiomyopathy, Typical atrial flutter (HCC), PAF (paroxysmal atrial fibrillation) (HCC), VT (ventricular tachycardia) (HCC), ICD (implantable cardioverter-defibrillator) in place * MA ICD DEVICE INTERROGAT REMOTE(Performed 08/12/2018) Performed for Ischemic cardiomyopathy, Typical atrial flutter (HCC), PAF (paroxysmal atrial fibrillation) (HCC), VT (ventricular tachycardia) (HCC), ICD (implantable cardioverter-defibrillator) in place * CARDIAC PROCEDURE ORDER(Performed 06/14/2018) * CARDIAC PROCEDURE ORDER(Performed 05/13/2018) * MA PM/ICD REMOTE TECH SERV(Performed 04/28/2018) Performed for Cardiomyopathy, unspecified type (HCC), ICD (implantable cardioverter-defibrillator) in place * MA ICD DEVICE INTERROGAT REMOTE(Performed 04/28/2018) Performed for [...] WEAR CARDIAC DEVICE EVAL(Performed 06/08/2011) Results * MA ICD DEVICE INTERROGAT REMOTE, MA PM/ICD REMOTE TECH SERV (10/22/2024 7:07 PM EEO OFFICER) Narrative Pepe Meadows MD - 10/22/2024 7:07 PM EEO OFFICER Pepe Meadows MD ? 10/22/2024 ??7:08 PM [...] Myrtle W Angio Team (08/21/2024 3:55 PM EEO OFFICER) Narrative [facility] - 08/21/2024 3:56 PM EEO OFFICER Fluoroscopy was used for this exam in the OR. Please see the Operative report. Kyra Lorenzana MD FLUOROSCOPY ORDERAB LES [facility] * (ABNORMAL) PT-INR [facility] (08/21/2024 11:34 AM EEO OFFICER) Only the most recent of3 resultswithin the time period is included. PT 18.2(H) 12.1 - 14.8 Seconds 08/21/2024 12:28 PM EEO OFFICER [facility] INR 1.5 See Comment 08/21/2024 12:28 PM EEO OFFICER [facility] Comment:The suggested therap eutic range for standard coumadin (warfarin) therapy is an INR of 2.0-3.0. For high-risk patients (Mechanical Mitral Valve Prosthesis, etc.), the suggested prophylactic therapeutic range is an INR of 2.5-3.5. Blood BLOOD SPECIMEN / Unknown Line Draw / Unknown 08/21/2024 11:34 AM EEO OFFICER 08/21/2024 11:46 AM EEO OFFICER [facility] - COA GULATION ORDERABLES Performing Organization Address City/[facility]/ZIP Co de Phone Number [facility] [address] [place] [phone], [facility] [phone] * TYPE + SCREEN PANEL (08/21/2024 11:34 AM EEO OFFICER) Only the most recent of3 resultswithin the time period is included. Pathologist [facility] Antibody Screen NEG 12:28 PM EEO OFFICER [facility] ABO Rh O POS 08/21/2024 12:28 PM EEO OFFICER [facility] Blood Bank BLOOD SPECIMEN / Unknown Line Draw / Unknown 08/21/2024 11:34 AM EEO OFFICER 08/21/2024 11:45 AM EEO OFFICER Ashley Gu[facility] - BLO OD BANK ORDERABLES Performing Organization Address [facility] de Phone Number [facility] [address] [place] [phone], [facility] [phone] * (ABNORMAL) CBC W/ DIFFERENTIAL (08/10/2024 1:47 PM CDT) Only the most recent of4 resultswithin the time period is included. WBC 7.8 4.0 - 10.7 x10E9/L 08/10/2024 2:10 PM CDT [facility] RBC Count 4.21(L) 4.30 - 5.80 x10E12/L 08/10/2024 2:10 PM CDT [facility] Hemoglobin 12.7(L) 13.3 - 17.5 g/dL 08/10/2024 2:10 PM CDT [facility] Hematocrit 39.0 38.7 - 51.1 % 08/10/2024 2:10 PM [facility] MCV 92.6 80.0 - 98.0 fL 08/10/2024 2:10 PM [facility] MCH 30.2 26.7 - 33.6 pg 08/10/2024 2:10 PM [facility] MCHC 32.6 31.7 - 36.3 g/dL 08/10/2024 2:10 PM [facility] RDW-CV 14.4 11.3 - 14.8 % 08/10/2024 2:10 PM [facility] Platelet Count 124(L) 150 - 420 x10E9/L 08/10/2024 2:10 PM [facility] MPV 11.5(H) 7.8 - 11.4 fL 08/10/2024 2:10 PM [facility] Neutrophil % 75.7(H) 41.0 - 74.0 % 08/10/2024 2:10 PM [facility] Lymphocyte % 15.3(L) 17.0 - 47.0 % 08/10/2024 2:10 PM [facility] Monocyte % 6.3 3.0 - 11.0 % 08/10/2024 2:10 PM [facility] Eosinophil % 1.3 0.0 - 7.0 % 08/10/2024 2:10 PM [facility] Basophil % 1.0 0.0 - 1.6 % 08/10/2024 2:10 PM [facility] Immature Granulocytes % 0.4 0.0 - 1.0 % 08/10/2024 2:10 PM [facility] Neutrophil Absolute 5.89 1.60 - 7.50 x10E9/L 08/10/2024 2:10 PM [facility] Lymphocyte Absolute 1.19 1.00 - 4.40 x10E9/L 08/10/2024 2:10 PM [facility] Monocyte Absolute 0.49 0.15 - 1.00 x10E9/L 08/10/2024 2:10 PM [facility] Eosinophil Absolute 0.10 0.00 - 0.60 x10E9/L 08/10/2024 2:10 PM [facility] Basophil Absolute 0.08 0.00 - 0.13 x10E9/L 08/10/2024 2:10 PM [facility] Blood BLOOD SPECIMEN / Unknown Lab Venipuncture / Unknown 08/10/2024 1:47 PM CDT 08/10/2024 1:56 PM CDT Ashley Flores [employer]DER [employer]EDULE ANNOUNCER LAB - HEM ATOLOGY ORDERABLES [facility] [address] [place] [address], [facility] [phone] * (ABNORMAL) BASIC METABOLIC PANEL (CALCIUM TOTAL) (08/10/2024 1:47 PM CDT) Only the most recent of2 resultswithin the time period is included. BUN 14 7 - 26 mg/dL 08/10/2024 2:23 PM [facility] Creatinine 0.90 0.71 - 1.16 mg/dL 08/10/2024 2:23 PM [facility] Sodium 141 136 - 145 mmol/L 08/10/2024 2:23 PM [facility] Potassium 4.4 3.5 - 4.5 mmol/L 08/10/2024 2:23 PM [facility] Chloride 109(H) 98 - 107 mmol/L 08/10/2024 2:23 PM [facility] CO2 26 22 - 29 mmol/L 08/10/2024 2:23 PM [facility] Glucose 104(H) 70 - 99 mg/dL 08/10/2024 2:23 PM [facility] Calcium 8.8 8.4 - 10.2 mg/dL 08/10/2024 2:23 PM [facility] Anion Gap 6 6 - 16 08/10/2024 2:23 PM [facility] BUN/Creatinine Ratio 16 7 - 23 08/10/2024 2:23 PM [facility] Osmolality Calculated 293 275 - 295 mOsm/kg 08/10/2024 2:23 PM CDT [facility] eGFR by CKD-EPI 84(L) >=90 mL/min/1.7 3 m2 08/10/2024 2:23 PM CDT [facility] Blood BLOOD SPECIMEN / Unknown Lab Venipuncture / Unknown 08/10/2024 1:47 PM CDT 08/10/2024 1:55 PM CDT Ashley Flores APRN-SCHEDULE ANNOUNCER LAB - PERLA MARIELENA ORDERABLES [facility] [address] [place] [address], [facility] [phone] * CULTURE WOUND+GRAM STAIN (07/26/2024 5:03 PM CDT) Culture Rare normal skin teresa LORA 07/29/2024 5:[address] [facility]CRO[facility] Gram Stain No organisms seen 024 5:[address] [facility]CRO[facility] Gram Stain No polymorphonuclear cells 07/29/2024 5:[address] [facility]CRO[facility] Microbiology ULCER / Unknown Collection / Unknown 07/26/2024 5:03 PM CDT 07/26/2024 5:03 PM CDT Kyra Lorenzana MD LAB - MICROBIOLOGY ORDERABLES Performing Organization Address City/[facility]/ZIP Co de Phone Number [facility] MICROBIOLOGY [address] [place] [address], [facility] [phone] * CCL ICD BIVENTRICULAR GENERATOR REPLACEMENT (05/16/2024 [...] performed with direct participation of the staff manufacturing project manager, Dr Meadows, who was present and scrubbed for the entire case Procedures performed: 1. BiV ICD generator change Indications: 1. Battery at [facility] Procedure time: 41 min Fluoroscopic time: 0 [...] The device was wirelessly interrogated through the machine programmer. Hemostasis was assured one last time and the pocket closed. The pectoral fascia was closed with 2-0 Vicryl?? in a running fashion. The subcutaneous and subcuticular layers were closed with 3-0 and 4-0 Vicryl?? using a running stitch. Steri- strips?? were used for skin closure. Sponge and needle counts were correct at the end. Generator: [employer] Model: [id number] SN: [id number] Atrial lead: Implanted 05/28/2011 Model: 5076-52 SN: [id number] Right Ventricular: Implanted 05/28/2011 Model: [id number] SN: [id number] Left Ventricular: Implanted 05/28/2011 Model: [id number] SN [id number] Measured data: Amplitude: Threshold @ 0.5 ms: [...] TYPE VERIFICATION (05/16/2024 8:03 AM CDT) Pathologist [facility] ABO Rh O POS 05/16/2024 8:3 0 AM CDT [facility] Blood Bank BLOOD SPECIMEN / Unknown Venipuncture / Unknown 05/16/2024 8:03 AM CDT 05/16/2024 8:06 AM CDT Pepe Meadows MD LAB - BLOOD BANK ORD ERABLES [facility] [address] [place] [address], [facility] [phone] * (ABNORMAL) PT-INR (05/01/2024 3:55 PM CDT) Pathologist [facility] INR 2.2(H) [facility] Comment: Reference Range ? 0.9-1.1 Moderate-intensity Warfarin Therapy 2.0-3.0 Higher-intensity Warfarin Therapy ?? 3.0-4.0 PT 22.1(H) 9.0 - 11.5 sec [facility] Comment: For additional information, please refer to http://education.[employer]/faq/MDB151 (This link is being provided for informational/ educational purposes only.) Test Performed at: [facility] [place], [place] ??[id number] INDRA RODRIGUEZ MD Blood BLOOD SPECIMEN / Unknown 05/01/2024 3:55 PM CDT 05/01/2024 3:56 PM CDT Pepe Meadows MD LAB - COAGULATION OR DERABLES [facility] [address] [place] [address] * ECHO COMPLETE W CONTRAST (03/30/2024 8:48 AM CDT) Only the most recent of2 resultswithin the time period is included. BSA [id number] m2 [facility] CV FUJ I PACS LV [...] P vein S/D ratio 2.08 [facility] pk gloria 0.90 m/s [facility] CV F U PACS LVOT mn gloria 0.54 m/s [facility] CV F UJI PACS LVOT mn grad 1.4 mmHg [facility] Cardiac Output 3.458 l/min [facility] Cardiac Index 1.71 l/min/m2 [facility] LA vol BP A-L 106.192 mL [facility] RVIDd 3.3 cm [facility] CV [facility] I PACS RVOT VTI 10.159 cm [facility] CV [facility] I PACS RVOT pk gloria 0.61 m/s S[facility] CV F U PACS AV mn grad 4 mmHg SSM CV FU JI PACS AV pk grad 8 mmHg SSM CV FU JI PACS AV mn gloria 0.91 m/s [facility] CV [facility] I PACS AV pk gloria 1.40 m/s SSM CV [facility] I PACS AV VTI 24.897 cm SSM CV [facility] I PACS LVOT pk grad 3.241 mmHg [facility] LVOT VTI 15.337 cm [facility] CV [facility] I PACS AV area cont VTI 1.9 cm2 [facility] CV [facility] PACS AV area pk gloria 2.0 cm2 [facility] PACS AV Doppler gloria index pk gloria 0.645 [facility] PACS Dimensionless Index 0.616 [facility] VTI 187.389 cm [facility] I PACS MV pk gloria regurg 477.177 cm/s [facility] PACS MV mn grad 2 mmHg [facility]I PACS MV pk grad 6 mmHg [facility] PACS MV mn gloria 0.62 m/s [facility] I PACS MV pk gloria 124.705 cm/s [facility] I PACS MV PHT 53 ms [facility] I PACS MV area PHT 4.11 cm2 [facility] U PACS MV area cont eq 2.55 cm2 [facility] VTI 18.991 cm [facility] I PACS MV decel slope 343.317 cm/s2 [...] Index 54 ml/m2 [facility]I PACS [id number] 8.398 cm [facility] I PACS [id number] 9.437 cm [facility] I PACS [...] Martínez MD - 01/26/2024 12:56 PM CDT [facility] DEPARTMENT OF PULMONARY, CRITICAL CARE, AND SLEEP [...] ORDERABLES * (ABNORMAL) Six Minute Walk Test [facility] PFT [facility] (01/26/2024 12:56 PM CDT) Impressions Mir Martínez MD - 01/26/2024 12:56 PM CDT [facility] DEPARTMENT OF PULMONARY, CRITICAL CARE, AND SLEEP [...] DATE/TIME OF EXAM: ??01/26/2024 11:01 AM, LOCATION [facility] INDICATION: R94.2: Abnormal PFTs COMPARISON: None. FINDINGS/IMPRESSION: [...] intact. > Dictated by Cristi Rivera DO (Mannequin Coloring Artist) Juan F Arellano MD have personally reviewed and interpreted this examination/study. > Interpreting Provider: Juan F Mckeon MD on 01/27/2024 11:32 PM Procedure Note Juan F Mckeon MD - 04/11/2024 PROCEDURE: XR CHEST 2VW, DATE/TIME OF EXAM: 01/26/2024 11:01 AM, LOCATION [facility] INDICATION: R94.2: Abnormal PFTs COMPARISON: None. FINDINGS/IMPRESSION: [...] intact. > Dictated by Cristi Rivera DO (Mannequin Coloring Artist) IJuan F MD have personally reviewed and interpreted this examination/study. > Interpreting Provider: Juan F Mckeon MD on 01/27/2024 11:32 PM Lilly Delvalle MD DIAGNOSTIC IMAG ING ORDERABLES * Ref to County Records Management Officer - [facility] (09/21/2023 12:54 PM EEO OFFICER) Indiana Odonenll MD OUTPATIENT REFERRALS * EYE EXAM (09/16/2023) Anatomical Region Laterality Modality Other Narrative 09/16/2023 Ordered by an unspecified provider. Scanned Document SCANNING ONLY * MA ICD DEVICE INTERROGATE IN PERSON (06/22/2023 11:57 AM CDT) Narrative Fiona Lanier APRN-CNP - 06/22/2023 11:57 AM CDT Fiona Lanier APRN-CNP ? 06/22/2023 12:02 PM See progress note. Fiona FUENTES PROCEDURE/PR NOR SURGICAL ORDERABLES * Complete PFT [facility] PFT Lab (06/17/2023 4:42 PM CDT) Impressions [facility] - 06/17/2023 4:42 PM CDT [facility] DEPARTMENT OF PULMONARY, CRITICAL CARE, AND SLEEP [...] of Pulmonary, Critical Care, and Sleep Medicine [facility] I have personally reviewed and agree with the fellow's interpretation. Jone Meier MD Narrative [facility] - 06/17/2023 4:42 PM CDT Fred Thompson, DO ? 06/18/2023 ??9:44 AM Indiana Odonnell MD RESPIRATORY THERAPY ORDERABLES Performing Organization Address City/State/[facility] Co de Phone Number [facility] [address] [place] [address], [facility] * MA ICD DEVICE INTERROGAT REMOTE, MA PM/ICD REMOTE TECH SERV (04/10/2023 9:25 PM [...] any further questions. ?? Sincerely, Pepe Saleem [facility] 04/10/2023 Pepe Meadows MD PROCEDURE/MINOR SURG ICAL ORDERABLES * MA ICD DEVICE INTERROGAT REMOTE, MA PM/ICD REMOTE TECH SERV (12/30/2022 9:40 AM [...] any further questions. ?? Sincerely, Pepe Saleem [facility] 12/30/2022 Indiana Odonnell MD PROCEDURE/MINOR SURG ICAL ORDERABLES * MA PM/ICD REMOTE TECH SERV, MA ICD DEVICE INTERROGAT REMOTE (10/04/2022 9:40 PM EEO OFFICER) Narrative Geneva Suazo MD - 10/04/2022 9:40 PM EEO OFFICER Geneva Suazo MD ? 10/04/2022 ??9:49 PM Doc Zhou is undergoing remote device monitoring. ?? Interrogation of patient's ICD was performed with results as follows: ?? Device: ??Medtronic Amplia CRTD ?? Mode: DDDR 75-120 bpm ?? Presenting EGM: Atrial paced, biventricular paced ?? Battery Estimated longevity 19 months. ?? Percent Paced: Total FARM DEMONSTRATOR ? 98.8% (MVP Off) -FARM DEMONSTRATOR ?0.3% AP-VS ?0.8% AP-FARM DEMONSTRATOR ?98.9% ?? Sensing: ??P-waves 1.4 mV; R-waves [...] not hesitate to contact me. Fiona FUENTES PROCEDURE/PR NOR SURGICAL ORDERABLES * MA ICD DEVICE INTERROGATE IN PERSON (06/25/2022 1:25 PM CDT) Narrative Fiona Lanier APRN-CNP - 06/25/2022 1:25 PM CDT Fiona Lanier APRN-CNP ? 06/25/2022 ??1:25 PM See progress note. Fiona FUENTES PROCEDURE/PR NOR SURGICAL ORDERABLES * MA ICD DEVICE INTERROGAT REMOTE, MA PM/ICD REMOTE TECH SERV (05/11/2022 9:31 AM [...] not hesitate to contact me. Fiona FUENTES PROCEDURE/PR NOR SURGICAL ORDERABLES * MA ICD DEVICE INTERROGAT REMOTE, MA PM/ICD REMOTE TECH SERV (01/12/2022 9:32 AM [...] hesitate to contact me. Fiona Lanier APRN-RODDY PROCEDURE/PR NOR SURGICAL ORDERABLES * MA ICD DEVICE INTERROGAT REMOTE, MA PM/ICD REMOTE TECH SERV (09/22/2021 2:33 PM EEO OFFICER) Narrative Fiona Lanier, HELENA-RODDY - 09/22/2021 2:33 PM EEO OFFICER Fiona Lanier, HELENA-RODDY ? 09/22/2021 ??2:45 PM [...] not hesitate to contact me. Fiona FUENTES PROCEDURE/PR NOR SURGICAL ORDERABLES * MA ICD DEVICE INTERROGATE IN PERSON (06/13/2021 12:58 [...] not hesitate to contact me. Fiona FUENTES PROCEDURE/PR NOR SURGICAL ORDERABLES * MA ICD DEVICE INTERROGAT REMOTE, MA PM/ICD REMOTE TECH SERV (02/24/2021 1:25 PM [...] not hesitate to contact me. Fiona FUENTES PROCEDURE/PR NOR SURGICAL ORDERABLES * MA ICD DEVICE INTERROGAT REMOTE, MA PM/ICD REMOTE TECH SERV (11/25/2020 2:23 PM EEO OFFICER) Narrative Fiona Lanier APRN-CNP - 11/25/2020 2:23 PM EEO OFFICER Fiona Lanier APRN-CNP ? 11/25/2020 ??2:28 PM [...] not hesitate to contact me. Fiona FUENTES PROCEDURE/PR NOR SURGICAL ORDERABLES * MA ILR DEVICE INTERROGAT REMOTE, MA INTG DVC E R 30 D;REC TRANS & TR (08/20/2020 2:13 PM EEO OFFICER) Narrative Fiona Lanier APRN-CNP - 08/20/2020 2:13 PM EEO OFFICER Fiona Lanier APRN-CNP ? 08/20/2020 ??2:18 PM [...] not hesitate to contact me. Fiona FUENTES PROCEDURE/PR NOR SURGICAL ORDERABLES * MA ICD DEVICE INTERROGATE IN PERSON (05/02/2020 9:32 [...] 0.2%. Changes: None Impression: ??Normal Device Function. Stevanparveen Ruiz Winnie will follow up with a remote check in 3, 6, 9 months and a follow-up in device clinic in 12 months. ??Thank you for allowing me to participate in the care of your patient. ??If you have any questions or concerns please do not hesitate to contact me. Fiona FUENTES PROCEDURE/PR NOR SURGICAL ORDERABLES * MA ICD DEVICE INTERROGAT REMOTE, MA PM/ICD REMOTE TECH SERV (02/02/2020 9:03 AM [...] not hesitate to contact me. Fiona FUENTES PROCEDURE/PR NOR SURGICAL ORDERABLES * MA ICD DEVICE INTERROGAT REMOTE, MA PM/ICD REMOTE TECH SERV (12/04/2019 9:17 AM EEO OFFICER) Narrative Fiona Lanier APRN-CNP - 12/04/2019 9:17 AM EEO OFFICER Fiona Lanier APRN-CNP ? 12/04/2019 ??9:22 AM [...] not hesitate to contact me. Fiona Lanier APRN-REGISTERED NURSE HH CASE MANAGER PROCEDURE/PR NOR SURGICAL ORDERABLES * MA ICD DEVICE INTERROGAT REMOTE, MA PM/ICD REMOTE TECH SERV (08/14/2019 9:53 AM CDT) Narrative Fiona Lanier, GINA - 08/14/2019 9:53 AM CDT Fiona Lanier APRN-CNP ? 08/14/2019 10:01 AM Remote interrogation of patient's ICD was performed with results as follows: Device: ??Medtronic Amplia DIAMOND SIZER AND SORTER-D Mode: DDDR 75-120 bpm Battery: 2.98 Volts; [...] not hesitate to contact me. Fiona Lanier APRN-REGISTERED NURSE HH CASE MANAGER PROCEDURE/PR NOR SURGICAL ORDERABLES * MA ICD DEVICE INTERROGAT REMOTE, MA PM/ICD REMOTE TECH SERV (05/17/2019 2:25 PM CDT) Narrative Barbra Boone APRN-CNP - 05/17/2019 2:25 PM CDT Barbra Boone APRN-CNP ? 05/17/2019 ??2:25 PM Carelink transmission 05/02/19 reveals no tachyarrhythmias. APVS 1.1%. APbiV paced 98.8%. Battery voltage, lead impedance, pacing and sensing all WNL. ?? Optivol at baseline. Histograms blunted.(see printout in media) Barbra FUENTES PROCEDURE/M INOR SURGICAL ORDERABLES * MA ICD DEVICE INTERROGATE IN PERSON (02/14/2019 11:06 AM CDT) Narrative Fiona Lanier APRN-CNP - 02/14/2019 11:06 AM CDT Fiona Lanier APRN-CNP ? 02/14/2019 11:06 AM Doc Zhou presented to clinic for follow up of the patient's ICD. ??Interrogation was performed with results as follows: Device: ??Medtronic Amplia MRI DIAMOND SIZER AND SORTER-D Mode: DDDR 75-120 bpm Battery: 2.99 Volts; [...] None Impression: ??Normal Device Function. Fiona FUENTES PROCEDURE/PR NOR SURGICAL ORDERABLES * MA ICD DEVICE INTERROGAT REMOTE, MA PM/ICD REMOTE TECH SERV (11/22/2018 3:23 PM EEO OFFICER) Narrative Barbra Boone APRN-CNP - 11/22/2018 3:23 PM EEO OFFICER Barbra Boone APRN-CNP ? 11/22/2018 ??3:23 PM Carelink transmission 10/26/18 reveals 103 V sensed episodes. 40 AT/AF, 0.2%. No ventricular tachyarrhythmias. AbiV paced 2.3%. APVS 1.5% APbiV paced 96%. Battery voltage, lead impedance,pacing and sensing all WNL. Optivol at baseline. Histograms blunted (see printout in media) Barbra FUENTES PROCEDURE/M INOR SURGICAL ORDERABLES * MA ICD DEVICE INTERROGAT REMOTE, MA PM/ICD REMOTE TECH SERV (08/12/2018 7:10 PM [...] Barbra FUENTES PROCEDURE/M INOR SURGICAL ORDERABLES * MA ICD DEVICE INTERROGAT REMOTE, MA PM/ICD REMOTE TECH SERV (04/28/2018 6:37 PM [...] DEVICE EVAL (01/19/2018 10:45 AM CDT) Narrative [facility] RADIOLOG[facility] - 01/19/2018 10:45 AM CDT Medtronic biventricular defibrillator implanted on September. Interrogation, today demonstrated 99% atrial/biventricular paced rhythm. Sensing, pacing, impedance parameters were all within normal limits.Estimated longevity 6.9 years. Remote interrogation every 3 months and in office visit once a year. This dictation was performed using [employer] [email or web address]. There may be some link trainer operator variances which are not appreciated and corrected in this note. Pat Silvestre MD Procedure Note ProviderAdriana MD - 03/25/2018 Medtronic biventricular defibrillator implanted on September.Interrogation, today demonstrated 99% atrial/biventricular paced rhythm.Sensing, pacing, impedance parameters were all within normallimits.Estimated longevity 6.9 years. Remote interrogation every 3 months and in office visit once a year. This dictation was performed using [employer]. There may be sometranscription variances which are not appreciated and corrected in thisnote. Pat Silvestre MD Pat Silvestre MD PROCEDURE/MINOR SURG ICAL ORDERABLES Performing Organization Address [facility] Co de Phone Number [facility] RADIOLOG[facility] * PROC ICD DEVICE CHECK (REMOTE) (10/26/2017 5:53 PM EEO OFFICER) Narrative [facility] - 10/26/2017 5:53 PM EEO OFFICER Carelink transmission reveals no events. APVS 1.4%. APbiV paced 97.8%. Battery voltage, lead impedance, pacing and sensing all WNL. Optivol at baseline(see printout) Procedure Note Provider, MD Adriana - 03/25/2018 Carelink transmission reveals no events. APVS 1.4%. APbiV paced 97.8%. Battery voltage, lead impedance, pacing and sensing all WNL. Optivol atbaseline(see printout) Barbra Boone TUBE BUILDER AIRPLANE-REGISTERED NURSE HH CASE MANAGER PROCEDURE/M INOR SURGICAL ORDERABLES Performing Organization Address [facility] Co de Phone Number [facility] RADIOLOG[facility] * PATHOLOGY TISSUE (10/21/2017 8:09 AM EEO OFFICER) Surgical Pathology Tissue ACCESSION No: [id number] CLINICAL HISTORY: Teeth extraction. FINAL DIAGNOSIS: Teeth, [...] were determined by the [facility].?? Some of these tests were developed by [...] by Angelina Salamanca M.D. Electronically signed 10/22/2017 [facility] Gross only (Tooth) 10/21/2017 8:09 AM EEO OFFICER 10/21/2017 10:04 AM EEO OFFICER Narrative [facility] - 10/22/2017 10:31 AM EEO OFFICER Pre-op diagnosis: perdonial disease Vedrana Sedic DMD LAB - PATHOLOGY/CYTO LOGY ORDERABLES Performing Organization Address City/State/[facility] Co de Phone Number [facility] PATHOLOGY LAB [address] [phone] * COMPREHENSIVE METABOLIC PANEL (10/15/2017 3:01 PM EEO OFFICER) BUN 20 7 - 26 mg/dL [facility] Creatinine 0.9 0.6 - 1.2 mg/dL [facility] Sodium 141 136 - 145 mmol/L [facility] Potassium 4.4 3.5 - 4.5 mmol/L [facility] Chloride 105 98 - 107 mmol/L [facility] CO2 26 22 - 29 mmol/L [facility] Glucose 94 70 - 115 mg/dL [facility] Calcium 8.8 8.4 - 10.2 mg/dL [facility] Protein Total 6.7 6.0 - 8.3 g/dL [facility] Albumin 3.6 3.4 - 5.0 g/dL [facility] Bilirubin Total 0.5 0.2 - 1.2 mg/dL [facility] Alkaline Phosphatase 60 40 - 150 Units/L [facility] ALT 18 0 - 55 Units/L [facility] AST 21 5 - 34 Units/L [facility] Anion Gap 14 8 - 18 [facility] BUN/Creatinine Ratio 22 7 - 23 [facility] Osmolality Calculated 294 270 - 300 mOsm/kg [facility] Albumin/Globulin Ratio 1.2 1.1 - 2.3 [facility] eGFR >60 >60 mL/min/1.7 3 m2 [facility] Blood specimen (specimen) BLOOD SPECIMEN / Unknown 10/15/2017 3:01 PM EEO OFFICER 10/15/2017 3:16 PM EEO OFFICER Vedrana Sedic DMD LAB - CHEMISTRY CRUZITO GONZALEZ [address] [phone] * EKG 12-LEAD (10/15/2017 12:00 AM EEO OFFICER) EKG [facility] Comment: Exam Date/Time: ?? Oct 15 [...] ECGs available Confirmed by Aydee LOOMIS STEVEN ([id number]), field map editor ARI CAST ([id number]) on 10/20/2017 4:55:48 PM Referred By: REFERRING SYSTEM ? Confirmed By:ZITA LOOMIS M.D 10/15/2017 Vedrana Sedic DMD ECG ORDERABLES Performing Organization Address [facility] Co de Phone Number [facility] * PROC ICD DEVICE CHECK (REMOTE) (07/22/2017 10:31 AM CDT) Narrative [facility] - 07/22/2017 10:31 AM CDT Carelink [...] has returned to baseline.(see printout) Barbra Boone APRN-REGISTERED NURSE HH CASE MANAGER PROCEDURE/M INOR SURGICAL ORDERABLES Performing Organization Address [facility] de Phone Number [facility] RAD[facility] * PROC ICD DEVICE CHECK (REMOTE) (05/07/2017 8:05 PM CDT) Narrative [facility] - 05/07/2017 8:05 PM CDT Carelink transmission reveals 20 V sensed episodes, APbiVP 98.2%. ??APVS 1.4%. Optivol at baseline. Battery voltage, lead impedance, pacing and sensing all WNL(see printout) Procedure Note ProviderAdriana MD - 03/25/2018 Carelink transmission reveals 20 V sensed episodes, APbiVP 98.2%. APVS1.4%. Optivol at baseline. Battery voltage, lead impedance, pacing and sensing all WNL(seeprintout) Barbra Boone APRN-REGISTERED NURSE HH CASE MANAGER PROCEDURE/M INOR SURGICAL ORDERABLES Performing Organization Address [facility] de Phone Number [facility] * PROC STRESS TEST EXERCISE (02/09/2017 10:50 AM CDT) Only the most recent of2 resultswithin the time period is included. Narrative [facility] - 02/09/2017 10:[address] [facility] Nuclear Cardiology Department Myocardial Perfusion Imaging Pharmacological [...] Procedure Note Provider, MD Adriana - 03/25/2018 [facility] Nuclear Cardiology Department Myocardial Perfusion Imaging Pharmacological [...] Silvestre MD ECG ORDERABLES Performing Organization Address [facility] Co de Phone Number [facility] * PROC LEXISCAN CARDIOLYTE STRESS TST (02/09/2017 10:50 AM CDT) Only the most recent of2 resultswithin the time period is included. Narrative [facility] - 02/09/2017 10:50 AM CDT Patient Name: Doc Zhou ? : 1940 ? CPT Codes: 14915 Study:Pharmacologic Stress Myocardial Perfusion-One Day Protocol Date [...] Name: Doc Zhou : 1940 CPT Codes: 51500 Study:Pharmacologic Stress Myocardial Perfusion-One Day Protocol Date [...] Report: 02/09/2017 Pat Silvestre MD ECG ORDERABLES [facility] RAD[facility] * XR CERVICAL SPINE 2 OR [...] imaged. Dictated by Marleny Brown MD (residential subcontractor). This report was approved ??by Billy Brown [...] imaged. Dictated by Marleny Brown MD (residential subcontractor). This report was approved by Billy Brown M.D. on 01/18/2017 12:05PM . I, Dr. JESSIKA ERICKSON M.D. have personally reviewed and interpreted thisexamination/study. This report was electronically signed by JESSIKA ERICKSON M.D. on 01/18/20171:08 PM . Garrett Parkinson MD FLUOROSCOPY ORDERABL ES * PROC IMPLANT WEAR CARDIAC DEVICE EVAL (01/16/2017 5:00 AM CDT) Narrative [facility] RAD[facility] - 01/16/2017 5:00 AM CDT Medtronic biventricular defibrillator implanted on September. Indication was inducible sustained monomorphic ventricular tachycardia. Interrogation today demonstrated no evidence for atrial or ventricular tachyarrhythmia. Atrial pacin% , biventricular pacin%. Estimated longevity 7.6 years. Normal sensing, pacing, impedance parameters were noted. Remote interrogation every 3 months and in office visit once a year. This dictation was performed using [employer]. There may be some link trainer operator variances which are not appreciated and corrected in this note. Pat Silvestre MD Procedure Note Provider, Adriaan, - 03/25/2018 Medtronic biventricular defibrillator implanted on September.Indication was inducible sustained monomorphic ventricular tachycardia. Interrogation today demonstrated no evidence for atrial or ventriculartachyarrhythmia. Atrial pacin% , biventricular pacin%. Estimated longevity 7.6years. Normal sensing, pacing, impedance parameters were noted. Remote interrogation every 3 months and in office visit once a year. This dictation was performed using [employer]. There may be sometranscription variances which are not appreciated and corrected in thisnote. Pat Silvestre MD Pat Silvestre MD PROCEDURE/MINOR SURG ICAL ORDERABLES Performing Organization Address City/[facility]/ZIP Co de Phone Number [facility] * LAB HISTORICAL RESULTS-ONBASE (09/30/2016) 09/30/2016 Historical Provider LAB - CHEMISTRY O RDERABLES [address] * PROC ICD DEVICE CHECK (REMOTE) (05/28/2016 1:19 PM CDT) Narrative [facility] - 05/28/2016 1:19 PM CDT Doc Zhou presented to device clinic for follow up of the patient's DIAMOND SIZER AND SORTER-defibrillator. ??Interrogation was performed with results as follows: Device: ??Medtronic Marcelino II DIAMOND SIZER AND SORTER-D Mode: DDDR 75-120 bpm Battery: 2.63 Volts; WATER HAULER 2.63 V Percent Paced: ??99.7% in atrium, [...] device clinic for follow up of thepatient's DIAMOND SIZER AND SORTER-defibrillator. Interrogation was performed with results asfollows: Device: Medtronic Marcelino II DIAMOND SIZER AND SORTER-D Mode: DDDR 75-120 bpm Battery: 2.63 Volts; WATER HAULER 2.63 V Percent Paced: 99.7% in atrium, [...] Apurva Mary MD PROCEDURE/MINOR S URGICAL ORDERABLES [facility] * PROC IMPLANT WEAR CARDIAC DEVICE EVAL (02/24/2016 3:23 PM CDT) Narrative [facility] - 02/24/2016 3:23 PM CDT Interrogation [...] PROCEDURE/M INOR SURGICAL ORDERABLES Performing Organization Address [facility] Co de Phone Number [facility] * PROC ICD DEVICE CHECK (REMOTE) (11/21/2015 3:45 PM EEO OFFICER) Narrative [facility] - 11/21/2015 3:45 PM EEO OFFICER Carelink transmission reveals 9 AT/AF , 7.4% [...] PROCEDURE/M INOR SURGICAL ORDERABLES Performing Organization Address City/[facility]/ZIP Co de Phone Number [facility] * PROC IMPLANT WEAR CARDIAC DEVICE EVAL (08/19/2015 12:20 PM EEO OFFICER) Narrative [facility] - 08/19/2015 12:20 PM EEO OFFICER Interrogation of Medtronic biV ICD reveals 1 [...] pacing and sensing allWNL(see printout) Barbra Boone APRN-REGISTERED NURSE HH CASE MANAGER PROCEDURE/M INOR SURGICAL ORDERABLES Performing Organization Address [facility] Co de Phone Number [facility] * PROC IMPLANT WEAR CARDIAC DEVICE EVAL (07/05/2015 2:20 PM CDT) Narrative [facility] - 07/05/2015 2:20 PM CDT Interrogation [...] atrialflutter to NSR. (see printout) Barbra Boone APRN-REGISTERED NURSE HH CASE MANAGER PROCEDURE/M INOR SURGICAL ORDERABLES Performing Organization Address [facility] Co de Phone Number [facility] * PROC ICD DEVICE CHECK (REMOTE) (04/03/2015 5:25 PM CDT) Narrative [facility] - 04/03/2015 5:25 PM CDT Carelink transmission reveals 15 AT/AF episodes, 1.6%. No ventricular tachy arrhythmias. ASVS1.5%. APVP 98%. Battery voltage, charge time, lead impedance, sensing all WNL(see printout) Procedure Note ProviderAdriana MD - 03/25/2018 Carelink transmission reveals 15 AT/AF episodes, 1.6%. No ventriculartachy arrhythmias. ASVS1.5%. APVP 98%. Battery voltage, charge time, lead impedance, sensing all WNL(seeprintout) Barbra Boone APRN-REGISTERED NURSE HH CASE MANAGER PROCEDURE/M INOR SURGICAL ORDERABLES Performing Organization Address [facility] de Phone Number [facility] * PROC IMPLANT WEAR CARDIAC DEVICE EVAL (12/27/2014 6:08 PM CDT) Narrative [facility] - 12/27/2014 6:08 PM CDT Interrogation [...] pacing and sensing allWNL(see printout) Barbra Boone APRN-REGISTERED NURSE HH CASE MANAGER PROCEDURE/M INOR SURGICAL ORDERABLES Performing Organization Address [facility] Co de Phone Number [facility] * PROC ICD DEVICE CHECK (REMOTE) (10/04/2014 7:04 PM EEO OFFICER) Narrative [facility] - 10/04/2014 7:04 PM EEO OFFICER Carelink transmission reveals 5 AT/AF episodes, longest [...] lead impedance, sensing all WNL(seeprintout) Barbra Boone APRN-REGISTERED NURSE HH CASE MANAGER PROCEDURE/M INOR SURGICAL ORDERABLES Performing Organization Address [facility] de Phone Number [facility] * PROC IMPLANT WEAR CARDIAC DEVICE EVAL (07/05/2014 2:57 PM CDT) Narrative [facility] - 07/05/2014 2:57 PM CDT Interrogation of Medtronic biV ICD reveals 10 AT/AF episodes, burden 02%. 538 V sensed episodes(PAULINA programmed 120ms, [place] 100-120ms). ??One day with >6 hr AT/AF. [...] burden 02%.538 V sensed episodes(PAULINA programmed 120ms, [place] 100-120ms). One daywith >6 hr AT/AF. A paced 98%. BiV paced 99.7%. Currently APBiV paced at 86 bpm withunderying rhythm NSR at 61 bpm. Battery voltage, charge time, lead impedance, pacing and sensing all WNL Reprogrammed PAULINA to 100mg per Dr Silvestre's order(see printout) Barbra Boone APRN-REGISTERED NURSE HH CASE MANAGER PROCEDURE/M INOR SURGICAL ORDERABLES Performing Organization Address [facility] Co de Phone Number [facility] * PROC ICD DEVICE CHECK (REMOTE) (03/27/2014 7:21 PM CDT) Narrative [facility] - 03/27/2014 7:21 PM CDT Care[facility] [...] lead impedance, sensing all WNL(seeprintout) Barbra Boone TUBE BUILDER AIRPLANE-REGISTERED NURSE HH CASE MANAGER PROCEDURE/M INOR SURGICAL ORDERABLES Performing Organization Address [facility] Co de Phone Number [facility] * PROC IMPLANT WEAR CARDIAC DEVICE EVAL (12/28/2013 7:34 PM CDT) Narrative [facility] - 12/28/2013 7:34 PM CDT Interrogation [...] pacing and sensing allWNL(see printout) Barbra Boone APRN-REGISTERED NURSE HH CASE MANAGER PROCEDURE/M INOR SURGICAL ORDERABLES Performing Organization Address [facility] Co de Phone Number [facility] * PROC ICD DEVICE CHECK (REMOTE) (09/19/2013 6:12 PM EEO OFFICER) Narrative [facility] - 09/19/2013 6:12 PM EEO OFFICER Carelink transmission reveals 727 V sensing episodes, [...] impedance, and sensing all WNL(seeprintout) Barbra Boone TUBE BUILDER AIRPLANE-REGISTERED NURSE HH CASE MANAGER PROCEDURE/M INOR SURGICAL ORDERABLES [facility] * PROC IMPLANT WEAR CARDIAC DEVICE EVAL (06/14/2013 6:23 PM CDT) Narrative [facility] - 06/14/2013 6:23 PM CDT Interrogation [...] PROCEDURE/M INOR SURGICAL ORDERABLES Performing Organization Address [facility] de Phone Number [facility] * PROC ICD DEVICE CHECK (REMOTE) (04/07/2013 5:47 PM CDT) Narrative [facility] - 04/07/2013 5:47 PM CDT Carelink [...] PROCEDURE/M INOR SURGICAL ORDERABLES Performing Organization Address [facility] de Phone Number [facility] * ECHO AV OPTIMIZATION (01/18/2013 8:16 [...] DEVICE EVAL (12/26/2012 3:17 PM CDT) Narrative [facility] - 12/26/2012 3:17 PM CDT Interrogation [...] PROCEDURE/MINOR SURG ICAL ORDERABLES Performing Organization Address [facility]/ZIP Co de Phone Number [facility] * PROC ICD DEVICE CHECK (REMOTE) (09/05/2012 1:20 PM EEO OFFICER) Narrative [facility] - 09/05/2012 1:20 PM EEO OFFICER Carelink transmission reveal 1 nonsustained VT10/12, 1 [...] impedance, sensing all WNL (seeprintout) Barbra Boone TUBE BUILDER AIRPLANE-REGISTERED NURSE HH CASE MANAGER PROCEDURE/M INOR SURGICAL ORDERABLES [facility] * PROC IMPLANT WEAR CARDIAC DEVICE EVAL (06/06/2012 2:50 PM CDT) Narrative [facility] - 06/06/2012 2:50 PM CDT Interrogation [...] sensingthresholds all WNL (see printout) Barbra Boone TUBE BUILDER AIRPLANE-REGISTERED NURSE HH CASE MANAGER PROCEDURE/M INOR SURGICAL ORDERABLES Performing Organization Address [facility] Co de Phone Number [facility] * PROC ICD DEVICE CHECK (REMOTE) (03/01/2012 5:48 PM CDT) Narrative [facility] - 03/01/2012 5:48 PM CDT Carelink transmission reveals no ventricular tachyarrhythmias. 4 AT/AF episodes, longest 63 min. (<0.1%). ??ASbiVP 7.5% SOkkTY09.3%. Battery voltage, charge time, lead impedance, sensing threshold all WNL(See printout) Procedure Note ProviderAdriana MD - 03/25/2018 Carelink transmission reveals no ventricular tachyarrhythmias. 4 AT/AFepisodes, longest 63 min. (<0.1%). ASbiVP 7.5% LGjaHV53.3%. Battery voltage, charge time, lead impedance, sensing threshold allWNL(See printout) Pat Silvestre MD PROCEDURE/MINOR SURG ICAL ORDERABLES Performing Organization Address [facility]/ZIP Co de Phone Number [facility] * PROC IMPLANT WEAR CARDIAC DEVICE EVAL (12/07/2011 4:43 PM EEO OFFICER) Narrative [facility] - 12/07/2011 4:43 PM EEO OFFICER Interrogation of Medtronic ICD reveals no new [...] Pat Silvestre MD PROCEDURE/MINOR SURG ICAL ORDERABLES [facility] * PROC IMPLANT WEAR CARDIAC DEVICE EVAL (06/08/2011 2:20 PM CDT) Narrative [facility] - 06/08/2011 2:20 PM CDT Procedure Note ProviderAdriana MD - 03/25/2018 Pat Silvestre MD PROCEDURE/MINOR SURG ICAL ORDERABLES [facility] Care Teams Filament Coil Winder Relationship Specialty Start Date End Date Ever Mercado MD [address] [phone] PCP - General 05/21/22
--- OUTSIDE RECORDS SUMMARY | 2024-11-16 12:15 | XMS_ITS | Encounter Summary ---
Author Organization [facility] Address [address] [facility] [address] Care Team Providers Care Jailer Name Role Phone Ever Mercado MD Primary Care Provider Reason for Visit * Reason Onset Date Comments Future Appointment 05/18/2024 Encounter Details Date Type Department Care Team (Late st Contact Info) Description 05/18/2024 Telephone [facility] - Cardiology [address] [phone] Pepe Meadows MD [id number] [place] [address] Future Appointment Social History Tobacco Use Types [...] st Contact Info) Description 11/23/2024 11:20 AM WOOL SACKER Office Visit [facility]iology [address], [address] [phone] Indiana Odonnell MD [address] [address] 01/11/2025 1:10 AM CDT Clinical Support [facility] [address], [address] [phone] 04/12/2025 1:00 AM CDT Clinical Support [facility] [address], [address] [phone] documented as of this encounter Visit Diagnoses Not on filedocumented in this encounter Care Teams Jailer Relationship Specialty Start Date End Date Ever Mercado MD [address] [phone] PCP - General 05/21/22 documented as of this encounter
--- OUTSIDE RECORDS SUMMARY | 2024-11-16 12:15 | XMS_ITS | Encounter Summary ---
Author Organization [facility] Address [address] [place] [address] Care Team Providers Care Vinyl Hanger Name Role Phone Evre Mercado MD Primary Care Provider Reason for Visit * Reason Onset Date Comments MEDICATION REFILL 01/28/2023 Encounter Details Date Type Department Care Team (Late st Contact Info) Description 01/28/2023 Refill [facility] [address] [address] Indiana Odonnell MD [address] [address] MEDICATION REFILL Social History Tobacco Use Types Packs/Day Years Used Date Smoking Tobacco: Never Smokeless Tobacco: Never Sex and Gender Information Value Date Recorded Sex Assigned at Not on file Gender Identity Not on file Sexual Orientation Not on file documented as of this encounter Plan of Treatment Upcoming Encounters Date Type Department Care Team (Late Contact Info) Description 11/23/2024 11:20 AM OPERATIONS MANAGER Office Visit [facility] [address], [address] [phone] Indiana Odonnell MD [address] [address] 01/11/2025 1:10 AM CDT Clinical Support [facility] [address] [facility] [place] [address] 04/12/2025 1:00 AM CDT Clinical Support [facility] - [facility] [address] [facility] [place] [address] documented as of this encounter Visit Diagnoses Not on filedocumented in this encounter Care Teams Vinyl Hanger Relationship Specialty Start Date End Date Ever Mercado MD [facility] [facility] [address] [place] [phone] PCP - General 05/21/22 documented as of this encounter
--- OUTSIDE RECORDS SUMMARY | 2024-11-16 12:15 | XMS_ITS | Encounter Summary ---
Author Organization [facility] Address [address] [place] [address] Care Team Providers Care Mechanical Applications Engineer Name Role Phone Ever Mercado MD Primary Care Provider Encounter Details Date Type Department Care Team (Late st Contact Info) Description 11/14/2024 External Device Data STL ABSTRACTION Provider, Abstract NO ADDRESS ON FILE Social History Tobacco Use Types Packs/Day Years Used Date Smoking Tobacco: Every Day Cigarettes 0.3 65 Smokeless Tobacco: Never Alcohol Use Standard Drinks/Week Comments Yes 0 (1 standard drink = 0.6 oz pur e alcohol) Sex and Gender Information Value Date Recorded Sex Assigned at Not on file Legal Sex Male 9:34 AM CDT Gender Identity Not on file Sexual Orientation Not on file documented as of this encounter Plan of Treatment Not on file documented as of this encounter Visit Diagnoses Not on filedocumented in this encounter Care Teams Mechanical Applications Engineer Relationship Specialty Start Date End Date Ever Mercado MD PCP - General Internal Medicine 08/03/23 documented as of this encounter
--- OUTSIDE RECORDS SUMMARY | 2024-11-16 12:15 | XMS_ITS | Clinical Summary ---
Author Organization [facility] Address [address] [place] [address] Care Team Providers Care Retail Department Supervisor Name Role Phone Ever Mercado MD Primary [...] Active Active Problems No known active problems Encounters Date Type Department Care Team Description 11/14/2024 External Device Data STL ABSTRACTION Provider, Abstract from Last 3 Months Family History Medical History Relation Name Comments [...] Comments Blood Pressure 103/55 09/03/2023 11:09 AM NETWORK SYSTEMS ENGINEER Pulse 81 09/03/2023 11:09 AM NETWORK SYSTEMS ENGINEER Temperature 36.4 ??C (97.6 ??F) 09/03/2023 11:[address] Respiratory Rate 10 09/03/2023 11:09 AM NETWORK SYSTEMS ENGINEER Oxygen Saturation 96% 09/03/2023 11:09 AM NETWORK SYSTEMS ENGINEER Inhaled Oxygen Concentration - - Weight 87.5 kg (193 lb) 09/03/2023 11:09 AM NETWORK SYSTEMS ENGINEER Height 180.3 cm (5' 11 ) 08/03/2023 [...] MEDICARE PART A AND B Care Teams Retail Department Supervisor Relationship Specialty Start Date End Date Ever Mercado MD PCP - General Internal Medicine 08/03/23
--- OUTSIDE RECORDS SUMMARY | 2024-11-16 12:15 | XMS_ITS | Referral Summary ---
Author Organization [facility] Address [address] [facility] [place] [address] Care Team Providers Care Compensation Agent Name Role Phone Ever Mercado MD Primary Care Provider Source Comments [facility],non-owned Affiliates and Associated Physician Practices is amultiple site organization consisting of ambulatory clinics and hospital sitesin [place], [place], [place] and [place]. This disclosure is being madepursuant to the Care Everywhere program and may not contain all information available regarding this patient. Last updated 18.[facility] Encounters Date Type Department Care Team Description 11/03/2024 Telephone [facility] [address], [address] [place] [phone] Taina Ronquillo, RN Update 11/03/2024 Telephone [facility] [address], [address] [place] [address] [place] Odonnell MD Hypotension 10/27/2024 Telephone [facility] [address], [address] [place] [address] Taina Ronquillo, RN Update 10/12/2024 1:10 AM READING AIDE Clinical Support [facility] [address], [address] [place] [phone] Ischemic cardiomyopathy 09/25/2024 Telephone [facility] [address] [facility] [place] [phone] Ronal Mcintosh MD Hospital Admission 09/13/2024 Travel 09/13/2024 10:00 AM READING AIDE Office Visit [facility] - Vascular Surgery [address] [facility] [place] [address] Kyra Lorenzana MD PAD (peripheral artery disease) (HCC) (Primary Dx) 08/21/2024 Travel 08/21/2024 12:35 PM READING AIDE - 08/21/2024 3:05 PM READING AIDE Surgery [facility] [address] [place] [address] Kyra Lorenzana MD DIAGNOSTIC LEFT LEG ANGIOGRAM 08/21/2024 2:17 PM READING AIDE Anesthesia Event [facility] [address] [place] [address] [facility], CUSTOM MARINE CANVAS FABRICATOR-[facility] 08/21/2024 10:32 AM READING AIDE - 08/21/2024 7:30 PM READING AIDE Hospital Encounter [facility] [address] [place] [address] Kyra Lorenzana MD Surgery General Discharge Disposition: [...] life of cardi ac resynchronization therapy defibrillator (CHIEF LIBRARIAN EXTENSION DEPARTMENT-D) 04/25/2024 Smoking 01/19/2018 Overview (05/02/2020): Overview: Few [...] Comments Blood Pressure 91/57 09/13/2024 10:14 AM READING AIDE Pulse 76 09/13/2024 10:14 AM READING AIDE Temperature 36.4 ??C (97.6 ??F) 09/13/2024 10:[address] Respiratory Rate 20 08/21/2024 7:00 PM READING AIDE Oxygen Saturation 96% 09/13/2024 10:14 AM READING AIDE Inhaled Oxygen Concentration - - Weight 88.6 kg (195 lb 6.4 oz) 09/13/2024 10:14 AM READING AIDE Height 177.8 cm (5' 10 ) 09/13/2024 10:14 AM READING AIDE Body Mass Index 28.04 09/13/2024 10:14 AM READING AIDE Functional Status Functional Status Response Date of [...] st Contact Info) Description 11/23/2024 11:20 AM READING AIDE Office Visit [facility] [phone] Indiana Odonnell MD [address] [place] [address] 01/11/2025 1:10 AM CDT Clinical Support [facility] [address] [place] [phone] 04/12/2025 1:00 AM CDT Clinical Support [facility] [address] [place] [phone] Medical Devices Implanted Type Area Casting Wheel Operator Device Identifier Shelf Expiration Date Model / Serial / Lot Env Defib 3.3x2.9in Aigisrx Icd Tyrx Lg - [id number] Implanted:Qty: 1 on 05/16/2024 by Pepe Meadows MD at [facility] N/A: Chest Wall [employer] [id number] 02/03/2025 [id number] / [id number] / [id number] Defib Cblt Surescan 13mm 57sq Cm 2 Chmbr - [id number] Implanted:Qty: 1 on 05/16/2024 by Pepe Meadows MD at [facility] Left: Chest Wall [employer] Cardiac Surgical [id number] 03/14/2025 [id number] / [id number] / NA Procedures Procedure Name Priority Date/Time Associated Diagnosis Comments NV PM/ICD REMOTE TECH SERV Routine 10/22/2024 7:07 PM READING AIDE Ischemic cardiomyopathy NV ICD DEVICE INTERROGAT REMOTE Routine 10/22/2024 7:07 PM READING AIDE Ischemic cardiomyopathy CARDIAC PROCEDURE ORDER 10/10/2024 FL MYRTLE W ANGIO TEAM Routine 08/21/2024 3:55 PM READING AIDE PAD (peripheral artery disease) (HCC) NV ANGIO EXTERMITY BILAT 08/21/2024 1:46 PM READING AIDE Peripheral artery disease (HCC) Case Notes KW 08/17 Special Needs Supine; C-Arm with Angio ordered ANESTHESIA: Local w/ IV sedation TYPE + SCREEN PANEL STAT 08/21/2024 11:34 AM READING AIDE Pre-op evaluation PT-INR [facility] STAT 08/21/2024 11:34 AM READING AIDE Pre-op evaluation from Last 3 Months Results * NV ICD DEVICE INTERROGAT REMOTE, NV PM/ICD REMOTE TECH SERV (10/22/2024 7:07 PM READING AIDE) Narrative Pepe Meadows MD - 10/22/2024 7:07 PM READING AIDE Pepe Meadows MD ? 10/22/2024 ??7:08 PM [...] Myrtle W Angio Team (08/21/2024 3:55 PM READING AIDE) Narrative [facility] - 08/21/2024 3:56 PM READING AIDE Fluoroscopy was used for this exam in the OR. Please see the Operative report. Kyra Lorenzana MD FLUOROSCOPY ORDERAB LES [facility] * (ABNORMAL) PT-INR [facility] (08/21/2024 11:34 AM READING AIDE) PT 18.2(H) 12.1 - 14.8 Seconds 08/21/2024 12:28 PM READING AIDE [facility] INR 1.5 See Comment 08/21/2024 12:28 PM READING AIDE [facility] Comment:The suggested therap eutic range for standard coumadin (warfarin) therapy is an INR of 2.0-3.0. For high-risk patients (Mechanical Mitral Valve Prosthesis, etc.), the suggested prophylactic therapeutic range is an INR of 2.5-3.5. Blood BLOOD SPECIMEN / Unknown Line Draw / Unknown 08/21/2024 11:34 AM READING AIDE 08/21/2024 11:46 AM READING AIDE Ashley Flores APRN-SLOT EDITOR LAB - COA GULATION ORDERABLES [facility] [address] [place] [phone], [facility] [phone] * TYPE + SCREEN PANEL (08/21/2024 11:34 AM READING AIDE) Antibody Screen NEG 12:28 PM READING AIDE [facility] ABO Rh O POS 08/21/2024 12:28 PM READING AIDE [facility] Blood Bank BLOOD SPECIMEN / Unknown Line Draw / Unknown 08/21/2024 11:34 AM READING AIDE 08/21/2024 11:45 AM READING AIDE Ashley Guo Sandra CUSTOM MARINE CANVAS FABRICATOR-SLOT EDITOR LAB - BLO OD BANK ORDERABLES Performing Organization Address City/State/[facility] Co de Phone Number [facility] [address] [place] [address], [facility] [phone] from Last 3 Months Advance Directives Documents on File Type Date Recorded Patient Building Construction Ironworker Expl anation Adv Directive/Living Will/POA 01/27/2017 * Full Code (Latest Code Status on File) Date Activated Date Inactivated Comments 05/16/2024 10:08 AM 05/16/2024 1:06 PM Care Teams Compensation Agent Relationship Specialty Start Date End Date Ever Mercado MD [address] [phone] PCP - General 05/21/22
--- OUTSIDE RECORDS SUMMARY | 2024-11-16 12:15 | XMS_ITS | CONTINUITY OF CARE DOCUMENT ---
Author Name brandt carlton Address Unknown Organization [facility] Address [address] [facility] [address] [place] [address] Phone [phone] Care Team Providers Care Coater Hand Name Role Phone Abram PHOENIX, Jay Unavailable CANDACE PHOENIX, ELIO Unavailable INSURANCE PROVIDERS Payer name Policy type / Coverage type [place] party ID [place] Medicare [id number] UNICARE Other [id number]
== END 2024-11-16 11:18 | disposition home or self-care (01) ==
PROVIDERS: Visit Provider Internal Medicine
DX: I48.21 Permanent atrial fibrillation (principal)
CPT/HCPCS: 85610

== ENCOUNTER 2024-11-20 13:26 | Outpatient (NON) | payer MEDICARE, SELFPAY ==
[2024-11-20 14:17] LABS: INR 2.1; Prothrombin Time 23.8 Seconds (11.1-14.7)
--- OUTSIDE RECORDS SUMMARY | 2024-11-20 14:26 | XMS_ITS | Referral Summary ---
Author Organization [facility] Address [address] [place] [address] Care Team Providers Care Mds Nurse Name Role Phone Ever Mercado MD Primary Care Provider Source Comments [facility],non-owned Affiliates and Associated Physician Practices is amultiple site organization consisting of ambulatory clinics and hospital sitesin [place], [place] and [place]. This disclosure is being madepursuant to the Care Everywhere program and may not contain all information available regarding this patient. Last updated 18.[facility] Encounters Date Type Department Care Team Description 11/03/2024 Telephone [facility] - Cardiology [address], [place] [address] [phone] Taina Ronquillo, RN Update 11/03/2024 Telephone [facility] [address], [place] [address] [place] [phone] [place] Odonnell MD Hypotension 10/27/2024 Telephone [facility] [address], [place] [address] [place] [address] Taina Ronquillo, RN Update 10/12/2024 1:10 AM CABLE TELEVISION TECHNICIAN Clinical Support [facility] [address], [place] [address] [place] [phone] Ischemic cardiomyopathy 09/25/2024 Telephone [facility]iology [address] [facility], [place] [address] [place] [phone] Ronal Mcintosh MD Hospital Admission 09/13/2024 Travel 09/13/2024 10:00 AM CABLE TELEVISION TECHNICIAN Office Visit [facility] - Vascular Surgery [address] [facility], [place] [address] Kyra Lorenzana MD PAD (peripheral artery disease) (HCC) (Primary Dx) 08/21/2024 Travel 08/21/2024 12:35 PM CABLE TELEVISION TECHNICIAN - 08/21/2024 3:05 PM CABLE TELEVISION TECHNICIAN Surgery [facility] [address] [place] [address] Kyra Lorenzana MD DIAGNOSTIC LEFT LEG ANGIOGRAM 08/21/2024 2:17 PM CABLE TELEVISION TECHNICIAN Anesthesia Event [facility] [address] [place] [address] [facility] [employer] OPERATOR-[facility] 08/21/2024 10:32 AM CABLE TELEVISION TECHNICIAN - 08/21/2024 7:30 PM CABLE TELEVISION TECHNICIAN Hospital Encounter [facility] [address] [place] [address] Kyra Lorenzana MD Surgery General Discharge Disposition: [...] life of cardi ac resynchronization therapy defibrillator (MANUAL QA TESTER-D) 04/25/2024 Smoking 01/19/2018 Overview (05/02/2020): Overview: Few [...] Comments Blood Pressure 91/57 09/13/2024 10:14 AM CABLE TELEVISION TECHNICIAN Pulse 76 09/13/2024 10:14 AM CABLE TELEVISION TECHNICIAN Temperature 36.4 ??C (97.6 ??F) 09/13/2024 10:[address] Respiratory Rate 20 08/21/2024 7:00 PM CABLE TELEVISION TECHNICIAN Oxygen Saturation 96% 09/13/2024 10:14 AM CABLE TELEVISION TECHNICIAN Inhaled Oxygen Concentration - - Weight 88.6 kg (195 lb 6.4 oz) 09/13/2024 10:14 AM CABLE TELEVISION TECHNICIAN Height 177.8 cm (5' 10 ) 09/13/2024 10:14 AM CABLE TELEVISION TECHNICIAN Body Mass Index 28.04 09/13/2024 10:14 AM CABLE TELEVISION TECHNICIAN Functional Status Functional Status Response Date of [...] st Contact Info) Description 11/23/2024 11:20 AM CABLE TELEVISION TECHNICIAN Office Visit [facility] [address] [phone] Indiana Odonnell MD [address] [place] [address] 01/11/2025 1:10 AM CDT Clinical Support [facility] - Cardiology [address] [place] [phone] 04/12/2025 1:00 AM CDT Clinical Support [facility] - Cardiology [address] [place] [phone] Medical Devices Implanted Type Area Buffet Manager Device Identifier Shelf Expiration Date Model / Serial / Lot Env Defib 3.3x2.9in Aigisrx Icd Tyrx Lg - [id number] Implanted:Qty: 1 on 05/16/2024 by Pepe Meadows MD at [facility] N/A: Chest Wall [employer] [id number] 02/03/2025 [id number] / [id number] / [id number] Defib Cblt Surescan 13mm 57sq Cm 2 Chmbr - [id number] Implanted:Qty: 1 on 05/16/2024 by Pepe Meadows MD at [facility] Left: Chest Wall [employer] [id number] 03/14/2025 [id number] / [id number] / NA Procedures Procedure Name Priority Date/Time Associated Diagnosis Comments ME PM/ICD REMOTE TECH SERV Routine 10/22/2024 7:07 PM CABLE TELEVISION TECHNICIAN Ischemic cardiomyopathy ME ICD DEVICE INTERROGAT REMOTE Routine 10/22/2024 7:07 PM CABLE TELEVISION TECHNICIAN Ischemic cardiomyopathy CARDIAC PROCEDURE ORDER 10/10/2024 FL MYRTLE W ANGIO TEAM Routine 08/21/2024 3:55 PM CABLE TELEVISION TECHNICIAN PAD (peripheral artery disease) (HCC) ME ANGIO EXTERMITY BILAT 08/21/2024 1:46 PM CABLE TELEVISION TECHNICIAN Peripheral artery disease (HCC) Case Notes KW 08/17 Special Needs Supine; C-Arm with Angio ordered ANESTHESIA: Local w/ IV sedation TYPE + SCREEN PANEL STAT 08/21/2024 11:34 AM CABLE TELEVISION TECHNICIAN Pre-op evaluation PT-INR [facility] STAT 08/21/2024 11:34 AM CABLE TELEVISION TECHNICIAN Pre-op evaluation from Last 3 Months Results * ME ICD DEVICE INTERROGAT REMOTE, ME PM/ICD REMOTE TECH SERV (10/22/2024 7:07 PM CABLE TELEVISION TECHNICIAN) Narrative Pepe Meadows MD - 10/22/2024 7:07 PM CABLE TELEVISION TECHNICIAN Pepe Meadows MD ? 10/22/2024 ??7:08 PM [...] Myrtle W Angio Team (08/21/2024 3:55 PM CABLE TELEVISION TECHNICIAN) Narrative [facility] - 08/21/2024 3:56 PM CABLE TELEVISION TECHNICIAN Fluoroscopy was used for this exam in the OR. Please see the Operative report. Kyra Lorenzana MD FLUOROSCOPY ORDERAB LES [facility] * (ABNORMAL) PT-INR [facility] (08/21/2024 11:34 AM CABLE TELEVISION TECHNICIAN) PT 18.2(H) 12.1 - 14.8 Seconds 08/21/2024 12:28 PM CABLE TELEVISION TECHNICIAN [facility] INR 1.5 See Comment 08/21/2024 12:28 PM CABLE TELEVISION TECHNICIAN [facility] Comment:The suggested therap eutic range for standard coumadin (warfarin) therapy is an INR of 2.0-3.0. For high-risk patients (Mechanical Mitral Valve Prosthesis, etc.), the suggested prophylactic therapeutic range is an INR of 2.5-3.5. Blood BLOOD SPECIMEN / Unknown Line Draw / Unknown 08/21/2024 11:34 AM CABLE TELEVISION TECHNICIAN 08/21/2024 11:46 AM CABLE TELEVISION TECHNICIAN Ashley Flores APRN-ADULT NEUROPSYCHOLOGIST LAB - COA GULATION ORDERABLES [facility] [address] [place] [phone], [facility] [phone] * TYPE + SCREEN PANEL (08/21/2024 11:34 AM CABLE TELEVISION TECHNICIAN) Antibody Screen NEG 12:28 PM CABLE TELEVISION TECHNICIAN [facility] ABO Rh O POS 08/21/2024 12:28 PM CABLE TELEVISION TECHNICIAN [facility] Blood Bank BLOOD SPECIMEN / Unknown Line Draw / Unknown 08/21/2024 11:34 AM CABLE TELEVISION TECHNICIAN 08/21/2024 11:45 AM CABLE TELEVISION TECHNICIAN Ashley Guo Sandra [employer] H[employer] OPERATOR-ADULT NEUROPSYCHOLOGIST LAB - BLO OD BANK ORDERABLES Performing Organization Address City/State/[facility] Co de Phone Number [facility] [address] [place] [address], [facility] [phone] from Last 3 Months Advance Directives Documents on File Type Date Recorded Patient Stock Selector Expl anation Adv Directive/Living Will/POA 01/27/2017 * Full Code (Latest Code Status on File) Date Activated Date Inactivated Comments 05/16/2024 10:08 AM 05/16/2024 1:06 PM Care Teams Mds Nurse Relationship Specialty Start Date End Date Ever Mercado MD [address] [phone] PCP - General 05/21/22
--- OUTSIDE RECORDS SUMMARY | 2024-11-20 14:26 | XMS_ITS | Encounter Summary ---
Author Organization [facility] Address [address] [facility] [address] Care Team Providers Care Quality Rep Name Role Phone Ever Mercado MD Primary Care Provider Reason for Visit * Reason Onset Date Comments Future Appointment 05/18/2024 Encounter Details Date Type Department Care Team (Late st Contact Info) Description 05/18/2024 Telephone [facility] [address] [phone] Pepe Meadows MD [phone] [place] [address] Future Appointment Social History Tobacco Use Types [...] st Contact Info) Description 11/23/2024 11:20 AM VAT PACKER Office Visit [facility] [address], [address] [phone] Indiana Odonnell MD [address] [address] 01/11/2025 1:10 AM CDT Clinical Support [facility] [address], [address] [phone] 04/12/2025 1:00 AM CDT Clinical Support [facility] [address], [address] [phone] documented as of this encounter Visit Diagnoses Not on filedocumented in this encounter Care Teams Quality Rep Relationship Specialty Start Date End Date Ever Mercado MD [address] [phone] PCP - General 05/21/22 documented as of this encounter
--- OUTSIDE RECORDS SUMMARY | 2024-11-20 14:26 | XMS_ITS | Patient Health Summary ---
Author Organization [facility] Address [address] [place] [address] Care Team Providers Care Clinical Practitioner Name Role Phone Ever Mercado MD Primary Care Provider Note from [facility],non-owned Affiliates and Associated Physician Practices is amultiple site organization consisting of ambulatory clinics and hospital sitesin [place], [place], [place] and [place]. This disclosure is being madepursuant to the Care Everywhere program and may not contain all information available regarding this patient. Last updated 18.[facility] Allergies * Cecilio Inhibitors(Cough) * Cephalexin(Urticaria,Itching) -Medium [...] life of cardi ac resynchronization therapy defibrillator (REPORT ANALYST-D) 04/25/2024 Smoking 01/19/2018 Paroxysmal atrial fibrillation 01/16/2017 [...] Comments Blood Pressure 91/57 09/13/2024 10:14 AM MOVER Pulse 76 09/13/2024 10:14 AM MOVER Temperature 36.4 ??C (97.6 ??F) 09/13/2024 10:[address] Respiratory Rate 20 08/21/2024 7:00 PM MOVER Oxygen Saturation 96% 09/13/2024 10:14 AM MOVER Inhaled Oxygen Concentration - - Weight 88.6 kg (195 lb 6.4 oz) 09/13/2024 10:14 AM MOVER Height 177.8 cm (5' 10 ) 09/13/2024 10:14 AM MOVER Body Mass Index 28.04 09/13/2024 10:14 AM MOVER Medical Devices Implanted Type Area Occupational Therapist Rehab Manager Device Identifier Shelf Expiration Date Model / Serial / Lot Env Defib 3.3x2.9in Aigisrx Icd Tyrx Lg - [id number] Implanted:Qty: 1 on 05/16/2024 by Pepe Meadows MD at [facility] N/A: Chest Wall [employer] [id number] 02/03/2025 [id number] / [id number] / [id number] Defib Cblt Surescan 13mm 57sq Cm 2 Chmbr - [id number] Implanted:Qty: 1 on 05/16/2024 by Pepe Meadows MD at [facility] Left: Chest Wall Medtronic Cardiac Surgical [id number] 03/14/2025 [id number] / [id number] / NA Procedures * CO PM/ICD REMOTE TECH SERV(Performed 10/22/2024) Performed for Ischemic cardiomyopathy * CO ICD DEVICE INTERROGAT REMOTE(Performed 10/22/2024) Performed for Ischemic cardiomyopathy * CARDIAC PROCEDURE ORDER(Performed 10/10/2024) * FL MYRTLE W ANGIO TEAM(Performed 08/21/2024) Performed for PAD (peripheral artery disease) ([facility]) * CO ANGIO EXTERMITY BILAT(Performed 08/21/2024) Performed for Peripheral artery disease ([facility]) * TYPE + SCREEN PANEL(Performed 08/21/2024) Performed for Pre-op evaluation * PT-INR [facility](Performed 08/21/2024) Performed for Pre-op evaluation * TYPE + SCREEN PANEL(Performed 08/10/2024) Performed for Pre-op evaluation * CBC W AUTO DIFFERENTIAL(Performed 08/10/2024) Performed for Pre-op evaluation * BASIC METABOLIC PANEL (CALCIUM TOTAL)(Performed 08/10/2024) Performed for Pre-op evaluation * CULTURE WOUND+GRAM STAIN(Performed 07/26/2024) Performed for PAD (peripheral artery disease) ([facility]) * CARDIAC PROCEDURE ORDER(Performed 07/11/2024) * ELECTROPHYSIOLOGY PROCEDURE(Performed 05/16/2024) Performed for End of battery life of cardiac resynchronization therapy defibrillator (REPORT ANALYST-D), Sustained VT (ventricular tachycardia) ([facility]), Ischemic cardiomyopathy * BLOOD TYPE VERIFICATION(Performed 05/16/2024) * TYPE + SCREEN PANEL(Performed 05/16/2024) * PT-INR [facility](Performed 05/16/2024) Performed for End of battery life of cardiac resynchronization therapy defibrillator (REPORT ANALYST-D), Ischemic cardiomyopathy, Coronary artery disease involving [place] coronary artery of [place] heart withoutangina pectoris, Atrial flutter, unspecified type ([facility]) * BASIC METABOLIC PANEL (CALCIUM TOTAL)(Performed 05/16/2024) Performed for End of battery life of cardiac resynchronization therapy defibrillator (REPORT ANALYST-D), Ischemic cardiomyopathy, Coronary artery disease involving [place] coronary artery of [place] heart withoutangina pectoris, Atrial flutter, unspecified type ([facility]) * CBC W AUTO DIFFERENTIAL(Performed 05/01/2024) Performed for End of battery life of cardiac resynchronization therapy defibrillator (REPORT ANALYST-D), HFrEF(heart failure with reduced ejection fraction) ([facility]), Sustained VT (ventricular tachycardia) (HCC),Ischemic cardiomyopathy * PT-INR(Performed 05/01/2024) Performed for End of battery life of cardiac resynchronization therapy defibrillator (REPORT ANALYST-D), HFrEF(heart failure with reduced ejection fraction) (HCC), [...] PROCEDURE ORDER(Performed 10/14/2023) * AMB REFERRAL TO FORMING DEPARTMENT SUPERVISOR(Performed 09/21/2023) Performed for Abnormal PFTs * EYE EXAM(Performed 09/16/2023) * CARDIAC PROCEDURE ORDER(Performed 08/27/2023) * CO ICD DEVICE INTERROGATE IN PERSON(Performed 06/22/2023) Performed for Chronic combined systolic and diastolic congestive heart failure (HCC), Ischemic cardiomyopathy, ICD (implantable cardioverter-defibrillator) in place * PFT-LAB(Performed 06/17/2023) Performed for Coronary artery disease involving [place] coronary artery of [place] heart without angina pectoris * ECHO COMPLETE [...] unspecified type (HCC), Coronary artery disease involving [place] coronary artery of [place] heart without angina pectoris, Essential hypertension, Ischemic [...] PM/ICD REMOTE TECH SERV (10/22/2024 7:07 PM MOVER) Narrative Pepe Meadows MD - 10/22/2024 7:07 PM MOVER Pepe Meadows MD ? 10/22/2024 ??7:08 PM [...] Myrtle W Angio Team (08/21/2024 3:55 PM MOVER) Narrative [facility] - 08/21/2024 3:56 PM MOVER Fluoroscopy was used for this exam in the OR. Please see the Operative report. Kyra Lorenzana MD FLUOROSCOPY ORDERAB LES [facility] * (ABNORMAL) PT-INR [facility] (08/21/2024 11:34 AM MOVER) Only the most recent of3 resultswithin the time period is included. PT 18.2(H) 12.1 - 14.8 Seconds 08/21/2024 12:28 PM MOVER [facility] INR 1.5 See Comment 08/21/2024 12:28 PM MOVER [facility] Comment:The suggested therap eutic range for standard coumadin (warfarin) therapy is an INR of 2.0-3.0. For high-risk patients (Mechanical Mitral Valve Prosthesis, etc.), the suggested prophylactic therapeutic range is an INR of 2.5-3.5. Blood BLOOD SPECIMEN / Unknown Line Draw / Unknown 08/21/2024 11:34 AM MOVER 08/21/2024 11:46 AM MOVER [facility] - COA GULATION ORDERABLES Performing Organization Address City/[facility]/ZIP Co de Phone Number [facility] [address] [place] [phone], [facility] [phone] * TYPE + SCREEN PANEL (08/21/2024 11:34 AM MOVER) Only the most recent of3 resultswithin the time period is included. Pathologist [facility] Antibody Screen NEG 12:28 PM MOVER [facility] ABO Rh O POS 08/21/2024 12:28 PM MOVER [facility] Blood Bank BLOOD SPECIMEN / Unknown Line Draw / Unknown 08/21/2024 11:34 AM MOVER 08/21/2024 11:45 AM MOVER [facility] - BLO OD BANK ORDERABLES Performing Organization Address [facility] de Phone Number [facility] [address] [place] [phone], [facility] [phone] * (ABNORMAL) CBC W/ DIFFERENTIAL (08/10/2024 1:47 PM CDT) Only the most recent of4 resultswithin the time period is included. WBC 7.8 4.0 - 10.7 x10E9/L 08/10/2024 2:10 PM CDT [facility] RBC Count 4.21(L) 4.30 - 5.80 x10E12/L 08/10/2024 2:10 PM CDT [facility] Hemoglobin 12.7(L) 13.3 - 17.5 g/dL 08/10/2024 2:10 PM CDT [facility] Hematocrit 39.0 38.7 - 51.1 % 08/10/2024 2:10 PM [facility] MCV 92.6 80.0 - 98.0 fL 08/10/2024 2:10 PM [facility] MCH 30.2 26.7 - 33.6 pg 08/10/2024 2:10 PM [facility] MCHC 32.6 31.7 - 36.3 g/dL 08/10/2024 2:10 PM [facility] RDW-CV 14.4 11.3 - 14.8 % 08/10/2024 2:10 PM [facility] Platelet Count 124(L) 150 - 420 x10E9/L 08/10/2024 2:10 PM [facility] MPV 11.5(H) 7.8 - 11.4 fL 08/10/2024 2:10 PM [facility] Neutrophil % 75.7(H) 41.0 - 74.0 % 08/10/2024 2:10 PM [facility] Lymphocyte % 15.3(L) 17.0 - 47.0 % 08/10/2024 2:10 PM [facility] Monocyte % 6.3 3.0 - 11.0 % 08/10/2024 2:10 PM [facility] Eosinophil % 1.3 0.0 - 7.0 % 08/10/2024 2:10 PM [facility] Basophil % 1.0 0.0 - 1.6 % 08/10/2024 2:10 PM [facility] Immature Granulocytes % 0.4 0.0 - 1.0 % 08/10/2024 2:10 PM [facility] Neutrophil Absolute 5.89 1.60 - 7.50 x10E9/L 08/10/2024 2:10 PM [facility] Lymphocyte Absolute 1.19 1.00 - 4.40 x10E9/L 08/10/2024 2:10 PM [facility] Monocyte Absolute 0.49 0.15 - 1.00 x10E9/L 08/10/2024 2:10 PM [facility] Eosinophil Absolute 0.10 0.00 - 0.60 x10E9/L 08/10/2024 2:10 PM [facility] Basophil Absolute 0.08 0.00 - 0.13 x10E9/L 08/10/2024 2:10 PM [facility] Blood BLOOD SPECIMEN / Unknown Lab Venipuncture / Unknown 08/10/2024 1:47 PM CDT 08/10/2024 1:56 PM CDT Ashley Flores TEXTILE CHEMIST-SLOT TAG INSERTER LAB - HEM ATOLOGY ORDERABLES [facility] [address] [place] [address], [facility] [phone] * (ABNORMAL) BASIC METABOLIC PANEL (CALCIUM TOTAL) (08/10/2024 1:47 PM CDT) Only the most recent of2 resultswithin the time period is included. BUN 14 7 - 26 mg/dL 08/10/2024 2:23 PM [facility] Creatinine 0.90 0.71 - 1.16 mg/dL 08/10/2024 2:23 PM [facility] Sodium 141 136 - 145 mmol/L 08/10/2024 2:23 PM [facility] Potassium 4.4 3.5 - 4.5 mmol/L 08/10/2024 2:23 PM [facility] Chloride 109(H) 98 - 107 mmol/L 08/10/2024 2:23 PM [facility] CO2 26 22 - 29 mmol/L 08/10/2024 2:23 PM [facility] Glucose 104(H) 70 - 99 mg/dL 08/10/2024 2:23 PM [facility] Calcium 8.8 8.4 - 10.2 mg/dL 08/10/2024 2:23 PM [facility] Anion Gap 6 6 - 16 08/10/2024 2:23 PM [facility] BUN/Creatinine Ratio 16 7 - 23 08/10/2024 2:23 PM [facility] Osmolality Calculated 293 275 - 295 mOsm/kg 08/10/2024 2:23 PM CDT [facility] eGFR by CKD-EPI 84(L) >=90 mL/min/1.7 3 m2 08/10/2024 2:23 PM CDT [facility] Blood BLOOD SPECIMEN / Unknown Lab Venipuncture / Unknown 08/10/2024 1:47 PM CDT 08/10/2024 1:55 PM CDT Ashley Flores APRN-SLOT TAG INSERTER LAB - PERLA MARIELENA ORDERABLES [facility] [address] [place] [address], [facility] [phone] * CULTURE WOUND+GRAM STAIN (07/26/2024 5:03 PM CDT) Culture Rare normal skin teresa LORA 07/29/2024 5:06 AM CDT [facility] Gram Stain No organisms seen 024 5:06 AM CDT [facility] Gram Stain No polymorphonuclear cells 07/29/2024 5:06 AM CDT [facility] Microbiology ULCER / Unknown Collection / Unknown 07/26/2024 5:03 PM CDT 07/26/2024 5:03 PM CDT Kyra Lorenzana MD LAB - MICROBIOLOGY ORDERABLES Performing Organization Address City/[facility]/ZIP Co de Phone Number [facility] [address] [place] [address], [facility] [phone] * CCL ICD BIVENTRICULAR GENERATOR REPLACEMENT (05/16/2024 [...] performed with direct participation of the staff home health care provider, Dr Meadows, who was present and scrubbed for the entire case Procedures performed: 1. BiV ICD generator change Indications: 1. Battery at PRE SALES NETWORK ENGINEER Procedure time: 41 min Fluoroscopic time: 0 [...] The device was wirelessly interrogated through the tool programmer. Hemostasis was assured one last time and the pocket closed. The pectoral fascia was closed with 2-0 Vicryl?? in a running fashion. The subcutaneous and subcuticular layers were closed with 3-0 and 4-0 Vicryl?? using a running stitch. Steri- strips?? were used for skin closure. Sponge and needle counts were correct at the end. Generator: Debt Resolve Model: [id number] SN: [id number] Atrial lead: Implanted 05/28/2011 Model: [id number] SN: [id number] Right Ventricular: Implanted 05/28/2011 Model: [id number] SN: [id number] Left Ventricular: Implanted 05/28/2011 Model: [id number] SN [id number] Measured data: Amplitude: Threshold @ 0.5 ms: [...] TYPE VERIFICATION (05/16/2024 8:03 AM CDT) Pathologist [facility] ABO Rh O POS 05/16/2024 8:3 0 AM CDT [facility] Blood Bank BLOOD SPECIMEN / Unknown Venipuncture / Unknown 05/16/2024 8:03 AM CDT 05/16/2024 8:06 AM CDT Pepe Meadows MD LAB - BLOOD BANK ORD ERABLES [facility] [address] [place] [address], [facility] [phone] * (ABNORMAL) PT-INR (05/01/2024 3:55 PM CDT) Pathologist [facility] INR 2.2(H) [facility] Comment: Reference Range ? 0.9-1.1 Moderate-intensity Warfarin Therapy 2.0-3.0 Higher-intensity Warfarin Therapy ?? 3.0-4.0 PT 22.1(H) 9.0 - 11.5 sec [facility] Comment: For additional information, please refer to http://[email or web address] Flow/faq/MEK212 (This link is being provided for informational/ educational purposes only.) Test Performed at: [facility] [place], [place] ??[phone] INDRA RODRIGUEZ MD Blood BLOOD SPECIMEN / Unknown 05/01/2024 3:55 PM CDT 05/01/2024 3:56 PM CDT Pepe Meadows MD LAB - COAGULATION OR DERABLES [facility] [address] [place] [address] * ECHO COMPLETE W CONTRAST (03/30/2024 8:48 AM CDT) Only the most recent of2 resultswithin the time period is included. BSA 2.6497476 m2 [facility] CV FUJ I PACS LV [...] P vein S/D ratio 2.08 [facility] pk gloria 0.90 m/s [facility] CV F U PACS LVOT mn gloria 0.54 m/s [facility] CV F UJI PACS LVOT mn grad 1.4 mmHg [facility] LVOT Cardiac Output 3.458 l/min [facility] LVOT Cardiac Index 1.71 l/min/m2 [facility] LA vol BP A-L 106.192 mL [facility] P[facility] RVIDd 3.3 cm [facility] CV [facility] I PACS RVOT VTI 10.159 cm [facility] CV [facility] I PACS RVOT pk gloria 0.61 m/s [facility] CV F U PACS AV mn grad 4 mmHg [facility] CV FU JI PACS AV pk grad 8 mmHg [facility] CV FU JI PACS AV mn gloria 0.91 m/s [facility] CV [facility] I PACS AV pk gloria 1.40 m/s [facility] CV [facility] I PACS AV VTI 24.897 cm [facility] CV [facility] I PACS LVOT pk grad 3.241 mmHg [facility] LVOT VTI 15.337 cm [facility] CV [facility] I PACS AV area cont VTI 1.9 cm2 [facility] CV [facility] PACS AV area pk gloria 2.0 cm2 [facility] C V [facility] PACS AV Doppler gloria index pk gloria 0.645 [facility] CV [facility] PACS Dimensionless Index 0.616 [facility] MR VTI 187.389 cm [facility] CV [facility] I PACS MV pk gloria regurg 477.177 cm/s [facility] CV [facility] PACS MV mn grad 2 mmHg [facility] CV FU JI PACS MV pk grad 6 mmHg [facility] CV FU JI PACS MV mn gloria 0.62 m/s [facility] CV [facility] I PACS MV pk gloria 124.705 cm/s [facility] CV [facility] I PACS MV PHT 53 ms [facility] CV [facility] I PACS MV area PHT 4.11 cm2 [facility] CV F U PACS MV area cont eq 2.55 cm2 [facility] MV VTI 18.991 cm [facility] CV [facility] I PACS MV decel slope [...] Index 54 ml/m2 [facility] CV FUJI PACS [id number] 8.398 cm [facility] CV FUJ I PACS [id number] 9.437 cm [facility] CV FUJ I PACS [...] Martínez MD - 01/26/2024 12:56 PM CDT [facility] DEPARTMENT OF PULMONARY, CRITICAL CARE, AND [...] the fellow. Mir Martínez MD Narrative Mir aMrtínez MD - 01/26/2024 12:56 PM CDT Uvaldo Velazquez MD ? 01/27/2024 ??9:14 AM Lilly Delvalle MD PFT ORDERABLES * (ABNORMAL) Six Minute Walk Test [facility] PFT [facility] (01/26/2024 12:56 PM CDT) Impressions Mir Martínez MD - 01/26/2024 12:56 PM CDT [facility] DEPARTMENT OF PULMONARY, CRITICAL CARE, AND [...] DATE/TIME OF EXAM: ??01/26/2024 11:01 AM, LOCATION [facility] INDICATION: R94.2: Abnormal PFTs COMPARISON: None. [...] intact. > Dictated by Cristi Rivera DO (Plumbing Hardware Assembler) Juan F Arellano MD have personally reviewed and interpreted this examination/study. > Interpreting Provider: Juan F Mckeon MD on 01/27/2024 11:32 PM Procedure Note Juan F Mckeon MD - 04/11/2024 PROCEDURE: XR CHEST 2VW, DATE/TIME OF EXAM: 01/26/2024 11:01 AM, LOCATION [facility] INDICATION: R94.2: Abnormal PFTs COMPARISON: None. [...] intact. > Dictated by Cristi Rivera DO (Plumbing Hardware Assembler) IJuan F MD have personally reviewed and interpreted this examination/study. > Interpreting Provider: Juan F Mckeon MD on 01/27/2024 11:32 PM Lilly Delvalle MD DIAGNOSTIC IMAG ING ORDERABLES * Ref to Home Help Aide - [facility] (09/21/2023 12:54 PM MOVER) Indiana Odonnell MD OUTPATIENT REFERRALS * EYE EXAM (09/16/2023) Anatomical Region Laterality Modality Other Narrative 09/16/2023 Ordered by an unspecified provider. Scanned Document SCANNING ONLY * CO ICD DEVICE INTERROGATE IN PERSON (06/22/2023 11:57 AM CDT) Narrative Fiona Lanier APRN-CNP - 06/22/2023 11:57 AM CDT Fiona Lanier APRN-CNP ? 06/22/2023 12:02 PM See progress note. Fiona FUENTES PROCEDURE/IL NOR SURGICAL ORDERABLES * Complete PFT [facility] PFT Lab (06/17/2023 4:42 PM CDT) Impressions [facility] - 06/17/2023 4:42 PM CDT [facility] DEPARTMENT OF PULMONARY, CRITICAL CARE, AND [...] of Pulmonary, Critical Care, and Sleep Medicine [facility] I have personally reviewed and agree with the fellow's interpretation. Jone Meier MD Narrative [facility] - 06/17/2023 4:42 PM CDT Fred Thompson, DO ? 06/18/2023 ??9:44 AM Indiana Odonnell MD RESPIRATORY THERAPY ORDERABLES Performing Organization Address City/State/[place] Co de Phone Number [facility] [address] [place] [address], [facility] * CO ICD DEVICE INTERROGAT REMOTE, CO [...] have any further questions. ?? Sincerely, Pepe aSleem [facility] 04/10/2023 Pepe Meadows MD PROCEDURE/MINOR SURG ICAL [...] any further questions. ?? Sincerely, Pepe Saleem [facility] 12/30/2022 Indinaa Odonnell MD PROCEDURE/MINOR SURG ICAL ORDERABLES * CO PM/ICD REMOTE TECH SERV, CO ICD DEVICE INTERROGAT REMOTE (10/04/2022 9:40 PM MOVER) Narrative Geneva Suazo MD - 10/04/2022 9:40 PM MOVER Geneva Suazo MD ? 10/04/2022 ??9:49 PM Doc Zhou is undergoing remote device monitoring. ?? Interrogation of patient's ICD was performed with results as follows: ?? Device: ??Medtronic Amplia CRTD ?? Mode: DDDR 75-120 bpm ?? Presenting EGM: Atrial paced, biventricular paced ?? Battery Estimated longevity 19 months. ?? Percent Paced: Total PRINTED CIRCUIT BOARD ASSEMBLER ? 98.8% (MVP Off) -PRINTED CIRCUIT BOARD ASSEMBLER ?0.3% AP-VS ?0.8% AP-PRINTED CIRCUIT BOARD ASSEMBLER ?98.9% ?? Sensing: ??P-waves 1.4 mV; R-waves [...] not hesitate to contact me. Fiona FUENTES PROCEDURE/IL NOR SURGICAL ORDERABLES * CO ICD DEVICE INTERROGATE IN PERSON (06/25/2022 1:25 PM CDT) Narrative Fiona Lanier APRN-CNP - 06/25/2022 1:25 PM CDT Fiona Lanier APRN-CNP ? 06/25/2022 ??1:25 PM See progress note. Fiona FUENTES PROCEDURE/IL NOR SURGICAL ORDERABLES * CO ICD DEVICE INTERROGAT REMOTE, CO PM/ICD REMOTE TECH SERV (05/11/2022 9:31 AM CDT) Narrative Fiona Lanier APRN-CNP - 05/11/2022 9:31 AM CDT Fiona Lanier APRN-CNP ? 05/11/2022 ??9:37 AM Doc Zohu is undergoing remote device monitoring. ?? Interrogation [...] not hesitate to contact me. Fiona FUENTES PROCEDURE/IL NOR SURGICAL ORDERABLES * CO ICD DEVICE [...] hesitate to contact me. Fiona Lanier APRN-RODDY PROCEDURE/IL NOR SURGICAL ORDERABLES * CO ICD DEVICE INTERROGAT REMOTE, CO PM/ICD REMOTE TECH SERV (09/22/2021 2:33 PM MOVER) Narrative Fiona Lanier, HELENA-RODDY - 09/22/2021 2:33 PM MOVER Fiona Lanier, HELENA-RODDY ? 09/22/2021 ??2:45 PM [...] not hesitate to contact me. Fiona FUENTES PROCEDURE/IL NOR SURGICAL ORDERABLES * CO ICD DEVICE [...] not hesitate to contact me. Fiona FUENTES PROCEDURE/IL NOR SURGICAL ORDERABLES * CO ICD DEVICE [...] not hesitate to contact me. Fiona FUENTES PROCEDURE/IL NOR SURGICAL ORDERABLES * CO ICD DEVICE INTERROGAT REMOTE, CO PM/ICD REMOTE TECH SERV (11/25/2020 2:23 PM MOVER) Narrative Fiona Lanier APRN-CNP - 11/25/2020 2:23 PM MOVER Fiona Lanier APRN-CNP ? 11/25/2020 ??2:28 PM [...] not hesitate to contact me. Fiona FUENTES PROCEDURE/IL NOR SURGICAL ORDERABLES * CO ILR DEVICE INTERROGAT REMOTE, CO INTG DVC E R 30 D;REC TRANS & TR (08/20/2020 2:13 PM MOVER) Narrative Fiona Lanier APRN-CNP - 08/20/2020 2:13 PM MOVER Fiona Lanier APRN-CNP ? 08/20/2020 ??2:18 PM [...] not hesitate to contact me. Fiona FUENTES PROCEDURE/IL NOR SURGICAL ORDERABLES * CO ICD DEVICE INTERROGATE IN PERSON (05/02/2020 9:32 AM CDT) Narrative Fiona Lanier APRN-CNP - 05/02/2020 9:32 AM CDT iFona Lanier APRN-CNP ? 05/02/2020 ??9:36 AM Doc [...] not hesitate to contact me. Fiona FUENTES PROCEDURE/IL NOR SURGICAL ORDERABLES * CO ICD DEVICE [...] not hesitate to contact me. Fiona FUENTES PROCEDURE/IL NOR SURGICAL ORDERABLES * CO ICD DEVICE INTERROGAT REMOTE, CO PM/ICD REMOTE TECH SERV (12/04/2019 9:17 AM MOVER) Narrative Fiona Lanier APRN-CNP - 12/04/2019 9:17 AM MOVER Fiona Lanier APRN-CNP ? 12/04/2019 ??9:22 AM [...] not hesitate to contact me. Fiona Lanier APRN-TEAROOM HOSTESS PROCEDURE/IL NOR SURGICAL ORDERABLES * CO ICD DEVICE INTERROGAT REMOTE, CO PM/ICD REMOTE TECH SERV (08/14/2019 9:53 AM CDT) Narrative Fiona Lanier, GINA - 08/14/2019 9:53 AM CDT Fiona Lanier APRN-CNP ? 08/14/2019 10:01 AM Remote interrogation of patient's ICD was performed with results as follows: Device: ??Medtronic Amplia REPORT ANALYST-D Mode: DDDR 75-120 bpm Battery: 2.98 Volts; [...] not hesitate to contact me. Fiona Lanier APRN-TEAROOM HOSTESS PROCEDURE/IL NOR SURGICAL ORDERABLES * CO ICD DEVICE [...] results as follows: Device: ??Medtronic Amplia MRI REPORT ANALYST-D Mode: DDDR 75-120 bpm Battery: 2.99 Volts; [...] None Impression: ??Normal Device Function. Fiona FUENTES PROCEDURE/IL NOR SURGICAL ORDERABLES * CO ICD DEVICE INTERROGAT REMOTE, CO PM/ICD REMOTE TECH SERV (11/22/2018 3:23 PM MOVER) Narrative Barbra Boone APRN-CNP - 11/22/2018 3:23 PM MOVER Barbra Boone APRN-CNP ? 11/22/2018 ??3:23 PM [...] DEVICE EVAL (01/19/2018 10:45 AM CDT) Narrative [facility] - 01/19/2018 10:45 AM CDT Medtronic biventricular defibrillator implanted on September. Interrogation, today demonstrated 99% atrial/biventricular paced rhythm. Sensing, pacing, impedance parameters were all within normal limits.Estimated longevity 6.9 years. Remote interrogation every 3 months and in office visit once a year. This dictation was performed using [employer]. There may be some oil derrick operator variances which are not appreciated and corrected in this note. Pat Silvestre MD Procedure Note ProviderAdriana MD - 03/25/2018 Medtronic biventricular defibrillator implanted on September.Interrogation, today demonstrated 99% atrial/biventricular paced rhythm.Sensing, pacing, impedance parameters were all within normallimits.Estimated longevity 6.9 years. Remote interrogation every 3 months and in office visit once a year. This dictation was performed using [employer]. There may be sometranscription variances which are not appreciated and corrected in thisnote. Pat Silvestre MD Pat Silvestre MD PROCEDURE/MINOR SURG ICAL ORDERABLES Performing Organization Address [facility]/[place] Co de Phone Number [facility] * PROC ICD DEVICE CHECK (REMOTE) (10/26/2017 5:53 PM MOVER) Narrative [facility] - 10/26/2017 5:53 PM MOVER Carelink transmission reveals no events. APVS 1.4%. APbiV paced 97.8%. Battery voltage, lead impedance, pacing and sensing all WNL. Optivol at baseline(see printout) Procedure Note Provider, MD Adriana - 03/25/2018 Carelink transmission reveals no events. APVS 1.4%. APbiV paced 97.8%. Battery voltage, lead impedance, pacing and sensing all WNL. Optivol atbaseline(see printout) Barbra Boone TEXTILE CHEMIST-TEAROOM HOSTESS PROCEDURE/M INOR SURGICAL ORDERABLES Performing Organization Address [facility]/[place] Co de Phone Number [facility] * PATHOLOGY TISSUE (10/21/2017 8:09 AM MOVER) Surgical Pathology Tissue ACCESSION No: [id number] CLINICAL HISTORY: Teeth extraction. FINAL DIAGNOSIS: Teeth, [...] were determined by the [facility] of [facility].?? Some of these tests were developed [...] by Angelina Salamanca M.D. Electronically signed 10/22/2017 [facility] Gross only (Tooth) 10/21/2017 8:09 AM MOVER 10/21/2017 10:04 AM MOVER Narrative [facility] - 10/22/2017 10:31 AM MOVER Pre-op diagnosis: perdonial disease Vedrana Sedic DMD LAB - PATHOLOGY/CYTO LOGY ORDERABLES Performing Organization Address City/State/[place] Co de Phone Number [facility] [address] [phone] * COMPREHENSIVE METABOLIC PANEL (10/15/2017 3:01 PM MOVER) BUN 20 7 - 26 mg/dL [facility] Creatinine 0.9 0.6 - 1.2 mg/dL [facility] Sodium 141 136 - 145 mmol/L [facility] Potassium 4.4 3.5 - 4.5 mmol/L [facility] Chloride 105 98 - 107 mmol/L [facility] CO2 26 22 - 29 mmol/L [facility] Glucose 94 70 - 115 mg/dL [facility] Calcium 8.8 8.4 - 10.2 mg/dL [facility] Protein Total 6.7 6.0 - 8.3 g/dL [facility] Albumin 3.6 3.4 - 5.0 g/dL [facility] Bilirubin Total 0.5 0.2 - 1.2 mg/dL [facility] Alkaline Phosphatase 60 40 - 150 Units/L [facility] ALT 18 0 - 55 Units/L [facility] AST 21 5 - 34 Units/L [facility] Anion Gap 14 8 - 18 [facility] BUN/Creatinine Ratio 22 7 - 23 [facility] Osmolality Calculated 294 270 - 300 mOsm/kg [facility] Albumin/Globulin Ratio 1.2 1.1 - 2.3 [facility] eGFR >60 >60 mL/min/1.7 3 m2 [facility] Blood specimen (specimen) BLOOD SPECIMEN / Unknown 10/15/2017 3:01 PM MOVER 10/15/2017 3:16 PM MOVER Vedrana Sedic DMD LAB - CHEMISTRY CRUZITO GONZALEZ [address] [phone] * EKG 12-LEAD (10/15/2017 12:00 AM MOVER) EKG [facility] Comment: Exam Date/Time: ?? Oct 15 [...] ECGs available Confirmed by Aydee LOOMIS STEVEN ([id number]), editor newspaper ARI CAST ([id number]) on 10/20/2017 4:55:48 PM Referred By: REFERRING SYSTEM ? Confirmed By:ZITA LOOMIS M.D 10/15/2017 Vedrana Sedic DMD ECG ORDERABLES Performing Organization Address [facility]/[place] Co de Phone Number [facility] * PROC ICD DEVICE CHECK (REMOTE) (07/22/2017 10:31 AM CDT) Narrative [facility] - 07/22/2017 10:31 AM CDT Carelink [...] has returned to baseline.(see printout) Barbra Boone APRN-TEAROOM HOSTESS PROCEDURE/M INOR SURGICAL ORDERABLES Performing Organization Address [facility] de Phone Number [facility] * PROC ICD DEVICE CHECK (REMOTE) (05/07/2017 8:05 PM CDT) Narrative [facility] - 05/07/2017 8:05 PM CDT Carelink transmission reveals 20 V sensed episodes, APbiVP 98.2%. ??APVS 1.4%. Optivol at baseline. Battery voltage, lead impedance, pacing and sensing all WNL(see printout) Procedure Note ProviderAdriana MD - 03/25/2018 Carelink transmission reveals 20 V sensed episodes, APbiVP 98.2%. APVS1.4%. Optivol at baseline. Battery voltage, lead impedance, pacing and sensing all WNL(seeprintout) Barbra Boone APRN-TEAROOM HOSTESS PROCEDURE/M INOR SURGICAL ORDERABLES Performing Organization Address [facility] de Phone Number [facility] * PROC STRESS TEST EXERCISE (02/09/2017 10:50 AM CDT) Only the most recent of2 resultswithin the time period is included. Narrative [facility] - 02/09/2017 10:50 AM CDT [facility] Nuclear Cardiology Department Myocardial Perfusion Imaging Pharmacological [...] Procedure Note Provider, MD Adriana - 03/25/2018 [facility] Nuclear Cardiology Department Myocardial Perfusion Imaging Pharmacological [...] Silvestre MD ECG ORDERABLES Performing Organization Address [facility]/[place] Co de Phone Number [facility] * PROC LEXISCAN CARDIOLYTE STRESS TST (02/09/2017 10:50 AM CDT) Only the most recent of2 resultswithin the time period is included. Narrative [facility] - 02/09/2017 10:50 AM CDT Patient Name: Doc Zhou ? : 1940 ? CPT Codes: 05285 Study:Pharmacologic Stress Myocardial Perfusion-One Day Protocol Date [...] Name: Doc Zhou : 1940 CPT Codes: 60297 Study:Pharmacologic Stress Myocardial Perfusion-One Day Protocol Date [...] Report: 02/09/2017 Pat Silvestre MD ECG ORDERABLES [facility] * XR CERVICAL SPINE 2 OR [...] imaged. Dictated by Marleny Brown MD (residential aide). This report was approved ??by Billy Brown [...] imaged. Dictated by Marleny Brown MD (residential aide). This report was approved by Billy Brown M.D. on 01/18/2017 12:05PM . I, Dr. JESSIKA ERICKSON M.D. have personally reviewed and interpreted thisexamination/study. This report was electronically signed by JESSIKA ERICKSON M.D. on 01/18/20171:08 PM . Garrett Parkinson MD FLUOROSCOPY ORDERABL ES * PROC IMPLANT WEAR CARDIAC DEVICE EVAL (01/16/2017 5:00 AM CDT) Narrative [facility] - 01/16/2017 5:00 AM CDT Medtronic biventricular defibrillator implanted on September. Indication was inducible sustained monomorphic ventricular tachycardia. Interrogation today demonstrated no evidence for atrial or ventricular tachyarrhythmia. Atrial pacin% , biventricular pacin%. Estimated longevity 7.6 years. Normal sensing, pacing, impedance parameters were noted. Remote interrogation every 3 months and in office visit once a year. This dictation was performed using [employer]. There may be some oil derrick operator variances which are not appreciated and [...] a year. This dictation was performed using [employer]. There may be sometranscription variances which are not appreciated and corrected in thisnote. Pat Silvestre MD Pat Silvestre MD PROCEDURE/MINOR SURG ICAL ORDERABLES Performing Organization Address City/[facility]/ZIP Co de Phone Number [facility] * LAB HISTORICAL RESULTS-ONBASE (09/30/2016) 09/30/2016 Historical Provider LAB - CHEMISTRY O RDERABLES [address] * PROC ICD DEVICE CHECK (REMOTE) (05/28/2016 1:19 PM CDT) Narrative [facility] - 05/28/2016 1:19 PM CDT Doc Zhou presented to device clinic for follow up of the patient's REPORT ANALYST-defibrillator. ??Interrogation was performed with results as follows: Device: ??Medtronic Marcelino II REPORT ANALYST-D Mode: DDDR 75-120 bpm Battery: 2.63 Volts; PRE SALES NETWORK ENGINEER 2.63 V Percent Paced: ??99.7% in atrium, [...] please do not hesitate to contact me. Apruva Mary MD 05/28/2016 1:19 PM Procedure Note Provider, MD Adriana - 03/25/2018 Doc Zhou presented to device clinic for follow up of thepatient's REPORT ANALYST-defibrillator. Interrogation was performed with results asfollows: Device: Medtronic Marcelino II REPORT ANALYST-D Mode: DDDR 75-120 bpm Battery: 2.63 Volts; PRE SALES NETWORK ENGINEER 2.63 V Percent Paced: 99.7% in atrium, [...] Apurva Mary MD PROCEDURE/MINOR S URGICAL ORDERABLES [facility] * PROC IMPLANT WEAR CARDIAC DEVICE EVAL (02/24/2016 3:23 PM CDT) Narrative [facility] - 02/24/2016 3:23 PM CDT Interrogation [...] PROCEDURE/M INOR SURGICAL ORDERABLES Performing Organization Address [facility]/[place] Co de Phone Number [facility] * PROC ICD DEVICE CHECK (REMOTE) (11/21/2015 3:45 PM MOVER) Narrative [facility] - 11/21/2015 3:45 PM MOVER Carelink transmission reveals 9 AT/AF , 7.4% [...] PROCEDURE/M INOR SURGICAL ORDERABLES Performing Organization Address City/[facility]/ZIP Co de Phone Number [facility] * PROC IMPLANT WEAR CARDIAC DEVICE EVAL (08/19/2015 12:20 PM MOVER) Narrative [facility] - 08/19/2015 12:20 PM MOVER Interrogation of Medtronic biV ICD reveals 1 [...] pacing and sensing allWNL(see printout) Barbra Boone APRN-TEAROOM HOSTESS PROCEDURE/M INOR SURGICAL ORDERABLES Performing Organization Address [facility]/[place] Co de Phone Number [facility] * PROC IMPLANT WEAR CARDIAC DEVICE EVAL (07/05/2015 2:20 PM CDT) Narrative [facility] - 07/05/2015 2:20 PM CDT Interrogation [...] atrialflutter to NSR. (see printout) Barbra Boone APRN-TEAROOM HOSTESS PROCEDURE/M INOR SURGICAL ORDERABLES Performing Organization Address [facility]/[place] Co de Phone Number [facility] * PROC ICD DEVICE CHECK (REMOTE) (04/03/2015 5:25 PM CDT) Narrative [facility] - 04/03/2015 5:25 PM CDT Carelink transmission reveals 15 AT/AF episodes, 1.6%. No ventricular tachy arrhythmias. ASVS1.5%. APVP 98%. Battery voltage, charge time, lead impedance, sensing all WNL(see printout) Procedure Note ProviderAdriana MD - 03/25/2018 Carelink transmission reveals 15 AT/AF episodes, 1.6%. No ventriculartachy arrhythmias. ASVS1.5%. APVP 98%. Battery voltage, charge time, lead impedance, sensing all WNL(seeprintout) Barbra Boone APRN-TEAROOM HOSTESS PROCEDURE/M INOR SURGICAL ORDERABLES Performing Organization Address [facility] de Phone Number [facility] * PROC IMPLANT WEAR CARDIAC DEVICE EVAL (12/27/2014 6:08 PM CDT) Narrative [facility] - 12/27/2014 6:08 PM CDT Interrogation [...] pacing and sensing allWNL(see printout) Barbra Boone APRN-TEAROOM HOSTESS PROCEDURE/M INOR SURGICAL ORDERABLES Performing Organization Address [facility]/[place] Co de Phone Number [facility] * PROC ICD DEVICE CHECK (REMOTE) (10/04/2014 7:04 PM MOVER) Narrative [facility] - 10/04/2014 7:04 PM MOVER Carelink transmission reveals 5 AT/AF episodes, longest [...] lead impedance, sensing all WNL(seeprintout) Barbra Boone APRN-TEAROOM HOSTESS PROCEDURE/M INOR SURGICAL ORDERABLES Performing Organization Address [facility] de Phone Number [facility] * PROC IMPLANT WEAR CARDIAC DEVICE EVAL (07/05/2014 2:57 PM CDT) Narrative [facility] - 07/05/2014 2:57 PM CDT Interrogation of Medtronic biV ICD reveals 10 AT/AF episodes, burden 02%. 538 V sensed episodes(PAULINA programmed 120ms, [place] 100-120ms). ??One day with >6 hr [...] burden 02%.538 V sensed episodes(PAULINA programmed 120ms, [place] 100-120ms). One daywith >6 hr AT/AF. A paced 98%. BiV paced 99.7%. Currently APBiV paced at 86 bpm withunderying rhythm NSR at 61 bpm. Battery voltage, charge time, lead impedance, pacing and sensing all WNL Reprogrammed PAULINA to 100mg per Dr Silvestre's order(see printout) Barbra Boone APRN-TEAROOM HOSTESS PROCEDURE/M INOR SURGICAL ORDERABLES Performing Organization Address [facility]/[place] Co de Phone Number [facility] * PROC ICD DEVICE CHECK (REMOTE) (03/27/2014 7:21 PM CDT) Narrative [facility] - 03/27/2014 7:21 PM CDT Carelink [...] lead impedance, sensing all WNL(seeprintout) Barbra Boone TEXTILE CHEMIST-TEAROOM HOSTESS PROCEDURE/M INOR SURGICAL ORDERABLES Performing Organization Address [facility]/[place] Co de Phone Number [facility] * PROC IMPLANT WEAR CARDIAC DEVICE EVAL (12/28/2013 7:34 PM CDT) Narrative [facility] - 12/28/2013 7:34 PM CDT Interrogation [...] pacing and sensing allWNL(see printout) Barbra Boone APRN-TEAROOM HOSTESS PROCEDURE/M INOR SURGICAL ORDERABLES Performing Organization Address [facility]/[place] Co de Phone Number [facility] * PROC ICD DEVICE CHECK (REMOTE) (09/19/2013 6:12 PM MOVER) Narrative [facility] - 09/19/2013 6:12 PM MOVER Carelink transmission reveals 727 V sensing episodes, [...] impedance, and sensing all WNL(seeprintout) Barbra Boone TEXTILE CHEMIST-TEAROOM HOSTESS PROCEDURE/M INOR SURGICAL ORDERABLES [facility] * PROC IMPLANT WEAR CARDIAC DEVICE EVAL (06/14/2013 6:23 PM CDT) Narrative [facility] - 06/14/2013 6:23 PM CDT Interrogation [...] PROCEDURE/M INOR SURGICAL ORDERABLES Performing Organization Address [facility] de Phone Number [facility] * PROC ICD DEVICE CHECK (REMOTE) (04/07/2013 5:47 PM CDT) Narrative [facility] - 04/07/2013 5:47 PM CDT Carelink [...] PROCEDURE/M INOR SURGICAL ORDERABLES Performing Organization Address [facility] de Phone Number [facility] * ECHO AV OPTIMIZATION (01/18/2013 8:16 [...] DEVICE EVAL (12/26/2012 3:17 PM CDT) Narrative [facility] - 12/26/2012 3:17 PM CDT Interrogation [...] PROCEDURE/MINOR SURG ICAL ORDERABLES Performing Organization Address [facility]/ZIP Co de Phone Number [facility] * PROC ICD DEVICE CHECK (REMOTE) (09/05/2012 1:20 PM MOVER) Narrative [facility] - 09/05/2012 1:20 PM MOVER Carelink transmission reveal 1 nonsustained VT10/12, 1 [...] impedance, sensing all WNL (seeprintout) Barbra Boone TEXTILE CHEMIST-TEAROOM HOSTESS PROCEDURE/M INOR SURGICAL ORDERABLES [facility] * PROC IMPLANT WEAR CARDIAC DEVICE EVAL (06/06/2012 2:50 PM CDT) Narrative [facility] - 06/06/2012 2:50 PM CDT Interrogation [...] sensingthresholds all WNL (see printout) Barbra Boone TEXTILE CHEMIST-TEAROOM HOSTESS PROCEDURE/M INOR SURGICAL ORDERABLES Performing Organization Address [facility]/[place] Co de Phone Number [facility] * PROC ICD DEVICE CHECK (REMOTE) (03/01/2012 5:48 PM CDT) Narrative [facility] - 03/01/2012 5:48 PM CDT Carelink transmission reveals no ventricular tachyarrhythmias. 4 AT/AF episodes, longest 63 min. (<0.1%). ??ASbiVP 7.5% UWujNA82.3%. Battery voltage, charge time, lead impedance, sensing threshold all WNL(See printout) Procedure Note ProviderAdriana MD - 03/25/2018 Carelink transmission reveals no ventricular tachyarrhythmias. 4 AT/AFepisodes, longest 63 min. (<0.1%). ASbiVP 7.5% FEcxER60.3%. Battery voltage, charge time, lead impedance, sensing threshold allWNL(See printout) Pat Silvestre MD PROCEDURE/MINOR SURG ICAL ORDERABLES Performing Organization Address [facility]/ZIP Co de Phone Number [facility] * PROC IMPLANT WEAR CARDIAC DEVICE EVAL (12/07/2011 4:43 PM MOVER) Narrative [facility] - 12/07/2011 4:43 PM MOVER Interrogation of Medtronic ICD reveals no new [...] Pat Silvestre MD PROCEDURE/MINOR SURG ICAL ORDERABLES [facility] * PROC IMPLANT WEAR CARDIAC DEVICE EVAL (06/08/2011 2:20 PM CDT) Narrative [facility] - 06/08/2011 2:20 PM CDT Procedure Note ProviderAdriana MD - 03/25/2018 Pat Silvestre MD PROCEDURE/MINOR SURG ICAL ORDERABLES [facility] Care Teams Clinical Practitioner Relationship Specialty Start Date End Date Ever Mercado MD [address] [phone] PCP - General 05/21/22
--- OUTSIDE RECORDS SUMMARY | 2024-11-20 14:26 | XMS_ITS | Clinical Summary ---
Author Organization [facility] [employer] Address [address] [place] [address] Care Team Providers Care Director Surgical Name Role Phone Ever Mercado MD Primary Care Provider Source Comments [facility],non-owned Affiliates and Associated Physician Practices is amultiple site organization consisting of ambulatory clinics and hospital sitesin [place], [place], [place] and [place]. This disclosure is being madepursuant to the Care Everywhere program and may not contain all information available regarding this patient. Last updated 18.[facility] [employer] Allergies Active Allergy Reactions Criticality Noted Date [...] life of cardi ac resynchronization therapy defibrillator (MANAGER DOMESTIC-D) 04/25/2024 Smoking 01/19/2018 Overview (05/02/2020): Overview: Few [...] [facility] - Cardiology [address] [facility] [place] [facility], [address] [address] Taina Ronquillo, RN Update 11/03/[address] [facility] - Cardiology [address] [facility] [place] [facility], [address] [address] Indiana Odonnell MD Hypotension 10/27/2024 Telephone [facility] - [facility]iology [address] [facility], [address] [address] Taina Ronquillo, RN Update 10/12/2024 1:10 AM MANAGER OF SECURITY Clinical Support [facility] - Cardiology [address] [facility] [place] [facility], [address] [address] Ischemic cardiomyopathy 09/25/[address] [facility] - Cardiology [address] [facility] [place], [address] [address] Ronal Mcintosh MD Hospital Admission 09/13/2024 10:00 AM MANAGER OF SECURITY Office Visit [facility] - Vascular Surgery [address] [facility], [place] [address] Kyra Lorenzana MD PAD (peripheral artery disease) (HCC) (Primary Dx) 09/13/2024 Travel 08/21/2024 2:17 PM MANAGER OF SECURITY Anesthesia Event [facility] [address] [place] [address] Angi Vega MD Osterloh, Joan Frances, COSMETIC CONSULTANT-[facility] 08/21/2024 12:35 PM MANAGER OF SECURITY - 08/21/2024 3:05 PM MANAGER OF SECURITY Surgery [facility] [address] [place] [address] Kyra Lorenzana MD DIAGNOSTIC LEFT LEG ANGIOGRAM 08/21/2024 10:32 AM MANAGER OF SECURITY - 08/21/2024 7:30 PM MANAGER OF SECURITY Hospital Encounter [facility] [address] [place] [address] Kyra Lorenzana MD Surgery General Discharge Disposition: [...] Comments Blood Pressure 91/57 09/13/2024 10:14 AM MANAGER OF SECURITY Pulse 76 09/13/2024 10:14 AM MANAGER OF SECURITY Temperature 36.4 ??C (97.6 ??F) 09/13/2024 10:[address] Respiratory Rate 20 08/21/2024 7:00 PM MANAGER OF SECURITY Oxygen Saturation 96% 09/13/2024 10:14 AM MANAGER OF SECURITY Inhaled Oxygen Concentration - - Weight 88.6 kg (195 lb 6.4 oz) 09/13/2024 10:14 AM MANAGER OF SECURITY Height 177.8 cm (5' 10 ) 09/13/2024 10:14 AM MANAGER OF SECURITY Body Mass Index 28.04 09/13/2024 10:14 AM MANAGER OF SECURITY Plan of Treatment Upcoming Encounters Date Type Department Care Team (Late st Contact Info) Description 11/23/2024 11:20 AM MANAGER OF SECURITY Office Visit [facility] - [facility], [address] [address] Indiana Odonnell MD [address] [place] [address] 01/11/2025 1:10 AM CDT Clinical Support [facility] [address] [place] [address], [address] [address] 04/12/2025 1:00 AM CDT Clinical Support [facility] - Cardiology [address] [place] [address], [address] [address] Health Maintenance Due Date Last [...] this topic Medical Devices Implanted Type Area Milled Rice Broker Device Identifier Shelf Expiration Date Model / Serial / Lot Env Defib 3.3x2.9in Aigisrx Icd Tyrx Lg - [id number] Implanted:Qty: 1 on 05/16/2024 by Pepe Meadows MD at [facility] N/A: Chest Wall [employer] [id number] 02/03/2025 [id number] / [id number] / [id number] Defib Cblt Surescan 13mm 57sq Cm 2 Chmbr - [id number] 2 Implanted:Qty: 1 on 05/16/2024 by Pepe Meadows MD at [facility] Left: Chest Wall [employer] [employer] [id number] 03/14/2025 [id number] / [id number] / NA Procedures Procedure Name Priority Date/Time Associated Diagnosis Comments CA PM/ICD REMOTE TECH SERV Routine 10/22/2024 7:07 PM MANAGER OF SECURITY Ischemic cardiomyopathy CA ICD DEVICE INTERROGAT REMOTE Routine 10/22/2024 7:07 PM MANAGER OF SECURITY Ischemic cardiomyopathy CARDIAC PROCEDURE ORDER 10/10/2024 FL MYRTLE W ANGIO TEAM Routine 08/21/2024 3:55 PM MANAGER OF SECURITY PAD (peripheral artery disease) (HCC) CA ANGIO EXTERMITY BILAT 08/21/2024 1:46 PM MANAGER OF SECURITY Peripheral artery disease (HCC) Case Notes KW 08/17 Special Needs Supine; C-Arm with Angio ordered ANESTHESIA: Local w/ IV sedation TYPE + SCREEN PANEL STAT 08/21/2024 11:34 AM MANAGER OF SECURITY Pre-op evaluation PT-INR [facility] STAT 08/21/2024 11:34 AM MANAGER OF SECURITY Pre-op evaluation from Last 3 Months Results * CA ICD DEVICE INTERROGAT REMOTE, CA PM/ICD REMOTE TECH SERV (10/22/2024 7:07 PM MANAGER OF SECURITY) Narrative Pepe Meadows MD - 10/22/2024 7:07 PM MANAGER OF SECURITY Pepe Meadows MD ? 10/22/2024 ??7:08 PM [...] Myrtle W Angio Team (08/21/2024 3:55 PM MANAGER OF SECURITY) Narrative [facility] RADIOLOGY - 08/21/2024 3:56 PM MANAGER OF SECURITY Fluoroscopy was used for this exam in the OR. Please see the Operative report. Kyra Lorenzana MD FLUOROSCOPY ORDERAB LES [facility] RADIOLOGY * (ABNORMAL) PT-INR [facility] (08/21/2024 11:34 AM MANAGER OF SECURITY) PT 18.2(H) 12.1 - 14.8 Seconds 08/21/2024 12:28 PM MANAGER OF SECURITY [facility] INR 1.5 See Comment 08/21/2024 12:28 PM MANAGER OF SECURITY [facility] Comment:The suggested therap eutic range for standard coumadin (warfarin) therapy is an INR of 2.0-3.0. For high-risk patients (Mechanical Mitral Valve Prosthesis, etc.), the suggested prophylactic therapeutic range is an INR of 2.5-3.5. Blood BLOOD SPECIMEN / Unknown Line Draw / Unknown 08/21/2024 11:34 AM MANAGER OF SECURITY 08/21/2024 11:46 AM MANAGER OF SECURITY Ashley Juarezdonnadiana COSMETIC CONSULTANT-FINANCIAL INVESTMENT ADVISER LAB - COA GULATION ORDERABLES [facility] [address] [place] [address], [place] [phone] * TYPE + SCREEN PANEL (08/21/2024 11:34 AM MANAGER OF SECURITY) Antibody Screen NEG 12:28 PM MANAGER OF SECURITY [facility] B[facility]OD BANK LAB ABO Rh O POS 08/21/2024 12:28 PM MANAGER OF SECURITY [facility] Blood Bank BLOOD SPECIMEN / Unknown Line Draw / Unknown 08/21/2024 11:34 AM MANAGER OF SECURITY 08/21/2024 11:45 AM MANAGER OF SECURITY [facility]-FINANCIAL INVESTMENT ADVISER LAB - BLO OD BANK ORDERABLES [facility] B[facility] LAB [address] [place] [address], [facility] [[email or web address]] [phone] from Last 3 Months Advance Directives Documents on File Type Date Recorded Patient Nuclear Plant Technical Advisor Expl anation Adv Directive/Living Will/POA 01/27/2017 * Full Code (Latest Code Status on File) Date Activated Date Inactivated Comments 05/16/2024 10:08 AM 05/16/2024 1:06 PM Care Teams Director Surgical Relationship Specialty Start Date End Date Ever Mercado MD [address] [facility] [address] [place] [address] PCP - General 05/21/22
--- OUTSIDE RECORDS SUMMARY | 2024-11-20 14:27 | XMS_ITS | Clinical Summary ---
Author Organization [facility] Address [address] [address] Care Team Providers Care Auto Winder Name Role Phone Ever Mercado MD [...] Comments Blood Pressure 103/55 09/03/2023 11:09 AM EVENT SPECIALIST FOOD DEMONSTRATOR Pulse 81 09/03/2023 11:09 AM EVENT SPECIALIST FOOD DEMONSTRATOR Temperature 36.4 ??C (97.6 ??F) 09/03/2023 11:[address] Respiratory Rate 10 09/03/2023 11:09 AM EVENT SPECIALIST FOOD DEMONSTRATOR Oxygen Saturation 96% 09/03/2023 11:09 AM EVENT SPECIALIST FOOD DEMONSTRATOR Inhaled Oxygen Concentration - - Weight 87.5 kg (193 lb) 09/03/2023 11:09 AM EVENT SPECIALIST FOOD DEMONSTRATOR Height 180.3 cm (5' 11 ) 08/03/2023 [...] MEDICARE PART A AND B Care Teams Auto Winder Relationship Specialty Start Date End Date Ever Mercado MD PCP - General Internal Medicine 08/03/23
--- OUTSIDE RECORDS SUMMARY | 2024-11-20 14:27 | XMS_ITS | Data Portability ---
Author Organization [place] - [employer], Main Office Address [address] [place] [address] Care Team Providers Care Design And Sales Consultant Name Role Phone GIOVANNY MERCADO Primary Care Provider GIOVANNY MERCADO Referring Provider [place] ODONNELL Sergeant Of Corrections [phone] JENNIFER OVERTON Repairing Calibrator KEILA DEGROOT Vascular Surgeon ADDISON ELLISON General Surgeon ELIO MARIA Primary Care Provider ELIO MARIA Referring Provider Assessment Encounter Date Assessment Date Assessment LastModified by Organization Details LastModified Time 08/24/2024 08/24/2024 03/24/2023: HGB 12.7, PLT 131 TSH 5.280 TG 153 06/10/2023: TSH 7.700H TG 193H HGB 12.7L, MCV 97.1H, PLT 142L 10/25/2023: TSH 6.910H, FT4: 1.16 Gluc 150H HGB 12.6H, MCV 100.3, PLT 147 01/20/2024: TSH 8.920H, FT4 1.01 Gluc 115, BUN 20 TG 249H PLT 135 05/25/2024: INR 2.7 05/26/2024: A1C 5.4 Gluc 118, TP 6.0 TSH 4.700H, FT4 1.13 H/H 11.4/36.3, MCV 97.6, PLT 145 08/17/2024: 13.1, PLT 135L A1C 6.0 TSH 5.760H Gluc 126 TG 221 Not available 08/24/2024 14:47:40 10/24/2024 10/24/2024 03/24/2023: HGB 12.7, PLT 131 TSH 5.280 TG 153 06/10/2023: TSH 7.700H TG 193H HGB 12.7L, MCV 97.1H, PLT 142L 10/25/2023: TSH 6.910H, FT4: 1.16 Gluc 150H HGB 12.6H, MCV 100.3, PLT 147 01/20/2024: TSH 8.920H, FT4 1.01 Gluc 115, BUN 20 TG 249H PLT 135 05/25/2024: INR 2.7 05/26/2024: A1C 5.4 Gluc 118, TP 6.0 TSH 4.700H, FT4 1.13 H/H 11.4/36.3, MCV 97.6, PLT 145 08/17/2024: 13.1, PLT 135L A1C 6.0 TSH 5.760H Gluc 126 TG 221 Not available 10/24/2024 11:23:39 Plan of Treatment Reminders Order Date Submit Date Provider Last Modified By Organization Details Last Modified Time Details Appointments Hospital Follow Up 15 2024 01:30P Bambi sauceda MD Not available Not available Not available Lab lipid panel, serum [address] (Lab), [address] [place], [address], 08/24/2024 15:14:24 CMP, serum or plasma [address] (Lab), [address] [place], [address], 08/24/2024 15:14:24 TSH, serum or plasma [address] (Lab), [address] [place], [address], 08/24/2024 15:14:24 CBC w/ auto diff [address] (Lab), [address] [place], [address], 08/24/2024 15:14:24 glycohemo globin, total, blood [address] (Lab), [address] [place], [address], 08/24/2024 15:14:25 microalbu min, urine [address] (Lab), [address] [place], [address], 08/24/2024 15:14:25 PT/INR 2024 025 [email or web address] s_g [facility] [address], [address] [facility], [place], [address], 10/24/2024 11:49:12 lipid panel, serum 2024 025 [facility] (Lab), [address] [place], [address], 10/26/2024 16:40:05 CMP, serum or plasma 2024 025 [facility] (Lab), [address] [place], [address], 10/26/2024 16:40:11 TSH, serum or plasma 2024 025 [facility] (Lab), [address] [place], [address], 10/26/2024 17:18:41 CBC w/ auto diff 2024 025 [facility] (Lab), [address] [place], [address], 10/26/2024 16:09:46 glycohemo globin, total, blood 2024 025 [facility] (Lab), [address] [place], [address], 10/26/2024 20:23:44 microalbu min, urine 2024 025 [email or web address] [facility] (Lab), [address] [place], [address], 10/25/2024 10:51:34 Referral wound care referral 2023 024 [email or web address] [facility], [address] [facility], [address], [place], [address], 08/29/2024 17:23:22 podiatris t referral 2023 024 [email or web address] Kemar West DPBambi, [address], [address], [place], [address], 08/24/2024 18:00:04 hematolog ist referral - Please call patient to schedule. 2023 024 HARPER Yo, [address], [place], [address], 08/30/2024 20:00:11 cardiolog ist referral 2023 024 [email or web address] Indiana Odonnell MD, [address] [facility], [address], [place], [address], 08/24/2024 18:02:45 orthopedi c surgeon referral - Please call patient to schedule. 2024 025 HARPER Regalado MD, [address] [facility] [address], [address], [place], [address], 11/01/2024 16:55:20 wound care referral 2024 025 [email or web address] [facility], [address], [address], [place], [address], 10/24/2024 12:23:49 podiatris t referral 2024 025 [email or web address] Kemar West DPM, [address] [facility], [address], [place], [address], 10/24/2024 12:22:30 hematolog ist referral - Please call patient to schedule. 2024 025 KERENENAJUAN PABLO Yo, [address], [place], [address], 11/01/2024 16:40:33 cardiolog ist referral 2024 025 [email or web address] Indiana Odonnell MD, [address] [facility], [facility] [address], [place], [address], 10/24/2024 12:22:29 Procedures None recorded. Surgeries None recorded. Imaging None recorded. Medication Orders None recorded. Patient Targets Encounter Date Encounter Id Patient Goals Patient Target Last Modified By Organization Details Last Modified Time Patient was advised to recevie an angiogram as his next step in treatment. Antibiotics course was completed, no evidence of infection at time of appointment [email or web address] Not available 07/17/2024 12:47:32 Patient Instructions Encounter Date Encounter Id Patient Instructions Last Modified By Organization Details Last Modified Time 08/24/2024 [id number] dementia rating scale-2* [email or web address] Not available 08/24/2024 15:02:28 alcohol misuse* Not available 08/24/2024 15:02:42 depression screening* [email or web address] Not available 08/24/2024 15:02:58 Timed Up and Go test (TUG)* Not available 08/24/2024 15:03:29 multi-dimensiona l health assessment questionnaire* [email or web address] Not available 08/24/2024 15:01:46 advance care planning: care instructions doug Rajput Not available 08/24/2024 15:12:35 advance directiv es: care instructions doug Rajput Not available 08/24/2024 15:12:35 [place] Advance Directives doug Rajput Not available 08/24/2024 15:12:35 diabetic eye exam* [email or web address] Not availa ble 08/24/2024 15:14:25 Personalized Hea lt Plan and Screening Recommendations Advance Directives - Do you have one? No You have indicated that you are capable of preparing your advance care directive Advance Directives - Do we have your advance directive on file in your health record? Primary Prevention/Interven tion (prevents or decreases the chance of common diseases from occurring) Smoking Risk: Smoker Refer to attached smoking cessation handouts Alcohol Misuse Screening: Negative Weight: Appropriate Overwei ght continue your current weight loss efforts try to lose 5% of your body weight try to lose 10% of your body weight Physical activity: Need more exercise/physical activity decrease sitting time to no more than 5hr/day Nutrition: Good Average Refer to attached handout Heart-Healthy Diet: After Your Visit Fall Risk (screened today): High Refer to attached handout Preventing Falls: After your Visit Vaccines Pneumococcal: Ordered Recommended today Recommended today, but you have declined Influenza: Ordered Recommended today Chronic Disease Risks Stroke: Low Risk Intermediate Risk Heart Attack: Low risk Intermediate Risk Clogging of the Arteries: Low risk Intermediate Risk Diabetes: Low Risk I have no recommendations Ref er to attached handout ? P re-diabetes: After Your Visit? Drastically limit sugar and products made with any type of flour (bread, pasta, cereal, cookies, crackers, etc.) Secondary Prevention/Interven tion (detects treatable diseases before they may cause symptoms, disability, or ) Prostate Cancer Screening: No PSA screening necessary Colon Cancer Screening: Colonoscopy Fecal Occult Blood Cologuard (DNA stool test) Date Screening Last Performed:2020 Eye Disease Screening: Ordered Recommended today Dementia Risk: Low I have no recommendations Depression Screening: Negative [email or web address] Not available 08/24/2024 15:06:32 Reason for Referral [employer] Of [employer] Referral for Es sential hypertension Referring Physician: Giovanny Mercado, Internal Medicine, Encounter Date: 08/24/2024 Repairing Calibrator Referral for Hype rglycemia Referring Physician: Giovanny Mercado Internal Medicine, Encounter Date: 08/24/2024 Please call patient to sched ule. 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 Referring Physician: Giovanny Mercado Internal Medicine, Encounter Date: 10/24/2024 Referring Physician: Giovanny Mercado Internal Medicine, Encounter Date: 10/24/2024 Orthopedic Surgeon Referral for Closed fracture of hip Please call patient to schedule. Referring Physician: Giovanny Mercado Internal Medicine, Encounter Date: 10/24/2024 Results Created Date Observation Date Name Description Value Unit Range Abnormal Flag Note LastModifiedBy Organization Detail LastModifiedTime 06/22/20 24 06/22/2024 PT/IN R PT 31.6 Not Available [facility] Internal Med [facility] [address], [place], [address], 06/22/2024 15:26:26 06/22/20 24 06/22/2024 PT/IN R INR 2.6 Not Available [facility] [address], [place], [address], 06/22/2024 15:26:26 07/04/20 24 07/04/2024 PT/IN R PT 50.2 Not Available [facility] [address], [place], [address], 07/04/2024 17:16:11 07/04/20 24 07/04/2024 PT/IN R INR 4.2 Not Available [facility] [address], [place], [address], 07/04/2024 17:16:11 07/20/20 24 07/20/2024 PT/IN R PT 26.6 Not Available [facility] [address], [place], [address], 07/20/2024 16:40:59 07/20/20 24 07/20/2024 PT/IN R INR 2.2 Not Available [facility] [address], [place], [address], 07/20/2024 16:40:59 08/17/20 24 08/17/2024 CBC/C OMPLE TE BLD COUNT W/DIF F white blood cells 7.3 x10'3 /uL 4.2-10 .8 Not Available [facility] (Lab) [address] [place], [address], 08/17/2024 14:37:58 08/17/2008/17/2024 CBC/C OMPLE TE BLD COUNT W/DIF F red blood cells 4.24 x10'6 /uL 4.10-5 .80 Not Available [facility] (Lab) [address] [place], [address], 08/17/2024 14:37:58 08/17/2008/17/2024 CBC/C OMPLE TE BLD COUNT W/DIF F hemoglobin 13.1 g/dL 13.2-1 7.0 low Not Available [facility] (Lab) [address] [place], [address], 08/17/2024 14:37:58 08/17/2008/17/2024 CBC/C OMPLE TE BLD COUNT W/DIF F hematocrit 40.8 % 39.3-5 0.0 Not Available [facility] (Lab) [address] [place], [address], 08/17/2024 14:37:58 08/17/2008/17/2024 CBC/C OMPLE TE BLD COUNT W/DIF F mean red cell volume 96.2 fL 80.0-9 7.0 Not Available [facility] (Lab) [address] [place], [address], 08/17/2024 14:37:58 08/17/2008/17/2024 CBC/C OMPLE TE BLD COUNT W/DIF F mean red cell hemoglobin 30.9 pg 27.0-3 3.0 Not Available [facility] (Lab) [address] [place], [address], 08/17/2024 14:37:58 08/17/2008/17/2024 CBC/C OMPLE TE BLD COUNT W/DIF F mean RBC HGB concentratio n 32.1 g/dL 31.0-3 6.0 Not Available [facility] (Lab) [address] [place], [address], 08/17/2024 14:37:58 08/17/2008/17/2024 CBC/C OMPLE TE BLD COUNT W/DIF F red cell distribution width 14.6 % 11.8-1 5.5 Not Available [facility] (Lab) [address] [place], [address], 08/17/2024 14:37:58 08/17/2008/17/2024 CBC/C OMPLE TE BLD COUNT W/DIF F platelets 135 x10'3 /uL 150-40 0 low Not Available [facility] (Lab) [address] [place], [address], 08/17/2024 14:37:58 08/17/2008/17/2024 CBC/C OMPLE TE BLD COUNT W/DIF F mean platelet volume 11.5 fL 9.0-12 .4 Not Available [facility] (Lab) [address] [place], [address], 08/17/2024 14:37:58 08/17/2008/17/2024 CBC/C OMPLE TE BLD COUNT W/DIF F neutrophils 74.5 % 39.0-7 2.0 high Not Available [facility] (Lab) [address] [place], [address], 08/17/2024 14:37:58 08/17/2008/17/2024 CBC/C OMPLE TE BLD COUNT W/DIF F lymphocytes 15.9 % 16.0-4 7.0 low Not Available [facility] (Lab) [address] [place], [address], 08/17/2024 14:37:58 08/17/2008/17/2024 CBC/C OMPLE TE BLD COUNT W/DIF F monocytes 6.6 % 5.0-12 .0 Not Available [facility] (Lab) [address] [place], [address], 08/17/2024 14:37:58 08/17/2008/17/2024 CBC/C OMPLE TE BLD COUNT W/DIF F eosinophils 1.6 % 1.0-7. 0 Not Available [facility] (Lab) [address] [place], [address], 08/17/2024 14:37:58 08/17/2008/17/2024 CBC/C OMPLE TE BLD COUNT W/DIF F basophils 1.1 % 0.0-2. 0 Not Available [facility] (Lab) [address] [place], [address], 08/17/2024 14:37:58 08/17/2008/17/2024 CBC/C OMPLE TE BLD COUNT W/DIF F immature granulocytes 0.3 % 0.00-0 .50 Not Available [facility] (Lab) [address] [place], [address], 08/17/2024 14:37:58 08/17/2008/17/2024 CBC/C OMPLE TE BLD COUNT W/DIF F neutrophils, absolute count 5.45 x10'3 /uL 1.5-8. 0 Not Available [facility] (Lab) [address] [place], [address], 08/17/2024 14:37:58 08/17/2008/17/2024 CBC/C OMPLE TE BLD COUNT W/DIF F lymphocytes, absolute count 1.16 x10'3 /uL 1.07-3 .43 Not Available [facility] (Lab) [address] [place], [address], 08/17/2024 14:37:58 08/17/2008/17/2024 CBC/C OMPLE TE BLD COUNT W/DIF F monocytes, absolute count 0.48 x10'3 /uL 0.29-0 .99 Not Available [facility] (Lab) [address] [place], [address], 08/17/2024 14:37:58 08/17/2008/17/2024 CBC/C OMPLE TE BLD COUNT W/DIF F eosinophils, absolute count 0.12 x10'3 /uL 0.02-0 .53 Not Available [facility] (Lab) [address] [place], [address], 08/17/2024 14:37:58 08/17/2008/17/2024 CBC/C OMPLE TE BLD COUNT W/DIF F basophils, absolute count 0.08 x10'3 /uL 0.01-0 .08 Not Available [facility] (Lab) [address] [place], [address], 08/17/2024 14:37:58 08/17/20 24 08/17/2024 CBC/C OMPLE TE BLD COUNT W/DIF F immature granulocytes ,absolute 0.02 x10'3 /uL 0.00-0 .05 Not Available [facility] (Lab) [address] [place], [address], 08/17/2024 14:37:58 08/17/2008/17/2024 CBC/C OMPLE TE BLD COUNT W/DIF F nucleated red blood cells 0.0 % -0 Not Available [facility] (Lab) [address] [place], [address], 08/17/2024 14:37:58 08/17/2008/17/2024 CBC/C OMPLE TE BLD COUNT W/DIF F NRBC# 0.00 x10'3 /uL Not Available [facility] (Lab) [address] [place], [address], 08/17/2024 14:37:58 08/17/2008/17/2024 LIPID PANEL cholesterol 118 mg/dL 140-19 9 low NIH JOSE NSUS RECOM MENDA TION FOR LEONID STERO L: ADULT CHILD LOW RISK: <200 <170 BORDE RLINE : <200- 239 ----- HIGH RISK: >240 >200 Not Available [facility] (Lab) [address] [place], [address], 08/17/2024 13:36:36 08/17/2008/17/2024 LIPID PANEL triglyceride s 221 mg/dL 0-150 high NIH JOSE NSUS REPOR T RECOM MENDA TION FOR TRIGL YCERI TADEO: ADULT CHILD LOW RISK: <150 ----- BODER LINE: 150-1 99 ----- HIGH RISK: >200 ----- Not Available [facility] (Lab) [address] [place], [address], 08/17/2024 13:36:36 08/17/2008/17/2024 LIPID PANEL HDL cholesterol 47 mg/dL 40- Not Available [facility] (Lab) [address] [place], [address], 08/17/2024 13:36:36 08/17/2008/17/2024 LIPID PANEL LDL cholesterol, calculated 27 mg/dL 0-130 NIH JOSE NSUS REPOR T RECOM MENDA TIONS FOR LDL: ADULT CHILD LOW RISK <130 <110 (OPTI MAL LDL) <100 ----- BORDE RLINE : 130-1 59 ----- HIGH RISK: >160 >130 A TRIGL YCERI DE RESUL T >400 INVAL IDATE S THE CALCU LATIO N FOR LDL FRACT IONAT ION - THE LDL RESUL T WILL NOT BE REPOR JOVAN. Not Available [facility] (Lab) [address] [place], [address], 08/17/2024 13:36:36 08/17/2008/17/2024 COMPR EHENS MIAH METAB OLIC PANEL sodium 138 mmol/ L 137-14 5 Not Available [facility] (Lab) [address] [place], [address], 08/17/2024 13:36:41 08/17/2008/17/2024 COMPR EHENS MIAH METAB OLIC PANEL potassium 4.0 mmol/ L 3.5-5. 1 Not Available [facility] (Lab) [address] [place], [address], 08/17/2024 13:36:41 08/17/20 24 08/17/2024 COMPR EHENS MIAH METAB OLIC PANEL chloride 103 mmol/ L 98-107 Not Available [facility] (Lab) [address] [place], [address], 08/17/2024 13:36:41 08/17/2008/17/2024 COMPR EHENS MIAH METAB OLIC PANEL carbon dioxide 26 mmol/ L 22-30 Not Available [facility] (Lab) [address] [place], [address], 08/17/2024 13:36:41 08/17/2008/17/2024 COMPR EHENS MIAH METAB OLIC PANEL anion gap 13.0 mmol/ L 14-22 low Not Available [facility] (Lab) [address] [place], [address], 08/17/2024 13:36:41 08/17/2008/17/2024 COMPR EHENS MIAH METAB OLIC PANEL glucose 126 mg/dL 70-99 high Not Available [facility] (Lab) [address] [place], [address], 08/17/2024 13:36:41 08/17/2008/17/2024 COMPR EHENS MIAH METAB OLIC PANEL BUN 15 mg/dL 8-19 Not Available [facility] (Lab) [address] [place], [address], 08/17/2024 13:36:41 08/17/2008/17/2024 COMPR EHENS MIAH METAB OLIC PANEL creatinine 0.96 mg/dL 0.66-1 .25 Not Available [facility] (Lab) [address] [place], [address], 08/17/2024 13:36:41 08/17/2008/17/2024 COMPR EHENS MIAH METAB OLIC PANEL GFR >60 Refer ence Range : [place] ge GFR Healt hy Adult : >60 mL/mi n/1.7 3 m2 Chron ic Kidne y Disea se: 15-60 mL/mi n/1.7 3 m2 Kidne y Failu re: <15/m L/min /1.73 m2 www.n iddk. nih.g ov The MDRD study equat ion has not been valid ated in child sara <18 years of age; pregn ant women ; the elder ly >85 years of age; or in some racia l or ethni c subgr oups, such as Hispa nics. Outsi de the valid ated leti eters , estim ated GFR is less accur ate, requi ring clini emmy judgm ent on a case- by-ca se basis . Clini emym inter preta tion for other races and ages must be made by the clini grzegorz. The MDRD study equat ion has not been valid ated for the evalu ation of serum creat inine relat ed to nutri vale l statu s or medic ation usage . For perso ns <18 years of age, a pedia tric GFR calcu lator is avail able on the [facility] websi te: https ://miah w.annabel harrison.o rg/pr ofess ional s/kdo qi/gf r_cal culat or Not Available [facility] (Lab) [address] [place], [address], 08/17/2024 13:36:41 08/17/2008/17/2024 COMPR EHENS MIAH METAB OLIC PANEL alkaline phosphatase 72 U/L 38-126 Not Available [facility] (Lab) [address] [place], [address], 08/17/2024 13:36:41 08/17/2008/17/2024 COMPR EHENS MIAH METAB OLIC PANEL alanine aminotransfe rase 24 U/L 0-50 Not Available [facility] (Lab) [address] [place], [address], 08/17/2024 13:36:41 08/17/2008/17/2024 COMPR EHENS MIAH METAB OLIC PANEL aspartate aminotransfe rase 33 U/L 15-46 Not Available [facility] (Lab) [address] [place], [address], 08/17/2024 13:36:41 08/17/2008/17/2024 COMPR EHENS MIAH METAB OLIC PANEL bilirubin, total 0.60 mg/dL 0.20-1 .30 Not Available [facility] (Lab) [address] [place], [address], 08/17/2024 13:36:41 08/17/2008/17/2024 COMPR EHENS MIAH METAB OLIC PANEL calcium 8.9 mg/dL 8.4-10 .2 Not Available [facility] (Lab) [address] [place], [address], 08/17/2024 13:36:41 08/17/2008/17/2024 COMPR EHENS MIAH METAB OLIC PANEL total protein 6.4 g/dL 6.3-8. 2 Not Available [facility] (Lab) [address] [place], [address], 08/17/2024 13:36:41 08/17/2008/17/2024 COMPR EHENS MIAH METAB OLIC PANEL albumin 3.9 g/dL 3.0-4. 4 Not Available [facility] (Lab) [address] [place], [address], 08/17/2024 13:36:41 08/17/2008/17/2024 COMPR EHENS MIAH METAB OLIC PANEL globulin 2.5 g/dL 2.6-4. 2 low Not Available [facility] (Lab) [address] [place], [address], 08/17/2024 13:36:41 08/17/2008/17/2024 COMPR EHENS MIAH METAB OLIC PANEL A/G ratio 1.6 ratio 1.0-2. 0 Not Available [facility] (Lab) [address] [place], [address], 08/17/2024 13:36:41 08/17/20 24 08/17/2024 MICRO ALBUM IN RANDO M URINE microalbumin , urine <6.0 mg/L 0.0-16 .6 Not Available [facility] (Lab) [address] [place], [address], 08/17/2024 13:50:04 08/17/20 24 08/17/2024 TSH W/REF ANIA FT4 TSH with reflex free T4 5.760 uIU/m L 0.465- 4.680 high Not Available [facility] (Lab) [address] [place], [address], 08/17/2024 14:05:29 08/17/2008/17/2024 HEMOG LOBIN A1C HA1C 6.0 % 4.0-6. 0 Diabe suraj Scree presley Crite yoselin: <5.7% Consi stent with absen ce of diabe suraj 5.7-6 .4% Consi stent with incre ased risk for diabe suraj (pred iabet es) >OR=6 .5% Consi stent with diabe suraj REFER ENCE: Diabe suraj Care 2016, 39(Hilario ppl.1 ):s13 -s22 Not Available [facility] (Lab) [address] [place], [address], 08/17/2024 14:15:36 08/17/20 24 08/17/2024 T4 FREE free T4 1.03 NG/dL 0.78-2 .19 Not Available [facility] (Lab) [address] [place], [address], 08/17/2024 16:13:27 08/18/20 24 08/18/2024 PT/IN R PT 24.9 Not Available [facility] [address], [address], [place], [address], 08/17/2024 14:43:25 08/18/20 24 08/18/2024 PT/IN R INR 2.1 Not Available [facility] [address], [place], [address], 08/17/2024 14:43:25 09/21/20 24 09/21/2024 PT/IN R PT 24.1 Not Available [facility] [address], [place], [address], 09/21/2024 14:54:06 09/21/20 24 09/21/2024 PT/IN R INR 2.0 Not Available [facility] [address], [place], [address], 09/21/2024 14:54:06 10/26/19 25 10/26/2024 CBC/C OMPLE TE BLD COUNT W/DIF F white blood cells 8.1 x10'3 /uL 4.2-10 .8 Not Available [facility] (Lab) [address] [place], [address], 10/26/2024 16:09:46 10/26/19 25 10/26/2024 CBC/C OMPLE TE BLD COUNT W/DIF F red blood cells 2.40 x10'6 /uL 4.10-5 .80 low Not Available [facility] (Lab) [address] [place], [address], 10/26/2024 16:09:46 10/26/19 25 10/26/2024 CBC/C OMPLE TE BLD COUNT W/DIF F hemoglobin 7.6 g/dL 13.2-1 7.0 low Not Available [facility] (Lab) [address] [place], [address], 10/26/2024 16:09:46 10/26/19 25 10/26/2024 CBC/C OMPLE TE BLD COUNT W/DIF F hematocrit 24.6 % 39.3-5 0.0 low Not Available [facility] (Lab) [address] [place], [address], 10/26/2024 16:09:46 10/26/19 25 10/26/2024 CBC/C OMPLE TE BLD COUNT W/DIF F mean red cell volume 102.5 fL 80.0-9 7.0 high Not Available [facility] (Lab) [address] [place], [address], 10/26/2024 16:09:46 10/26/19 25 10/26/2024 CBC/C OMPLE TE BLD COUNT W/DIF F mean red cell hemoglobin 31.7 pg 27.0-3 3.0 Not Available [facility] (Lab) [address] [place], [address], 10/26/2024 16:09:46 10/26/19 25 10/26/2024 CBC/C OMPLE TE BLD COUNT W/DIF F mean RBC HGB concentratio n 30.9 g/dL 31.0-3 6.0 low Not Available [facility] (Lab) [address] [place], [address], 10/26/2024 16:09:46 10/26/19 25 10/26/2024 CBC/C OMPLE TE BLD COUNT W/DIF F red cell distribution width 17.6 % 11.8-1 5.5 high Not Available [facility] (Lab) [address] [place], [address], 10/26/2024 16:09:46 10/26/19 25 10/26/2024 CBC/C OMPLE TE BLD COUNT W/DIF F platelets 163 x10'3 /uL 150-40 0 Not Available [facility] (Lab) [address] [place], [address], 10/26/2024 16:09:46 10/26/19 25 10/26/2024 CBC/C OMPLE TE BLD COUNT W/DIF F mean platelet volume 11.5 fL 9.0-12 .4 Not Available [facility] (Lab) [address] [place], [address], 10/26/2024 16:09:46 10/26/19 25 10/26/2024 CBC/C OMPLE TE BLD COUNT W/DIF F neutrophils 80.6 % 39.0-7 2.0 high Not Available [facility] (Lab) [address] [place], [address], 10/26/2024 16:09:46 10/26/19 25 10/26/2024 CBC/C OMPLE TE BLD COUNT W/DIF F lymphocytes 10.9 % 16.0-4 7.0 low Not Available [facility] (Lab) [address] [place], [address], 10/26/2024 16:09:46 10/26/19 25 10/26/2024 CBC/C OMPLE TE BLD COUNT W/DIF F monocytes 5.4 % 5.0-12 .0 Not Available [facility] (Lab) [address] [place], [address], 10/26/2024 16:09:46 10/26/19 25 10/26/2024 CBC/C OMPLE TE BLD COUNT W/DIF F eosinophils 1.9 % 1.0-7. 0 Not Available [facility] (Lab) [address] [place], [address], 10/26/2024 16:09:46 10/26/19 25 10/26/2024 CBC/C OMPLE TE BLD COUNT W/DIF F basophils 0.5 % 0.0-2. 0 Not Available [facility] (Lab) [address] [place], [address], 10/26/2024 16:09:46 10/26/19 25 10/26/2024 CBC/C OMPLE TE BLD COUNT W/DIF F immature granulocytes 0.7 % 0.00-0 .50 high Not Available [facility] (Lab) [address] [place], [address], 10/26/2024 16:09:46 10/26/19 25 10/26/2024 CBC/C OMPLE TE BLD COUNT W/DIF F neutrophils, absolute count 6.51 x10'3 /uL 1.5-8. 0 Not Available [facility] (Lab) [address] [place], [address], 10/26/2024 16:09:46 10/26/19 25 10/26/2024 CBC/C OMPLE TE BLD COUNT W/DIF F lymphocytes, absolute count 0.88 x10'3 /uL 1.07-3 .43 low Not Available [facility] (Lab) [address] [place], [address], 10/26/2024 16:09:46 10/26/19 25 10/26/2024 CBC/C OMPLE TE BLD COUNT W/DIF F monocytes, absolute count 0.44 x10'3 /uL 0.29-0 .99 Not Available [facility] (Lab) [address] [place], [address], 10/26/2024 16:09:46 10/26/19 25 10/26/2024 CBC/C OMPLE TE BLD COUNT W/DIF F eosinophils, absolute count 0.15 x10'3 /uL 0.02-0 .53 Not Available [facility] (Lab) [address] [place], [address], 10/26/2024 16:09:46 10/26/19 25 10/26/2024 CBC/C OMPLE TE BLD COUNT W/DIF F basophils, absolute count 0.04 x10'3 /uL 0.01-0 .08 Not Available [facility] (Lab) [address] [place], [address], 10/26/2024 16:09:46 10/26/19 25 10/26/2024 CBC/C OMPLE TE BLD COUNT W/DIF F immature granulocytes ,absolute 0.06 x10'3 /uL 0.00-0 .05 high Not Available [facility] (Lab) [address] [place], [address], 10/26/2024 16:09:46 10/26/19 25 10/26/2024 CBC/C OMPLE TE BLD COUNT W/DIF F nucleated red blood cells 0.0 % -0 Not Available [facility] (Lab) [address] [place], [address], 10/26/2024 16:09:46 10/26/19 25 10/26/2024 CBC/C OMPLE TE BLD COUNT W/DIF F NRBC# 0.00 x10'3 /uL Not Available [facility] (Lab) [address] [place], [address], 10/26/2024 16:09:46 07/17/20 24 06/30/2024 US, semaj moon venou s, extre mity, compl ete No observ ation record ed. [address] ([employer]) [address] [place], [address], 07/17/2024 10:51:52 07/17/20 24 06/30/2024 ankle brach ial index No observ ation record ed. [address] ([employer]) [address] [place], [address], 07/17/2024 10:51:52 07/17/20 24 06/30/2024 US, semaj moon, arter ial, lower extre mity, compl ete No observ ation record ed. [address] ([employer]) [address] [place], [address], 07/17/2024 10:51:52 08/21/20 24 06/30/2024 ankle brach ial index No observ ation record ed. [address] ([employer]) [address] [place], [address], 08/21/2024 19:38:47 10/26/19 25 10/26/2024 imagi ng/di agnos tic resul t No observ ation record ed. [facility] [address] [place], [address], 10/26/2024 22:09:56 Result Notes None recorded. Problems Name Problem SNOMED Code Status Onset Date Resolution Date Notes Provider Name and Address Organization Details Recorded Time Pain of left ankle joint 9820576023544 9103 Active 2022 Not Available [facility] 3 16:26:37 Anemia 562548366 Active 2021 Not Available [facility] 3 16:26:37 Hypothyroi dism 55485508 Active 2021 Not Available [facility] 3 16:26:37 Cough 97982568 Active 2021 Not Available [facility] 3 16:26:37 Acute upper respirator y infection 75436207 Active 2021 Not Available [facility] 3 16:26:37 Carpal tunnel syndrome 62330047 Active Not Available [facility] 3 16:26:37 Spinal stenosis in cervical region 42071511 Active Not Available [facility] 3 16:26:37 Essential hypertensi on 10625880 Active 2022 Not Available [facility] 3 16:26:37 Hyperlipid emia 35857485 Active 2022 Not Available [facility] 3 16:26:37 Chronic pain 45680846 Active 2022 Not Available [facility] 3 16:26:37 Restless legs 75314433 Active 2022 Not Available [facility] 3 16:26:37 Cigarette smoker 03569609 Active 2022 Not Available [facility] 3 16:26:37 Thrombocyt openic disorder 675658644 Active 2022 Not Available [facility] 3 16:26:37 Dizziness 800185615 Active 2022 Not Available [facility] 3 16:26:37 Thyroid stimulatin g hormone level above reference range 071084601 Active 2022 Not Available [facility] 3 16:26:37 Abnormal gait 10797978 Active 2022 Not Available [facility] 3 16:26:37 Burn of skin 812226984 Active 2022 Not Available [facility] 3 16:26:37 Open wound of right knee 1959424501906 9109 Active 2022 Not Available [facility] 3 16:26:37 Skin lesion 84058769 Active 2022 Not Available [facility] 3 16:26:37 Squamous cell carcinoma of skin 721152124 Active 2022 Niraj eckert MD [address], [address], [place], [address] , [facility] [employer] [facility] [employer] [facility] 3 14:17:41 Persistent insomnia 509123761 Active 2023 Giovanny felix MD [address], [address], [place], [address] , [facility] [employer] [facility] [employer] [facility] 4 14:55:04 Hyperglyce dragan 02337076 Active 2023 Giovanny felix MD [address], [address], [place], [address] , [facility] [employer] [facility] 4 14:56:10 COVID-19 101116345 Active 2023 HANANE Hampton, [facility] [employer] [facility] [facility] 4 14:15:42 Acute urinary tract infection 440586525 Active 2023 HANANE Hampton, [facility] 4 12:52:02 Thumb injury 361192468 Active 2023 Ericka Ribera MA null, [facility] 4 14:39:29 Thumb injury 758583500 Active 2023 Ericka Ribera MA null, [facility] 4 14:39:32 Open wound of right upper arm 4902969874709 9108 Active 2023 RUSSEL Paulino null, [facility] 4 16:48:02 Pain in right hand 4743960845989 09 Active 2023 RUSSEL Ndiaye null, [facility] 4 10:13:09 Closed fracture finger proximal phalanx, base 603708596 Active 2023 ARIA Castillo [address], [address], [place], [address] , [facility] 4 10:45:26 Chronic ulcer of skin 73612097 Active 2023 Ericka Ribera MA null, [facility] 4 15:58:45 Open wound of left ankle 0585551243034 9103 Active 2023 ARIA Allen [email or web address], [address], [place], [address] , [facility] 4 16:30:22 Closed fracture of hip 484819877 Active 2024 Giovanny felix MD [address], [address], [place], [address] , [facility] 5 11:31:45 Problem Notes None recorded. Procedures Surgical History Date Name Laterality Status Provider Name and Address Organization Details Recorded Time 09/19/20 Wound Care-Podiatry completed Segun Solis RN [facility] 09/19/2024 16:06:28 09/19/20 Blank Procedure Note completed Segun Solis RN [facility] [employer] [facility] 09/19/2024 15:35:55 09/05/20 24 Wound Care-Podiatry completed ARIA Allen [address], [place], [address], [facility] [employer] [facility] 09/05/2024 18:28:12 08/24/20 24 Medicare Wellness CPT Code, subsequent completed Giles Zavala LPN [facility] [employer] [facility] 08/24/2024 08:37:10 08/24/20 24 Advanced Care Planning completed Giles Zavala LPN [facility] [employer] [facility] 08/24/2024 15:00:26 07/17/20 24 Wound Care-Podiatry completed Segun Solis RN [facility] [employer] [facility] 07/17/2024 12:35:08 06/27/20 24 Wound Care-Podiatry completed ARIA Allen [address], [address], [place], [address], [facility] [employer] [facility] 06/27/2024 16:51:55 05/08/20 24 Nail Debridement completed Jennifer Overton DPM [address], [address], [place], [address], [facility] [employer] [facility] 05/09/2024 09:04:09 05/08/20 24 Ulcer Care completed Jennifer Overton DPM [address], [address], [place], [address], [facility] [employer] [facility] 05/09/2024 09:04:53 05/25/20 23 Excision Cyst Multilayer completed Niraj Ann MD [address], [address], [place], [address], [facility] [employer] [facility] 05/25/2023 13:47:52 05/04/20 23 Wound Care-Podiatry completed Carito Card RN [facility] [employer] [facility] 05/04/2023 17:04:49 03/30/20 23 Medicare Wellness CPT Code, Initial completed Collette Pereyra RN [facility] [employer] [facility] 03/30/2023 16:21:39 10/21/19 18 tooth extraction, complete upper completed Carito Card RN [facility] 05/04/2023 17:08:04 03/18/19 95 Bypass completed Carito Card RN [facility] 05/04/2023 17:06:33 Back Surgery completed Not Available [facility] 12/16/2022 14:09:17 Arthrd ant ntrbd min dsc lum completed Not Available [facility] 12/16/2022 14:09:17 Cardiac Bypass completed [facility] Available [facility] 12/16/2022 14:09:17 Pacemaker completed Not Available [facility] 0 12/16/2022 14:09:17 Hip surgery completed Not Available [facility] 12/16/2022 14:09:17 Cardiac Stent Placement completed Not Available [facility] 12/16/2022 14:09:17 open reduction of fracture of femur completed Giles Zavala LPN [facility] 10/24/2024 11:17:32 Imaging Results Imaging Date Name Status LastModified by Emily nicolason [facility] Details LastModified Time 06/30/2024 US, duplex, venous, extremity, complete completed [address] ([employer]) [address] [place], [address], 07/17/2024 10:51:52 06/30/2024 ankle brachial index completed [address] ([employer]) [address] [place], [address], 07/17/2024 10:51:52 06/30/2024 US, duplex, arterial, lower extremity, complete completed [address] ([employer]) [address] [place], [address], 07/17/2024 10:51:52 06/30/2024 ankle brachial index completed [address] ([employer]) [address] [place], [address], 08/21/2024 19:38:47 10/26/2024 imaging/diagn ostic result active [facility] [address] [place], [address], 10/26/2024 22:09:56 Procedure Notes None recorded. Medical Equipment None Reported. Allergies Allergen ID Allergen Name Allergen Category Reaction Reaction Severity Criticality Documentation Date Start Date Code Code System Note Provider Name and Address Organization Details Recorded Time 63572 Product containin g penicilli n and antibioti c (product) medicatio n hives Not available Not available 12/16/2022 22883 05 SNOMED Not Available [facility] 3 14:11:59 65093 Keflex medicatio n hives Not available Not available 12/16/202253927 7 RxNorm Not Available [facility] 3 14:11:59 74818 Betadine medicatio n hives Not available Not available 12/16/202228922 0 RxNorm Not Available [facility] 3 14:11:59 Medications Name Sig Start Date Stop Date Status Note LastModified by Organization Details LastModified Time cyclobenz aprine 10 mg tablet Take 1 tablet every day by oral route in the evening, for as needed. active Not Available Not Available No t Available gabapenti n 600 mg tablet TAKE ONE TABLET BY MOUTH THREE TIMES DAILY active Not Available Not Available No t Available doxycycli ne hyclate 100 mg capsule Take 1 capsule twice a day by oral route for 7 days. 03/30 completed Not Available Not Available Not Available trazodone 50 mg tablet TAKE 1 TABLET BY MOUTH EVERY DAY NEEDED 05/04 completed Not Available Not Available Not Available azithromy elin 250 mg tablet TAKE 2 TABLETS BY MOUTH FOR 1 DAY THEN TAKE 1 TABLET BY MOUTH DAILY FOR 4 DAYS 10/28 completed Not Available Not Available Not Available amiodaron e 200 mg tablet TAKE 1 TABLET BY MOUTH EVERY DAY 06/27 completed Not Available Not Available Not Available cephalexi n 250 mg capsule TAKE ONE CAPSULE BY MOUTH EVERY 8 HOURS FOR 10 DAYS 06/01 completed Not Available Not Available Not Available sulfameth oxazole 800 mg-trimet hoprim 160 mg tablet TAKE 1 TABLET BY MOUTH TWICE DAILY 08/24 completed Not Available Not Available Not Available spironola ctone 25 mg tablet TAKE 1 TABLET BY MOUTH EVERY DAY active Not Available Not Available No t Available warfarin 4 mg tablet TAKE 1 TABLET BY MOUTH EVERY DAY 10/24 completed Not Available Not Available Not Available isosorbid e mononitra te ER 60 mg tablet,ex tended release 24 hr TAKE 1 TABLET BY MOUTH EVERY DAY 10/24 completed Not Available Not Available Not Available citalopra m 20 mg tablet TAKE 1 TABLET BY MOUTH DAILY active Not Available Not Available No t Available hydrocodo ne 7.5 mg-acetam inophen 325 mg tablet TAKE ONE TABLET BY MOUTH EVERY 8 HOURS NEEDED FOR PAIN. 08/25 completed Not Available Not Available Not Available pantopraz ole 40 mg tablet,de layed release active Not Available Not Available Not Available Cipro 500 mg tablet Take 1 tablet every 12 hours by oral route for 7 days. 2024 active Not Available Not Available Not Avai lable ropinirol e 0.5 mg tablet TAKE 1 TABLET BY MOUTH EVERY MORNING AND TAKE 2 TABLETS BY MOUTH EVERY NIGHT AT BEDTIME active Not Available Not Available No t Available warfarin 2 mg tablet TAKE 1 TABLET BY MOUTH EVERY DAY 10/24 completed Not Available Not Available Not Available warfarin 5 mg tablet TAKE 1 TABLET BY MOUTH EVERY DAY 10/24 completed Not Available Not Available Not Available digoxin 125 mcg (0.125 mg) tablet 04/24 completed Not Available Not Available Not Available zolpidem 5 mg tablet TAKE 1 TABLET BY MOUTH EVERY DAY AT BEDTIME 01/24 completed Not Available Not Available Not Available warfarin 1 mg tablet TAKE 1 TABLET BY MOUTH EVERY DAY active Not Available Not Available No t Available levofloxa elin 750 mg tablet TAKE 1 TABLET BY MOUTH EVERY DAY 05/06 completed Not Available Not Available Not Available methylpre dnisolone 4 mg tablets in a dose pack FOLLOW PACKAGE DIRECTIO NS 04/14 completed Not Available Not Available Not Available albuterol sulfate HFA 90 mcg/actua tion aerosol inhaler INHALE 2 PUFFS BY MOUTH EVERY 4 HOURS NEEDED 06/27 completed Not Available Not Available Not Available fludrocor tisone 0.1 mg tablet TAKE ONE TABLET BY MOUTH EVERY DAY 03/30 completed stopped by cardiolo gist Not Available Not Available Not Available doxycycli ne hyclate 100 mg tablet TAKE 1 TABLET BY MOUTH TWICE DAILY FOR 5 DAYS 06/01 completed Not Available Not Available Not Available oxycodone 5 mg tablet 1/2 tablet every 6 hours PRN active Not Available Not Available No t Available rosuvasta tin 10 mg tablet Take 1 tablet every day by oral route for 90 days. active Not Available Not Available No t Available rosuvasta tin 20 mg tablet TAKE 1 TABLET BY MOUTH EVERY DAY 06/24 completed Not Available Not Available Not Available rosuvasta tin 40 mg tablet TAKE 1 TABLET BY MOUTH EVERY DAY active Not Available Not Available No t Available amiodaron e 100 mg tablet Take 1 tablet every day by oral route. active Not Available Not Available No t Available aspirin 2020 active Not Available Not Available Not Avai lable warfarin 5mg daily active Not Available Not Available No t Available isosorbid e 30mg daily active Not Available Not Available No t Available Lagevrio 200 mg capsule (EUA) TAKE 4 CAPSULES BY MOUTH EVERY 12 HOURS FOR 5 DAYS 04/14 completed Not Available Not Available Not Available Vitals Date Recorded Pain severity - 0-10 verbal numeric rating [Score] - Reported Oxygen saturation Oxygen saturation in Arterial blood by Pulse oximetry Heart rate Body weight Systolic blood pressure Diastolic blood pressure Provider Name and Address Organization Details Last Updated DateTime 4 8 100 % 100 % 71 /min 94648.6 3 g 100 mm[Hg] 54 mm[Hg] Segun Solis RN [facility] [employer] 4 11:45:51 Date Recorded Body height Body mass index (BMI) Body weight Body temperature Heart rate Respiratory rate Oxygen saturation Oxygen saturation in Arterial blood by Pulse oximetry Pain severity - 0-10 verbal numeric rating [Score] - Reported Systolic blood pressure Diastolic blood pressure Provider Name and Address Organization Details Last Updated DateTime 4 177.8 cm 26.8 kg/m2 93029.7 7 g 97.8 [degF] 86 /min 16 /min 97 % 97 % 0 118 mm[Hg] 64 mm[Hg] Giles Zavala LPN [facility] [employer] 4 14:12:11 Date Recorded Body height Body temperature Heart rate Pain severity - 0-10 verbal numeric rating [Score] - Reported Oxygen saturation Oxygen saturation in Arterial blood by Pulse oximetry Systolic blood pressure Diastolic blood pressure Provider Name and Address Organization Details Last Updated DateTime 4 177.8 cm 97.9 [degF] 88 /min 9 94 % 94 % 114 mm[Hg] 58 mm[Hg] Segun Solis RN [facility] [employer] [facility] 4 16:30:15 Date Recorded Body height Body temperature Heart rate Oxygen saturation Oxygen saturation in Arterial blood by Pulse oximetry Systolic blood pressure Diastolic blood pressure Provider Name and Address Organization Details Last Updated DateTime 4 177.8 cm 97.8 [degF] 88 /min 97 % 97 % 111 mm[Hg] 63 mm[Hg] Segun Solis RN [facility] [employer] [facility] 4 15:35:41 Date Recorded Body height Body mass index (BMI) Body weight Body temperature Heart rate Respiratory rate Oxygen saturation Oxygen saturation in Arterial blood by Pulse oximetry Pain severity - 0-10 verbal numeric rating [Score] - Reported Systolic blood pressure Diastolic blood pressure Provider Name and Address Organization Details Last Updated DateTime 5 177.8 cm 26.3 kg/m2 52237.4 g 97.7 [degF] 78 /min 18 /min 97 % 97 % 6 128 mm[Hg] 78 mm[Hg] Giles Zavala LPN [facility] [employer] [facility] 5 11:12:51 Social History Question Answer Notes LastModified by Organizat ion Details LastModified Time Tobacco Smoking Status Current Every Day Smoker Not Available [facility] 12/16/2022 14:09:08 Do You Have An Advance Directive? No [id number] Information not available 12/16/2022 What Is Your Level Of Alcohol Consumption? Occasional [id number].[id number] Information not available 12/16/2022 How Many Years Have You Consumed Alcohol? 65 [email or web address] Information not available 08/24/2024 Do You Wear A Helmet When Biking? No Does Not Bike [email or web address] Information not available 08/24/2024 Are You Blind Or Do You Have Difficulty Seeing? No MIGRATION.[id number] Information not available 12/16/2022 Is Blood Transfusion Acceptable In An Emergency? Yes [email or web address] Information not available 08/24/2024 What Is Your Level Of Caffeine Consumption? Occasional MIGRATION.[id number] [id number] Information not available 12/16/2022 In The 14 Days Before Symptom Onset, Have You Had Close Contact With A Laboratory-confir med COVID-19 While That Case Was Ill? No MIGRATION.[id number] Information not available 12/16/2022 In The 14 Days Before Symptom Onset, Have You Had Close Contact With A Person Who Is Under Investigation For COVID-19 While That Person Was Ill? No MIGRATION.27775 [id number] Information not available 12/16/2022 Are You Currently Employed? No Retired [email or web address] Information not available 08/24/2024 Are You Deaf Or Do You Have Serious Difficulty Hearing? No MIGRATION.38276 [id number] Information not available 12/16/2022 What Type Of Diet Are You Following? REGULAR MIGRATION.02360 13724 Information not available 12/16/2022 What Is The Highest Grade Or Level Of School You Have Completed Or The Highest Degree You Have Received? [id number] MIGRATION.96895 77543 Information not available 12/16/2022 How Many Days Of Moderate To Strenuous Exercise, Like A Brisk Walk, Did You Do In The Last 7 Days? 0 [email or web address] Information not available 08/24/2024 Have There Been Any Changes To Your Family Or Social Situation? No MIGRATION.17530 07826 Information not available 12/16/2022 What Is The Fluoride Status Of Your Home? Unknown MIGRATION.43798 80982 Information not available 12/16/2022 Are There Any Guns Present In Your Home? Yes MIGRATION.85699 [id number] Information not available 12/16/2022 Do You Use Insect Repellent Routinely? Yes MIGRATION.96823 66446 Information not available 12/16/2022 Where Do You Live? Condo MIGRATION.14747 24512 Information not available 12/16/2022 Presence Of Domestic Violence No Information no t available 08/24/2024 Are You Able To Care For Yourself? Yes [email or web address] Information not available 08/24/2024 Are You Blind Or Do Yo Have Difficulty Seeing? No [email or web address] Information not available 08/24/2024 Are You Deaf Or Do You Have Serious Difficulty Hearing? No [email or web address] Information not available 08/24/2024 General Stress Level? Low [email or web address] Information not available 08/24/2024 Live Alone Of With Others? With Others Information not available 08/24/2024 Do You Have A Medical Power Of Care Services Manager? No MIGRATION.20096 [id number] Information not available 12/16/2022 What Was The Date Of Your Most Recent Tobacco Screening? 06/01/2024 [email or web address] Information not available 06/01/2024 How Many Children Do You Have? 1 Information not available 08/24/2024 What Is Your Current Pack Years? 10-19packyear s [email or web address] Information not available 08/24/2024 Have You Ever Been Counseled For Unhealthy Alcohol Use? No MIGRATION.32902 15685 Information not available 12/16/2022 Do You Have Any Pets? No MIGRATION.77418 88621 Information not available 12/16/2022 What Is Your Relationship Status? MIGRATION.17592 96605 Information not available 12/16/2022 Do You Use Your Seat Belt Or Car Seat Routinely? Yes MIGRATION.47227 47313 Information not available 12/16/2022 Are You Sexually Active? No [email or web address] Information not available 08/24/2024 Do You Have Smoke And Carbon Monoxide Detectors In Your Home? Yes MIGRATION.96690 02448 Information not available 12/16/2022 At What Age Did You Start Smoking Tobacco? 13 MIGRATION.54334 88773 Information not available 12/16/2022 Are You Passively Exposed To Smoke? Yes MIGRATION.15462 18700 Information not available 12/16/2022 Are There Any Smokers In Your House? Yes MIGRATION.14845 89073 Information not available 12/16/2022 How Much Tobacco Do You Smoke? 0.25 PPD MIGRATION.08706 10990 Information not available 12/16/2022 What Types Of Sporting Activities Do You Participate In? None MIGRATION.43235 83434 Information not available 12/16/2022 Do You Feel Stressed (tense, Restless, Nervous, Or Anxious, Or Unable To Sleep At Night)? [id number] MIGRATION.53072 46572 Information not available 12/16/2022 Do You Use Any Illicit Or Recreational Drugs? No MIGRATION.66058 08157 Information not available 12/16/2022 Do You Use Sunscreen Routinely? No MIGRATION.04074 89017 Information not available 12/16/2022 Has Tobacco Cessation Counseling Been Provided? Yes [email or web address] Information not available 08/24/2024 On What Date Was Tobacco Cessation Counseling Provided? 08/24/2024 Information not available 08/24/2024 How Many Years Have You Smoked Tobacco? 71 [email or web address] Information not available 08/24/2024 Have You Recently Traveled Abroad? No MIGRATION.[id number] Information not available 12/16/2022 Do You Have Any Dietary Restrictions? No MIGRATION.64342 [id number] Information not available 12/16/2022 Do You Or Have You Ever Used Any Other Forms Of Tobacco Or Nicotine? No MIGRATION.96990 [id number] Information not available 12/16/2022 How Many Days In The Past Year Have You Consumed 5 Or More Drinks? 0 [email or web address] Information no t available 08/24/2024 Sex: Male Functional Status Question Answer Note LastModified by Organizat ion Details LastModified Time Do you have difficulty walking or climbing stairs? Yes [id number] Information not available 12/16/2022 Do you have transportation difficulties? No MIGRATION.149569 2643 Information not available 12/16/2022 Are you able to walk? YESASSIST uses walker MIGRATION.[id number] Information not available 12/16/2022 Do you have difficulty doing errands alone? No MIGRATION.[id number] 7976 Information not available 12/16/2022 Are you able to care for yourself? Yes MIGRATION.[id number] Information not available 12/16/2022 Do you have difficulty dressing or bathing? No MIGRATION.125307 1354 Information not available 12/16/2022 What is your exercise level? None [email or web address] Information not available 08/24/2024 Mental Status Question Answer Note LastModified by Organizat ion Details LastModified Time Do you have difficulty concentrating, remembering or making decisions? No MIGRATION.[id number] Information not available 12/16/2022 Family History Relationship Description Onset Age of this Age Resolved Age Notes LastModified by Organization Details LastModified Time Father Heart disease [id number] Not available 12/16/2022 14:09:17 Father Myocardial infarction 66 [id number] Not available 12/16/2022 14:09:17 Mother Family history of malignant neoplasm [id number].314 [id number] Not available 12/16/2022 14:09:17 Brother Myocardial infarction 60 MIGRATION.030 [id number] Not available 12/16/2022 14:09:17 Medical History Condition Response NERVE DISEASE Y BLINDNESS N KIDNEY STONES N MRSA N CARPAL TUNNEL SYNDROME N OTHER # 1 Y LUNG DISEASE/DISORDER N HISTORY OF DRUG ABUSE N RADIATION / CHEMOTHERAPY N COPD N SPORTS INJURY N ANKLE PAIN N BLOOD DISEASES N SCHIZOPHRENIA N BOWEL PROBLEMS N SHOULDER PAIN N DEPRESSION (INCLUDING POST ) N STROKE/TIA N KNEE PAIN N ULCERS N BENIGN PROSTATIC HYPERPLASIA N MYOCARDIAL INFARCTION Y OBESITY N GERD/NAUSEA N ANEURYSM N URINARY/BLADDER/KIDNEY PROBLEMS Y CORONARY ARTERY DISEASE (CAD) Y ADDICTION CONCERNS N USE OF BLOOD THINNERS N SKIN PROBLEMS N EMPHYSEMA N MUSCLE,JOINT OR BONE PROBLEMS N DVT N STOMACH ULCERS N BLOOD CLOTS N USE OF NSAIDS N CONCUSSION OR SPINAL TRAUMA N NEUROPATHY N AIDS/HIV N FRACTURES N ELBOW PAIN N HYPERTENSION Y TOURETTE'S N ANXIETY DISORDER N Metal allergy N BLOOD TRANSFUSION N ANEMIA/BLOOD DISORDER N BIPOLAR DISORDER N BRONCHITIS N OSTEOARTHRITIS N TUBERCULOSIS N FOOT PROBLEM N HEART VALVE DISORDERS N ALLERGIES/HAYFEVER N SOFT TISSUE INJURY N INFECTIOUS DISEASE N HEART ARRHYTHMIA Y INSOMNIA N RHEUMATOID ARTHRITIS N HIGH CHOLESTEROL / HYPERLIPIDEMIA Y EDEMA N CHRONIC PAIN SYNDROME N CAROTID BLOCKAGE N BACK / NECK PROBLEMS N BURSITIS N HERNIATED DISC N DIALYSIS N FIBROMYALGIA N OSTEOPOROSIS N ARTHRITIS Y PERIPHERAL NEUROPATHY N DIABETES, TYPE N HEARTBURN / REFLUX N HEPATITIS / LIVER DISEASE N GOUT N SLEEP DISORDER N ALZHEIMER'S DISEASE N HERPES N SEIZURES/EPILEPSY N HEADACHES/MIGRAINES N PACEMAKER Y VASCULAR DISEASE Y HIP PAIN N Blood Disorder N DIZZINESS N HEAD TRAUMA OR INJURY N HEART DISEASE/HEART PROBLEMS Y MULTIPLE SCLEROSIS N CARDIAC ARRHYTHMIA N CANCER: SPECIFY N ANESTHESIA COMPLICATIONS N ATRIAL FIBRILLATION Y AUTOIMMUNE DISEASE N Immunizations Vaccine Type Date Status Note Provider Nam e and Address Organization Details Recorded Time Influenza, split virus, quadrivalent, preservative 9 completed RACHAEL James, [place] [employer] 05/30/2024 15:34:28 Influenza, high-dose, quadrivalent, PF 2 completed Not Available [facility] 05/10/2023 16:26:38 Past Encounters Encounter ID Performer Location Encounter Start Date Encounter Closed Date Diagnosis/Indication Diagnosis SNOMED-CT Code Diagnosis ICD10 Code Diagnosis Note [id number] [facility]_[address] [address] 04/24/2021 00:00:00 04/24/2021 14:50:13 [id number] [facility] [place] [address] 05/15/2021 00:00:00 05/15/2021 15:35:05 [id number] [facility] [address] [address] 06/05/2021 00:00:00 06/05/2021 15:41:51 [id number] [facility] [address] [address] 07/03/2021 00:00:00 07/03/2021 09:45:19 [id number] [facility] [place] [address] [place] [address] Ave[address] [facility] [address] [place] [address] 05/19/2022 00:00:00 06/29/2022 18:41:22 [id number] [facility] [place] [address] [facility] [address] [place] [address] 08/25/2022 00:00:00 08/26/2022 17:51:08 [id number] Giovanny felix MD [facility] Internal Med [facility] [address] [facility] [address] [place] [address] 12/22/2022 15:36:31 12/22/2022 16:45:46 Screening - NAD 623384227 Z13.9 C-scope: Cologuard neg in 2020 as per his history Get yearly flu shot, tdapUTD on pneumovax as per old PCP recordsGet shingrixUT D on COVID 19 vaccine and its boosters RTC in 3 monthsDo labsER if worseHe and his did verbalize his understand ing of the above Essential hypertension 48815647 I10 S/p PMHx of atrial fibrillati on On ASAOn amiodarone 200mg dailyOn fludrocort isone 0.1mg 6 days a weekOn isosorbide ER 60mg dailyOn spironolac tone 25mg dailyOn coumadin INR 05/19/2022 : 2.3, coumadin is 5mg daily except Wed 7.5mg daily, keep same dose and repeat in one monthGet an apt with cardiology , [facility] sees [facility] [place] 08/25/2022 :Dr Guerra 05/21/2022 , 08/24/2022 , f/u in [address] Belle [place] 11/24/2022 Hyperlipidemia 08655196 E78.5 On rosuvastat in 20mg daily Get labs Chronic pain 23226089 G8 9.29 Not on hydrocodon e 7.5mg tidOn gabapentin 600mg tidDoes well, declines any pain management referrals Restless legs 27610581 G 25.81 On ropinirole 0.5mg one tab in am and 2 in pm Cigarette smoker 8248822 7 F17.210 Advised to quitDeclin es any testing Anticoagulant therapy 18 8480966 Z79.01 08/24/2022 :INR 2.1Repeat in one monthRecei gisela and discussed PT/INR results OV 11/24/2022 :Get labs [id number] Giovanny felix MD [facility] Internal Med [facility] [address] [facility] [address] [place] [address] 03/30/2023 15:44:41 03/30/2023 16:45:22 Anticoagulant therapy 308369106 Z79.08/24/2022 :INR 2.1Repeat in one monthRecei gisela and discussed PT/INR results OV 11/24/2022 :Get labs OV 03/30/2023 :INR is 1.1, he states that he did not take his coumadin for a 2 days, restart the coumadin and repeat the INR in one week Screening - NAD 24109563 3 Z13.9 C-scope: Cologuard neg in 2020 as per his history Get yearly flu shot, tdapUTD on pneumovax as per old PCP recordsGet shingrixUT D on COVID 19 vaccine and its boosters RTC in 3 monthsDo labsER if worseHe and his did verbalize his understand ing of the above Essential hypertension 09607127 I10 S/p PMHx of atrial fibrillati on On ASAOn amiodarone 200mg dailyOn fludrocort isone 0.1mg 6 days a weekOn isosorbide ER 60mg dailyOn spironolac tone 25mg dailyOn coumadin INR 05/19/2022 : 2.3, coumadin is 5mg daily except Wed 7.5mg daily, keep same dose and repeat in one monthGet an apt with cardiology , he sees Dr Villareal [facility] [place] 08/25/2022 :Dr Guerra 05/21/2022 , 08/24/2022 , f/u in [address] Belle [place] 11/24/2022 Hyperlipidemia 10617682 E78.5 On rosuvastat in 20mg daily Get labs Chronic pain 25630509 G8 9.29 Not on hydrocodon e 7.5mg tidOn gabapentin 600mg tidDoes well, declines any pain management referrals Restless legs 86743223 G 25.81 On ropinirole 0.5mg one tab in am and 2 in pm Cigarette smoker 4913232 7 F17.210 Advised to quitDeclin es any testing Thyroid st imulating hormone level above reference range 086927981 R94.6 He is on amiodarone Repeat the TSH and FT4Get US thyroid Anemia 213222222 D64.[address] Yo as PLT is also low Adult heal th examination 808809971 Z00.00 Screening for disorder 452848293 Z13.9 Abnormal gait 76245872 R 26.9 [id number] Mindy Pope [facility] 15 [address] [facility] [address] [place] [address] 04/07/2023 12:56:59 04/07/2023 13:06:28 Anticoagulant therapy 932875708 Z79.01 [id number] ARIA Allen [facility] [address] [place] [address] 05/04/2023 16:18:52 05/04/2023 17:50:55 Open wound of right knee [id number] 0385699 S81.001A Wound of R anterior knee covered with dry eschar. No indication for debridemen t today. Recommende d leaving wound open to air, avoid soaking in water but OK to shower and gently cleanse with soap and water. Pat to dry. If concerns arise, contact clinic for appointmen t. Otherwise, anticipate wound healing when scab spontaneou sly falls off wound bed, likely in 1-2 weeks. F/u PRN. [id number] Giovanny felix MD [facility] [place] [address] [facility] [place] [address] [place] [address] 05/06/2023 11:13:49 05/06/2023 11:52:33 Screening - NAD 498730643 Z13.9 C-scope: Cologuard neg in 2020 as per his history Get yearly flu shot, tdapUTD on pneumovax as per old PCP recordsGet shingrixUT D on COVID 19 vaccine and its boosters RTC in 3 monthsDo labsER if worseHe and his did verbalize his understand ing of the above Anticoagulant therapy 18 6708723 Z79.01 08/24/2022 :INR 2.1Repeat in one monthRecei gisela and discussed PT/INR results OV 11/24/2022 :Get labs OV 03/30/2023 :INR is 1.1, he states that he did not take his coumadin for a 2 days, restart the coumadin and repeat the INR in one week OV 05/06/2023 :INR 1.5, increase the coumadin to 5mg daily and repeat the INR in one week Essential hypertension 74872525 I10 S/p PMHx of atrial fibrillati on On ASAOn amiodarone 200mg dailyNot on fludrocort isone 0.1mg 6 days a weekOn isosorbide ER 60mg dailyOn spironolac tone 25mg dailyOn coumadin INR 05/19/2022 : 2.3, coumadin is 5mg daily except Wed 7.5mg daily, keep same dose and repeat in one monthGet an apt with cardiology , he sees Dr Villareal in [facility] Dr Guerra 05/21/2022 , 08/24/2022 , f/u in [address] Belle [place] 11/24/2022 Hyperlipidemia 82823901 E78.5 On rosuvastat in 20mg daily Get labs Chronic pain 87717916 G8 9.29 Not on hydrocodon e 7.5mg tidOn gabapentin 600mg tidDoes well, declines any pain management referrals Restless legs 94912501 G 25.81 On ropinirole 0.5mg one tab in am and 2 in pm Cigarette smoker 2402408 7 F17.210 Advised to quitDeclin es any testing Thyroid st imulating hormone level above reference range 466252798 R94.6 He is on amiodarone Repeat the TSH and FT4 US thyroid 04/14/2023 Anemia 243795728 D64.[address] Yo as PLT is also low Abnormal gait 09255715 R 26.9 Skin lesion 04454219 L98 .9 Noted on the back, raised crusted lesionGet an apt with Dr Hendrix Fall W19.XXXA Missed a step and hit his face and elbows, minor scraped skin on the posterior elbow and also a bruise on the L face, not tenderDecl cecil any CT head or xrays or ER referral, advised to keep area clean and dry and notify if any signs of infection or any other complaints [id number] Niraj eckert MD [facility] General Surgery [address] [place] [address] 1 05/25/2023 12:45:59 05/26/2023 12:23:08 Skin lesion 60702343 L98.9 Left mid back [id number] Niraj eckert MD [facility] General [facility] [address] [facility] [place] [address] 06/08/2023 12:21:09 06/08/2023 13:43:38 Squamous cell carcinoma of skin 013185927 C44.92 Mid back [id number] Giovanny felix MD [facility] Internal Med [facility] [address] 1 06/24/2023 11:29:08 06/24/2023 12:22:03 Screening - NAD 892391528 Z13.9 C-scope: Cologuard neg in 2020 as per his history Get yearly flu shot, tdapUTD on pneumovax as per old PCP recordsGet shingrixUT D on COVID 19 vaccine and its boosters RTC in 3 monthsDo labsER if worseHe and his did verbalize his understand ing of the above Anticoagulant therapy 18 2225122 Z79.08/24/2022 :INR 2.1Repeat in one monthRen higgins and discussed PT/INR results OV 11/24/2022 :Get labs OV 03/30/2023 :INR is 1.1, he states that he did not take his coumadin for a 2 days, restart the coumadin and repeat the INR in one week OV 05/06/2023 :INR 1.5, increase the coumadin to 5mg daily and repeat the INR in one week OV 06/24/2023 : INR 2.1, keep same dose of coumadin and repeat in 4 weeks Essential hypertension 23621630 I10 S/p PMHx of atrial fibrillati on On ASAOn amiodarone 200mg dailyNot on fludrocort isone 0.1mg 6 days a weekOn isosorbide ER 60mg dailyOn spironolac tone 25mg dailyOn coumadin INR 05/19/2022 : 2.3, coumadin is 5mg daily except Wed 7.5mg daily, keep same dose and repeat in one monthGet an apt with cardiology , he sees Dr Vill[facility] in [facility] Dr Guerra 05/21/2022 , 08/24/2022 , f/u in [address] Belle [place] 11/24/2022 Hyperlipidemia 07086877 E78.5 On rosuvastat in 20mg daily Get labs Chronic pain 23045633 G8 9.29 Not on hydrocodon e 7.5mg tidOn gabapentin 600mg tidDoes well, declines any pain management referrals Restless legs 12503294 G 25.81 On ropinirole 0.5mg one tab in am and 2 in pm Cigarette smoker 5598083 7 F17.210 Advised to quitDeclin es any testing Thyroid st imulating hormone level above reference range 672080594 R94.6 He is on amiodarone Repeat the TSH and FT4 US thyroid 04/14/2023 Anemia 456851484 D64.[address] Yo as PLT is also low Skin lesion 80287833 L98 .9 S/p surgery 06/08/2023 [facility] should see dermatolog y also Fall 9696582 W19.XXXA Missed a step and hit his face and elbows, minor scraped skin on the posterior elbow and also a bruise on the L face, not tenderDecl cecil any CT head or xrays or ER referral, advised to keep area clean and dry and notify if any signs of infection or any other complaints [id number] Giovanny felix MD [facility] Internal Med [facility] [address] [facility] [place] [address] [place] [address] 10/28/2023 13:57:20 10/28/2023 14:57:36 Screening - NAD 233663056 Z13.9 C-scope: Cologuard neg in 2020 as per his history Get yearly flu shot, tdapUTD on pneumovax as per old PCP recordsGet shingrixUT D on COVID 19 vaccine and its boosters RTC in 3 monthsDo labsER if worseHe and his did verbalize his understand ing of the above Anticoagulant therapy 18 2365034 Z79.01 08/24/2022 :INR 2.1Repeat in one monthRecei gisela and discussed PT/INR results OV 11/24/2022 :Get labs OV 03/30/2023 :INR is 1.1, he states that he did not take his coumadin for a 2 days, restart the coumadin and repeat the INR in one week OV 05/06/2023 :INR 1.5, increase the coumadin to 5mg daily and repeat the INR in one week OV 06/24/2023 : INR 2.1, keep same dose of coumadin and repeat in 4 weeks Essential hypertension 42777828 I10 S/p PMHx of atrial fibrillati on On ASAOn amiodarone 200mg dailyNot on fludrocort isone 0.1mg 6 days a weekOn isosorbide ER 60mg dailyOn spironolac tone 25mg dailyOn coumadin INR 05/19/2022 : 2.3, coumadin is 5mg daily except Wed 7.5mg daily, keep same dose and repeat in one monthGet an apt with cardiology , [facility] Vill[facility] Guerra 05/21/2022 , 08/24/2022 , f/u in [address] Belle [place] 11/24/2022 Hyperlipidemia 93552804 E78.5 On rosuvastat in 20mg daily Get labs Chronic pain 27663056 G8 9.29 Not on hydrocodon e 7.5mg tidOn gabapentin 600mg tidDoes well, declines any pain management referrals Restless legs 18096841 G 25.81 On ropinirole 0.5mg one tab in am and 2 in pm Cigarette smoker 0027616 7 F17.210 Advised to quitDeclin es any testing Thyroid st imulating hormone level above reference range 328568169 R94.6 He is on amiodarone Repeat the TSH and FT4 thyroid 04/14/2023 Anemia 695536570 D64.[address] Caridad aldana with vit B12 Skin lesion 70349550 L98 .9 S/p surgery 06/08/2023 [facility] should see dermatolog y also Fall W19.XXXA Missed a step and hit his face and elbows, minor scraped skin on the posterior elbow and also a bruise on the L face, not tenderDecl cecil any CT head or xrays or ER referral, advised to keep area clean and dry and notify if any signs of infection or any other complaints OV 10/28/2023 : S/p 2 falls, no injury, denies any complaints , no LOC or head trauma Thrombocyt openic disorder 380412750 D69.6 Dr Yo 09/03/2023 S/p US abd 08/31/2023 Persistent insomnia 1919 70770 G47.09 Start on zolpidem 5mg daily PRN, all side effects explained to him and his and discussed healthy sleep hygeine Hyperglycemia 43535246 R 73.9 Get labsNot on any meds [id number] Jennifer Overton DPM [facility] Podiatry [facility] [address] [address] 11/04/2023 11:23:07 05/18/2024 12:04:32 [id number] Giovanny felix MD [facility] Internal Med [facility] 2043 [facility], [facility] [address] [place] [address] 01/25/2024 14:05:48 01/25/2024 15:15:45 Screening - NAD 413573436 Z13.9 C-scope: Cologuard neg in 2020 as per his history Get yearly flu shot, tdapUTD on pneumovax as per old PCP recordsGet shingrixUT D on COVID 19 vaccine and its boostersGe t RSV vaccine RTC in 3 monthsDo labsER if worseHe and his did verbalize his understand ing of the above Anticoagulant therapy 18 5188882 Z79.01 08/24/2022 :INR 2.1Repeat in one monthRecei gisela and discussed PT/INR results OV 11/24/2022 :Get labs OV 03/30/2023 :INR is 1.1, he states that he did not take his coumadin for a 2 days, restart the coumadin and repeat the INR in one week OV 05/06/2023 :INR 1.5, increase the coumadin to 5mg daily and repeat the INR in one week OV 06/24/2023 : INR 2.1, keep same dose of coumadin and repeat in 4 weeks OV 01/25/2024 : INR 2.3, next in one month Essential hypertension 34977512 I10 S/p PMHx of atrial fibrillati on On ASAOn amiodarone 200mg daily, may need to stop d/t his TSH being high, d/w cardiology Not on fludrocort isone 0.1mg 6 days a weekOn isosorbide ER 60mg dailyOn spironolac tone 25mg dailyOn coumadin INR 05/19/2022 : 2.3, coumadin is 5mg daily except Wed 7.5mg daily, keep same dose and repeat in one monthGet an apt with cardiology , he sees Dr Villareal in [facility] Dr Guerra 05/21/2022 , 08/24/2022 , f/u in [address] Belle [place] 11/24/2022 Get another apt Hyperlipidemia 07577156 E78.5 On rosuvastat in 40mg daily, more diet and exercise Get labs Chronic pain 55647505 G8 9.29 Not on hydrocodon e 7.5mg tidOn gabapentin 600mg tidDoes well, declines any pain management referrals Restless legs 90910171 G 25.81 On ropinirole 0.5mg one tab in am and 2 in pm Cigarette smoker 4494914 7 F17.210 Advised to quitDeclin es any testing Thyroid st imulating hormone level above reference range 048750661 R94.6 He is on amiodarone Repeat the TSH and FT4 thyroid 04/14/2023 Anemia 283997117 D64.[address] Caridad aldana with vit B12 Skin lesion 68577136 L98 .9 S/p surgery 06/08/2023 [facility] should see dermatolog y also Fall W19.XXXA Missed a step and hit his face and elbows, minor scraped skin on the posterior elbow and also a bruise on the L face, not tenderDecl cecil any CT head or xrays or ER referral, advised to keep area clean and dry and notify if any signs of infection or any other complaints OV 10/28/2023 : S/p 2 falls, no injury, denies any complaints , no LOC or head trauma Thrombocyt openic disorder 481878241 D69.6 Dr Yo 09/03/2023 S/p US abd 08/31/2023 Persistent insomnia 1918 34268 G47.09 Not taking zolpidem 5mg daily PRN, does not want any meds at this time 01/25/2024 , did discuss sleep hygiene, he does consume beers advised to cut back and stop Hyperglycemia 25206356 R 73.9 Get labsNot on any meds [id number] ARIA Castillo [facility] [place] [address] [place] [address] 04/14/2024 09:50:43 04/14/2024 10:52:30 Pain in right hand 7312925415 50652 M79.641 Closed fra cture finger proximal phalanx, base 010107811 S62.511A S62.612A [id number] ARIA Castillo [facility] [place] [address] [place] [address] 04/24/2024 09:41:43 04/24/2024 10:38:10 Pain in right hand 8978754050 31062 M79.641 Closed fra cture finger proximal phalanx, base 624560764 S62.511D S62.612D [id number] Jennifer Overton DPM [facility] Podiatry [facility] [address], [facility] [address] [place] [address] 05/08/2024 11:39:16 05/09/2024 09:21:25 [id number] ARIA Castillo [facility]o [place] [address] [place] [address] 05/18/2024 13:58:35 05/18/2024 14:34:52 Closed fracture finger proximal phalanx, base 690001969 S62.511D S62.612D Pain in right hand 76304 38634 44496 M79.420 [id number] Giovanny felix MD [facility] Internal Med [facility] [address] [facility] [place] [address] 06/01/2024 16:37:30 06/01/2024 17:29:13 Screening - NAD 735364604 Z13.9 C-scope: Cologuard neg in 2020 as per his history Get yearly flu shot, tdapUTD on pneumovax as per old PCP recordsGet shingrixUT D on COVID 19 vaccine and its boostersGe t RSV vaccine RTC in 3 monthsDo labsER if worseHe and his did verbalize his understand ing of the above Anticoagulant therapy 18 3296961 Z79.01 08/24/2022 :INR 2.1Repeat in one monthRecei gisela and discussed PT/INR results OV 11/24/2022 :Get labs OV 03/30/2023 :INR is 1.1, he states that he did not take his coumadin for a 2 days, restart the coumadin and repeat the INR in one week OV 05/06/2023 :INR 1.5, increase the coumadin to 5mg daily and repeat the INR in one week OV 06/24/2023 : INR 2.1, keep same dose of coumadin and repeat in 4 weeks OV 01/25/2024 : INR 2.3, next in one month OV 06/01/2024 : 4: INR 2.7 Essential hypertension 01432433 I10 S/p PMHx of atrial fibrillati on On ASAOn amiodarone 200mg daily, february need to stop d/t his TSH being high, d/w cardiology , now on 100mg daily 06/01/2024 Not on fludrocort isone 0.1mg 6 days a weekOn isosorbide ER 60mg dailyOn spironolac tone 25mg dailyOn coumadin INR 05/19/2022 : 2.3, coumadin is 5mg daily except Wed 7.5mg daily, keep same dose and repeat in one monthGet an apt with cardiology , [facility] Vill[facility] Guerra 05/21/2022 , 08/24/2022 , f/u in [address] Belle [place] 11/24/2022 Get another apt, referred 06/01/2024 Hyperlipidemia 65481447 E78.5 On rosuvastat in 40mg daily, more diet and exercise Get labs Chronic pain 53451559 G8 9.29 Not on hydrocodon e 7.5mg tidOn gabapentin 600mg tidDoes well, declines any pain management referrals Restless legs 86140791 G 25.81 On ropinirole 0.5mg one tab in am and 2 in pm Cigarette smoker 2574065 7 F17.210 Advised to quitDeclin es any testing Thyroid st imulating hormone level above reference range 992069733 R94.6 He is on amiodarone Repeat the TSH and FT4 thyroid 04/14/2023 Anemia 270239654 D64.[address] Mclean jovan with vit B12 Skin lesion 27739792 L98 .9 S/p surgery 06/08/2023 [facility] should see dermatolog y also Fall 4466699 W19.XXXA Missed a step and hit his face and elbows, minor scraped skin on the posterior elbow and also a bruise on the L face, not tenderDecl cecil any CT head or xrays or ER referral, advised to keep area clean and dry and notify if any signs of infection or any other complaints OV 10/28/2023 : S/p 2 falls, no injury, denies any complaints , no LOC or head trauma Thrombocyt openic disorder 329499552 D69.6 Dr Yo 09/03/2023 S/p US abd 08/31/2023 Persistent insomnia 1919 03763 G47.09 Not taking zolpidem 5mg daily PRN, does not want any meds at this time 01/25/2024 , did discuss sleep hygiene, he does consume beers advised to cut back and stop Hyperglycemia 10313832 R 73.9 Get labsNot on any meds Closed fra cture finger proximal phalanx, base 156532342 S62.619A S/p [place] KNAPP 06/01/2024 , s/p xray [id number] ARIA [facility] [address] [place] [address] 06/01/2024 10:03:25 06/01/2024 11:14:06 Closed fracture finger proximal phalanx, base [id number] S62.511D S62.612D Pain in right hand 41433 20625 84624 M79.897 [id number] ARIA Allen [facility] [address] [place] [address] 06/27/2024 15:38:37 06/27/2024 17:32:54 Open wound of left ankle [id number] [id number] S91.002A Will apply gentian jerome daily to wound bed. Cleanse gently and pat dry. Cover with dry gauze. Will oder venous US and arterial studies with ABIs to evaluate for vascular disease. Patient to f/u in 3 weeks. [id number] HANNAH [facility] [address] [place] [address] 07/17/2024 11:30:51 07/17/2024 13:49:10 Open wound of left ankle [id number] 3874438 S91.002A [id number] Giovanny felix MD [facility] [address] [facility], [facility] [address] [place] [address] 08/24/2024 13:59:52 08/24/2024 15:20:29 Adult health examination 131468821 Z00.00 Screening for disorder 027020187 Z13.9 Screening - NAD 13013124 3 Z13.9 C-scope: Cologuard neg in 2020 as per his history Get yearly flu shot, tdapUTD on pneumovax as per old PCP recordsGet shingrixUT D on COVID 19 vaccine and its boostersGe t RSV vaccine RTC in 3 monthsDo labsER if worseHe and his did verbalize his understand ing of the above Anticoagulant therapy 18 6293567 Z79.01 08/24/2022 :INR 2.1Repeat in one monthRecei gisela and discussed PT/INR results OV 11/24/2022 :Get labs OV 03/30/2023 :INR is 1.1, he states that he did not take his coumadin for a 2 days, restart the coumadin and repeat the INR in one week OV 05/06/2023 :INR 1.5, increase the coumadin to 5mg daily and repeat the INR in one week OV 06/24/2023 : INR 2.1, keep same dose of coumadin and repeat in 4 weeks OV 01/25/2024 : INR 2.3, next in one month OV 06/01/2024 :: INR 2.7 Essential hypertension 39354123 I10 S/p PMHx of atrial fibrillati on On ASAOn amiodarone 200mg daily, may need to stop d/t his TSH being high, d/w cardiology , now on 100mg daily 06/01/2024 Not on fludrocort isone 0.1mg 6 days a weekOn isosorbide ER 60mg dailyOn spironolac tone 25mg dailyOn coumadin INR 05/19/2022 : 2.3, coumadin is 5mg daily except Wed 7.5mg daily, keep same dose and repeat in one monthGet an apt with cardiology , he sees Dr Villareal in [facility] Dr Guerra 05/21/2022 , 08/24/2022 , f/u in [address] Belle [place] 11/24/2022 Get another apt, referred 06/01/2024 Hyperlipidemia 06774882 E78.5 On rosuvastat in 40mg daily, more diet and exercise Get labs Chronic pain 74195296 G8 9.29 Not on hydrocodon e 7.5mg tidOn gabapentin 600mg tidDoes well, declines any pain management referrals Restless legs 44402703 G 25.81 On ropinirole 0.5mg one tab in am and 2 in pm Cigarette smoker 9052321 7 F17.210 Advised to quitDeclin es any testing Thyroid st imulating hormone level above reference range 096618344 R94.6 He is on amiodarone Repeat the TSH and FT4 thyroid 04/14/2023 Anemia 525070754 D64.[address] Mclean jovan with vit B12 Skin lesion 16786878 L98 .9 S/p surgery 06/08/2023 [facility] should see dermatolog y also Fall W19.XXXA Missed a step and hit his face and elbows, minor scraped skin on the posterior elbow and also a bruise on the L face, not tenderDecl cecil any CT head or xrays or ER referral, advised to keep area clean and dry and notify if any signs of infection or any other complaints OV 10/28/2023 : S/p 2 falls, no injury, denies any complaints , no LOC or head trauma Thrombocyt openic disorder 343812184 D69.6 Dr Yo 09/03/2023 S/p US abd 08/31/2023 Persistent insomnia 1919 29343 G47.09 Not taking zolpidem 5mg daily PRN, does not want any meds at this time 01/25/2024 , did discuss sleep hygiene, he does consume beers advised to cut back and stop Hyperglycemia 53788174 R 73.9 Get labsNot on any medsDeclin ed 08/24/2024 Closed fra cture finger proximal phalanx, base 544071481 S62.619A S/p Chano KNAPP 06/01/2024 , s/p xray Open wound of left ankle [id number] 8027825 S91.002A Still has a wound on the L medial ankle, weeping, not tender about 1/2 inch in diameter, refer to wound clinic [id number] ARIA Allen [facility] [address] [place] [address] 09/05/2024 16:12:31 09/05/2024 18:27:51 Open wound of left ankle 3022585929 2881901 S91.002A Patient allergic to iodine. Will apply daily collagen with adaptic/aq uacel pad for drainage absorption . Moderate drainage of the wound. Apparently no vascular interventi on was done, but will request records from [facility], [facility] . Patient reports he has an echo upcoming for cardiac evaluation . Thinks last EF may have been in the 30s. 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 Patient to f/u in 3 weeks. [id number] ARIA Allen [facility] [address] [place] [address] 09/19/2024 15:26:06 09/19/2024 16:19:11 Open wound of left ankle 7296164976 7161873 S91.002A Patient allergic to iodine. Will apply daily collagen with adaptic/aq uacel pad for drainage absorption . Moderate drainage of the wound. According to vascular, arteries are patent, but cardiac function is poor and is leading to poor distal flow of extremitie s. This is not new. Wound continues to slowly progress despite poor blood flow.New skin discolorat ion near wound; nontender whatsoever . Dermatitis vs. DTPI. Exam findings inconsiste nt. May be reactive d/t adhesive on new bandages. Will avoid tape and use kerlix roll with gauze for now. F/u here in two weeks.If wound or skin discolorat ion worsens, contact me immediatel y or go seek medical attention. Considered xrays today, but patient strongly prefers to avoid. However, agreed to call for imaging if not improved by the end of this week. [id number] Giovanny felix MD [facility] [place] [address] [facility] [address] [place] [address] 10/24/2024 10:59:48 10/24/2024 11:57:22 Screening - NAD 937761872 Z13.9 C-scope: Cologuard neg in 2020 as per his history Get yearly flu shot, tdapUTD on pneumovax as per old PCP recordsGet shingrixUT D on COVID 19 vaccine and its boostersGe t RSV vaccine RTC in 1 monthDo labsER if worseHe and his did verbalize his understand ing of the above Anticoagulant therapy 18 8003592 Z79.01 08/24/2022 :INR 2.1Repeat in one monthRadhaei gisela and discussed PT/INR results OV 11/24/2022 :Get labs OV 03/30/2023 :INR is 1.1, he states that he did not take his coumadin for a 2 days, restart the coumadin and repeat the INR in one week OV 05/06/2023 :INR 1.5, increase the coumadin to 5mg daily and repeat the INR in one week OV 06/24/2023 : INR 2.1, keep same dose of coumadin and repeat in 4 weeks OV 01/25/2024 : INR 2.3, next in one month OV 06/01/2024 : 4: INR 2.7 10/24/2024 :INR 4.2, do not take coumdain for today or tomorrowRe peat the INR on Essential hypertension 81359211 I10 S/p PMHx of atrial fibrillati on On ASAOn amiodarone 200mg daily, may need to stop d/t his TSH being high, d/w cardiology , now on 100mg daily 06/01/2024 Not on fludrocort isone 0.1mg 6 days a weekOn isosorbide ER 60mg dailyOn spironolac tone 25mg dailyOn coumadin INR 05/19/2022 : 2.3, coumadin is 5mg daily except Wed 7.5mg daily, keep same dose and repeat in one monthGet an apt with cardiology , he sees Dr Villareal in [facility] Dr Guerra 05/21/2022 , 08/24/2022 , f/u in [address] Belle [place] 11/24/[address] Odonnell 10/24/2024 Hyperlipidemia 98712605 E78.5 On rosuvastat in 40mg daily, more diet and exercise Get labs Chronic pain 64794122 G8 9.29 Not on hydrocodon e 7.5mg tidOn gabapentin 600mg tidDoes well, declines any pain management referrals Restless legs 27812880 G 25.81 On ropinirole 0.5mg one tab in am and 2 in pm Cigarette smoker 4628425 7 F17.210 Advised to quitDeclin es any testing Thyroid st imulating hormone level above reference range 845239472 R94.6 He is on amiodarone Repeat the TSH and FT4 thyroid 04/14/2023 Anemia 952140643 D64.[address] Caridad aldana with vit B12 Skin lesion 30542505 L98 .9 S/p surgery 06/08/2023 [facility] should see dermatolog y also Fall W19.XXXA Missed a step and hit his face and elbows, minor scraped skin on the posterior elbow and also a bruise on the L face, not tenderDecl cecil any CT head or xrays or ER referral, advised to keep area clean and dry and notify if any signs of infection or any other complaints OV 10/28/2023 : S/p 2 falls, no injury, denies any complaints , no LOC or head trauma Thrombocyt openic disorder 913463963 D69.6 Dr Yo 09/03/2023 S/p US abd 08/31/2023 Persistent insomnia 1919 23088 G47.09 Not taking zolpidem 5mg daily PRN, does not want any meds at this time 01/25/2024 , did discuss sleep hygiene, he does consume beers advised to cut back and stop Hyperglycemia 99917111 R 73.9 Get labsNot on any medsDeclin ed 08/24/2024 Closed fra cture finger proximal phalanx, base 569127920 S62.619A S/p [place]ano KNAPP 06/01/2024 , s/p xray Open wound of left ankle 7606678171 5781493 S91.002A Still has a wound on the L medial ankle, weeping, not tender about 1/2 inch in diameter, refer to wound clinic 07/17/2024 : Keila KNAPP vascular [id number]: Indiana Odonnell MD vascular [id number]: Kyra Lorenzana MD vascular [id number]/2023: Addison KNAPP, wound clinic Closed fra cture of hip 548838817 S72.002A S/p surgery by Dr Erin Frederick ortho Health Concerns Section Related Observation LastModified by Organization Detai ls LastModified Time None Recorded Concern Status LastModified by Organization Details LastModified Time None Recorded Advance Directives Directive N: Payers Encounter Date Sequence Insurance Name Policy Number Policy Zapata Covered Member ID Zapata Member ID Guarantor Name 07/17/2024 1 [place] Doc Raderuehl [id number] 1 Doc Ruiz Ambuehl 07/17/2024 2 [employer] - SENIOR SERVICES PLAN F (MEDICARE SUPPLEMENT) [id number] Doc Ruiz Ambuehl [id number] Doc Ruiz Ambuehl 08/24/2024 1 [place] Doc Ruiz Ambuehl [id number] 1 Cassylbert Joseph Ambuehl 08/24/2024 2 [employer] - SENIOR SERVICES PLAN F (MEDICARE SUPPLEMENT) [id number] Doc Ruiz Ambuehl [id number] Stevanbert Joseph Ambuehl 09/05/2024 1 [place] Doc Ruiz Ambuehl [id number] 1 Stevanbert Joseph Ambuehl 09/05/2024 2 [employer] - SENIOR SERVICES PLAN F (MEDICARE SUPPLEMENT) [id number] Doc Ruiz Ambuehl [id number] Stevanbert Joseph Ambuehl 09/19/2024 1 [place] Stevanparveen Joseph Ambuehl [id number] 1 Stevanbert Joseph Ambuehl 09/19/2024 2 [employer] - SENIOR SERVICES PLAN F (MEDICARE SUPPLEMENT) [id number] Doc Ruiz Ambuehl [id number] Doc Ruiz Ambuehl 10/24/2024 1 [place] Doc Ruiz Ambuehl [id number] 1 Stevanbert Joseph Ambuehl 10/24/2024 2 [employer] - SENIOR SERVICES PLAN F (MEDICARE SUPPLEMENT) [id number] Doc Ruiz Ambuehl [id number] Doc Ruiz Ambuehl Notes Date Note Type Note Provider Name and Address Organization Details Recorded Time 07/17/2024 text/html Patient is a 84 year old male who presents with a left ankle wound that has been present for a few years. Patient shares that the wound started as a small white pimple but then developed into a larger wound after a dog licked the ankle. Patient denies fever, sob, n/v/d, chest pain or chills. There is no dishrage or odor from the site of the wound. The wound was clean to dry and bandaged up. Patient was advised that the next step based off his imaging results would be a diagnostic angiogram. Patient was hesitant to complete the angiogram here. No other immediate issues at this time. Keila Degroot PA-C [address], [address], [place], [address], [facility] [employer] [facility] 07/17/2024 12:47:53 08/24/2024 text/html OV 05/19/2022:He re to establish [facility] Hx:A.fib/OR/CADHLDSm [facility] social family and surgical historyHere to discuss aboveGet labsOV 08/25/2022:Here for his f/u apt, he feels well, he did do the labs on 08/12/2022 OV 12/22/2022:Here for his f/u apt, he is doing well, he is here with his Carlos OV 03/30/2023:Here for his f/u apt and to check his INR, he is here with his OV 05/06/2023: Here for his f/u apt, he did fall, no acute complaints, he is here with his , did hurt his elbows OV 06/24/2023: Here for his f/u apt, he is doing well today, here with his Carlos OV 10/28/2023: Here for his routine apt, he does well today, here with his OV 01/25/2024L here for his f/u apt, he is doing well, he is here with his Carlos OV 06/01/2024: Here for his f/u apt, he is here with his , he feels well OV 08/30/2024: Here for his f/u apt, he is doing very well now, he is here with his Giovanny Mercado MD [address], [address], [place], [address], [facility] [employer] [facility] 08/30/2024 16:08:39 09/05/2024 text/html Patient presents to clinic for f/u of wound of L medial ankle. Contiues to persist. Angiogram apparently revealed no abnormalities, according to patient. He states they didn't need to do anyting when the went in to take a look, so they think my heart may not be working so well. Echo scheduled later this month. No constitutional symptoms. Some drainage. ARIA Allen [address], [place], [address], [facility] [employer] [facility] 09/05/2024 18:30:21 09/19/2024 text/html Patient presents to clinic for f/u of wound of L medial ankle. Wound has improved, but there is a region of redness in a crescent shape around the medial/posterior wound aspect. Not bordering the wound. No new shoes. No injury. Nontender. Concerned it began when they started using this new type of tape.Poor Cardiac function.Echo scheduled later this month. No constitutional symptoms. ARIA Allen [address], [address], [place], [address], [facility] [employer] [facility] 09/19/2024 16:27:15 10/24/2024 text/html OV 05/19/2022:He re to establish [facility] Hx:A.fib/OR/CADHLDSm [facility] social family and surgical historyHere to discuss aboveGet labsOV 08/25/2022:Here for his f/u apt, he feels well, he did do the labs on 08/12/2022 OV 12/22/2022:Here for his f/u apt, he is doing well, he is here with his Carlos OV 03/30/2023:Here for his f/u apt and to check his INR, he is here with his OV 05/06/2023: Here for his f/u apt, he did fall, no acute complaints, he is here with his , did hurt his elbows OV 06/24/2023: Here for his f/u apt, he is doing well today, here with his Carlos OV 10/28/2023: Here for his routine apt, he does well today, here with his OV 01/25/2024L here for his f/u apt, he is doing well, he is here with his Carlos OV 06/01/2024: Here for his f/u apt, he is here with his , he feels well OV 08/30/2024: Here for his f/u apt, he is doing very well now, he is here with his OV 10/24/2024: Here for his f/u apt, he is doing well, s/p surgery for his L hip, s/p fall, is doing well today, here with his , he is also here to do his INR Giovanny Mercado MD [address] [place] [address], [facility] [address], [place], [address], [facility] 10/31/2024 11:09:38
--- OUTSIDE RECORDS SUMMARY | 2024-11-20 14:27 | XMS_ITS | Encounter Summary ---
Author Organization [facility] Address [address] [place] [address] Care Team Providers Care Configuration Technician Name Role Phone Ever Mercado MD Primary Care Provider Reason for Visit * Reason Onset Date Comments MEDICATION REFILL 01/28/2023 Encounter Details Date Type Department Care Team (Late st Contact Info) Description 01/28/2023 Refill [facility] [address] [address] Indiana Odonnell MD [address] [address] MEDICATION REFILL Social History Tobacco Use Types Packs/Day Years Used Date Smoking Tobacco: Never Smokeless Tobacco: Never Sex and Gender Information Value Date Recorded Sex Assigned at Not on file Gender Identity Not on file Sexual Orientation Not on file documented as of this encounter Plan of Treatment Upcoming Encounters Date Type Department Care Team (Late Contact Info) Description 11/23/2024 11:20 AM VOICE INTERCEPT TECHNICIAN Office Visit [facility] [address], [address] [phone] Indiana Odonnell MD [address] [address] 01/11/2025 1:10 AM CDT Clinical Support [facility] - [facility] [address] [facility] [place] [address] 04/12/2025 1:00 AM CDT Clinical Support [facility] - [facility] [address] [facility] [place] [address] documented as of this encounter Visit Diagnoses Not on filedocumented in this encounter Care Teams Configuration Technician Relationship Specialty Start Date End Date Ever Mercado MD [facility] [address] [place] [phone] PCP - General 05/21/22 documented as of this encounter
== END 2024-11-20 13:27 | disposition home or self-care (01) ==
LOC: HOME HLTH 13:28
PROVIDERS: PCP Internal Medicine; Visit Provider Internal Medicine
DX: S72.142D Displaced intertrochanteric fracture of left femur, subsequent encounter for closed fracture with routine healing (principal); X58.XXXD Exposure to other specified factors, subsequent encounter; I87.2 Venous insufficiency (chronic) (peripheral); L97.321 Non-pressure chronic ulcer of left ankle limited to breakdown of skin; I50.22 Chronic systolic (congestive) heart failure; I48.0 Paroxysmal atrial fibrillation
CPT/HCPCS: 85610

== ENCOUNTER 2025-07-17 13:35 | Outpatient (CLI) | payer OTHER, SELFPAY ==
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
== END 2025-07-17 13:36 | disposition home or self-care (01) ==
PROVIDERS: PCP Internal Medicine; Visit Provider Chiropractor Rehabilitation
DX: M47.892 Other spondylosis, cervical region (principal)
CPT/HCPCS: 72052